=== PATIENT | female | born 1940 | race Caucasian/White ===

== ENCOUNTER 2018-03-07 05:19 | Inpatient (IN) ==
--- NOTE | 2018-03-07 05:25 | ED ---
HPI General Chief complaint: Medical Clearance Stated complaint: BFL issues Time Seen by Provider: 03/07/18 05:20 Source: EMS and police Mode of arrival: EMS Limitations: other History of Present Illness HPI narrative: Patient was [place] acted by Sonia CANO 4 not wanting to take her medications and having a blood sugar of critical high. patient is thirsty Onset (ago): unknown Relieving factors: none Exacerbating factors: none Associated symptoms: denies other symptoms Treatments prior to arrival: none Related Data Home Medications Medication Instructions Recorded Confirmed insulin aspart U-100 [Novolog 14 sliding scale dose SUB-Q UD 03/07/18 03/07/18 U-100 Insulin aspart] insulin glargine [Lantus U-100 38 unit SUB-Q DAILY 03/07/18 03/07/18 Insulin] levothyroxine 300 mcg PO DAILY 03/07/18 03/07/18 Allergies Allergy/AdvReac Type Severity Reaction Status Date / Time No Allergy Information Allergy Verified 03/07/18 05:38 Available [facility] Medical History Medical History Diabetes (Acute) Surgical History Surgical History Hx of cholecystectomy (Acute) Social History Social History Substance History: No History of Abuse Second Hand Smoke Exposure: No Smoking Status: Former smoker How Often Do You Have a Drink Containing Alcohol: Never Recent Travel in [place] within the Last 8 Weeks: No Recent Out of Country Travel within the Last 8 Weeks: No Exam Narrative Exam Narrative: GENERAL: Elderly in distress SKIN: Warm and dry. HEAD: Atraumatic. Normocephalic. EYES: Pupils equal and round. No scleral icterus. No injection or drainage. ENT: No nasal bleeding or discharge. Mucous membranes pink and moist. NECK: Trachea midline. No JVD. CARDIOVASCULAR: Tachycardic rate regular rhythm . no rubs or gallops RESPIRATORY: No accessory muscle use. Clear to auscultation. Breath sounds equal bilaterally. However the patient was tachypneic, consistent with Kussmaul breathing GASTROINTESTINAL: Abdomen soft, non-tender, nondistended. No rebound or guarding MUSCULOSKELETAL: Extremities without clubbing, cyanosis, or edema. No obvious deformities. NEUROLOGICAL: Awake and alert. No obvious cranial nerve deficits. Motor grossly within normal limits. Five out of 5 muscle strength in the arms and legs. Normal speech. Course Initial Documented Vital Signs Pulse Rate 97 H 03/07/18 05:22 Respiratory Rate 22 03/07/18 05:22 Blood Pressure 120/54 L 03/07/18 05:22 Pulse Oximetry 100 03/07/18 05:22 Last Documented Vital Signs Pulse Rate 100 H 03/07/18 06:11 Respiratory Rate 20 03/07/18 06:11 Blood Pressure 104/63 03/07/18 06:11 Pulse Oximetry 100 03/07/18 06:11 Critical Care Time Critical Care Time: Yes Total Critical Care Time: 60 Attestation: Aggregate critical care time was 60 minutes. Time to perform other separately billable procedures was not included in the critical care time. My time did not include minutes spent treating any other patients simultaneously or on activities that did not directly contribute to the patient's treatment. The services I provided to this patient were to treat and/or prevent clinically significant deterioration that could result in: Further metabolic deterioration, acidosis and I provided critical care services requiring my management, as noted below: Chart data review, documentation time, medication orders and management, vital sign assessments/reviewing monitor data, ordering and reviewing lab tests, ordering and interpreting/reviewing x-rays and diagnostic studies, care of the patient and discussion of the patient with the admitting physicians. Medical Decision Making MDM Narrative Medical decision making narrative: Patient's bedside Accu-Chek read as high, which is generally greater than 600. Patient's ABG showed pH of 7.094, PCO2 of 9.3, PaO2 143 on room air all consistent with metabolic acidosis. CBC shows 17,000 leukocytosis with 83% neutrophilia hemoglobin of 11 hematocrit of 37 megaloblastic doses of MCV of 104 Chemistry shows sodium of hyponatremia 130, chloride of 92 bicarb of 5 anion gap of 33 BUN of 48 creatinine of 2.17, estimated GFR 22, random glucose 683, LFTs normal lipase normal. Troponin elevated at 1.28, Beta hydroxybutyrate acid 12 Chest x-ray read by radiologist as no evidence of acute cardiopulmonary disease Medical Screen Exam Complete: Yes Emergency Medical Condition: Yes Differential Diagnosis Differential Diagnosis: Hyperglycemia versus DKA versus hyperosmolar Medical Records Medical records reviewed: Yes I reviewed the patient's medical records. Lab Data Result diagrams: 03/07/18 05:30 03/07/18 05:30 Lab Results 03/07/18 03/07/18 03/07/18 Range/Units 05:22 05:24 05:30 WBC 17.3 H (4.0-11.0) th/mm3 RBC 3.54 L (4.00-5.30) mil/mm3 Hgb 11.2 L (11.6-15.3) gm/dL Hct 36.9 (35.0-46.0) % MCV 104.1 H (80.0-100.0) fL MCH 31.6 (27.0-34.0) pg MCHC 30.3 L (32.0-36.0) % RDW 14.7 (11.6-17.2) % Plt Count 336 (150-450) th/mm3 MPV 8.2 (7.0-11.0) fL Neut % (Auto) 82.6 H (16.0-70.0) % Lymph % (Auto) 8.4 L (9.0-44.0) % [place] % (Auto) 8.2 H (0.0-8.0) % Eos % (Auto) 0.1 (0.0-4.0) % Baso % (Auto) 0.7 (0.0-2.0) % Neut # (Auto) 14.3 H (1.8-7.7) th/mm3 Lymph # (Auto) 1.5 (1.0-4.8) th/mm3 [place] # (Auto) 1.4 H (0.0-0.9) th/mm3 Eos # (Auto) 0.0 (0.0-0.4) th/mm3 Baso # (Auto) 0.1 (0.0-0.2) th/mm3 WBC Differential . Differential Comment Auto diff final Puncture Site Right radial Patient Temperature 98.6 O2 Saturation 95 (90-100) % ABG pH 7.09 L* (7.380-7.420) ABG pCO2 9 L* (38-42) mmHg ABG pO2 143 H (61-120) mmHg ABG HCO3 3 L* (22-26) mmol/L ABG O2 Content 14.1 (12.0-20.0) Vol % ABG Base Excess -26.0 L (-2-2) mmol/L ABG Methemoglobin 1.2 (0-2) % Louie Test Present Hemoglobin 10.4 L (12.0-16.0) G/DL Carboxyhemoglobin 1.4 (0-4) % O2 Delivery Device Room air Inspired O2 21 % Critical Value Yes Sodium (136-145) meq/L Potassium (3.5-5.1) meq/L Chloride (98-107) meq/L Carbon Dioxide (21.0-32.0) meq/L Anion Gap (5-15) meq/L BUN (7-18) mg/dL Creatinine (0.50-1.00) mg/dL Estimated GFR (>89) mL/min POC Glucose Greater than 600 H* (68-110) mg/dl Random Glucose (74-106) mg/dL Osmolality (275-295) mosm/kg Calcium (8.5-10.1) mg/dL Total Bilirubin (0.2-1.0) mg/dL AST (15-37) U/L ALT (10-53) U/L Alkaline Phosphatase (45-117) U/L Troponin I (0.02-0.05) ng/mL Total Protein (6.4-8.2) g/dL Albumin (3.4-5.0) g/dL Lipase (73-393) U/L Beta-Hydroxybutyric Acd (0.00-0.39) mmol/L Urine Color (Yellw/Straw) Urine Clarity (Clear) Urine pH (5.0-8.5) Ur Specific [place] (1.002-1.035) Urine Protein (Neg-Trace) mg/dL Urine Glucose (UA) (Negative) mg/dL Urine Ketones (Negative) mg/dL Urine Occult Blood (Negative) Urine Nitrate (Negative) Urine Bilirubin (Negative) Urine Urobilinogen (Less than 2) mg/dL Ur Leukocyte Esterase (Negative) Urine RBC (0-3) /hpf Urine WBC (0-5) /hpf Urine Bacteria (None) /hpf Urine Mucus (Occasional) /lpf Micro UA Comment Ur Microscopic Review Urine Culture Comments 03/07/18 03/07/18 Range/Units 05:30 06:00 WBC (4.0-11.0) th/mm3 RBC (4.00-5.30) mil/mm3 Hgb (11.6-15.3) gm/dL Hct (35.0-46.0) % MCV (80.0-100.0) fL MCH (27.0-34.0) pg MCHC (32.0-36.0) % RDW (11.6-17.2) % Plt Count (150-450) th/mm3 MPV (7.0-11.0) fL Neut % (Auto) (16.0-70.0) % Lymph % (Auto) (9.0-44.0) % [place] % (Auto) (0.0-8.0) % Eos % (Auto) (0.0-4.0) % Baso % (Auto) (0.0-2.0) % Neut # (Auto) (1.8-7.7) th/mm3 Lymph # (Auto) (1.0-4.8) th/mm3 [place] # (Auto) (0.0-0.9) th/mm3 Eos # (Auto) (0.0-0.4) th/mm3 Baso # (Auto) (0.0-0.2) th/mm3 WBC Differential Differential Comment Puncture Site Patient Temperature O2 Saturation (90-100) % ABG pH (7.380-7.420) ABG pCO2 (38-42) mmHg ABG pO2 (61-120) mmHg ABG HCO3 (22-26) mmol/L ABG O2 Content (12.0-20.0) Vol % ABG Base Excess (-2-2) mmol/L ABG Methemoglobin (0-2) % Louie Test Hemoglobin (12.0-16.0) G/DL Carboxyhemoglobin (0-4) % O2 Delivery Device Inspired O2 % Critical Value Sodium 130 L (136-145) meq/L Potassium 4.8 (3.5-5.1) meq/L Chloride 92 L (98-107) meq/L Carbon Dioxide 5.0 L (21.0-32.0) meq/L Anion Gap 33 H (5-15) meq/L BUN 48 H (7-18) mg/dL Creatinine 2.17 H (0.50-1.00) mg/dL Estimated GFR 22 L (>89) mL/min POC Glucose (68-110) mg/dl Random Glucose 683 H* (74-106) mg/dL Osmolality 337 H (275-295) mosm/kg Calcium 8.7 (8.5-10.1) mg/dL Total Bilirubin 0.4 (0.2-1.0) mg/dL AST 22 (15-37) U/L ALT 22 (10-53) U/L Alkaline Phosphatase 158 H (45-117) U/L Troponin I 1.28 H* (0.02-0.05) ng/mL Total Protein 7.1 (6.4-8.2) g/dL Albumin 3.7 (3.4-5.0) g/dL Lipase 137 (73-393) U/L Beta-Hydroxybutyric Acd 12.11 H (0.00-0.39) mmol/L Urine Color Yellow (Yellw/Straw) Urine Clarity Hazy H (Clear) Urine pH 5.0 (5.0-8.5) Ur Specific [place] 1.017 (1.002-1.035) Urine Protein 30 H (Neg-Trace) mg/dL Urine Glucose (UA) 500 or greater (Negative) mg/dL Urine Ketones 80 or greater H (Negative) mg/dL Urine Occult Blood Small H (Negative) Urine Nitrate Negative (Negative) Urine Bilirubin Negative (Negative) Urine Urobilinogen Less than 2 (Less than 2) mg/dL Ur Leukocyte Esterase Negative (Negative) Urine RBC 1 (0-3) /hpf Urine WBC 1 (0-5) /hpf Urine Bacteria Rare H (None) /hpf Urine Mucus Few H (Occasional) /lpf Micro UA Comment Culture not ind Ur Microscopic Review Not Reportable Urine Culture Comments Culture not ind Imaging Data Radiologist's impression: Chest X-Ray 03/07/18 05:21 CONCLUSION: No evidence of acute cardiopulmonary disease. ECG Data EKG Prior to Arrival: No Attestation: I personally reviewed and interpreted this ECG as follows: Prior ECG tracings: not available for review Interpretation: Sinus tachycardia with a 100 bpm rate, occasional PACs, nonspecific ST-T wave changes, no acute ST elevation CO pattern Discharge Plan Discharge Disposition Patient Disposition: 30 Still Patient Discharge Condition Condition: Fair Discharge Details Diagnosis: Diabetic ketoacidosis associated with type 2 diabetes mellitus Physicians Team ED Provider: Roosevelt Meade Primary Care Provider: UNKNOWN, Rxs /Orders / Referrals /Forms Prescriptions: No Action insulin glargine [Lantus U-100 Insulin] 100 unit/mL Solution 38 unit SUB-Q DAILY RF: 0 insulin aspart U-100 [Novolog U-100 Insulin aspart] 100 unit/mL Solution 14 sliding scale dose SUB-Q UD RF: 0 levothyroxine 300 mcg Tablet 300 mcg PO DAILY RF: 0 Status ED Status: With Doctor
[2018-03-07 05:39] LABS: ABG PCO2 9 mmHg (38-42); ABG PO2 143 mmHg (61-120)
[2018-03-07] MEDS ORDERED: Dextrose 50% in Water 50 ML Vial IV.PUSH PRN ×2 (05:41→21:47)
[2018-03-07] MEDS ORDERED: Insulin Human-R 100 UNIT/100ML 100 UNIT/100 ML BAG IV.CONT ONE (05:41)
--- NOTE | 2018-03-07 05:48 | XR ---
EXAM DATE: 03/07/2018 5:35 AM EDT AGE/SEX: 77 years / Female INDICATIONS: Pneumonia. Short of breath. CLINICAL DATA: This is the patient's initial encounter. Patient reports that signs and symptoms have been present for 1 day and indicates a pain score of Nonresponsive. MEDICAL/SURGICAL HISTORY: Non-responsive. . Left shoulder. COMPARISON: No prior exams available for comparison. FINDINGS: A single AP view of the chest demonstrates the lungs to be symmetrically aerated without evidence of mass, infiltrate or effusion. The cardiomediastinal contours are unremarkable. Left chest wall loop recorder. 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 CONCLUSION: No evidence of acute cardiopulmonary disease. Electronically signed by: Twan Hoover MD 03/07/2018 5:47 AM EDT
[2018-03-07 05:50] LABS: Baso # (Auto) 0.1 th/mm3 (0.0-0.2); Baso % (Auto) 0.7 % (0.0-2.0); Eos % (Auto) 0.1 % (0.0-4.0); Hematocrit 36.9 % (35.0-46.0); Hemoglobin 11.2 gm/dL (11.6-15.3); Lymph # (Auto) 1.5 th/mm3 (1.0-4.8); Lymph % (Auto) 8.4 % (9.0-44.0); Mean Corpuscular Hemoglobin 31.6 pg (27.0-34.0); Mean Corpuscular Volume 104.1 fL (80.0-100.0); Mean Platelet Volume 8.2 fL (7.0-11.0); Mono # (Auto) 1.4 th/mm3 (0.0-0.9); Mono % (Auto) 8.2 % (0.0-8.0); Neut # (Auto) 14.3 th/mm3 (1.8-7.7); Neut % (Auto) 82.6 % (16.0-70.0); Platelet Count 336 th/mm3 (150-450); Red Blood Count 3.54 mil/mm3 (4.00-5.30); Red Cell Distribution Width 14.7 % (11.6-17.2); White Blood Count 17.3 th/mm3 (4.0-11.0)
[2018-03-07 05:53] LABS: Mean Corpuscular HGB Conc 30.3 % (32.0-36.0)
[2018-03-07 06:15] LABS: Alanine Aminotransferase 22 U/L (10-53); Albumin 3.7 g/dL (3.4-5.0); Anion Gap 33 meq/L (5-15); Aspartate Aminotransferase 22 U/L (15-37); Blood Urea Nitrogen 48 mg/dL (7-18); Calcium 8.7 mg/dL (8.5-10.1); Chloride 92 meq/L (98-107); Glomerular Filtration Rate 22 mL/min (>89); Lipase 137 U/L (73-393); Potassium 4.8 meq/L (3.5-5.1); Sodium 130 meq/L (136-145)
[2018-03-07] MEDS ORDERED: Sod Chloride 0.9% Inj 1,000 ML IV.SIG ONE ×2 (06:17→06:22)
[2018-03-07 06:22] LABS: Bacteria,Urine Rare /hpf; Bilirubin,Urine Negative (Negative); Clarity,Urine Hazy (Clear); Color,Urine Yellow (Yellw/Straw); Glucose,Urine (UA) 500 or Greater mg/dL (Negative); Leukocyte Esterase,Urine Negative (Negative); Mucus,Urine Few /lpf (Occasional); Nitrite,Urine Negative (Negative); Specific Gravity,Urine 1.017 (1.002-1.035)
[2018-03-07 06:32] LABS: Alkaline Phosphatase 158 U/L (45-117); Beta Hydroxybutyric Acid 12.11 mmol/L (0.00-0.39); Total Protein 7.1 g/dL (6.4-8.2)
[2018-03-07 06:41] LABS: Glucose,Random 683 mg/dL (74-106); Troponin I 1.28 ng/mL (0.02-0.05)
[2018-03-07] MEDS ORDERED: Sodium Phosphate Inj 15 MMOL in Sodium Chlor 0.9% Inj 100 ML IV.SIG PRN (07:37)
[2018-03-07] MEDS ORDERED: Potassium Chlor 40 mEq Premix 40 MEQ/100 ML PIGGYBACK IV.SIG PRN ×2 (07:37)
[2018-03-07] MEDS ORDERED: Potassium Chlor 20 mEq Premix 20 MEQ/100 ML PIGGYBACK IV.SIG PRN ×5 (07:37)
[2018-03-07] MEDS: Sod Chloride 0.9% Inj 1,000 ML IV.SIG SCH ×3 (07:52→08:09)
[2018-03-07] MEDS ORDERED: Morphine Sulfate Inj 2 MG/ML Vial IV.PUSH PRN (07:53)
[2018-03-07] MEDS ORDERED: Bisacodyl 10 MG Supp RECTAL PRN (07:53)
[2018-03-07] MEDS ORDERED: Acetaminophen 325 MG Tablet PO PRN (07:53)
[2018-03-07] MEDS: Insulin Regular (For Infusion) 100 UNIT in Sodium Chlor 0.9% Inj 99 ML IV.CONT PRN ×2 (07:55→17:00)
[2018-03-07] MEDS: Sod Chloride 0.9% Inj 1,000 ML IV.CONT SCH ×3 (08:07→15:51)
--- NOTE | 2018-03-07 08:08 | P.HPCC ---
History of Present Illness Service: Critical care medicine Primary Care Physician: UNKNOWN Chief Complaint: Confusion/Charlton act from medical noncompliance History of Present Illness: 77-year-old female. Date of admission 03/07/2018. Past medical history includes diabetes mellitus since 1991 and hypothyroidism. Patient is a Charlton act from [facility] where she is brought by the police department where she was a well person check where she is nearby pleased to be disheveled with an high blood sugar. Please placed under Charlton act due to the fact that she stated that she knew that her blood sugar was high in the could result in her being in a coma and that she did not care at that time. Patient was transferred to [facility] for further evaluation treatment. Laboratories revealed a leukocytosis of 17,000. Macrocytic anemia. Elevated troponin of 1.28. EKG pending. Acute kidney injury of 2.2. Patient denies chest pain, shortness of breath, abdominal pain, nausea vomiting or diarrhea. Chest x-ray reviewed no acute cardiopulmonary findings. EKG revealed sinus tachycardia with no specific ST-T changes. Patient may need Raynaud's desire to have a bowel movement. Inpatient Certification: I certify that the inpatient services were ordered in accordance with Medicare regulations governing the order. This includes certification that hospital inpatient services are reasonable and necessary and in the case of services not specified as inpatient-only under 42 CFR 419.22(n), that they are appropriately provided as inpatient services in accordance to with the 2-midnight benchmark under 43 CFR 412.3(e) Estimated Total Length of Stay (Days): 3 Plans for Post Hospital Care: Home Review of Systems unobtainable due to mental status PMFSH - History History Provided By: Patient - Medical History Medical History: Medical History (Last Updated 03/07/18 @ 08:08 by Adis Prajapati MD) Diabetes Hypothyroidism - Surgical History Surgical History: Surgical History (Last Updated 03/07/18 @ 05:27 by Lachelle Gutierrez) Hx of cholecystectomy - Family History Family History: Family History (Last Updated 03/07/18 @ 08:02 by Adis Prajapati MD) Other Family history unobtainable due to patient's condition - Social History I have reviewed the patient's Social History: Yes - Tobacco History Second Hand Smoke Exposure: No Smoking Status: Former smoker - Alcohol History How Often Do You Have a Drink Containing Alcohol: Never - Substance Use History Substance History: No History of Abuse - Travel History Recent Travel in the [place] Within the Last 8 Weeks: No Recent Travel Out of the Country Within the Last 8 Weeks: No - Immunization History Tetanus Immunization: Unsure Hx Influenza Vaccine This Season: Yes Medications and Allergies Active Medications: Active Medications Acetaminophen (Tylenol) 650 mg PO Q6H PRN PRN Reason: PAIN 1-10 AND/OR FEVER >101F Hydrocodone Bitart/Acetaminophen ([place] 5/325) 1 tab PO Q4H PRN PRN Reason: PAIN SCALE 1 TO 5 Al Hydroxide/Mg Hydroxide (Milk Of [place] Helm) 30 ml PO Q12H PRN PRN Reason: Mild Constipation Albuterol (Albuterol Neb (Obed)) 2.5 mg NEB Q2HR NEB PRN PRN Reason: SHORTNESS OF BREATH/WHEEZING Bisacodyl (Dulcolax Supp) 10 mg RECTAL DAILY PRN PRN Reason: SEVERE CONSITIPATION Chlorhexidine Gluconate (Chlorhexidine 2% Cloth) 3 pack TOPICAL DAILY@0400 OBED Stop: 03/13/18 03:59 Chlorhexidine Gluconate (Chlorhexidine 2% Cloth) 3 pack TOPICAL DAILY@0400 PRN PRN Reason: Extra cloth needed Stop: 03/13/18 03:59 Chlorhexidine Gluconate (Chlorhexidine 2% Cloth) 3 pack TOPICAL DAILY@0400 OBED Stop: 03/13/18 03:59 Chlorhexidine Gluconate (Chlorhexidine 2% Cloth) 3 pack TOPICAL DAILY@0400 PRN PRN Reason: Extra cloth needed Stop: 03/13/18 03:59 Dextrose (D50w Vial) 50 ml IV.PUSH UNSCH PRN PRN Reason: PER HYPOGLYCEMIA PROTOCOL Heparin Sodium (Porcine) (Heparin Inj) 5,000 units SQ Q12H OBED Dextrose/Sodium Chloride (D5w/Normal Saline Inj) 1,000 mls @ 200 mls/hr IV.CONT .Q5H OBED Insulin Human Regular 100 unit (/ Sodium Chloride) 100 mls @ 6 mls/hr IV.CONT TITRATE PRN; Protocol PRN Reason: See protocol Sodium Chloride (Ns Inj) 1,000 mls @ 250 mls/hr IV.CONT .Q4H OBED Sodium Chloride (Ns Inj) 1,000 mls @ 1,000 mls/hr IV.SIG .Q1H OBED Stop: 03/07/18 09:44 Last Admin: 03/07/18 07:57 Dose: Not Given Potassium Chloride (Kcl 40 Meq Premix Inj) 40 meq in 100 mls @ 100 mls/hr IV.SIG Q1H PRN PRN Reason: for Initial K+ ONLY < 3.5 Potassium Chloride (Kcl 40 Meq Premix Inj) 40 meq in 100 mls @ 50 mls/hr IV.SIG Q2H PRN PRN Reason: for Subsequent K+ < 3.5 Potassium Chloride (Kcl 20 Meq Premix Inj) 20 meq in 100 mls @ 100 mls/hr IV.SIG Q1H PRN PRN Reason: for K+ 3.5 to 4.4 Potassium Chloride (Kcl 20 Meq Premix Inj) 20 meq in 100 mls @ 100 mls/hr IV.SIG Q1H PRN PRN Reason: for K+ 4.5 to 5 Potassium Chloride (Kcl 20 Meq Premix Inj) 20 meq in 100 mls @ 50 mls/hr IV.SIG Q2H PRN PRN Reason: for Subsequent K+ < 3.5 Potassium Chloride (Kcl 20 Meq Premix Inj) 20 meq in 100 mls @ 50 mls/hr IV.SIG Q2H PRN PRN Reason: for K+ 3.5 to 4.4 Potassium Chloride (Kcl 20 Meq Premix Inj) 20 meq in 100 mls @ 50 mls/hr IV.SIG Q2H PRN PRN Reason: for K+ 4.5 to 5 Sodium Phosphate 15 mmol/ (Sodium Chloride) 105 mls @ 25 mls/hr IV.SIG UNSCH PRN PRN Reason: for Phosphate Level < 1.0 Potassium Chloride (Kcl 20 Meq Premix Inj) 20 meq in 100 mls @ 50 mls/hr IV.SIG Q2H PRN PRN Reason: for Initial K+ ONLY < 3.5 Lactulose (Lactulose Liq) 30 ml PO DAILY PRN PRN Reason: SEVERE CONSITIPATION Levothyroxine Sodium (Synthroid) 300 mcg PO DAILY@0600 [facility] Morphine Sulfate (Morphine Inj) 2 mg IV.PUSH Q2H PRN PRN Reason: PAIN SCALE 6 TO 10 Pantoprazole Sodium (Protonix Inj) 40 mg IV.PUSH DAILY [facility] Senna/Docusate Sodium (Hanane-Colace) 1 tab PO BID OBED Sennosides (Senokot) 17.2 mg PO Q12H PRN PRN Reason: Moderate Constipation Sodium Bicarbonate (Sodium Bicarbonate 8.4% Inj) 50 meq IV.PUSH UNSCH PRN PRN Reason: for pH 6.9 to 7.0 Sodium Bicarbonate (Sodium Bicarbonate 8.4% Inj) 100 meq IV.PUSH UNSCH PRN PRN Reason: for pH less than 6.9 Sodium Chloride (Ns Flush) 2 ml IV.FLUSH PRN PRN PRN Reason: FLUSH AFTER USING IV ACCESS Sodium Chloride (Ns Flush) 2 ml IV.FLUSH BID OBED Sodium Chloride (Ns Flush) 2 ml IV.FLUSH PRN PRN PRN Reason: FLUSH AFTER USING IV ACCESS Allergies Allergy/AdvReac Type Severity Reaction Status Date / Time No Known Allergies Allergy Unverified 03/07/18 07:38 Home Medications Medication Instructions Recorded Confirmed Type insulin aspart U-100 [Novolog 14 sliding scale dose SUB-Q UD 03/07/18 03/07/18 History U-100 Insulin aspart] insulin glargine [Lantus U-100 38 unit SUB-Q DAILY 03/07/18 03/07/18 History Insulin] levothyroxine 300 mcg PO DAILY 03/07/18 03/07/18 History Results - Labs CBC & Chem 7: 03/07/18 05:30 03/07/18 05:30 Labs: Short CBC 03/07/18 Range/Units 05:30 WBC 17.3 H (4.0-11.0) th/mm3 Hgb 11.2 L (11.6-15.3) gm/dL Hct 36.9 (35.0-46.0) % Plt Count 336 (150-450) th/mm3 [facility] 03/07/18 05:30 Sodium 130 L Potassium 4.8 Chloride 92 L Carbon Dioxide 5.0 L BUN 48 H Creatinine 2.17 H Calcium 8.7 Cardiac Enzymes 03/07/18 Range/Units 05:30 Troponin I 1.28 H* (0.02-0.05) ng/mL Liver Function 03/07/18 Range/Units 05:30 Total Bilirubin 0.4 (0.2-1.0) mg/dL AST 22 (15-37) U/L ALT 22 (10-53) U/L Alkaline Phosphatase 158 H (45-117) U/L Albumin 3.7 (3.4-5.0) g/dL Urine 03/07/18 Range/Units 06:00 Urine Color Yellow (Yellw/Straw) Urine Clarity Hazy H (Clear) Urine pH 5.0 (5.0-8.5) Ur Specific [place] 1.017 (1.002-1.035) Urine Protein 30 H (Neg-Trace) mg/dL Urine Glucose (UA) 500 or greater (Negative) mg/dL - Imaging Impressions Chest X-Ray 03/07/18 05:21 CONCLUSION: No evidence of acute cardiopulmonary disease. Exam Vital signs: Vital Signs 03/07/18 05:22 03/07/18 05:28 03/07/18 05:29 Pulse Rate 97 H 100 H Respiratory Rate 22 Blood Pressure 120/54 L Pulse Oximetry 100 100 03/07/18 06:11 03/07/18 07:00 Pulse Rate 100 H 93 H Respiratory Rate 20 17 Blood Pressure 104/63 117/54 L Pulse Oximetry 100 100 Intake & Output 03/06/18 03/07/18 03/07/18 18:59 06:59 18:59 Intake Total 1999 Balance 1999 Weight 121.563 kg Intake: IV 1999 NS Inj 1,000 ML @ Wide Open IV. 1999 SIG BOLUS ONE Rx#:[id number] - Constitutional no acute distress - Routine HEENT Exam Head: Present: normocephalic, atraumatic Eye: Present: EOMI, PERRL ENT: Present: mucous membranes dry - Routine Neck Exam Present: supple, full ROM. Absent: JVD - Routine Chest/Breast/Axilla Exam Chest wall: Absent: tenderness Breast: Absent: tenderness Axillae: Absent: lymphadenopathy - Routine Respiratory Exam Present: CTA bilaterally. Absent: accessory muscle use - Routine Cardiovascular Exam Present: S1, S2, tachycardia. Absent: murmur - Routine Abdominal Exam Present: soft, normoactive bowel sounds - Routine Extremities Exam Absent: cyanosis, clubbing, edema - Routine Skin Exam Present: intact - Routine Neurological Exam Present: alert, CN II-XII intact. Absent: oriented X3, sensory deficit, motor deficit Septic Shock Reassessment Septic shock perfusion: reassessment completed Caprini VTE Risk Assessment Caprini VTE Risk Assessment: No/Low Risk (score <= 1) Caprini Risk Assessment Model: Point Value = 1 Point Value = 2 Point Value = 3 Point Value = 5 Age 41-60 Minor surgery BMI > 25 kg/m2 Swollen legs Varicose veins or History of unexplained or recurrent spontaneous Oral contraceptives or hormone replacement Sepsis (< 1 month) Serious lung disease, including pneumonia (< 1 month) Abnormal pulmonary function Acute myocardial infarction Congestive heart failure (< 1 month) History of inflammatory bowel disease Medical patient at bed rest Age 61-74 Arthroscopic surgery Major open surgery (> 45 min) Laparoscopic surgery (> 45 min) Malignancy Confined to bed (> 72 hours) Immobilizing plaster cast Central venous access Age >= 75 History of VTE Family history of VTE Factor V Leiden Prothrombin 30155C Lupus anticoagulant Anticardiolipin antibodies Elevated serum homocysteine Heparin-induced thrombocytopenia Other congenital or acquired thrombophilia Stroke (< 1 month) Elective arthroplasty Hip, pelvis, or leg fracture Acute spinal cord injury (< 1 month) Prophylaxis Regimen: Total Risk Factor Score Risk Level Prophylaxis Regimen 0-1 Low Early ambulation 2 Moderate Order ONE of the following: *Sequential Compression Device (SCD) *Heparin 5000 units SQ BID 3-4 Higher Order ONE of the following medications: *Heparin 5000 units SQ TID *Enoxaparin/Lovenox 40 mg SQ daily (WT < 150 kg, CrCl > 30 mL/min) *Enoxaparin/Lovenox 30 mg SQ daily (WT < 150 kg, CrCl > 10-29 mL/min) *Enoxaparin/Lovenox 30 mg SQ BID (WT < 150 kg, CrCl > 30 mL/min) AND/OR *Sequential Compression Device (SCD) 5 or more Highest Order ONE of the following medications: *Heparin 5000 units SQ TID (Preferred with Epidurals) *Enoxaparin/Lovenox 40 mg SQ daily (WT < 150 kg, CrCl > 30 mL/min) *Enoxaparin/Lovenox 30 mg SQ daily (WT < 150 kg, CrCl > 10-29 mL/min) *Enoxaparin/Lovenox 30 mg SQ BID (WT < 150 kg, CrCl > 30 mL/min) AND *Sequential Compression Device (SCD) Assessment and Plan - Assessment and Plan Plan: Neuro/Psych: Acute encephalopathy/toxic metabolic secondary to DKA Acetaminophen 650 p.o. every 6 hours as needed fever Hydrocodone/acetaminophen 5/325 1 tablet every 4 hours as needed 1 through 5 Morphine sulfate will get IV every 2 hours as needed pain 6 - 10 Patient under Charlton act. Consult psychiatry when stabilized CV: Elevated troponin Maintain mean arterial pressure greater than equal 65 EKG showed tachycardia with normal VA, QRS and QT intervals. Nonspecific ST-T changes. Cycle troponins until trending downward 2D echocardiogram ordered Check lipid profile Resp: Nasal cannula to maintain saturations greater than or equal to 92% Incentive spirometry while awake As needed albuterol aerosols every 2 hours as needed GI: N.p.o. except for medications Pantoprazole for GI prophylaxis Docusate sodium/senna 1 tablet twice daily for bowel regimen : Pagan catheter if indicated Endo: DKA Diabetes mellitus 1.5 treat as 1.0 Hypothyroidism Received 6 units insulin are 1 currently and drip at 6 units an hour. DKA protocol initiated Accu-Cheks every hour Hemoglobin A1c Switch to D5 normal saline when blood sugar less than equal to 150 Home medications are insulin glargine 30 units at night and U100 sliding scale insulin continue levothyroxine 300 mcg daily. Check TSH Beta hydroxybutyrate every 12 hours until cleared Renal: Acute kidney injury Mostly secondary to dehydration Trend BMP every 6 hours. Renal ultrasound/urine eosinophils and electrolytes if indicated Avoid nephrotoxic medication Heme: Leukocytosis Macrocytic anemia Monitor CBC daily. Follow trends. No indication for transfusion of blood products at this time. Check coag ID: Monitor for signs and symptomatology infection Blood cultures 2 pending. UA negative for acute infection FEN: Hyponatremia Currently normal saline at 250 cc an hour per protocol Replace electrolytes as clinically indicated with BMP, magnesium phosphorus every 6 hours MSK: Elevated BMI Weight loss encouraged Access -Utilize peripheral IV. Central line if indicated Prophylaxis -GI pantoprazole - -DVT SCD/heparin subcu 35 minutes critical care time Code Status: Full code Discussed Condition With: ED physician. Patient. Care plan discussed and all questions answered.
[2018-03-07] MEDS: Dextrose 5%/NaCl 0.9% Inj 1,000 ML IV.CONT SCH ×4 (08:46→21:09)
[2018-03-07] MEDS ORDERED: Heparin - SQ 10,000 UNITS/ML Vial SQ SCH (09:00)
[2018-03-07] MEDS: Pantoprazole Inj 40 MG Vial IV.PUSH SCH (09:32)
[2018-03-07] MEDS: Levothyroxine 150 MCG Tablet PO SCH (09:32)
[2018-03-07] MEDS: Senna/Docusate Sodium 8.6/50 MG Tablet PO SCH ×2 (09:33→23:00)
[2018-03-07 13:22] LABS: Hemoglobin A1c 11.4 % (4.3-6.0)
[2018-03-07 14:37] LABS: Beta Hydroxybutyric Acid 1.48 mmol/L (0.00-0.39); Calcium 7.2 mg/dL (8.5-10.1); Carbon Dioxide 17.3 meq/L (21.0-32.0); Magnesium 1.6 mg/dL (1.5-2.5); Phosphorus 2.5 mg/dL (2.5-4.9); Potassium 4.3 meq/L (3.5-5.1)
[2018-03-07 14:39] LABS: Troponin I 4.64 ng/mL (0.02-0.05)
[2018-03-07] MEDS ORDERED: Magnesium Oxide 400 MG Tablet PO PRN (15:14)
[2018-03-07] MEDS ORDERED: Magnesium Sulfate Inj 2 GM in Sodium Chlor 0.9% Inj 96 ML IV.SIG PRN (15:14)
[2018-03-07] MEDS ORDERED: Sodium Phosphate Inj 30 MMOL in Sodium Chlor 0.9% Inj 250 ML IV.SIG PRN (15:14)
[2018-03-07] MEDS ORDERED: Magnesium Sulfate Inj 4 GM in Sodium Chlor 0.9% Inj 92 ML IV.SIG PRN (15:14)
[2018-03-07] MEDS ORDERED: Potassium Phosphate 500 MG Soluble Tablet PO PRN ×2 (15:14)
[2018-03-07] MEDS ORDERED: Potassium Phosphate Inj 30 MMOL in Sodium Chlor 0.9% Inj 250 ML IV.SIG PRN (15:14)
[2018-03-07 15:43] LABS: Total Protein 5.8 g/dL (6.4-8.2)
[2018-03-07] MEDS: Mag Sulf 1 gm/100 ml Premix 100 ML IV.SIG SCH ×2 (15:50→16:59)
[2018-03-07] MEDS: Potassium Chlor 20 mEq Premix 20 MEQ/100 ML PIGGYBACK IV.SIG PRN ×2 (15:51→17:00)
--- NOTE | 2018-03-07 16:24 | ECHRPT ---
Indication: Heart failure CONCLUSIONS Normal left ventricular size. Mild concentric left ventricular hypertrophy. . The left atrial size is mildly dilated. [id number] mitral valve regurgitation. Aortic valve sclerosis is present. Diffuse calcification of the aortic valve. No aortic valve regurgitation. Moderate aortic valve stenosis. Aortic valve area is 0.82 cm. Aortic valve mean gradient is 24.7 mmHg. There is mild tricuspid valve regurgitation. The estimated pulmonary arterial pressure is 35 mmHg. IVC meaasures 1.9 cms. BP: / HR: Rhythm: MEASUREMENTS (Male / Female) Normal Values Technical Quality: 2D ECHO LV Diastolic Diameter PLAX 3.9 cm 4.2 - 5.9 / 3.9 - 5.3 cm LV Systolic Diameter PLAX 2.8 cm IVS Diastolic Thickness 1.4 cm 0.6 - 1.0 / 0.6 - 0.9 cm LVPW Diastolic Thickness 1.3 cm 0.6 - 1.0 / 0.6 - 0.9 cm LV Relative Wall Thickness 0.7 RV Internal Dim ED PLAX 3.0 cm LVOT Diameter 1.7 cm Aortic Root Diameter 2.4 cm LA Systolic Diameter LX 3.9 cm 3.0 - 4.0 / 2.7 - 3.8 cm LV Ejection Fraction MOD 4C 50.0 % LV Ejection Fraction 4C AL 50.5 % M-MODE Aortic Root Diameter MM 2.6 cm LA Systolic Diameter MM 3.9 cm LA Ao Ratio MM 1.5 AV Cusp Separation MM 0.6 cm DOPPLER AV Peak Velocity 316.0 cm/s AV Peak Gradient 39.9 mmHg AV Mean Gradient 24.7 mmHg AV Velocity Time Integral 68.7 cm LVOT Peak Velocity 98.7 cm/s LVOT Peak Gradient 3.9 mmHg LVOT Velocity Time Integral 24.7 cm AV Area Cont Eq vti 0.8 cm AV Area Cont Eq pk 0.7 cm Mitral E Point Velocity 88.4 cm/s Mitral A Point Velocity 76.5 cm/s Mitral E to A Ratio 1.2 LV E' Lateral Velocity 8.1 cm/s Mitral E to LV E' Lateral Ratio 10.9 LV E' Septal Velocity 8.0 cm/s Mitral E to LV E' Septal Ratio 11.1 TR Peak Velocity 252.0 cm/s TR Peak Gradient 25.4 mmHg Right Atrial Pressure 10.0 mmHg Pulmonary Artery Systolic Pressu 35.4 mmHg Right Ventricular Systolic Press 35.4 mmHg PV Peak Velocity 205.5 cm/s PV Peak Gradient 16.9 mmHg FINDINGS LEFT VENTRICLE Normal left ventricular size. Mild concentric left ventricular hypertrophy. The left ventricular systolic function is normal with an estimated ejection fraction in the range of 60-65%. . RIGHT VENTRICLE Normal right ventricular size and systolic function. LEFT ATRIUM The left atrial size is mildly dilated. RIGHT ATRIUM The right atrial size is normal. ATRIAL SEPTUM Normal atrial septal thickness without atrial level shunting by limited color doppler interrogation. AORTA The aortic root and proximal ascending aorta are normal in size on limited imaging. MITRAL VALVE [id number] mitral valve regurgitation. AORTIC VALVE Aortic valve sclerosis is present. Diffuse calcification of the aortic valve. No aortic valve regurgitation. Moderate aortic valve stenosis. Aortic valve area is 0.82 cm. Aortic valve mean gradient is 24.7 mmHg. TRICUSPID VALVE There is mild tricuspid valve regurgitation. The estimated pulmonary arterial pressure is 35 mmHg. PULMONARY VALVE No pulmonary valve regurgitation or stenosis. VESSELS IVC meaasures 1.9 cms. PERICARDIUM No pericardial effusion. Basil Cantu MD, FACC (Electronically Signed) Final Date:07 March 2018 16:23
[2018-03-07 17:05] LABS: Activated Partial Thrombo Time 23.3 sec (24.3-30.1); Prothrombin Time 10.3 sec (9.8-11.6)
--- NOTE | 2018-03-07 17:10 | P.CONPSY ---
Provisional Diagnosis Admission Date: March 07, 2018 06:59 [place] I.: Adjustment disorder with depressed mood. History of Present Illness Service: CC Primary Care Provider: UNKNOWN Chief Complaint: Confusion/Charlton act from medical noncompliance History of Present Illness: The patient is 77-year-old woman, domiciled with her and daughter in [place], unemployed, supported by Social Security, without no previous psychiatric history, no previous suicide attempts, no previous psychiatric hospitalizations, medical history diabetes hypertension and hypothyroidism, was brought to the hospital on the Charlton act from [facility] where she is brought by the police department where she was a well person check where she is nearby pleased to be disheveled with an high blood sugar. Please placed under Charlton act due to the fact that she stated that she knew that her blood sugar was high in the could result in her being in a coma and that she did not care at that time. Patient was transferred to [facility] for further evaluation treatment.Laboratories revealed a leukocytosis of 17,000. Macrocytic anemia. Elevated troponin of 1.28. EKG pending. Acute kidney injury of 2.2. Patient denies chest pain, shortness of breath, abdominal pain, nausea vomiting or diarrhea. Chest x-ray reviewed no acute cardiopulmonary findings. EKG revealed sinus tachycardia with no specific ST-T changes. Patient may need Raynaud's desire to have a bowel movement. Consulted to psychiatry to address a potential suicidal intention. Chart reviewed. Psychiatric evaluation I find a patient that is calm, cooperative, pleasant. Patient reports that she is not suicidal, she does state that she did not wanted to come to the hospital. Patient states that she feels that he should be a "self choice if you want to get or not treatment" however, at this moment she says that she is happy and comfortable with the treatment that she is receiving at [facility], and she understand that this is the right thing. The patient reports good sleep, good appetite, good level of energy, she denies anhedonia, denies hopelessness, denies helplessness, denies suicidal and homicidal ideation, she denies visual and auditory hallucinations. The patient is fully oriented 3, no attention deficit, no fluctuation of consciousness. The patient denies the use of illegal drugs and alcohol. Review of Systems All other systems reviewed negative except as stated in HPI PMFSH - History History Provided By: Patient - Medical History Medical History: Medical History (Last Updated 03/07/18 @ 08:08 by Adis Prajapati MD) Diabetes Hypothyroidism - Surgical History Surgical History: Surgical History (Last Updated 03/07/18 @ 05:27 by Lachelle Gutierrez) Hx of cholecystectomy - Family History Family History: Family History (Last Updated 03/07/18 @ 08:02 by Adis Prajapati MD) Other Family history unobtainable due to patient's condition - Tobacco History Second Hand Smoke Exposure: No Smoking Status: Former smoker - Alcohol History How Often Do You Have a Drink Containing Alcohol: Never - Substance Use History Substance History: No History of Abuse - Travel History Recent Travel in the [place] Within the Last 8 Weeks: No Recent Travel Out of the Country Within the Last 8 Weeks: No - Immunization History Tetanus Immunization: Unsure Hx Influenza Vaccine This Season: Yes Medications and Allergies Active Medications: Active Medications Acetaminophen (Tylenol) 650 mg PO Q6H PRN PRN Reason: FEVER >101F Hydrocodone Bitart/Acetaminophen ([place] 5/325) 1 tab PO Q4H PRN PRN Reason: PAIN SCALE 1 TO 5 Al Hydroxide/Mg Hydroxide (Milk Of Montez Lijanny) 30 ml PO Q12H PRN PRN Reason: Mild Constipation Albuterol (Albuterol Neb (Prn)) 2.5 mg NEB Q2HR NEB PRN PRN Reason: SHORTNESS OF BREATH/WHEEZING Aspirin (Ecotrin) 81 mg PO DAILY WADE Bisacodyl (Dulcolax Supp) 10 mg RECTAL DAILY PRN PRN Reason: SEVERE CONSITIPATION Chlorhexidine Gluconate (Chlorhexidine 2% Cloth) 3 pack TOPICAL DAILY@0400 [facility] Stop: 03/13/18 03:59 Chlorhexidine Gluconate (Chlorhexidine 2% Cloth) 3 pack TOPICAL DAILY@0400 PRN PRN Reason: Extra cloth needed Stop: 03/13/18 03:59 Dextrose (D50w Vial) 50 ml IV.PUSH UNSCH PRN PRN Reason: PER HYPOGLYCEMIA PROTOCOL Dextrose/Sodium Chloride (D5w/Normal Saline Inj) 1,000 mls @ 200 mls/hr IV.CONT .Q5H [facility] Last Admin: 03/07/18 15:50 Dose: 200 mls/hr Insulin Human Regular 100 unit (/ Sodium Chloride) 100 mls @ 6 mls/hr IV.CONT TITRATE PRN; Protocol PRN Reason: See protocol Last Admin: 03/07/18 17:00 Dose: 6 units/hr, 6 mls/hr Sodium Chloride (Ns Inj) 1,000 mls @ 250 mls/hr IV.CONT .Q4H WADE Last Admin: 03/07/18 15:51 Dose: Not Given Potassium Chloride (Kcl 40 Meq Premix Inj) 40 meq in 100 mls @ 100 mls/hr IV.SIG Q1H PRN PRN Reason: for Initial K+ ONLY < 3.5 Last Admin: 03/07/18 17:00 Dose: 100 mls/hr Potassium Chloride (Kcl 40 Meq Premix Inj) 40 meq in 100 mls @ 50 mls/hr IV.SIG Q2H PRN PRN Reason: for Subsequent K+ < 3.5 Potassium Chloride (Kcl 20 Meq Premix Inj) 20 meq in 100 mls @ 100 mls/hr IV.SIG Q1H PRN PRN Reason: for K+ 3.5 to 4.4 Last Admin: 03/07/18 17:00 Dose: 100 mls/hr Potassium Chloride (Kcl 20 Meq Premix Inj) 20 meq in 100 mls @ 100 mls/hr IV.SIG Q1H PRN PRN Reason: for K+ 4.5 to 5 Potassium Chloride (Kcl 20 Meq Premix Inj) 20 meq in 100 mls @ 50 mls/hr IV.SIG Q2H PRN PRN Reason: for Subsequent K+ < 3.5 Potassium Chloride (Kcl 20 Meq Premix Inj) 20 meq in 100 mls @ 50 mls/hr IV.SIG Q2H PRN PRN Reason: for K+ 3.5 to 4.4 Potassium Chloride (Kcl 20 Meq Premix Inj) 20 meq in 100 mls @ 50 mls/hr IV.SIG Q2H PRN PRN Reason: for K+ 4.5 to 5 Last Infusion: 03/07/18 09:59 Dose: Infused Sodium Phosphate 15 mmol/ (Sodium Chloride) 105 mls @ 25 mls/hr IV.SIG UNSCH PRN PRN Reason: for Phosphate Level < 1.0 Potassium Chloride (Kcl 20 Meq Premix Inj) 20 meq in 100 mls @ 50 mls/hr IV.SIG Q2H PRN PRN Reason: for Initial K+ ONLY < 3.5 Heparin Sodium/Dextrose (Heparin/D5w 25,000 U/250 Ml) 25,000 unit in 250 mls @ 10 mls/hr IV.CONT TITRATE PRN; Protocol PRN Reason: Per Protocol Magnesium Sulfate 4 gm/ Sodium (Chloride) 100 mls @ 50 mls/hr IV.SIG UNSCH PRN PRN Reason: For Magnesium 0.9 - 1.1 mg/dL Magnesium Sulfate 2 gm/ Sodium (Chloride) 100 mls @ 50 mls/hr IV.SIG UNSCH PRN PRN Reason: For Magnesium 1.2 - 1.6 mg/dL Potassium Phosphate 30 mmol/ (Sodium Chloride) 260 mls @ 42 mls/hr IV.SIG UNSCH PRN PRN Reason: SEE LABEL COMMENTS Sodium Phosphate 30 mmol/ (Sodium Chloride) 260 mls @ 42 mls/hr IV.SIG UNSCH PRN PRN Reason: For Phosphorus < 2.5 mg/dL Magnesium Sulfate/Dextrose (Magnesium Sulfate 1 Gm/D5w 100 Ml Premix) 100 mls @ 100 mls/hr IV.SIG Q1H [facility] Stop: 03/07/18 17:59 Last Admin: 03/07/18 16:59 Dose: 100 mls/hr Lactulose (Lactulose Liq) 30 ml PO DAILY PRN PRN Reason: SEVERE CONSITIPATION Levothyroxine Sodium (Synthroid) 300 mcg PO DAILY@0600 [facility] Last Admin: 03/07/18 09:32 Dose: 300 mcg Magnesium Oxide (Mag-Ox) 800 mg PO UNSCH PRN PRN Reason: For Magnesium 1.2 - 1.6 mg/dL Morphine Sulfate (Morphine Inj) 2 mg IV.PUSH Q2H PRN PRN Reason: PAIN SCALE 6 TO 10 Pantoprazole Sodium (Protonix Inj) 40 mg IV.PUSH DAILY [facility] Last Admin: 03/07/18 09:32 Dose: 40 mg Potassium Phosphate (K-Phos Original) 2,000 mg PO Q4H PRN PRN Reason: Phosphorus Less Than 2.5 mg/dL Potassium Phosphate (K-Phos Original) 2,000 mg PO UNSCH PRN PRN Reason: SEE LABEL COMMENTS Senna/Docusate Sodium (Hanane-Colace) 1 tab PO BID [facility] Last Admin: 03/07/18 09:33 Dose: Not Given Sennosides (Senokot) 17.2 mg PO Q12H PRN PRN Reason: Moderate Constipation Sodium Bicarbonate (Sodium Bicarbonate 8.4% Inj) 50 meq IV.PUSH UNSCH PRN PRN Reason: for pH 6.9 to 7.0 Sodium Bicarbonate (Sodium Bicarbonate 8.4% Inj) 100 meq IV.PUSH UNSCH PRN PRN Reason: for pH less than 6.9 Sodium Chloride (Ns Flush) 2 ml IV.FLUSH BID WADE Last Admin: 03/07/18 09:34 Dose: 2 ml Sodium Chloride (Ns Flush) 2 ml IV.FLUSH UNSCH PRN PRN Reason: FLUSH AFTER USING IV ACCESS Allergies Allergy/AdvReac Type Severity Reaction Status Date / Time No Known Allergies Allergy Unverified 03/07/18 07:38 Home Medications Medication Instructions Recorded Confirmed Type insulin aspart U-100 [Novolog 14 sliding scale dose SUB-Q UD 03/07/18 03/07/18 History U-100 Insulin aspart] insulin glargine [Lantus U-100 38 unit SUB-Q DAILY 03/07/18 03/07/18 History Insulin] levothyroxine 300 mcg PO DAILY 03/07/18 03/07/18 History Exam Vital signs: Vital Signs 03/07/18 05:22 03/07/18 05:28 03/07/18 05:29 Temperature Pulse Rate 97 H 100 H Respiratory Rate 22 Blood Pressure 120/54 L Pulse Oximetry 100 100 03/07/18 06:11 03/07/18 07:00 03/07/18 08:00 Temperature Pulse Rate 100 H 93 H Respiratory Rate 20 17 Blood Pressure 104/63 117/54 L Pulse Oximetry 100 100 99 03/07/18 08:14 03/07/18 08:37 03/07/18 09:00 Temperature 98 F Pulse Rate 93 H 95 H Respiratory Rate 26 H 42 H Blood Pressure 93/54 L 90/51 L Pulse Oximetry 84 L 99 95 03/07/18 10:00 03/07/18 11:00 03/07/18 12:00 Temperature 98.7 F Pulse Rate 89 88 89 Respiratory Rate 37 H 27 H 32 H Blood Pressure 95/52 L 106/57 L 109/56 L Pulse Oximetry 98 100 98 03/07/18 13:00 03/07/18 14:00 03/07/18 15:00 Temperature Pulse Rate 87 84 85 Respiratory Rate 27 H 27 H 26 H Blood Pressure 95/56 L 118/56 L 108/58 L Pulse Oximetry 98 100 99 03/07/18 16:00 Temperature 99.2 F Pulse Rate 83 Respiratory Rate 40 H Blood Pressure 110/57 L Pulse Oximetry 100 Intake & Output 03/06/18 03/07/18 03/07/18 18:59 06:59 18:59 Intake Total 3950 / 3950 Output Total 300 / 300 Balance 3650 / 3650 Weight 121.563 kg Intake: IV 3950 / 3950 D5W/Normal Saline Inj 1,000 ML 1000 / 1000 @ 200 mls/hr IV.CONT .Q5H WADE Rx#:[id number] NovoLIN-R 100 UNITS/NS 100 ML ( 50 / 50 for ED) 100 unit In 100 ml @ Per Protocol IV.CONT TITRATE ONE Rx#:[id number] NovoLIN R (IV Infusion) 100 100 / 100 UNIT In NS Inj 99 ML @ 6 UNITS/ HR 6 mls/hr IV.CONT TITRATE PRN Rx#:[id number] NS Inj 1,000 ML @ 250 mls/hr IV 500 / 500 .CONT .Q4H WADE Rx#:[id number] Magnesium Sulfate 1 gm/D5W 100 100 / 100 ml Premix 100 ML @ 100 mls/hr IV.SIG Q1H WADE Rx#:[id number] KCl 20 mEq Premix Inj 20 meq In 200 / 200 100 ml @ 100 mls/hr IV.SIG Q1H PRN Rx#:[id number] NS Inj 1,000 ML @ Wide Open IV. 1999 / 1999 SIG BOLUS ONE Rx#:[id number] Output: Urine Amount (Catheter) 300 / 300 Indwelling Urethral Catheter 300 / 300 Other: Date of Last Bowel Movement 03/07/18 Mental Status Examination Appearance: Appropriate Consciousness: Alert Orientation: x4 Motor Activity: Normal gait Speech: Unremarkable Language: Adequate Fund of Knowledge: Adequate Attention and Concentration: Adequate Memory: Unremarkable Mood: Appropriate Affect: Appropriate Thought Process & Associations: Intact Thought Content: Appropriate Hallucination Type: None Delusion Type: None Suicidal Ideation: No Suicidal Plan: No Suicidal Intention: No Homicidal Ideation: No Homicidal Plan: No Homicidal Intention: No Insight: Adequate Judgment: Adequate Assessment and Plan - Assessment (1) Adjustment disorder with depressed mood Code(s): F43.21 - Adjustment disorder with depressed mood Status: Acute - Plan Plan: Estimated LOS: [] days On my psychiatric evaluation today I find a patient that is calm, cooperative, pleasant. The patient is future oriented, logical coherent and relevant. She denies symptomatology of depression, denies anxiety, denies mia and psychosis. She denies suicidal and homicidal ideation, denies visual and auditory hallucinations. The patient is fully oriented 3, no delirium symptoms present. The patient is in a complete agreement with treatment and medical decisions at the moment. She is found with full decision-making capacity to participate in treatment plan and discharge plan. No admission in psychiatry is indicated at the moment. Justification for Continued Inpatient Stay: Charlton act is lifted.
[2018-03-07] MEDS: Heparin Drip 25,000 UNIT/250 ML BAG IV.CONT PRN (17:38)
[2018-03-07 20:10] LABS: Hemoglobin 9.2 gm/dL (11.6-15.3); Mean Corpuscular HGB Conc 32.7 % (32.0-36.0); Mean Corpuscular Hemoglobin 31.5 pg (27.0-34.0); Mean Corpuscular Volume 96.3 fL (80.0-100.0); Mean Platelet Volume 7.9 fL (7.0-11.0); Platelet Count 222 th/mm3 (150-450); Red Blood Count 2.91 mil/mm3 (4.00-5.30); Red Cell Distribution Width 13.4 % (11.6-17.2); White Blood Count 13.9 th/mm3 (4.0-11.0)
[2018-03-07 20:44] LABS: Chol/HDL Ratio 2.5 Ratio; HDL Cholesterol 52.4 mg/dL (40.0-60.0)
[2018-03-07 21:03] LABS: Troponin I 4.3 ng/mL (0.02-0.05)
[2018-03-07 21:33] LABS: Calcium 7.7 mg/dL (8.5-10.1); Carbon Dioxide 13.6 meq/L (21.0-32.0); Potassium 4.8 meq/L (3.5-5.1)
[2018-03-07 21:34] LABS: Beta Hydroxybutyric Acid 0.48 mmol/L (0.00-0.39)
[2018-03-07] MEDS ORDERED: DC previous DKA orders (HMC 1917) OTHER ONE (21:47)
[2018-03-07] MEDS ORDERED: DC Insulin drip 2 hrs post basal insulin dose OTHER ONE (21:47)
[2018-03-08] MEDS: Insulin NovoLOG Aspart Correctional Sugar Inj SQ SCH ×5 (00:37→20:45)
--- NOTE | 2018-03-08 01:02 | ECG ---
Date Performed: 03/07/2018 Time Performed: 05:38:11 PTAGE: 77 years EKG: SINUS TACHYCARDIA WITH OCCASIONAL SUPRAVENTRICULAR PREMATURE COMPLEXES NONSPECIFIC ST & [address] ABNORMALITY ABNORMAL RHYTHM ECG NO PREVIOUS TRACING DOCTOR: Daniel Stafford Interpretating Date/Time 03/08/2018 01:01:00
[2018-03-08 01:07] LABS: Beta Hydroxybutyric Acid 2.86 mmol/L (0.00-0.39); Calcium 7.5 mg/dL (8.5-10.1); Carbon Dioxide 14.8 meq/L (21.0-32.0); Magnesium 2.3 mg/dL (1.5-2.5); Phosphorus 2.7 mg/dL (2.5-4.9); Potassium 4.8 meq/L (3.5-5.1)
[2018-03-08 01:09] LABS: Troponin I 3.86 ng/mL (0.02-0.05)
[2018-03-08] MEDS: Dextrose 5%/NaCl 0.9% Inj 1,000 ML IV.CONT SCH ×2 (01:23→05:22)
[2018-03-08] MEDS: Sod Chloride 0.9% Inj 1,000 ML IV.CONT SCH ×6 (01:23→18:27)
--- NOTE | 2018-03-08 02:17 | MB ---
cc: Daniel Stafford DO DATE: 03/07/2018 REASON FOR CONSULTATION: NSTEMI. HISTORY OF PRESENT ILLNESS: Heather Nails is a pleasant 77-year-old female who sees my partner, Dr. Jean Bueno, and presented to [facility] as a Charlton Act. She was brought by the police where she was a well-person check and found to be disheveled with an extremely high blood sugar. It was felt at that time she was unable to take care of herself and that her high blood sugar could lead to her being in a coma and so she was brought in at that time as a Charlton Act. At this time, she is alert, awake and oriented x3. She states that she has been overly tired for the past few days to weeks and she slept all day without taking any of her diabetes medicine and that probably led to her elevated blood sugars. While here, troponins were checked and elevated. In discussing this with her and reviewing the office notes, apparently, she had a cardiac catheterization in [facility] in [facility] in July and at that time was found to have LAD proximal 70%, left circumflex 60%, and RCA mild luminal irregularities. Overall, it was felt that the vessels were small and so she was recommended medical management at that time. She denies current chest pain or shortness of breath. PAST MEDICAL HISTORY: 1. Diabetes mellitus. 2. Hypertension. 3. Hypothyroidism. PAST SURGICAL HISTORY: History of cholecystectomy. ALLERGIES: NO KNOWN DRUG ALLERGIES. MEDICATIONS: 1. Lantus 38 units daily. 2. NovoLog sliding scale. 3. Synthroid 300 mcg daily. FAMILY HISTORY: Denies sudden cardiac within the family. SOCIAL HISTORY: The patient is a former smoker. Denies alcohol or drug abuse. REVIEW OF SYSTEMS: Fourteen systems were reviewed including osteopathic. Pertinent positives and negatives above, otherwise negative. PHYSICAL EXAMINATION: VITAL SIGNS: Temperature 99.2, heart rate 79, blood pressure 111/56, respirations 24, pulse oximetry 99% on room air. GENERAL: The patient is mildly lethargic, but arousable to questioning. She is oriented x3. HEENT: Extraocular muscles intact. Mucous membranes moist. NECK: Supple. No JVD at 45 degrees. No carotid bruits heard bilaterally. Carotid upstrokes brisk in nature. HEART: Regular rate and rhythm. Positive first and second heart sounds with no noted murmurs, gallops or rubs. LUNGS: Clear to auscultation bilaterally. No wheezes, rales or rhonchi. ABDOMEN: Soft, nontender, nondistended. No organomegaly noted. EXTREMITIES: Show no clubbing, cyanosis or edema. Femoral and distal pulses are intact bilaterally. NEUROLOGIC: No focal deficits. SKIN: Warm, dry and intact. OSTEOPATHIC: No kyphoscoliosis, lordosis or paraspinal tender points. LABORATORY DATA: Hemoglobin 11.2, hematocrit 36.9, platelets 336. Potassium 4.8, BUN 48, creatinine 2.17. Hemoglobin A1c 11.4. Troponin 1.28, increasing to 4.64. Electrocardiogram (03/07/2018 at 05:38): Sinus tachycardia, nonspecific ST-T wave changes. IMPRESSION: 1. Diabetic ketoacidosis. 2. [id number] myocardial infarction. 3. Anemia. 4. Hyponatremia. 5. Uncontrolled diabetes mellitus. 6. Acute encephalopathy/toxic metabolic encephalopathy secondary to diabetic ketoacidosis. 7. Coronary artery disease. RECOMMENDATIONS: 1. Ms. Nails presented with DKA. She will be treated by the primary team for this. 2. She did have an elevated troponin and in discussing this with her, she previously had a cardiac catheterization, which showed significant disease of her LAD and circumflex. Overall, it was felt that she had small vessels and recommended medical management. Currently, she is on nothing for her cardiac standpoint, not even aspirin at this time. 3. Agree with placing her on a heparin drip. 4. We will check a 2-D echo to look at her overall left ventricular function, cardiac structure and possible valvulopathies. 5. Most likely, we will plan for cardiac catheterization once she is stabilized medically from her other comorbidities. At that time, decisions will need to be made on CABG, PCI or medical management. Thank you for allowing me to see Heather Nails. If there are any questions, please do not hesitate to call. DO SUKHDEV Quinn/donna , 11:37 PM , 11:50 PM
[2018-03-08] MEDS ORDERED: Chlorhexidine Gluconate 2% 1 Pack (2 Cloths) TOPICAL SCH (04:00)
[2018-03-08] MEDS ORDERED: Chlorhexidine Gluconate 2% 1 Pack (2 Cloths) TOPICAL PRN ×2 (04:00)
[2018-03-08 06:17] LABS: Baso # (Auto) 0.1 th/mm3 (0.0-0.2); Baso % (Auto) 0.5 % (0.0-2.0); Eos # (Auto) 0.1 th/mm3 (0.0-0.4); Eos % (Auto) 0.9 % (0.0-4.0); Hematocrit 28.4 % (35.0-46.0); Hemoglobin 9.4 gm/dL (11.6-15.3); Lymph # (Auto) 2.8 th/mm3 (1.0-4.8); Lymph % (Auto) 20.8 % (9.0-44.0); Mean Corpuscular HGB Conc 33.2 % (32.0-36.0); Mean Corpuscular Hemoglobin 31.6 pg (27.0-34.0); Mean Corpuscular Volume 95.1 fL (80.0-100.0); Mean Platelet Volume 8.5 fL (7.0-11.0); Mono # (Auto) 0.9 th/mm3 (0.0-0.9); Mono % (Auto) 6.6 % (0.0-8.0); Neut # (Auto) 9.5 th/mm3 (1.8-7.7); Neut % (Auto) 71.2 % (16.0-70.0); Platelet Count 241 th/mm3 (150-450); Red Blood Count 2.99 mil/mm3 (4.00-5.30); Red Cell Distribution Width 13.5 % (11.6-17.2); White Blood Count 13.4 th/mm3 (4.0-11.0)
[2018-03-08] MEDS: Levothyroxine 150 MCG Tablet PO SCH (06:17)
[2018-03-08] MEDS: Chlorhexidine Gluconate 2% 1 Pack (2 Cloths) TOPICAL SCH (06:17)
[2018-03-08 06:54] LABS: Calcium 7.7 mg/dL (8.5-10.1); Magnesium 2.2 mg/dL (1.5-2.5); Potassium 4.8 meq/L (3.5-5.1)
[2018-03-08 06:55] LABS: Phosphorus 2.1 mg/dL (2.5-4.9)
[2018-03-08 07:04] LABS: Thyroid Stimulating Hormone 0.737 uIU/mL (0.358-3.740)
[2018-03-08] MEDS: Insulin Detemir Inj 1,000 UNIT/10 ML Vial SQ SCH (08:55)
[2018-03-08] MEDS: Pantoprazole Inj 40 MG Vial IV.PUSH SCH (08:55)
[2018-03-08] MEDS: Senna/Docusate Sodium 8.6/50 MG Tablet PO SCH ×2 (08:55→20:46)
[2018-03-08] MEDS ORDERED: Insulin Detemir Inj 1,000 UNIT/10 ML Vial SQ SCH (09:00)
--- NOTE | 2018-03-08 09:07 | P.PNCC ---
Subjective Subjective Remarks/Hospital Course: 77-year-old female. Date of admission 03/07/2018. Past medical history includes diabetes mellitus since 1991 and hypothyroidism. Patient is a Charlton act from [facility] where she is brought by the police department where she was a well person check where she is nearby pleased to be disheveled with an high blood sugar. Please placed under Latesha act due to the fact that she stated that she knew that her blood sugar was high in the could result in her being in a coma and that she did not care at that time. Patient was transferred to [facility] for further evaluation treatment. Laboratories revealed a leukocytosis of 17,000. Macrocytic anemia. Elevated troponin of 1.28. EKG pending. Acute kidney injury of 2.2. Patient denies chest pain, shortness of breath, abdominal pain, nausea vomiting or diarrhea. Chest x-ray reviewed no acute cardiopulmonary findings. EKG revealed sinus tachycardia with no specific ST-T changes. Patient may need to have a bowel movement. Subjective 03/08: Resting comfortably in bed in no acute distress. Denies chest pain. Off insulin drip overnight. Currently insulin detemir 15 units daily. On 38 units daily at home. On heparin drip for correction has been lifted. Awake and oriented to person place and time and talking on telephone currently. Objective Vital Signs / I&O: Vital Signs 03/07/18 10:00 03/07/18 11:00 03/07/18 12:00 Temperature 98.7 F Pulse Rate 89 88 89 Respiratory Rate 37 H 27 H 32 H Blood Pressure 95/52 L 106/57 L 109/56 L Pulse Oximetry 98 100 98 03/07/18 13:00 03/07/18 14:00 03/07/18 15:00 Temperature Pulse Rate 87 84 85 Respiratory Rate 27 H 27 H 26 H Blood Pressure 95/56 L 118/56 L 108/58 L Pulse Oximetry 98 100 99 03/07/18 16:00 03/07/18 17:00 03/07/18 18:00 Temperature 99.2 F Pulse Rate 83 80 79 Respiratory Rate 40 H 31 H 24 Blood Pressure 110/57 L 104/59 L 114/58 L Pulse Oximetry 100 99 100 03/07/18 19:00 03/07/18 20:00 03/07/18 20:24 Temperature 99 F Pulse Rate 79 77 Respiratory Rate 25 H 22 Blood Pressure 111/56 L 105/59 L Pulse Oximetry 99 99 99 03/07/18 21:00 03/07/18 22:00 03/07/18 23:00 Temperature Pulse Rate 79 77 87 Respiratory Rate 32 H 43 H 25 H Blood Pressure 106/57 L 124/59 L 110/53 L Pulse Oximetry 97 99 97 03/08/18 00:00 03/08/18 01:00 03/08/18 04:00 Temperature 98.8 F 98.7 F Pulse Rate 89 96 H 90 Respiratory Rate 25 H 29 H 18 Blood Pressure 133/61 128/62 116/54 L Pulse Oximetry 100 98 97 Intake & Output 03/07/18 03/08/18 03/08/18 18:59 06:59 18:59 Intake Total 4330 / 4330 1470 / 1470 Output Total 660 / 660 300 / 300 Balance 3670 / 3670 1170 / 1170 Weight 75.7 kg 76.4 kg Intake: IV 4300 / 4300 1350 / 1350 D5W/Normal Saline Inj 1,000 ML 1000 / 1000 1250 / 1250 @ 200 mls/hr IV.CONT .Q5H [facility] Rx#:[id number] NovoLIN-R 100 UNITS/NS 100 ML ( 50 / 50 for ED) 100 unit In 100 ml @ Per Protocol IV.CONT TITRATE ONE Rx#:[id number] NovoLIN R (IV Infusion) 100 100 / 100 UNIT In NS Inj 99 ML @ 6 UNITS/ HR 6 mls/hr IV.CONT TITRATE PRN Rx#:[id number] NS Inj 1,000 ML @ 250 mls/hr IV 500 / 500 .CONT .Q4H WADE Rx#:[id number] Magnesium Sulfate 1 gm/D5W 100 200 / 200 100 / 100 ml Premix 100 ML @ 100 mls/hr IV.SIG Q1H WADE Rx#:[id number] KCl 20 mEq Premix Inj 20 meq In 300 / 300 100 ml @ 100 mls/hr IV.SIG Q1H PRN Rx#:[id number] KCl 40 mEq Premix Inj 40 meq In 100 / 100 100 ml @ 100 mls/hr IV.SIG Q1H PRN Rx#:[id number] NS Inj 1,000 ML @ Wide Open IV. 1999 SIG BOLUS ONE Rx#:[id number] Other 30 / 30 120 / 120 Output: Stool 60 / 60 0 / 0 Urine Amount (Catheter) 600 / 600 300 / 300 Indwelling Urethral Catheter 600 / 600 300 / 300 Other: Other Intake Source Saline Solution Date of Last Bowel Movement 03/07/18 03/07/18 # Bowel Movements 2 0 # Incontinent Bowel Movements 1 0 Weight On Admission 75.7 kg Result Diagrams: 03/08/18 04:26 03/08/18 04:26 Imaging: Chest X-Ray 03/07/18 05:21 CONCLUSION: No evidence of acute cardiopulmonary disease. Objective Remarks: GENERAL: 69-year-old female currently is a cannula in no acute distress SKIN: Warm and dry. HEAD: Atraumatic. Normocephalic. EYES: Pupils equal and round about 3 mm bilaterally and reactive to 2 mm. No scleral icterus. No injection or drainage. ENT: No nasal bleeding or discharge. Mucous membranes pink and moist. NECK: Trachea midline. No JVD. CARDIOVASCULAR: Regular rate and rhythm. S1, S2. No S4. Without murmur RESPIRATORY: No accessory muscle use. Clear to auscultation. Breath sounds equal bilaterally. GASTROINTESTINAL: Abdomen soft, non-tender, nondistended. Hepatic and splenic margins not palpable. MUSCULOSKELETAL: Extremities without clubbing, cyanosis, or edema. No obvious deformities. NEUROLOGICAL: Awake and alert. No obvious cranial nerve deficits. Motor grossly within normal limits. Five out of 5 muscle strength in the arms and legs. Normal speech. PSYCHIATRIC: Appropriate mood and affect; insight and judgment normal. Assessment and Plan - Assessment and Plan Plan: Neuro/Psych: Acute encephalopathy/toxic metabolic secondary to DKA Acetaminophen 650 p.o. every 6 hours as needed fever Hydrocodone/acetaminophen 5/325 1 tablet every 4 hours as needed 1 through 5 Morphine sulfate will get IV every 2 hours as needed pain 6 - 10 Psychiatry has lifted the Charlton act CV: Elevated troponin Coronary artery disease Maintain mean arterial pressure greater than equal 65 EKG showed tachycardia with normal CA, QRS and QT intervals. Nonspecific ST-T changes. Cycle troponins until trending downward 2D echocardiogram revealed left ventricular systolic function is normal with an estimated ejection fraction in the range of 60-65%. Added metoprolol tartrate 20 mg twice daily. No ANAHY inhibitor secondary to acute kidney injury Check lipid profile -triglycerides 90. Cholesterol 130. Currently on atorvastatin 80 mg daily Heart catheterization LAD proximal 70%. Circumflex 60%. RCA regular millimeters. Evaluated by Dr. Stafford/cardiology. Resp: Nasal cannula to maintain saturations greater than or equal to 92% Incentive spirometry while awake As needed albuterol aerosols every 2 hours as needed GI: ADA diet Pantoprazole for GI prophylaxis Docusate sodium/senna 1 tablet twice daily for bowel regimen : Pagan catheter removed Endo: DKA Diabetes mellitus 1.5 treat as 1.0 Hypothyroidism Transition to subcutaneous insulin overnight. Currently on insulin detemir 15 units daily with aspart insulin sliding scale before meals/at bedtime medium protocol Hemoglobin A1c 11.4 continue levothyroxine 300 mcg daily. TSH -0.737 Renal: Acute kidney injury Mostly secondary to dehydration Creatinine currently 1.56 this a.m. Renal ultrasound/urine eosinophils and electrolytes if indicated Avoid nephrotoxic medication Heme: Leukocytosis Macrocytic anemia Monitor CBC daily. Follow trends. No indication for transfusion of blood products at this time. Check coag Currently on heparin drip at 1000 units an hour. Serial PTTs ID: Monitor for signs and symptomatology infection Blood cultures 2 pending. UA negative for acute infection FEN: Hyponatremia Alcoholic fluids Replace electrolytes as clinically indicated with BMP, magnesium phosphorus every 6 hours MSK: Out of bed PT evaluate and treat. Access -Utilize peripheral IV. Central line if indicated Prophylaxis -GI pantoprazole --DVT SCD/heparin drip Level 2 follow-up. Stable from critical care medicine standpoint assign care to hospitalist in a.m. 03/09
--- NOTE | 2018-03-08 13:49 | P.PNCA ---
Subjective Interval history: No events overnight Off the insulin drip No chest pain/SOB Medications and Allergies Active Medications: Active Medications Acetaminophen (Tylenol) 650 mg PO Q6H PRN PRN Reason: FEVER >101F Hydrocodone Bitart/Acetaminophen ([place] 5/325) 1 tab PO Q4H PRN PRN Reason: PAIN SCALE 1 TO 5 Last Admin: 03/08/18 10:42 Dose: 1 tab Al Hydroxide/Mg Hydroxide (Milk Of Magnben Liq) 30 ml PO Q12H PRN PRN Reason: Mild Constipation Albuterol (Albuterol Neb (Prn)) 2.5 mg NEB Q2HR NEB PRN PRN Reason: SHORTNESS OF BREATH/WHEEZING Aspirin (Ecotrin) 81 mg PO DAILY [facility] Last Admin: 03/08/18 08:55 Dose: 81 mg Atorvastatin Calcium (Lipitor) 80 mg PO HS [facility] Bisacodyl (Dulcolax Supp) 10 mg RECTAL DAILY PRN PRN Reason: SEVERE CONSITIPATION Chlorhexidine Gluconate (Chlorhexidine 2% Cloth) 3 pack TOPICAL DAILY@0400 [facility] Stop: 03/13/18 03:59 Last Admin: 03/08/18 06:17 Dose: 3 pack Chlorhexidine Gluconate (Chlorhexidine 2% Cloth) 3 pack TOPICAL DAILY@0400 PRN PRN Reason: Extra cloth needed Stop: 03/13/18 03:59 Dextrose (D50w Vial) 50 ml IV.PUSH UNSCH PRN PRN Reason: PER HYPOGLYCEMIA PROTOCOL Dextrose (D50w Vial) 50 ml IV.PUSH UNSCH PRN PRN Reason: PER HYPOGLYCEMIA PROTOCOL Glucagon (Glucagon Inj) 1 mg OTHER PRN PRN PRN Reason: for Hypoglycemia Protocol Sodium Chloride (Ns Inj) 1,000 mls @ 250 mls/hr IV.CONT .Q4H [facility] Last Admin: 03/08/18 11:15 Dose: Not Given Heparin Sodium/Dextrose (Heparin/D5w 25,000 U/250 Ml) 25,000 unit in 250 mls @ 10 mls/hr IV.CONT TITRATE PRN; Protocol PRN Reason: Per Protocol Last Titration: 03/08/18 00:45 Dose: 1,000 units/hr, 10 mls/hr Potassium Phosphate 30 mmol/ (Sodium Chloride) 260 mls @ 42 mls/hr IV.SIG UNSCH PRN PRN Reason: SEE LABEL COMMENTS Insulin Aspart (Novolog Insulin Correctional Sugar Inj) 0 unit SQ ACHS AND 3AM [facility]; Protocol Last Admin: 03/08/18 11:22 Dose: 4 unit Insulin Detemir (Levemir Inj) 15 unit SQ DAILY [facility] Last Admin: 03/08/18 08:55 Dose: 15 unit Lactulose (Lactulose Liq) 30 ml PO DAILY PRN PRN Reason: SEVERE CONSITIPATION Levothyroxine Sodium (Synthroid) 300 mcg PO DAILY@0600 [facility] Last Admin: 03/08/18 06:17 Dose: 300 mcg Magnesium Oxide (Mag-Ox) 800 mg PO UNSCH PRN PRN Reason: For Magnesium 1.2 - 1.6 mg/dL Metoprolol Tartrate (Lopressor) 12.5 mg PO BID [facility] Miscellaneous (Pill Splitter) 1 each OTHER UNSCH [facility] Morphine Sulfate (Morphine Inj) 2 mg IV.PUSH Q2H PRN PRN Reason: PAIN SCALE 6 TO 10 Pantoprazole Sodium (Protonix Inj) 40 mg IV.PUSH DAILY [facility] Last Admin: 03/08/18 08:55 Dose: 40 mg Potassium Phosphate (K-Phos Original) 2,000 mg PO Q4H PRN PRN Reason: Phosphorus Less Than 2.5 mg/dL Potassium Phosphate (K-Phos Original) 2,000 mg PO UNSCH PRN PRN Reason: SEE LABEL COMMENTS Senna/Docusate Sodium (Hanane-Colace) 1 tab PO BID [facility] Last Admin: 03/08/18 08:55 Dose: 1 tab Sennosides (Senokot) 17.2 mg PO Q12H PRN PRN Reason: Moderate Constipation Sodium Chloride (Ns Flush) 2 ml IV.FLUSH BID [facility] Last Admin: 03/08/18 08:56 Dose: 2 ml Sodium Chloride (Ns Flush) 2 ml IV.FLUSH UNSCH PRN PRN Reason: FLUSH AFTER USING IV ACCESS Allergies Allergy/AdvReac Type Severity Reaction Status Date / Time No Known Allergies Allergy Unverified 03/07/18 07:38 Home Medications Medication Instructions Recorded Confirmed Type insulin aspart U-100 [Novolog 14 sliding scale dose SUB-Q UD 03/07/18 03/07/18 History U-100 Insulin aspart] insulin glargine [Lantus U-100 38 unit SUB-Q DAILY 03/07/18 03/07/18 History Insulin] levothyroxine 300 mcg PO DAILY 03/07/18 03/07/18 History Physical Exam Vital signs: Vital Signs 03/07/18 14:00 03/07/18 15:00 03/07/18 16:00 Temperature 99.2 F Pulse Rate 84 85 83 Respiratory Rate 27 H 26 H 40 H Blood Pressure 118/56 L 108/58 L 110/57 L Pulse Oximetry 100 99 100 03/07/18 17:00 03/07/18 18:00 03/07/18 19:00 Temperature Pulse Rate 80 79 79 Respiratory Rate 31 H 24 25 H Blood Pressure 104/59 L 114/58 L 111/56 L Pulse Oximetry 99 100 99 03/07/18 20:00 03/07/18 20:24 03/07/18 21:00 Temperature 99 F Pulse Rate 77 79 Respiratory Rate 22 32 H Blood Pressure 105/59 L 106/57 L Pulse Oximetry 99 99 97 03/07/18 22:00 03/07/18 23:00 03/08/18 00:00 Temperature 98.8 F Pulse Rate 77 87 89 Respiratory Rate 43 H 25 H 25 H Blood Pressure 124/59 L 110/53 L 133/61 Pulse Oximetry 99 97 100 03/08/18 01:00 03/08/18 04:00 03/08/18 07:00 Temperature 98.7 F 99.2 F Pulse Rate 96 H 90 109 H Respiratory Rate 29 H 18 Blood Pressure 128/62 116/54 L 148/70 H Pulse Oximetry 98 97 98 03/08/18 08:00 03/08/18 08:53 03/08/18 09:00 Temperature Pulse Rate 100 H 92 H 93 H Respiratory Rate Blood Pressure 173/80 H 132/66 134/73 Pulse Oximetry 100 99 98 03/08/18 10:00 03/08/18 10:01 03/08/18 11:00 Temperature Pulse Rate 94 H 93 H 87 Respiratory Rate Blood Pressure 149/67 H 141/64 H Pulse Oximetry 03/08/18 12:00 Temperature 98.5 F Pulse Rate 83 Respiratory Rate Blood Pressure 129/55 L Pulse Oximetry Intake & Output 03/07/18 03/08/18 03/08/18 18:59 06:59 18:59 Intake Total 4330 / 4330 1470 / 1470 Output Total 660 / 660 300 / 300 Balance 3670 / 3670 1170 / 1170 Weight 75.7 kg 76.4 kg Intake: IV 4300 / 4300 1350 / 1350 D5W/Normal Saline Inj 1,000 ML 1000 / 1000 1250 / 1250 @ 200 mls/hr IV.CONT .Q5H [facility] Rx#:[id number] NovoLIN-R 100 UNITS/NS 100 ML ( 50 / 50 for ED) 100 unit In 100 ml @ Per Protocol IV.CONT TITRATE ONE Rx#:[id number] NovoLIN R (IV Infusion) 100 100 / 100 UNIT In NS Inj 99 ML @ 6 UNITS/ HR 6 mls/hr IV.CONT TITRATE PRN Rx#:[id number] NS Inj 1,000 ML @ 250 mls/hr IV 500 / 500 .CONT .Q4H [facility] Rx#:[id number] Magnesium Sulfate 1 gm/D5W 100 200 / 200 100 / 100 ml Premix 100 ML @ 100 mls/hr IV.SIG Q1H [facility] Rx#:[id number] KCl 20 mEq Premix Inj 20 meq In 300 / 300 100 ml @ 100 mls/hr IV.SIG Q1H PRN Rx#:[id number] KCl 40 mEq Premix Inj 40 meq In 100 / 100 100 ml @ 100 mls/hr IV.SIG Q1H PRN Rx#:[id number] NS Inj 1,000 ML @ Wide Open IV. 1999 / 1999 SIG BOLUS ONE Rx#:[id number] Other 30 / 30 120 / 120 Output: Stool 60 / 60 0 / 0 Urine Amount (Catheter) 600 / 600 300 / 300 Indwelling Urethral Catheter 600 / 600 300 / 300 Other: Other Intake Source Saline Solution Date of Last Bowel Movement 03/07/18 03/07/18 03/07/18 # Bowel Movements 2 0 # Incontinent Bowel Movements 1 0 Weight On Admission 75.7 kg Narrative: GENERAL: NAD, AAOx3 SKIN: Warm and dry. HEAD: Atraumatic. Normocephalic. EYES: Pupils equal and round. No scleral icterus. No injection or drainage. ENT: No nasal bleeding or discharge. Mucous membranes pink and moist. NECK: Trachea midline. No JVD. CARDIOVASCULAR: Regular rate and rhythm. RESPIRATORY: No accessory muscle use. Clear to auscultation. Breath sounds equal bilaterally. GASTROINTESTINAL: Abdomen soft, non-tender, nondistended. Hepatic and splenic margins not palpable. MUSCULOSKELETAL: Extremities without clubbing, cyanosis, or edema. No obvious deformities. NEUROLOGICAL: Awake and alert. No obvious cranial nerve deficits. Motor grossly within normal limits. Five out of 5 muscle strength in the arms and legs. Normal speech. PSYCHIATRIC: Appropriate mood and affect; insight and judgment normal. - Urinary Catheter Management Indwelling Urethral Catheter Cath placed during this visit: yes Reason for continuing: Hourly intake/output Insertion date: 03/07/18 Insertion time: 06:10 Results 03/08/18 04:26 03/08/18 04:26 Cardiac Enzymes 03/07/18 03/07/18 03/07/18 Range/Units 05:30 11:06 13:44 AST 22 (15-37) U/L Troponin I 1.28 H* Cancelled 4.64 H* D (0.02-0.05) ng/mL 03/07/18 03/07/18 Range/Units 19:45 23:59 AST (15-37) U/L Troponin I 4.30 H* D 3.86 H* D (0.02-0.05) ng/mL Coagulation 03/07/18 03/07/18 03/08/18 Range/Units 16:40 23:59 04:26 PT 10.3 (9.8-11.6) sec APTT 23.3 L 44.3 H D 77.0 H D (24.3-30.1) sec 03/08/18 Range/Units 12:49 PT (9.8-11.6) sec APTT 52.2 H D (24.3-30.1) sec Lipids 03/07/18 Range/Units 19:45 Triglycerides 90 (42-150) mg/dL Cholesterol 131 (120-200) mg/dL HDL Cholesterol 52.4 (40.0-60.0) mg/dL Cholesterol/HDL Ratio 2.50 Ratio CBC 03/07/18 03/07/18 03/08/18 Range/Units 05:30 19:45 04:26 WBC 17.3 H 13.9 H 13.4 H (4.0-11.0) th/mm3 RBC 3.54 L 2.91 L 2.99 L (4.00-5.30) mil/mm3 Hgb 11.2 L 9.2 L D 9.4 L (11.6-15.3) gm/dL Hct 36.9 28.0 L 28.4 L (35.0-46.0) % Plt Count 336 222 D 241 (150-450) th/mm3 Neut # (Auto) 14.3 H 9.5 H (1.8-7.7) th/mm3 Lymph # (Auto) 1.5 2.8 (1.0-4.8) th/mm3 [place] # (Auto) 1.4 H 0.9 (0.0-0.9) th/mm3 Eos # (Auto) 0.0 0.1 (0.0-0.4) th/mm3 Baso # (Auto) 0.1 0.1 (0.0-0.2) th/mm3 Comprehensive Metabolic Panel 03/07/18 03/07/18 03/07/18 Range/Units 05:30 11:06 13:44 Sodium 130 L Cancelled 140 D (136-145) meq/L Potassium 4.8 Cancelled 4.3 (3.5-5.1) meq/L Chloride 92 L Cancelled 110 H D (98-107) meq/L Carbon Dioxide 5.0 L Cancelled 17.3 L D (21.0-32.0) meq/L BUN 48 H Cancelled 41 H (7-18) mg/dL Creatinine 2.17 H Cancelled 1.68 H (0.50-1.00) mg/dL Calcium 8.7 Cancelled 7.2 L* D (8.5-10.1) mg/dL AST 22 (15-37) U/L ALT 22 (10-53) U/L Alkaline Phosphatase 158 H (45-117) U/L Total Protein 7.1 5.8 L D (6.4-8.2) g/dL Albumin 3.7 (3.4-5.0) g/dL 03/07/18 03/07/18 03/08/18 Range/Units 19:45 23:59 04:26 Sodium 138 137 139 (136-145) meq/L Potassium 4.8 4.8 4.8 (3.5-5.1) meq/L Chloride 112 H 109 H 110 H (98-107) meq/L Carbon Dioxide 13.6 L 14.8 L 16.0 L (21.0-32.0) meq/L BUN 37 H 34 H 32 H (7-18) mg/dL Creatinine 1.45 H 1.46 H 1.56 H (0.50-1.00) mg/dL Calcium 7.7 L 7.5 L 7.7 L (8.5-10.1) mg/dL AST (15-37) U/L ALT (10-53) U/L Alkaline Phosphatase (45-117) U/L Total Protein (6.4-8.2) g/dL Albumin (3.4-5.0) g/dL Intake and Output 03/07/18 03/08/18 03/08/18 22:59 06:59 14:59 Intake Total 2780 / 2780 370 / 370 Output Total 360 / 360 300 / 300 Balance 2420 / 2420 70 / 70 Intake: IV 2750 / 2750 250 / 250 D5W/Normal Saline Inj 1,000 ML 2000 / 2000 250 / 250 @ 200 mls/hr IV.CONT .Q5H [facility] Rx#:[id number] NovoLIN R (IV Infusion) 100 100 / 100 UNIT In NS Inj 99 ML @ 6 UNITS/ HR 6 mls/hr IV.CONT TITRATE PRN Rx#:[id number] Magnesium Sulfate 1 gm/D5W 100 300 / 300 ml Premix 100 ML @ 100 mls/hr IV.SIG Q1H [facility] Rx#:[id number] KCl 20 mEq Premix Inj 20 meq In 200 / 200 100 ml @ 100 mls/hr IV.SIG Q1H PRN Rx#:[id number] KCl 40 mEq Premix Inj 40 meq In 100 / 100 100 ml @ 100 mls/hr IV.SIG Q1H PRN Rx#:[id number] Other 30 / 30 120 / 120 Output: Stool 60 / 60 0 / 0 Urine Amount (Catheter) 300 / 300 300 / 300 Indwelling Urethral Catheter 300 / 300 300 / 300 Other: Other Intake Source Saline Solution Date of Last Bowel Movement 03/07/18 03/07/18 03/07/18 # Bowel Movements 2 0 # Incontinent Bowel Movements 1 0 Weight 75.7 kg 76.4 kg Weight On Admission 75.7 kg - Imaging and Cardiology Imaging: Impressions Chest X-Ray 03/07/18 05:21 CONCLUSION: No evidence of acute cardiopulmonary disease. Assessment and Plan - Assessment (1) NSTEMI (non-ST elevated myocardial infarction) Code(s): I21.4 - Non-ST elevation (NSTEMI) myocardial infarction Status: Acute (2) CAD (coronary artery disease) Code(s): I25.10 - Atherosclerotic heart disease of [place] coronary artery without angina pectoris Status: Acute (3) Diabetic ketoacidosis associated with type 2 diabetes mellitus Code(s): E11.10 - Type 2 diabetes mellitus with ketoacidosis without coma Status: Acute (4) Adjustment disorder with depressed mood Code(s): F43.21 - Adjustment disorder with depressed mood Status: Acute - Plan 1) DKA Off insulin drip Per the primary team 2) NSTEMI Type 2 due to DKA But has known CAD Previous cath showing significant disease of the LAD/LCx Plan for cardiac catheterization on Saturday Will need to decide at the time on medical management, PCI or CABG If PCI, may need to be staged due to CKD Heparin drip ASA 3) 2D echo pending 4) [place] on CKD Stable (3) Diabetic ketoacidosis associated with type 2 diabetes mellitus Qualifiers: Diabetes mellitus complication detail: without coma Qualified Code(s): E11.10 - Type 2 diabetes mellitus with ketoacidosis without coma
[2018-03-08] MEDS: Metoprolol Tartrate 25 MG Tablet PO SCH (20:43)
[2018-03-08] MEDS: Heparin Drip 25,000 UNIT/250 ML BAG IV.CONT PRN (20:43)
[2018-03-09] MEDS: Insulin NovoLOG Aspart Correctional Sugar Inj SQ SCH ×5 (03:40→20:16)
[2018-03-09 04:37] LABS: Baso % (Auto) 0.7 % (0.0-2.0); Eos # (Auto) 0.3 th/mm3 (0.0-0.4); Eos % (Auto) 4.7 % (0.0-4.0); Hematocrit 25.7 % (35.0-46.0); Hemoglobin 8.8 gm/dL (11.6-15.3); Lymph # (Auto) 2.4 th/mm3 (1.0-4.8); Lymph % (Auto) 36.3 % (9.0-44.0); Mean Corpuscular HGB Conc 34.3 % (32.0-36.0); Mean Corpuscular Hemoglobin 32.7 pg (27.0-34.0); Mean Corpuscular Volume 95.2 fL (80.0-100.0); Mean Platelet Volume 8.3 fL (7.0-11.0); Mono # (Auto) 0.6 th/mm3 (0.0-0.9); Mono % (Auto) 8.7 % (0.0-8.0); Neut # (Auto) 3.3 th/mm3 (1.8-7.7); Neut % (Auto) 49.6 % (16.0-70.0); Platelet Count 213 th/mm3 (150-450); Red Cell Distribution Width 13.9 % (11.6-17.2); White Blood Count 6.6 th/mm3 (4.0-11.0)
[2018-03-09 04:50] LABS: Alanine Aminotransferase 19 U/L (10-53); Albumin 2.7 g/dL (3.4-5.0); Anion Gap 10 meq/L (5-15); Aspartate Aminotransferase 28 U/L (15-37); Blood Urea Nitrogen 17 mg/dL (7-18); Calcium 7.7 mg/dL (8.5-10.1); Carbon Dioxide 17.7 meq/L (21.0-32.0); Chloride 112 meq/L (98-107); Glomerular Filtration Rate 52 mL/min (>89); Glucose,Random 209 mg/dL (74-106); Magnesium 1.9 mg/dL (1.5-2.5); Phosphorus 2.7 mg/dL (2.5-4.9); Potassium 4.4 meq/L (3.5-5.1); Sodium 140 meq/L (136-145)
[2018-03-09 04:51] LABS: Alkaline Phosphatase 105 U/L (45-117); Total Protein 5.7 g/dL (6.4-8.2)
[2018-03-09] MEDS: Chlorhexidine Gluconate 2% 1 Pack (2 Cloths) TOPICAL SCH (05:21)
[2018-03-09] MEDS: Levothyroxine 150 MCG Tablet PO SCH (05:22)
[2018-03-09] MEDS: Sod Chloride 0.9% Inj 1,000 ML IV.CONT SCH ×5 (07:25→23:07)
[2018-03-09] MEDS: Pantoprazole Inj 40 MG Vial IV.PUSH SCH (08:01)
[2018-03-09] MEDS: Senna/Docusate Sodium 8.6/50 MG Tablet PO SCH ×2 (08:02→20:04)
[2018-03-09] MEDS: Insulin Detemir Inj 1,000 UNIT/10 ML Vial SQ SCH (08:17)
[2018-03-09] MEDS: Metoprolol Tartrate 25 MG Tablet PO SCH ×2 (08:17→20:04)
--- NOTE | 2018-03-09 10:05 | P.PNIM ---
Subjective Interval history: 77-year-old female. Date of admission 03/07/2018. Past medical history includes diabetes mellitus since 1991 and hypothyroidism. Patient is a Charlton act from [facility] where she is brought by the police department where she was a well person check where she is nearby pleased to be disheveled with an high blood sugar. Please placed under Latesha act due to the fact that she stated that she knew that her blood sugar was high in the could result in her being in a coma and that she did not care at that time. Patient was transferred to [facility] for further evaluation treatment. Laboratories revealed a leukocytosis of 17,000. Macrocytic anemia. Elevated troponin of 1.28. EKG pending. Acute kidney injury of 2.2. Patient denies chest pain, shortness of breath, abdominal pain, nausea vomiting or diarrhea. Chest x-ray reviewed no acute cardiopulmonary findings. EKG revealed sinus tachycardia with no specific ST-T changes. Patient may need to have a bowel movement. 03/08: Resting comfortably in bed in no acute distress. Denies chest pain. Off insulin drip overnight. Currently insulin detemir 15 units daily. On 38 units daily at home. On heparin drip for correction has been lifted. Awake and oriented to person place and time and talking on telephone currently. 03-09 patient has been transferred to our service today Latesha fraire has been lifted To have cardiac catheterization tomorrow 924 Had issues with blood sugars this morning Remains on a heparin drip A.m. labs monitor kidney functions Discussed with patient and RN Physical Exam Vital signs: Vital Signs 03/08/18 11:00 03/08/18 12:00 03/08/18 13:00 Temperature 98.5 F 98 F Pulse Rate 87 83 86 Respiratory Rate Blood Pressure 141/64 H 129/55 L Pulse Oximetry 94 L 03/08/18 13:01 03/08/18 14:00 03/08/18 15:00 Temperature Pulse Rate 87 84 80 Respiratory Rate 21 Blood Pressure 111/58 L 117/58 L 124/60 Pulse Oximetry 96 98 03/08/18 16:00 03/08/18 16:15 03/08/18 17:00 Temperature Pulse Rate 80 77 79 Respiratory Rate Blood Pressure 125/61 Pulse Oximetry 96 100 99 03/08/18 17:27 03/08/18 18:00 03/08/18 18:01 Temperature Pulse Rate 81 79 84 Respiratory Rate 30 H 30 H 40 H Blood Pressure 138/66 112/86 Pulse Oximetry 100 98 88 L 03/08/18 19:00 03/08/18 19:01 03/08/18 20:00 Temperature 97.8 F Pulse Rate 79 79 81 Respiratory Rate 30 H 36 H 35 H Blood Pressure 165/76 H 145/68 H Pulse Oximetry 100 99 99 03/08/18 21:00 03/08/18 21:05 03/08/18 22:00 Temperature Pulse Rate 80 79 79 Respiratory Rate 27 H 32 H 31 H Blood Pressure 162/74 H Pulse Oximetry 100 100 100 03/08/18 23:00 03/09/18 00:00 03/09/18 01:00 Temperature 98.4 F Pulse Rate 74 76 74 Respiratory Rate 45 H 44 H 41 H Blood Pressure Pulse Oximetry 99 96 98 03/09/18 01:09 03/09/18 02:00 03/09/18 03:00 Temperature Pulse Rate 79 78 82 Respiratory Rate 31 H 41 H 30 H Blood Pressure 141/105 H 141/64 H 144/67 H Pulse Oximetry 99 98 97 03/09/18 04:00 03/09/18 05:00 03/09/18 06:00 Temperature Pulse Rate 79 78 82 Respiratory Rate 40 H 41 H 51 H Blood Pressure 129/60 139/65 Pulse Oximetry 96 96 97 03/09/18 06:01 03/09/18 08:00 03/09/18 09:18 Temperature 97.5 F L Pulse Rate 81 80 Respiratory Rate 35 H 21 Blood Pressure 105/66 179/79 H Pulse Oximetry 99 98 97 Intake & Output 03/08/18 03/09/18 03/09/18 18:59 06:59 18:59 Intake Total 480 / 480 490 / 490 Output Total 1100 / 1100 Balance 480 / 480 -610 / -610 Weight 75.6 kg Intake: IV 250 / 250 Heparin/D5W 25,000 U/250 mL 25, 250 / 250 000 unit In 250 ml @ 1,000 UNITS/HR 10 mls/hr IV.CONT TITRATE PRN Rx#:[id number] Oral 480 / 480 240 / 240 Other 0 / 0 Output: Urine 1100 / 1100 Stool 0 / 0 Urine Amount (Catheter) 0 / 0 Indwelling Urethral Catheter 0 / 0 Other: # Voids 3 3 Date of Last Bowel Movement 03/07/18 03/08/18 # Bowel Movements 0 # Incontinent Bowel Movements 0 Narrative: GENERAL: NAD, AAOx3 SKIN: Warm and dry. HEAD: Atraumatic. Normocephalic. EYES: Pupils equal and round. No scleral icterus. No injection or drainage. ENT: No nasal bleeding or discharge. Mucous membranes pink and moist. NECK: Trachea midline. No JVD. CARDIOVASCULAR: Regular rate and rhythm. S1-S2 no S3 or S4 RESPIRATORY: No accessory muscle use. Clear to auscultation. Breath sounds equal bilaterally. GASTROINTESTINAL: Abdomen soft, non-tender, nondistended. Hepatic and splenic margins not palpable. MUSCULOSKELETAL: Extremities without clubbing, cyanosis, or edema. No obvious deformities. NEUROLOGICAL: Awake and alert. No obvious cranial nerve deficits. Motor grossly within normal limits. Five out of 5 muscle strength in the arms and legs. Normal speech. PSYCHIATRIC: Appropriate mood and affect; insight and judgment normal. - Urinary Catheter Management Indwelling Urethral Catheter Cath placed during this visit: yes Reason for continuing: Hourly intake/output Insertion date: 03/07/18 Insertion time: 06:10 Results - Labs CBC & Chem 7: 03/09/18 04:12 03/09/18 04:12 Laboratory Results - last 24 hr 03/08/18 03/08/18 03/08/18 11:21 12:49 16:18 WBC RBC Hgb Hct MCV MCH MCHC RDW Plt Count MPV Neut % (Auto) Lymph % (Auto) [place] % (Auto) Eos % (Auto) Baso % (Auto) Neut # (Auto) Lymph # (Auto) [place] # (Auto) Eos # (Auto) Baso # (Auto) WBC Differential Differential Comment APTT 52.2 H D Sodium Potassium Chloride Carbon Dioxide Anion Gap BUN Creatinine Estimated GFR POC Glucose 239 H 113 H Random Glucose Calcium Phosphorus Magnesium Total Bilirubin AST ALT Alkaline Phosphatase Total Protein Albumin 03/08/18 03/08/18 03/09/18 20:31 21:05 00:21 WBC RBC Hgb Hct MCV MCH MCHC RDW Plt Count MPV Neut % (Auto) Lymph % (Auto) [place] % (Auto) Eos % (Auto) Baso % (Auto) Neut # (Auto) Lymph # (Auto) [place] # (Auto) Eos # (Auto) Baso # (Auto) WBC Differential Differential Comment APTT 40.2 H D Sodium Potassium Chloride Carbon Dioxide Anion Gap BUN Creatinine Estimated GFR POC Glucose 368 H 47 L* Random Glucose Calcium Phosphorus Magnesium Total Bilirubin AST ALT Alkaline Phosphatase Total Protein Albumin 03/09/18 03/09/18 03/09/18 01:04 03:38 04:12 WBC 6.6 D RBC 2.70 L Hgb 8.8 L Hct 25.7 L MCV 95.2 MCH 32.7 MCHC 34.3 RDW 13.9 Plt Count 213 MPV 8.3 Neut % (Auto) 49.6 Lymph % (Auto) 36.3 [place] % (Auto) 8.7 H Eos % (Auto) 4.7 H Baso % (Auto) 0.7 Neut # (Auto) 3.3 Lymph # (Auto) 2.4 [place] # (Auto) 0.6 Eos # (Auto) 0.3 Baso # (Auto) 0.0 WBC Differential . Differential Comment Auto diff final APTT Sodium Potassium Chloride Carbon Dioxide Anion Gap BUN Creatinine Estimated GFR POC Glucose 185 H 193 H Random Glucose Calcium Phosphorus Magnesium Total Bilirubin AST ALT Alkaline Phosphatase Total Protein Albumin 03/09/18 03/09/18 03/09/18 04:12 04:12 08:08 WBC RBC Hgb Hct MCV MCH MCHC RDW Plt Count MPV Neut % (Auto) Lymph % (Auto) [place] % (Auto) Eos % (Auto) Baso % (Auto) Neut # (Auto) Lymph # (Auto) [place] # (Auto) Eos # (Auto) Baso # (Auto) WBC Differential Differential Comment APTT 35.0 H Sodium 140 Potassium 4.4 Chloride 112 H Carbon Dioxide 17.7 L Anion Gap 10 BUN 17 Creatinine 1.03 H Estimated GFR 52 L POC Glucose 312 H Random Glucose 209 H Calcium 7.7 L Phosphorus 2.7 Magnesium 1.9 Total Bilirubin 0.3 AST 28 ALT 19 Alkaline Phosphatase 105 Total Protein 5.7 L Albumin 2.7 L D Microbiology 03/07/18 10:07 Blood - Peripheral Aerobic Blood Culture - Preliminary No growth in 1 day 03/07/18 10:07 Blood - Peripheral Anaerobic Blood Culture - Preliminary No growth in 1 day 03/07/18 10:00 Blood - Peripheral Aerobic Blood Culture - Preliminary No growth in 1 day 03/07/18 10:00 Blood - Peripheral Anaerobic Blood Culture - Preliminary No growth in 1 day - Imaging ITS Impressions Chest X-Ray 03/07/18 05:21 CONCLUSION: No evidence of acute cardiopulmonary disease. Assessment and Plan - Plan Neuro/Psych: Acute encephalopathy/toxic metabolic secondary to DKA Acetaminophen 650 p.o. every 6 hours as needed fever Hydrocodone/acetaminophen 5/325 1 tablet every 4 hours as needed 1 through 5 Morphine sulfate will get IV every 2 hours as needed pain 6 - 10 Psychiatry has lifted the Charlton act CV: Elevated troponin Coronary artery disease Maintain mean arterial pressure greater than equal 65 EKG showed tachycardia with normal OK, QRS and QT intervals. Nonspecific ST-T changes. Cycle troponins until trending downward 2D echocardiogram revealed left ventricular systolic function is normal with an estimated ejection fraction in the range of 60-65%. Added metoprolol tartrate 20 mg twice daily. No ANAHY inhibitor secondary to acute kidney injury Check lipid profile -triglycerides 90. Cholesterol 130. Currently on atorvastatin 80 mg daily Heart catheterization LAD proximal 70%. Circumflex 60%. RCA regular millimeters. Evaluated by Dr. Stafford/cardiology. Resp: Nasal cannula to maintain saturations greater than or equal to 92% Incentive spirometry while awake As needed albuterol aerosols every 2 hours as needed GI: ADA diet Pantoprazole for GI prophylaxis Docusate sodium/senna 1 tablet twice daily for bowel regimen : Pagan catheter removed Endo: DKA Diabetes mellitus 1.5 treat as 1.0 Hypothyroidism Transition to subcutaneous insulin overnight. Currently on insulin detemir 15 units daily with aspart insulin sliding scale before meals/at bedtime medium protocol Hemoglobin A1c 11.4 continue levothyroxine 300 mcg daily. TSH -0.737 Renal: Acute kidney injury Mostly secondary to dehydration Creatinine currently 1.56 this a.m. improved to 1.03 today Renal ultrasound/urine eosinophils and electrolytes if indicated Avoid nephrotoxic medication Heme: Leukocytosis Macrocytic anemia Monitor CBC daily. Follow trends. No indication for transfusion of blood products at this time. Check coag Currently on heparin drip at 1000 units an hour. Serial PTTs ID: Monitor for signs and symptomatology infection Blood cultures 2 pending. UA negative for acute infection FEN: Hyponatremia Alcoholic fluids Replace electrolytes as clinically indicated with BMP, magnesium phosphorus every 6 hours MSK: Out of bed PT evaluate and treat. And OT Access -Utilize peripheral IV. Prophylaxis -GI pantoprazole --DVT SCD/heparin drip Code Status: Full code Discussed Condition With: WILBERTO and patient Discharge Planning: Pending improvement of her diabetes and what cardiac catheterization shows
--- NOTE | 2018-03-09 15:56 | P.PNCA ---
Subjective Interval history: No events overnight Resting comfortably Medications and Allergies Active Medications: Active Medications Acetaminophen (Tylenol) 650 mg PO Q6H PRN PRN Reason: FEVER >101F Hydrocodone Bitart/Acetaminophen ([place] 5/325) 1 tab PO Q4H PRN PRN Reason: PAIN SCALE 1 TO 5 Last Admin: 03/08/18 10:42 Dose: 1 tab Al Hydroxide/Mg Hydroxide (Milk Of Magnesia Liq) 30 ml PO Q12H PRN PRN Reason: Mild Constipation Albuterol (Albuterol Neb (Prn)) 2.5 mg NEB Q2HR NEB PRN PRN Reason: SHORTNESS OF BREATH/WHEEZING Aspirin (Ecotrin) 81 mg PO DAILY [facility] Last Admin: 03/09/18 08:01 Dose: 81 mg Atorvastatin Calcium (Lipitor) 80 mg PO HS [facility] Last Admin: 03/08/18 20:43 Dose: 80 mg Bisacodyl (Dulcolax Supp) 10 mg RECTAL DAILY PRN PRN Reason: SEVERE CONSITIPATION Chlorhexidine Gluconate (Chlorhexidine 2% Cloth) 3 pack TOPICAL DAILY@0400 [facility] Stop: 03/13/18 03:59 Last Admin: 03/09/18 05:21 Dose: 3 pack Chlorhexidine Gluconate (Chlorhexidine 2% Cloth) 3 pack TOPICAL DAILY@0400 PRN PRN Reason: Extra cloth needed Stop: 03/13/18 03:59 Dextrose (D50w Vial) 50 ml IV.PUSH UNSCH PRN PRN Reason: PER HYPOGLYCEMIA PROTOCOL Last Admin: 03/09/18 00:26 Dose: 50 ml Dextrose (D50w Vial) 50 ml IV.PUSH UNSCH PRN PRN Reason: PER HYPOGLYCEMIA PROTOCOL Glucagon (Glucagon Inj) 1 mg OTHER PRN PRN PRN Reason: for Hypoglycemia Protocol Sodium Chloride (Ns Inj) 1,000 mls @ 250 mls/hr IV.CONT .Q4H [facility] Last Admin: 03/09/18 07:25 Dose: Not Given Heparin Sodium/Dextrose (Heparin/D5w 25,000 U/250 Ml) 25,000 unit in 250 mls @ 10 mls/hr IV.CONT TITRATE PRN; Protocol PRN Reason: Per Protocol Last Titration: 03/09/18 15:30 Dose: 1,000 units/hr, 10 mls/hr Potassium Phosphate 30 mmol/ (Sodium Chloride) 260 mls @ 42 mls/hr IV.SIG UNSCH PRN PRN Reason: SEE LABEL COMMENTS Insulin Aspart (Novolog Insulin Correctional Sugar Inj) 0 unit SQ ACHS AND 3AM [facility]; Protocol Last Admin: 03/09/18 12:36 Dose: 10 unit Insulin Detemir (Levemir Inj) 15 unit SQ DAILY [facility] Last Admin: 03/09/18 08:17 Dose: 15 unit Lactulose (Lactulose Liq) 30 ml PO DAILY PRN PRN Reason: SEVERE CONSITIPATION Levothyroxine Sodium (Synthroid) 300 mcg PO DAILY@0600 [facility] Last Admin: 03/09/18 05:22 Dose: 300 mcg Magnesium Oxide (Mag-Ox) 800 mg PO UNSCH PRN PRN Reason: For Magnesium 1.2 - 1.6 mg/dL Metoprolol Tartrate (Lopressor) 12.5 mg PO BID [facility] Last Admin: 03/09/18 08:17 Dose: 12.5 mg Miscellaneous (Pill Splitter) 1 each OTHER UNSCH [facility] Morphine Sulfate (Morphine Inj) 2 mg IV.PUSH Q2H PRN PRN Reason: PAIN SCALE 6 TO 10 Pantoprazole Sodium (Protonix Inj) 40 mg IV.PUSH DAILY [facility] Last Admin: 03/09/18 08:01 Dose: 40 mg Potassium Phosphate (K-Phos Original) 2,000 mg PO Q4H PRN PRN Reason: Phosphorus Less Than 2.5 mg/dL Potassium Phosphate (K-Phos Original) 2,000 mg PO UNSCH PRN PRN Reason: SEE LABEL COMMENTS Senna/Docusate Sodium (Hanane-Colace) 1 tab PO BID [facility] Last Admin: 03/09/18 08:02 Dose: Not Given Sennosides (Senokot) 17.2 mg PO Q12H PRN PRN Reason: Moderate Constipation Sodium Chloride (Ns Flush) 2 ml IV.FLUSH BID [facility] Last Admin: 03/09/18 08:02 Dose: 2 ml Sodium Chloride (Ns Flush) 2 ml IV.FLUSH UNSCH PRN PRN Reason: FLUSH AFTER USING IV ACCESS Allergies Allergy/AdvReac Type Severity Reaction Status Date / Time No Known Allergies Allergy Unverified 03/07/18 07:38 Home Medications Medication Instructions Recorded Confirmed Type insulin aspart U-100 [Novolog 14 sliding scale dose SUB-Q UD 03/07/18 03/07/18 History U-100 Insulin aspart] insulin glargine [Lantus U-100 38 unit SUB-Q DAILY 03/07/18 03/07/18 History Insulin] levothyroxine 300 mcg PO DAILY 03/07/18 03/07/18 History Physical Exam Vital signs: Vital Signs 03/08/18 16:00 03/08/18 16:15 03/08/18 17:00 Temperature Pulse Rate 80 77 79 Respiratory Rate Blood Pressure 125/61 Pulse Oximetry 96 100 99 03/08/18 17:27 03/08/18 18:00 03/08/18 18:01 Temperature Pulse Rate 81 79 84 Respiratory Rate 30 H 30 H 40 H Blood Pressure 138/66 112/86 Pulse Oximetry 100 98 88 L 03/08/18 19:00 03/08/18 19:01 03/08/18 20:00 Temperature 97.8 F Pulse Rate 79 79 81 Respiratory Rate 30 H 36 H 35 H Blood Pressure 165/76 H 145/68 H Pulse Oximetry 100 99 99 03/08/18 21:00 03/08/18 21:05 03/08/18 22:00 Temperature Pulse Rate 80 79 79 Respiratory Rate 27 H 32 H 31 H Blood Pressure 162/74 H Pulse Oximetry 100 100 100 03/08/18 23:00 03/09/18 00:00 03/09/18 01:00 Temperature 98.4 F Pulse Rate 74 76 74 Respiratory Rate 45 H 44 H 41 H Blood Pressure Pulse Oximetry 99 96 98 03/09/18 01:09 03/09/18 02:00 03/09/18 03:00 Temperature Pulse Rate 79 78 82 Respiratory Rate 31 H 41 H 30 H Blood Pressure 141/105 H 141/64 H 144/67 H Pulse Oximetry 99 98 97 03/09/18 04:00 03/09/18 05:00 03/09/18 06:00 Temperature Pulse Rate 79 78 82 Respiratory Rate 40 H 41 H 51 H Blood Pressure 129/60 139/65 Pulse Oximetry 96 96 97 03/09/18 06:01 03/09/18 08:00 03/09/18 09:18 Temperature 97.5 F L Pulse Rate 81 80 Respiratory Rate 35 H 21 Blood Pressure 105/66 179/79 H Pulse Oximetry 99 98 97 03/09/18 12:00 Temperature 97.7 F Pulse Rate 71 Respiratory Rate 20 Blood Pressure 168/75 H Pulse Oximetry 98 Intake & Output 03/08/18 03/09/18 03/09/18 18:59 06:59 18:59 Intake Total 480 / 480 490 / 490 Output Total 1100 / 1100 Balance 480 / 480 -610 / -610 Weight 75.6 kg Intake: IV 250 / 250 Heparin/D5W 25,000 U/250 mL 25, 250 / 250 000 unit In 250 ml @ 1,000 UNITS/HR 10 mls/hr IV.CONT TITRATE PRN Rx#:[id number] Oral 480 / 480 240 / 240 Other 0 / 0 Output: Urine 1100 / 1100 Stool 0 / 0 Urine Amount (Catheter) 0 / 0 Indwelling Urethral Catheter 0 / 0 Other: # Voids 3 3 Date of Last Bowel Movement 03/07/18 03/08/18 # Bowel Movements 0 # Incontinent Bowel Movements 0 Narrative: GENERAL: NAD, AAOx3 SKIN: Warm and dry. HEAD: Atraumatic. Normocephalic. EYES: Pupils equal and round. No scleral icterus. No injection or drainage. ENT: No nasal bleeding or discharge. Mucous membranes pink and moist. NECK: Trachea midline. No JVD. CARDIOVASCULAR: Regular rate and rhythm. S1-S2 no S3 or S4 RESPIRATORY: No accessory muscle use. Clear to auscultation. Breath sounds equal bilaterally. GASTROINTESTINAL: Abdomen soft, non-tender, nondistended. Hepatic and splenic margins not palpable. MUSCULOSKELETAL: Extremities without clubbing, cyanosis, or edema. No obvious deformities. NEUROLOGICAL: Awake and alert. No obvious cranial nerve deficits. Motor grossly within normal limits. Five out of 5 muscle strength in the arms and legs. Normal speech. PSYCHIATRIC: Appropriate mood and affect; insight and judgment normal. - Urinary Catheter Management Indwelling Urethral Catheter Cath placed during this visit: yes Reason for continuing: Hourly intake/output Insertion date: 03/07/18 Insertion time: 06:10 Results 03/09/18 04:12 03/09/18 04:12 Cardiac Enzymes 03/07/18 03/07/18 03/09/18 Range/Units 19:45 23:59 04:12 AST 28 (15-37) U/L Troponin I 4.30 H* D 3.86 H* D (0.02-0.05) ng/mL Coagulation 03/07/18 03/07/18 03/08/18 Range/Units 16:40 23:59 04:26 PT 10.3 (9.8-11.6) sec APTT 23.3 L 44.3 H D 77.0 H D (24.3-30.1) sec 03/08/18 03/08/18 03/09/18 Range/Units 12:49 21:05 04:12 PT (9.8-11.6) sec APTT 52.2 H D 40.2 H D 35.0 H (24.3-30.1) sec 03/09/18 Range/Units 13:57 PT (9.8-11.6) sec APTT 39.0 H (24.3-30.1) sec Lipids 03/07/18 Range/Units 19:45 Triglycerides 90 (42-150) mg/dL Cholesterol 131 (120-200) mg/dL HDL Cholesterol 52.4 (40.0-60.0) mg/dL Cholesterol/HDL Ratio 2.50 Ratio CBC 03/07/18 03/08/18 03/09/18 Range/Units 19:45 04:26 04:12 WBC 13.9 H 13.4 H 6.6 D (4.0-11.0) th/mm3 RBC 2.91 L 2.99 L 2.70 L (4.00-5.30) mil/mm3 Hgb 9.2 L D 9.4 L 8.8 L (11.6-15.3) gm/dL Hct 28.0 L 28.4 L 25.7 L (35.0-46.0) % Plt Count 222 D 241 213 (150-450) th/mm3 Neut # (Auto) 9.5 H 3.3 (1.8-7.7) th/mm3 Lymph # (Auto) 2.8 2.4 (1.0-4.8) th/mm3 [place] # (Auto) 0.9 0.6 (0.0-0.9) th/mm3 Eos # (Auto) 0.1 0.3 (0.0-0.4) th/mm3 Baso # (Auto) 0.1 0.0 (0.0-0.2) th/mm3 Comprehensive Metabolic Panel 03/07/18 03/07/18 03/08/18 Range/Units 19:45 23:59 04:26 Sodium 138 137 139 (136-145) meq/L Potassium 4.8 4.8 4.8 (3.5-5.1) meq/L Chloride 112 H 109 H 110 H (98-107) meq/L Carbon Dioxide 13.6 L 14.8 L 16.0 L (21.0-32.0) meq/L BUN 37 H 34 H 32 H (7-18) mg/dL Creatinine 1.45 H 1.46 H 1.56 H (0.50-1.00) mg/dL Calcium 7.7 L 7.5 L 7.7 L (8.5-10.1) mg/dL AST (15-37) U/L ALT (10-53) U/L Alkaline Phosphatase (45-117) U/L Total Protein (6.4-8.2) g/dL Albumin (3.4-5.0) g/dL 03/09/18 Range/Units 04:12 Sodium 140 (136-145) meq/L Potassium 4.4 (3.5-5.1) meq/L Chloride 112 H (98-107) meq/L Carbon Dioxide 17.7 L (21.0-32.0) meq/L BUN 17 (7-18) mg/dL Creatinine 1.03 H (0.50-1.00) mg/dL Calcium 7.7 L (8.5-10.1) mg/dL AST 28 (15-37) U/L ALT 19 (10-53) U/L Alkaline Phosphatase 105 (45-117) U/L Total Protein 5.7 L (6.4-8.2) g/dL Albumin 2.7 L D (3.4-5.0) g/dL Intake and Output 03/09/18 03/09/18 03/09/18 06:59 14:59 22:59 Intake Total 240 / 240 Output Total 1100 / 1100 Balance -860 / -860 Intake: Oral 240 / 240 Other 0 / 0 Output: Urine 1100 / 1100 Stool 0 / 0 Urine Amount (Catheter) 0 / 0 Indwelling Urethral Catheter 0 / 0 Other: # Voids 3 Date of Last Bowel Movement 03/08/18 # Bowel Movements 0 # Incontinent Bowel Movements 0 Weight 75.6 kg Assessment and Plan - Assessment (1) NSTEMI (non-ST elevated myocardial infarction) Code(s): I21.4 - Non-ST elevation (NSTEMI) myocardial infarction Status: Acute (2) CAD (coronary artery disease) Code(s): I25.10 - Atherosclerotic heart disease of platinum coronary artery without angina pectoris Status: Acute (3) Diabetic ketoacidosis associated with type 2 diabetes mellitus Code(s): E11.10 - Type 2 diabetes mellitus with ketoacidosis without coma Status: Acute (4) Adjustment disorder with depressed mood Code(s): F43.21 - Adjustment disorder with depressed mood Status: Acute - Plan 1) DKA Off insulin drip Per the primary team 2) NSTEMI Type 2 due to DKA But has known CAD Previous cath showing significant disease of the LAD/LCx Plan for cardiac catheterization tomorrow Will need to decide at the time on medical management, PCI or CABG If PCI, may need to be staged due to CKD, although creatinine better at this time Heparin drip ASA 3) EF 60-65%, moderate 4) [place] on CKD Stable 5) Downtrend in Hgb most likely dilutional 4L positive fluid balance yesterday (3) Diabetic ketoacidosis associated with type 2 diabetes mellitus Qualifiers: Diabetes mellitus complication detail: without coma Qualified Code(s): E11.10 - Type 2 diabetes mellitus with ketoacidosis without coma
[2018-03-10] MEDS: Insulin NovoLOG Aspart Correctional Sugar Inj SQ SCH ×5 (03:29→21:37)
[2018-03-10] MEDS: Sod Chloride 0.9% Inj 1,000 ML IV.CONT SCH ×3 (03:34→11:48)
[2018-03-10] MEDS: Chlorhexidine Gluconate 2% 1 Pack (2 Cloths) TOPICAL SCH (03:35)
[2018-03-10] MEDS: Heparin Drip 25,000 UNIT/250 ML BAG IV.CONT PRN (03:36)
[2018-03-10 04:21] LABS: Baso # (Auto) 0.1 th/mm3 (0.0-0.2); Baso % (Auto) 1.3 % (0.0-2.0); Eos # (Auto) 0.4 th/mm3 (0.0-0.4); Eos % (Auto) 5.7 % (0.0-4.0); Hematocrit 30.8 % (35.0-46.0); Hemoglobin 10.1 gm/dL (11.6-15.3); Lymph # (Auto) 2.8 th/mm3 (1.0-4.8); Lymph % (Auto) 44.1 % (9.0-44.0); Mean Corpuscular HGB Conc 32.9 % (32.0-36.0); Mean Corpuscular Hemoglobin 31.8 pg (27.0-34.0); Mean Corpuscular Volume 96.7 fL (80.0-100.0); Mean Platelet Volume 9.8 fL (7.0-11.0); Mono # (Auto) 0.6 th/mm3 (0.0-0.9); Mono % (Auto) 9.1 % (0.0-8.0); Neut # (Auto) 2.5 th/mm3 (1.8-7.7); Neut % (Auto) 39.8 % (16.0-70.0); Platelet Count 179 th/mm3 (150-450); Red Blood Count 3.18 mil/mm3 (4.00-5.30); Red Cell Distribution Width 13.9 % (11.6-17.2); White Blood Count 6.3 th/mm3 (4.0-11.0)
[2018-03-10 04:52] LABS: Alanine Aminotransferase 20 U/L (10-53); Alkaline Phosphatase 117 U/L (45-117); Anion Gap 12 meq/L (5-15); Aspartate Aminotransferase 22 U/L (15-37); Blood Urea Nitrogen 18 mg/dL (7-18); Calcium 8.1 mg/dL (8.5-10.1); Carbon Dioxide 21.7 meq/L (21.0-32.0); Chloride 104 meq/L (98-107); Chol/HDL Ratio 2.72 Ratio; Cholesterol 159 mg/dL (120-200); Free T4 (Free Thyroxine) 1.52 ng/dL (0.76-1.46); Glomerular Filtration Rate 52 mL/min (>89); Glucose,Random 375 mg/dL (74-106); HDL Cholesterol 58.4 mg/dL (40.0-60.0); LDL Cholesterol,Calculated 83 mg/dL (0-99); Magnesium 1.7 mg/dL (1.5-2.5); Phosphorus 2.5 mg/dL (2.5-4.9); Potassium 4.9 meq/L (3.5-5.1); Sodium 138 meq/L (136-145); Thyroid Stimulating Hormone 0.949 uIU/mL (0.358-3.740); Total Protein 6.2 g/dL (6.4-8.2); Triglycerides 87 mg/dL (42-150)
[2018-03-10] MEDS: Levothyroxine 150 MCG Tablet PO SCH (06:01)
[2018-03-10] MEDS: Metoprolol Tartrate 25 MG Tablet PO SCH ×2 (08:00→21:37)
[2018-03-10] MEDS: Pantoprazole Inj 40 MG Vial IV.PUSH SCH (08:00)
[2018-03-10] MEDS: Insulin Detemir Inj 1,000 UNIT/10 ML Vial SQ SCH (08:01)
[2018-03-10] MEDS: Senna/Docusate Sodium 8.6/50 MG Tablet PO SCH ×2 (08:02→21:37)
--- NOTE | 2018-03-10 10:08 | P.PNIM ---
Subjective Interval history: 77-year-old female. Date of admission 03/07/2018. Past medical history includes diabetes mellitus since 1991 and hypothyroidism. Patient is a [place] act from [facility] where she is brought by the police department where she was a well person check where she is nearby pleased to be disheveled with an high blood sugar. Please placed under Latesha act due to the fact that she stated that she knew that her blood sugar was high in the could result in her being in a coma and that she did not care at that time. Patient was transferred to [facility] for further evaluation treatment. Laboratories revealed a leukocytosis of 17,000. Macrocytic anemia. Elevated troponin of 1.28. EKG pending. Acute kidney injury of 2.2. Patient denies chest pain, shortness of breath, abdominal pain, nausea vomiting or diarrhea. Chest x-ray reviewed no acute cardiopulmonary findings. EKG revealed sinus tachycardia with no specific ST-T changes. Patient may need to have a bowel movement. 03/08: Resting comfortably in bed in no acute distress. Denies chest pain. Off insulin drip overnight. Currently insulin detemir 15 units daily. On 38 units daily at home. On heparin drip for correction has been lifted. Awake and oriented to person place and time and talking on telephone currently. 03-09 patient has been transferred to our service today Latesha fraire has been lifted To have cardiac catheterization tomorrow 924 Had issues with blood sugars this morning Remains on a heparin drip A.m. labs monitor kidney functions Discussed with patient and RN 9 patient is scheduled to have cardiac catheterization later today Hold Levemir at this time since patient remains n.p.o. A.m. labs Increase activity Physical Exam Vital signs: Vital Signs 03/09/18 12:00 03/09/18 16:00 03/09/18 19:00 Temperature 97.7 F 97.7 F Pulse Rate 71 76 81 Respiratory Rate 20 22 Blood Pressure 168/75 H 167/82 H Pulse Oximetry 98 100 98 03/09/18 20:00 03/09/18 20:11 03/09/18 21:00 Temperature 98.1 F Pulse Rate 83 74 Respiratory Rate 16 Blood Pressure 160/77 H Pulse Oximetry 100 100 96 03/09/18 22:00 03/09/18 22:42 03/09/18 23:00 Temperature Pulse Rate 77 76 78 Respiratory Rate Blood Pressure 151/85 H Pulse Oximetry 96 100 96 03/10/18 00:00 03/10/18 00:01 03/10/18 01:00 Temperature 99.1 F Pulse Rate 83 83 83 Respiratory Rate 16 Blood Pressure 127/61 Pulse Oximetry 96 98 98 03/10/18 02:00 03/10/18 02:01 03/10/18 03:00 Temperature 98.8 F Pulse Rate 84 85 94 H Respiratory Rate 16 Blood Pressure 169/74 H Pulse Oximetry 97 98 03/10/18 04:00 03/10/18 04:20 03/10/18 05:00 Temperature Pulse Rate 84 84 81 Respiratory Rate Blood Pressure 182/83 H 171/80 H Pulse Oximetry 96 95 97 03/10/18 06:00 03/10/18 06:01 03/10/18 07:00 Temperature Pulse Rate 77 76 80 Respiratory Rate Blood Pressure 152/67 H Pulse Oximetry 97 99 03/10/18 07:51 03/10/18 08:00 03/10/18 09:00 Temperature 97.8 F Pulse Rate 72 68 Respiratory Rate 27 H 28 H Blood Pressure 131/61 Pulse Oximetry 95 98 96 Intake & Output 03/09/18 03/10/18 03/10/18 18:59 06:59 18:59 Intake Total 900 / 900 730 / 730 Output Total 1300 / 1300 1200 / 1200 Balance -400 / -400 -470 / -470 Weight 75.5 kg Intake: IV 250 / 250 Heparin/D5W 25,000 U/250 mL 25, 250 / 250 000 unit In 250 ml @ 1,000 UNITS/HR 10 mls/hr IV.CONT TITRATE PRN Rx#:[id number] Oral 900 / 900 480 / 480 Output: Urine 1300 / 1300 1200 / 1200 Other: # Voids 3 Date of Last Bowel Movement 03/09/18 03/09/18 03/09/18 # Bowel Movements 1 0 Narrative: GENERAL: NAD, AAOx3 SKIN: Warm and dry. HEAD: Atraumatic. Normocephalic. EYES: Pupils equal and round. No scleral icterus. No injection or drainage. ENT: No nasal bleeding or discharge. Mucous membranes pink and moist. NECK: Trachea midline. No JVD. CARDIOVASCULAR: Regular rate and rhythm. S1-S2 no S3 or S4 RESPIRATORY: No accessory muscle use. Clear to auscultation. Breath sounds equal bilaterally. GASTROINTESTINAL: Abdomen soft, non-tender, nondistended. Hepatic and splenic margins not palpable. MUSCULOSKELETAL: Extremities without clubbing, cyanosis, or edema. No obvious deformities. NEUROLOGICAL: Awake and alert. No obvious cranial nerve deficits. Motor grossly within normal limits. Five out of 5 muscle strength in the arms and legs. Normal speech. PSYCHIATRIC: Appropriate mood and affect; insight and judgment normal. - Urinary Catheter Management Indwelling Urethral Catheter Cath placed during this visit: yes Reason for continuing: Hourly intake/output Insertion date: 03/07/18 Insertion time: 06:10 Results - Labs CBC & Chem 7: 03/10/18 03:25 03/10/18 03:25 Laboratory Results - last 24 hr 03/09/18 03/09/18 03/09/18 12:19 13:57 17:58 WBC RBC Hgb Hct MCV MCH MCHC RDW Plt Count MPV Neut % (Auto) Lymph % (Auto) [place] % (Auto) Eos % (Auto) Baso % (Auto) Neut # (Auto) Lymph # (Auto) [place] # (Auto) Eos # (Auto) Baso # (Auto) WBC Differential Differential Comment APTT 39.0 H Sodium Potassium Chloride Carbon Dioxide Anion Gap BUN Creatinine Estimated GFR POC Glucose 306 H 115 H Random Glucose Calcium Phosphorus Magnesium Total Bilirubin AST ALT Alkaline Phosphatase Total Protein Albumin Triglycerides Cholesterol LDL Cholesterol, Calc HDL Cholesterol Cholesterol/HDL Ratio TSH Free T4 03/09/18 03/09/18 03/10/18 20:09 22:25 03:08 WBC RBC Hgb Hct MCV MCH MCHC RDW Plt Count MPV Neut % (Auto) Lymph % (Auto) [place] % (Auto) Eos % (Auto) Baso % (Auto) Neut # (Auto) Lymph # (Auto) [place] # (Auto) Eos # (Auto) Baso # (Auto) WBC Differential Differential Comment APTT 43.6 H Sodium Potassium Chloride Carbon Dioxide Anion Gap BUN Creatinine Estimated GFR POC Glucose 180 H 434 H Random Glucose Calcium Phosphorus Magnesium Total Bilirubin AST ALT Alkaline Phosphatase Total Protein Albumin Triglycerides Cholesterol LDL Cholesterol, Calc HDL Cholesterol Cholesterol/HDL Ratio TSH Free T4 03/10/18 03/10/18 03/10/18 03:09 03:25 03:25 WBC 6.3 RBC 3.18 L Hgb 10.1 L Hct 30.8 L MCV 96.7 MCH 31.8 MCHC 32.9 RDW 13.9 Plt Count 179 MPV 9.8 Neut % (Auto) 39.8 Lymph % (Auto) 44.1 H [place] % (Auto) 9.1 H Eos % (Auto) 5.7 H Baso % (Auto) 1.3 Neut # (Auto) 2.5 Lymph # (Auto) 2.8 [place] # (Auto) 0.6 Eos # (Auto) 0.4 Baso # (Auto) 0.1 WBC Differential . Differential Comment Auto diff final APTT Sodium 138 Potassium 4.9 Chloride 104 D Carbon Dioxide 21.7 Anion Gap 12 BUN 18 Creatinine 1.02 H Estimated GFR 52 L POC Glucose 417 H Random Glucose 375 H D Calcium 8.1 L Phosphorus 2.5 Magnesium 1.7 Total Bilirubin 0.5 AST 22 ALT 20 Alkaline Phosphatase 117 Total Protein 6.2 L Albumin 3.0 L Triglycerides 87 Cholesterol 159 LDL Cholesterol, Calc 83 HDL Cholesterol 58.4 Cholesterol/HDL Ratio 2.72 TSH 0.949 Free T4 1.52 H 03/10/18 03/10/18 03:25 07:57 WBC RBC Hgb Hct MCV MCH MCHC RDW Plt Count MPV Neut % (Auto) Lymph % (Auto) [place] % (Auto) Eos % (Auto) Baso % (Auto) Neut # (Auto) Lymph # (Auto) [place] # (Auto) Eos # (Auto) Baso # (Auto) WBC Differential Differential Comment APTT 46.7 H Sodium Potassium Chloride Carbon Dioxide Anion Gap BUN Creatinine Estimated GFR POC Glucose 206 H Random Glucose Calcium Phosphorus Magnesium Total Bilirubin AST ALT Alkaline Phosphatase Total Protein Albumin Triglycerides Cholesterol LDL Cholesterol, Calc HDL Cholesterol Cholesterol/HDL Ratio TSH Free T4 Microbiology 03/07/18 10:07 Blood - Peripheral Aerobic Blood Culture - Preliminary No growth in 2 days 03/07/18 10:07 Blood - Peripheral Anaerobic Blood Culture - Preliminary No growth in 2 days 03/07/18 10:00 Blood - Peripheral Aerobic Blood Culture - Preliminary No growth in 2 days 03/07/18 10:00 Blood - Peripheral Anaerobic Blood Culture - Preliminary No growth in 2 days - Imaging Laboratory Tests 03/07/18 03/07/18 03/07/18 05:22 05:24 05:30 WBC 17.3 H RBC 3.54 L Hgb 11.2 L Hct 36.9 MCV 104.1 H MCH 31.6 MCHC 30.3 L RDW 14.7 Plt Count 336 MPV 8.2 Neut % (Auto) 82.6 H Lymph % (Auto) 8.4 L [place] % (Auto) 8.2 H Eos % (Auto) 0.1 Baso % (Auto) 0.7 Neut # (Auto) 14.3 H Lymph # (Auto) 1.5 [place] # (Auto) 1.4 H Eos # (Auto) 0.0 Baso # (Auto) 0.1 WBC Differential . Differential Comment Auto diff final PT INR APTT Puncture Site Right radial Patient Temperature 98.6 O2 Saturation 95 ABG pH 7.09 L* ABG pCO2 9 L* ABG pO2 143 H ABG HCO3 3 L* ABG O2 Content 14.1 ABG Base Excess -26.0 L ABG Methemoglobin 1.2 Louie Test Present Hemoglobin 10.4 L Carboxyhemoglobin 1.4 O2 Delivery Device Room air Inspired O2 21 Critical Value Yes Sodium Potassium Chloride Carbon Dioxide Anion Gap BUN Creatinine Estimated GFR POC Glucose Greater than 600 H* Random Glucose Hemoglobin A1c Osmolality Calcium Prot Corrected Calcium Phosphorus Magnesium Total Bilirubin AST ALT Alkaline Phosphatase Total Creatine Kinase Troponin I Total Protein Albumin Triglycerides Cholesterol LDL Cholesterol, Calc HDL Cholesterol Cholesterol/HDL Ratio Lipase Beta-Hydroxybutyric Acd TSH Free T4 Urine Color Urine Clarity Urine pH Ur Specific [place] Urine Protein Urine Glucose (UA) Urine Ketones Urine Occult Blood Urine Nitrate Urine Bilirubin Urine Urobilinogen Ur Leukocyte Esterase Urine RBC Urine WBC Urine Bacteria Urine Mucus Micro UA Comment Ur Microscopic Review Urine Culture Comments Nasal Screen MRSA (PCR) 03/07/18 03/07/18 03/07/18 05:30 06:00 06:38 WBC RBC Hgb Hct MCV MCH MCHC RDW Plt Count MPV Neut % (Auto) Lymph % (Auto) [place] % (Auto) Eos % (Auto) Baso % (Auto) Neut # (Auto) Lymph # (Auto) [place] # (Auto) Eos # (Auto) Baso # (Auto) WBC Differential Differential Comment PT INR APTT Puncture Site Patient Temperature O2 Saturation ABG pH ABG pCO2 ABG pO2 ABG HCO3 ABG O2 Content ABG Base Excess ABG Methemoglobin Louie Test Hemoglobin Carboxyhemoglobin O2 Delivery Device Inspired O2 Critical Value Sodium 130 L Potassium 4.8 Chloride 92 L Carbon Dioxide 5.0 L Anion Gap 33 H BUN 48 H Creatinine 2.17 H Estimated GFR 22 L POC Glucose 536 H* Random Glucose 683 H* Hemoglobin A1c Osmolality 337 H Calcium 8.7 Prot Corrected Calcium Phosphorus Magnesium Total Bilirubin 0.4 AST 22 ALT 22 Alkaline Phosphatase 158 H Total Creatine Kinase Troponin I 1.28 H* Total Protein 7.1 Albumin 3.7 Triglycerides Cholesterol LDL Cholesterol, Calc HDL Cholesterol Cholesterol/HDL Ratio Lipase 137 Beta-Hydroxybutyric Acd 12.11 H TSH Free T4 Urine Color Yellow Urine Clarity Hazy H Urine pH 5.0 Ur Specific [place] 1.017 Urine Protein 30 H Urine Glucose (UA) 500 or greater Urine Ketones 80 or greater H Urine Occult Blood Small H Urine Nitrate Negative Urine Bilirubin Negative Urine Urobilinogen Less than 2 Ur Leukocyte Esterase Negative Urine RBC 1 Urine WBC 1 Urine Bacteria Rare H Urine Mucus Few H Micro UA Comment Culture not ind Ur Microscopic Review Not Reportable Urine Culture Comments Culture not ind Nasal Screen MRSA (PCR) 03/07/18 03/07/18 03/07/18 07:35 08:39 08:44 WBC RBC Hgb Hct MCV MCH MCHC RDW Plt Count MPV Neut % (Auto) Lymph % (Auto) [place] % (Auto) Eos % (Auto) Baso % (Auto) Neut # (Auto) Lymph # (Auto) [place] # (Auto) Eos # (Auto) Baso # (Auto) WBC Differential Differential Comment PT INR APTT Puncture Site Patient Temperature O2 Saturation ABG pH ABG pCO2 ABG pO2 ABG HCO3 ABG O2 Content ABG Base Excess ABG Methemoglobin Louie Test Hemoglobin Carboxyhemoglobin O2 Delivery Device Inspired O2 Critical Value Sodium Potassium Chloride Carbon Dioxide Anion Gap BUN Creatinine Estimated GFR POC Glucose 451 H* 425 H Random Glucose Hemoglobin A1c Osmolality Calcium Prot Corrected Calcium Phosphorus Magnesium Total Bilirubin AST ALT Alkaline Phosphatase Total Creatine Kinase Troponin I Total Protein Albumin Triglycerides Cholesterol LDL Cholesterol, Calc HDL Cholesterol Cholesterol/HDL Ratio Lipase Beta-Hydroxybutyric Acd TSH Free T4 Urine Color Urine Clarity Urine pH Ur Specific [place] Urine Protein Urine Glucose (UA) Urine Ketones Urine Occult Blood Urine Nitrate Urine Bilirubin Urine Urobilinogen Ur Leukocyte Esterase Urine RBC Urine WBC Urine Bacteria Urine Mucus Micro UA Comment Ur Microscopic Review Urine Culture Comments Nasal Screen MRSA (PCR) Not detected 03/07/18 03/07/18 03/07/18 09:30 10:07 10:27 WBC RBC Hgb Hct MCV MCH MCHC RDW Plt Count MPV Neut % (Auto) Lymph % (Auto) [place] % (Auto) Eos % (Auto) Baso % (Auto) Neut # (Auto) Lymph # (Auto) [place] # (Auto) Eos # (Auto) Baso # (Auto) WBC Differential Differential Comment PT INR APTT Puncture Site Patient Temperature O2 Saturation ABG pH ABG pCO2 ABG pO2 ABG HCO3 ABG O2 Content ABG Base Excess ABG Methemoglobin Louie Test Hemoglobin Carboxyhemoglobin O2 Delivery Device Inspired O2 Critical Value Sodium Potassium Chloride Carbon Dioxide Anion Gap BUN Creatinine Estimated GFR POC Glucose 376 H 246 H Random Glucose Hemoglobin A1c 11.4 H Osmolality Calcium Prot Corrected Calcium Phosphorus Magnesium Total Bilirubin AST ALT Alkaline Phosphatase Total Creatine Kinase Troponin I Total Protein Albumin Triglycerides Cholesterol LDL Cholesterol, Calc HDL Cholesterol Cholesterol/HDL Ratio Lipase Beta-Hydroxybutyric Acd TSH Free T4 Urine Color Urine Clarity Urine pH Ur Specific [place] Urine Protein Urine Glucose (UA) Urine Ketones Urine Occult Blood Urine Nitrate Urine Bilirubin Urine Urobilinogen Ur Leukocyte Esterase Urine RBC Urine WBC Urine Bacteria Urine Mucus Micro UA Comment Ur Microscopic Review Urine Culture Comments Nasal Screen MRSA (PCR) 03/07/18 03/07/18 03/07/18 11:06 11:06 11:24 WBC RBC Hgb Hct MCV MCH MCHC RDW Plt Count MPV Neut % (Auto) Lymph % (Auto) [place] % (Auto) Eos % (Auto) Baso % (Auto) Neut # (Auto) Lymph # (Auto) [place] # (Auto) Eos # (Auto) Baso # (Auto) WBC Differential Differential Comment PT INR APTT Puncture Site Patient Temperature O2 Saturation ABG pH ABG pCO2 ABG pO2 ABG HCO3 ABG O2 Content ABG Base Excess ABG Methemoglobin Louie Test Hemoglobin Carboxyhemoglobin O2 Delivery Device Inspired O2 Critical Value Sodium Cancelled Potassium Cancelled Chloride Cancelled Carbon Dioxide Cancelled Anion Gap Cancelled BUN Cancelled Creatinine Cancelled Estimated GFR Cancelled POC Glucose 252 H Random Glucose Cancelled Hemoglobin A1c Osmolality Calcium Cancelled Prot Corrected Calcium Phosphorus Cancelled Magnesium Cancelled Total Bilirubin AST ALT Alkaline Phosphatase Total Creatine Kinase Troponin I Cancelled Total Protein Albumin Triglycerides Cholesterol LDL Cholesterol, Calc HDL Cholesterol Cholesterol/HDL Ratio Lipase Cancelled Beta-Hydroxybutyric Acd TSH Free T4 Urine Color Urine Clarity Urine pH Ur Specific [place] Urine Protein Urine Glucose (UA) Urine Ketones Urine Occult Blood Urine Nitrate Urine Bilirubin Urine Urobilinogen Ur Leukocyte Esterase Urine RBC Urine WBC Urine Bacteria Urine Mucus Micro UA Comment Ur Microscopic Review Urine Culture Comments Nasal Screen MRSA (PCR) 03/07/18 03/07/18 03/07/18 12:41 13:33 13:44 WBC RBC Hgb Hct MCV MCH MCHC RDW Plt Count MPV Neut % (Auto) Lymph % (Auto) [place] % (Auto) Eos % (Auto) Baso % (Auto) Neut # (Auto) Lymph # (Auto) [place] # (Auto) Eos # (Auto) Baso # (Auto) WBC Differential Differential Comment PT INR APTT Puncture Site Patient Temperature O2 Saturation ABG pH ABG pCO2 ABG pO2 ABG HCO3 ABG O2 Content ABG Base Excess ABG Methemoglobin Louie Test Hemoglobin Carboxyhemoglobin O2 Delivery Device Inspired O2 Critical Value Sodium 140 D Potassium 4.3 Chloride 110 H D Carbon Dioxide 17.3 L D Anion Gap 13 BUN 41 H Creatinine 1.68 H Estimated GFR 29 L POC Glucose 204 H 213 H Random Glucose 214 H D Hemoglobin A1c Osmolality Calcium 7.2 L* D Prot Corrected Calcium 7.9 L Phosphorus 2.5 Magnesium 1.6 Total Bilirubin AST ALT Alkaline Phosphatase Total Creatine Kinase Troponin I 4.64 H* D Total Protein 5.8 L D Albumin Triglycerides Cholesterol LDL Cholesterol, Calc HDL Cholesterol Cholesterol/HDL Ratio Lipase 129 Beta-Hydroxybutyric Acd 1.48 H D TSH Free T4 Urine Color Urine Clarity Urine pH Ur Specific [place] Urine Protein Urine Glucose (UA) Urine Ketones Urine Occult Blood Urine Nitrate Urine Bilirubin Urine Urobilinogen Ur Leukocyte Esterase Urine RBC Urine WBC Urine Bacteria Urine Mucus Micro UA Comment Ur Microscopic Review Urine Culture Comments Nasal Screen MRSA (PCR) 03/07/18 03/07/18 03/07/18 14:28 15:41 16:29 WBC RBC Hgb Hct MCV MCH MCHC RDW Plt Count MPV Neut % (Auto) Lymph % (Auto) [place] % (Auto) Eos % (Auto) Baso % (Auto) Neut # (Auto) Lymph # (Auto) [place] # (Auto) Eos # (Auto) Baso # (Auto) WBC Differential Differential Comment PT INR APTT Puncture Site Patient Temperature O2 Saturation ABG pH ABG pCO2 ABG pO2 ABG HCO3 ABG O2 Content ABG Base Excess ABG Methemoglobin Louie Test Hemoglobin Carboxyhemoglobin O2 Delivery Device Inspired O2 Critical Value Sodium Potassium Chloride Carbon Dioxide Anion Gap BUN Creatinine Estimated GFR POC Glucose 205 H 204 H 168 H Random Glucose Hemoglobin A1c Osmolality Calcium Prot Corrected Calcium Phosphorus Magnesium Total Bilirubin AST ALT Alkaline Phosphatase Total Creatine Kinase Troponin I Total Protein Albumin Triglycerides Cholesterol LDL Cholesterol, Calc HDL Cholesterol Cholesterol/HDL Ratio Lipase Beta-Hydroxybutyric Acd TSH Free T4 Urine Color Urine Clarity Urine pH Ur Specific [place] Urine Protein Urine Glucose (UA) Urine Ketones Urine Occult Blood Urine Nitrate Urine Bilirubin Urine Urobilinogen Ur Leukocyte Esterase Urine RBC Urine WBC Urine Bacteria Urine Mucus Micro UA Comment Ur Microscopic Review Urine Culture Comments Nasal Screen MRSA (PCR) 03/07/18 03/07/18 03/07/18 16:40 17:29 18:31 WBC RBC Hgb Hct MCV MCH MCHC RDW Plt Count MPV Neut % (Auto) Lymph % (Auto) [place] % (Auto) Eos % (Auto) Baso % (Auto) Neut # (Auto) Lymph # (Auto) [place] # (Auto) Eos # (Auto) Baso # (Auto) WBC Differential Differential Comment PT 10.3 INR 1.0 APTT 23.3 L Puncture Site Patient Temperature O2 Saturation ABG pH ABG pCO2 ABG pO2 ABG HCO3 ABG O2 Content ABG Base Excess ABG Methemoglobin Louie Test Hemoglobin Carboxyhemoglobin O2 Delivery Device Inspired O2 Critical Value Sodium Potassium Chloride Carbon Dioxide Anion Gap BUN Creatinine Estimated GFR POC Glucose 154 H 128 H Random Glucose Hemoglobin A1c Osmolality Calcium Prot Corrected Calcium Phosphorus Magnesium Total Bilirubin AST ALT Alkaline Phosphatase Total Creatine Kinase Troponin I Total Protein Albumin Triglycerides Cholesterol LDL Cholesterol, Calc HDL Cholesterol Cholesterol/HDL Ratio Lipase Beta-Hydroxybutyric Acd TSH Free T4 Urine Color Urine Clarity Urine pH Ur Specific [place] Urine Protein Urine Glucose (UA) Urine Ketones Urine Occult Blood Urine Nitrate Urine Bilirubin Urine Urobilinogen Ur Leukocyte Esterase Urine RBC Urine WBC Urine Bacteria Urine Mucus Micro UA Comment Ur Microscopic Review Urine Culture Comments Nasal Screen MRSA (PCR) 03/07/18 03/07/18 03/07/18 18:59 19:30 19:45 WBC RBC Hgb Hct MCV MCH MCHC RDW Plt Count MPV Neut % (Auto) Lymph % (Auto) [place] % (Auto) Eos % (Auto) Baso % (Auto) Neut # (Auto) Lymph # (Auto) [place] # (Auto) Eos # (Auto) Baso # (Auto) WBC Differential Differential Comment PT INR APTT Puncture Site Patient Temperature O2 Saturation ABG pH ABG pCO2 ABG pO2 ABG HCO3 ABG O2 Content ABG Base Excess ABG Methemoglobin Louie Test Hemoglobin Carboxyhemoglobin O2 Delivery Device Inspired O2 Critical Value Sodium Potassium Chloride Carbon Dioxide Anion Gap BUN Creatinine Estimated GFR POC Glucose 125 H 161 H Random Glucose Hemoglobin A1c Osmolality Calcium Prot Corrected Calcium Phosphorus Magnesium Total Bilirubin AST ALT Alkaline Phosphatase Total Creatine Kinase 91 Troponin I 4.30 H* D Total Protein Albumin Triglycerides 90 Cholesterol 131 LDL Cholesterol, Calc 61 HDL Cholesterol 52.4 Cholesterol/HDL Ratio 2.50 Lipase Beta-Hydroxybutyric Acd TSH Free T4 Urine Color Urine Clarity Urine pH Ur Specific [place] Urine Protein Urine Glucose (UA) Urine Ketones Urine Occult Blood Urine Nitrate Urine Bilirubin Urine Urobilinogen Ur Leukocyte Esterase Urine RBC Urine WBC Urine Bacteria Urine Mucus Micro UA Comment Ur Microscopic Review Urine Culture Comments Nasal Screen MRSA (PCR) 03/07/18 03/07/18 03/07/18 19:45 19:45 19:45 WBC 13.9 H RBC 2.91 L Hgb 9.2 L D Hct 28.0 L MCV 96.3 D MCH 31.5 MCHC 32.7 RDW 13.4 Plt Count 222 D MPV 7.9 Neut % (Auto) Lymph % (Auto) [place] % (Auto) Eos % (Auto) Baso % (Auto) Neut # (Auto) Lymph # (Auto) [place] # (Auto) Eos # (Auto) Baso # (Auto) WBC Differential Differential Comment PT INR APTT Puncture Site Patient Temperature O2 Saturation ABG pH ABG pCO2 ABG pO2 ABG HCO3 ABG O2 Content ABG Base Excess ABG Methemoglobin Louie Test Hemoglobin Carboxyhemoglobin O2 Delivery Device Inspired O2 Critical Value Sodium 138 Potassium 4.8 Chloride 112 H Carbon Dioxide 13.6 L Anion Gap 12 BUN 37 H Creatinine 1.45 H Estimated GFR 35 L POC Glucose Random Glucose 122 H Hemoglobin A1c Osmolality Calcium 7.7 L Prot Corrected Calcium Phosphorus Magnesium Total Bilirubin AST ALT Alkaline Phosphatase Total Creatine Kinase Troponin I Total Protein Albumin Triglycerides Cholesterol LDL Cholesterol, Calc HDL Cholesterol Cholesterol/HDL Ratio Lipase Beta-Hydroxybutyric Acd 0.48 H D Cancelled TSH Free T4 Urine Color Urine Clarity Urine pH Ur Specific [place] Urine Protein Urine Glucose (UA) Urine Ketones Urine Occult Blood Urine Nitrate Urine Bilirubin Urine Urobilinogen Ur Leukocyte Esterase Urine RBC Urine WBC Urine Bacteria Urine Mucus Micro UA Comment Ur Microscopic Review Urine Culture Comments Nasal Screen MRSA (PCR) 03/07/18 03/07/18 03/07/18 20:39 21:07 21:37 WBC RBC Hgb Hct MCV MCH MCHC RDW Plt Count MPV Neut % (Auto) Lymph % (Auto) [place] % (Auto) Eos % (Auto) Baso % (Auto) Neut # (Auto) Lymph # (Auto) [place] # (Auto) Eos # (Auto) Baso # (Auto) WBC Differential Differential Comment PT INR APTT Puncture Site Patient Temperature O2 Saturation ABG pH ABG pCO2 ABG pO2 ABG HCO3 ABG O2 Content ABG Base Excess ABG Methemoglobin Louie Test Hemoglobin Carboxyhemoglobin O2 Delivery Device Inspired O2 Critical Value Sodium Potassium Chloride Carbon Dioxide Anion Gap BUN Creatinine Estimated GFR POC Glucose 121 H 117 H 112 H Random Glucose Hemoglobin A1c Osmolality Calcium Prot Corrected Calcium Phosphorus Magnesium Total Bilirubin AST ALT Alkaline Phosphatase Total Creatine Kinase Troponin I Total Protein Albumin Triglycerides Cholesterol LDL Cholesterol, Calc HDL Cholesterol Cholesterol/HDL Ratio Lipase Beta-Hydroxybutyric Acd TSH Free T4 Urine Color Urine Clarity Urine pH Ur Specific [place] Urine Protein Urine Glucose (UA) Urine Ketones Urine Occult Blood Urine Nitrate Urine Bilirubin Urine Urobilinogen Ur Leukocyte Esterase Urine RBC Urine WBC Urine Bacteria Urine Mucus Micro UA Comment Ur Microscopic Review Urine Culture Comments Nasal Screen MRSA (PCR) 03/07/18 03/07/18 03/08/18 23:59 23:59 00:33 WBC RBC Hgb Hct MCV MCH MCHC RDW Plt Count MPV Neut % (Auto) Lymph % (Auto) [place] % (Auto) Eos % (Auto) Baso % (Auto) Neut # (Auto) Lymph # (Auto) [place] # (Auto) Eos # (Auto) Baso # (Auto) WBC Differential Differential Comment PT INR APTT 44.3 H D Puncture Site Patient Temperature O2 Saturation ABG pH ABG pCO2 ABG pO2 ABG HCO3 ABG O2 Content ABG Base Excess ABG Methemoglobin Louie Test Hemoglobin Carboxyhemoglobin O2 Delivery Device Inspired O2 Critical Value Sodium 137 Potassium 4.8 Chloride 109 H Carbon Dioxide 14.8 L Anion Gap 13 BUN 34 H Creatinine 1.46 H Estimated GFR 35 L POC Glucose 277 H Random Glucose 271 H D Hemoglobin A1c Osmolality Calcium 7.5 L Prot Corrected Calcium Phosphorus 2.7 Magnesium 2.3 D Total Bilirubin AST ALT Alkaline Phosphatase Total Creatine Kinase Troponin I 3.86 H* D Total Protein Albumin Triglycerides Cholesterol LDL Cholesterol, Calc HDL Cholesterol Cholesterol/HDL Ratio Lipase Beta-Hydroxybutyric Acd 2.86 H D TSH Free T4 Urine Color Urine Clarity Urine pH Ur Specific [place] Urine Protein Urine Glucose (UA) Urine Ketones Urine Occult Blood Urine Nitrate Urine Bilirubin Urine Urobilinogen Ur Leukocyte Esterase Urine RBC Urine WBC Urine Bacteria Urine Mucus Micro UA Comment Ur Microscopic Review Urine Culture Comments Nasal Screen MRSA (PCR) 03/08/18 03/08/18 03/08/18 04:26 04:26 04:26 WBC 13.4 H RBC 2.99 L Hgb 9.4 L Hct 28.4 L MCV 95.1 MCH 31.6 MCHC 33.2 RDW 13.5 Plt Count 241 MPV 8.5 Neut % (Auto) 71.2 H Lymph % (Auto) 20.8 [place] % (Auto) 6.6 Eos % (Auto) 0.9 Baso % (Auto) 0.5 Neut # (Auto) 9.5 H Lymph # (Auto) 2.8 [place] # (Auto) 0.9 Eos # (Auto) 0.1 Baso # (Auto) 0.1 WBC Differential . Differential Comment Auto diff final PT INR APTT 77.0 H D Puncture Site Patient Temperature O2 Saturation ABG pH ABG pCO2 ABG pO2 ABG HCO3 ABG O2 Content ABG Base Excess ABG Methemoglobin Louie Test Hemoglobin Carboxyhemoglobin O2 Delivery Device Inspired O2 Critical Value Sodium 139 Potassium 4.8 Chloride 110 H Carbon Dioxide 16.0 L Anion Gap 13 BUN 32 H Creatinine 1.56 H Estimated GFR 32 L POC Glucose Random Glucose 245 H Hemoglobin A1c Osmolality Calcium 7.7 L Prot Corrected Calcium Phosphorus 2.1 L Magnesium 2.2 Total Bilirubin AST ALT Alkaline Phosphatase Total Creatine Kinase Troponin I Total Protein Albumin Triglycerides Cholesterol LDL Cholesterol, Calc HDL Cholesterol Cholesterol/HDL Ratio Lipase Beta-Hydroxybutyric Acd TSH 0.737 Free T4 Urine Color Urine Clarity Urine pH Ur Specific [place] Urine Protein Urine Glucose (UA) Urine Ketones Urine Occult Blood Urine Nitrate Urine Bilirubin Urine Urobilinogen Ur Leukocyte Esterase Urine RBC Urine WBC Urine Bacteria Urine Mucus Micro UA Comment Ur Microscopic Review Urine Culture Comments Nasal Screen MRSA (PCR) 03/08/18 03/08/18 03/08/18 06:00 06:02 11:21 WBC RBC Hgb Hct MCV MCH MCHC RDW Plt Count MPV Neut % (Auto) Lymph % (Auto) [place] % (Auto) Eos % (Auto) Baso % (Auto) Neut # (Auto) Lymph # (Auto) [place] # (Auto) Eos # (Auto) Baso # (Auto) WBC Differential Differential Comment PT INR APTT Puncture Site Patient Temperature O2 Saturation ABG pH ABG pCO2 ABG pO2 ABG HCO3 ABG O2 Content ABG Base Excess ABG Methemoglobin Louie Test Hemoglobin Carboxyhemoglobin O2 Delivery Device Inspired O2 Critical Value Sodium Potassium Chloride Carbon Dioxide Anion Gap BUN Creatinine Estimated GFR POC Glucose 343 H 307 H 239 H Random Glucose Hemoglobin A1c Osmolality Calcium Prot Corrected Calcium Phosphorus Magnesium Total Bilirubin AST ALT Alkaline Phosphatase Total Creatine Kinase Troponin I Total Protein Albumin Triglycerides Cholesterol LDL Cholesterol, Calc HDL Cholesterol Cholesterol/HDL Ratio Lipase Beta-Hydroxybutyric Acd TSH Free T4 Urine Color Urine Clarity Urine pH Ur Specific [place] Urine Protein Urine Glucose (UA) Urine Ketones Urine Occult Blood Urine Nitrate Urine Bilirubin Urine Urobilinogen Ur Leukocyte Esterase Urine RBC Urine WBC Urine Bacteria Urine Mucus Micro UA Comment Ur Microscopic Review Urine Culture Comments Nasal Screen MRSA (PCR) 03/08/18 03/08/18 03/08/18 12:49 16:18 20:31 WBC RBC Hgb Hct MCV MCH MCHC RDW Plt Count MPV Neut % (Auto) Lymph % (Auto) [place] % (Auto) Eos % (Auto) Baso % (Auto) Neut # (Auto) Lymph # (Auto) [place] # (Auto) Eos # (Auto) Baso # (Auto) WBC Differential Differential Comment PT INR APTT 52.2 H D Puncture Site Patient Temperature O2 Saturation ABG pH ABG pCO2 ABG pO2 ABG HCO3 ABG O2 Content ABG Base Excess ABG Methemoglobin Louie Test Hemoglobin Carboxyhemoglobin O2 Delivery Device Inspired O2 Critical Value Sodium Potassium Chloride Carbon Dioxide Anion Gap BUN Creatinine Estimated GFR POC Glucose 113 H 368 H Random Glucose Hemoglobin A1c Osmolality Calcium Prot Corrected Calcium Phosphorus Magnesium Total Bilirubin AST ALT Alkaline Phosphatase Total Creatine Kinase Troponin I Total Protein Albumin Triglycerides Cholesterol LDL Cholesterol, Calc HDL Cholesterol Cholesterol/HDL Ratio Lipase Beta-Hydroxybutyric Acd TSH Free T4 Urine Color Urine Clarity Urine pH Ur Specific [place] Urine Protein Urine Glucose (UA) Urine Ketones Urine Occult Blood Urine Nitrate Urine Bilirubin Urine Urobilinogen Ur Leukocyte Esterase Urine RBC Urine WBC Urine Bacteria Urine Mucus Micro UA Comment Ur Microscopic Review Urine Culture Comments Nasal Screen MRSA (PCR) 03/08/18 03/09/18 03/09/18 21:05 00:21 01:04 WBC RBC Hgb Hct MCV MCH MCHC RDW Plt Count MPV Neut % (Auto) Lymph % (Auto) [place] % (Auto) Eos % (Auto) Baso % (Auto) Neut # (Auto) Lymph # (Auto) [place] # (Auto) Eos # (Auto) Baso # (Auto) WBC Differential Differential Comment PT INR APTT 40.2 H D Puncture Site Patient Temperature O2 Saturation ABG pH ABG pCO2 ABG pO2 ABG HCO3 ABG O2 Content ABG Base Excess ABG Methemoglobin Louie Test Hemoglobin Carboxyhemoglobin O2 Delivery Device Inspired O2 Critical Value Sodium Potassium Chloride Carbon Dioxide Anion Gap BUN Creatinine Estimated GFR POC Glucose 47 L* 185 H Random Glucose Hemoglobin A1c Osmolality Calcium Prot Corrected Calcium Phosphorus Magnesium Total Bilirubin AST ALT Alkaline Phosphatase Total Creatine Kinase Troponin I Total Protein Albumin Triglycerides Cholesterol LDL Cholesterol, Calc HDL Cholesterol Cholesterol/HDL Ratio Lipase Beta-Hydroxybutyric Acd TSH Free T4 Urine Color Urine Clarity Urine pH Ur Specific [place] Urine Protein Urine Glucose (UA) Urine Ketones Urine Occult Blood Urine Nitrate Urine Bilirubin Urine Urobilinogen Ur Leukocyte Esterase Urine RBC Urine WBC Urine Bacteria Urine Mucus Micro UA Comment Ur Microscopic Review Urine Culture Comments Nasal Screen MRSA (PCR) 03/09/18 03/09/18 03/09/18 03:38 04:12 04:12 WBC 6.6 D RBC 2.70 L Hgb 8.8 L Hct 25.7 L MCV 95.2 MCH 32.7 MCHC 34.3 RDW 13.9 Plt Count 213 MPV 8.3 Neut % (Auto) 49.6 Lymph % (Auto) 36.3 [place] % (Auto) 8.7 H Eos % (Auto) 4.7 H Baso % (Auto) 0.7 Neut # (Auto) 3.3 Lymph # (Auto) 2.4 [place] # (Auto) 0.6 Eos # (Auto) 0.3 Baso # (Auto) 0.0 WBC Differential . Differential Comment Auto diff final PT INR APTT Puncture Site Patient Temperature O2 Saturation ABG pH ABG pCO2 ABG pO2 ABG HCO3 ABG O2 Content ABG Base Excess ABG Methemoglobin Louie Test Hemoglobin Carboxyhemoglobin O2 Delivery Device Inspired O2 Critical Value Sodium 140 Potassium 4.4 Chloride 112 H Carbon Dioxide 17.7 L Anion Gap 10 BUN 17 Creatinine 1.03 H Estimated GFR 52 L POC Glucose 193 H Random Glucose 209 H Hemoglobin A1c Osmolality Calcium 7.7 L Prot Corrected Calcium Phosphorus 2.7 Magnesium 1.9 Total Bilirubin 0.3 AST 28 ALT 19 Alkaline Phosphatase 105 Total Creatine Kinase Troponin I Total Protein 5.7 L Albumin 2.7 L D Triglycerides Cholesterol LDL Cholesterol, Calc HDL Cholesterol Cholesterol/HDL Ratio Lipase Beta-Hydroxybutyric Acd TSH Free T4 Urine Color Urine Clarity Urine pH Ur Specific [place] Urine Protein Urine Glucose (UA) Urine Ketones Urine Occult Blood Urine Nitrate Urine Bilirubin Urine Urobilinogen Ur Leukocyte Esterase Urine RBC Urine WBC Urine Bacteria Urine Mucus Micro UA Comment Ur Microscopic Review Urine Culture Comments Nasal Screen MRSA (PCR) 03/09/18 03/09/18 03/09/18 04:12 08:08 12:19 WBC RBC Hgb Hct MCV MCH MCHC RDW Plt Count MPV Neut % (Auto) Lymph % (Auto) [place] % (Auto) Eos % (Auto) Baso % (Auto) Neut # (Auto) Lymph # (Auto) [place] # (Auto) Eos # (Auto) Baso # (Auto) WBC Differential Differential Comment PT INR APTT 35.0 H Puncture Site Patient Temperature O2 Saturation ABG pH ABG pCO2 ABG pO2 ABG HCO3 ABG O2 Content ABG Base Excess ABG Methemoglobin Louie Test Hemoglobin Carboxyhemoglobin O2 Delivery Device Inspired O2 Critical Value Sodium Potassium Chloride Carbon Dioxide Anion Gap BUN Creatinine Estimated GFR POC Glucose 312 H 306 H Random Glucose Hemoglobin A1c Osmolality Calcium Prot Corrected Calcium Phosphorus Magnesium Total Bilirubin AST ALT Alkaline Phosphatase Total Creatine Kinase Troponin I Total Protein Albumin Triglycerides Cholesterol LDL Cholesterol, Calc HDL Cholesterol Cholesterol/HDL Ratio Lipase Beta-Hydroxybutyric Acd TSH Free T4 Urine Color Urine Clarity Urine pH Ur Specific [place] Urine Protein Urine Glucose (UA) Urine Ketones Urine Occult Blood Urine Nitrate Urine Bilirubin Urine Urobilinogen Ur Leukocyte Esterase Urine RBC Urine WBC Urine Bacteria Urine Mucus Micro UA Comment Ur Microscopic Review Urine Culture Comments Nasal Screen MRSA (PCR) 03/09/18 03/09/18 03/09/18 13:57 17:58 20:09 WBC RBC Hgb Hct MCV MCH MCHC RDW Plt Count MPV Neut % (Auto) Lymph % (Auto) [place] % (Auto) Eos % (Auto) Baso % (Auto) Neut # (Auto) Lymph # (Auto) [place] # (Auto) Eos # (Auto) Baso # (Auto) WBC Differential Differential Comment PT INR APTT 39.0 H Puncture Site Patient Temperature O2 Saturation ABG pH ABG pCO2 ABG pO2 ABG HCO3 ABG O2 Content ABG Base Excess ABG Methemoglobin Louie Test Hemoglobin Carboxyhemoglobin O2 Delivery Device Inspired O2 Critical Value Sodium Potassium Chloride Carbon Dioxide Anion Gap BUN Creatinine Estimated GFR POC Glucose 115 H 180 H Random Glucose Hemoglobin A1c Osmolality Calcium Prot Corrected Calcium Phosphorus Magnesium Total Bilirubin AST ALT Alkaline Phosphatase Total Creatine Kinase Troponin I Total Protein Albumin Triglycerides Cholesterol LDL Cholesterol, Calc HDL Cholesterol Cholesterol/HDL Ratio Lipase Beta-Hydroxybutyric Acd TSH Free T4 Urine Color Urine Clarity Urine pH Ur Specific [place] Urine Protein Urine Glucose (UA) Urine Ketones Urine Occult Blood Urine Nitrate Urine Bilirubin Urine Urobilinogen Ur Leukocyte Esterase Urine RBC Urine WBC Urine Bacteria Urine Mucus Micro UA Comment Ur Microscopic Review Urine Culture Comments Nasal Screen MRSA (PCR) 03/09/18 03/10/18 03/10/18 22:25 03:08 03:09 WBC RBC Hgb Hct MCV MCH MCHC RDW Plt Count MPV Neut % (Auto) Lymph % (Auto) [place] % (Auto) Eos % (Auto) Baso % (Auto) Neut # (Auto) Lymph # (Auto) [place] # (Auto) Eos # (Auto) Baso # (Auto) WBC Differential Differential Comment PT INR APTT 43.6 H Puncture Site Patient Temperature O2 Saturation ABG pH ABG pCO2 ABG pO2 ABG HCO3 ABG O2 Content ABG Base Excess ABG Methemoglobin Louie Test Hemoglobin Carboxyhemoglobin O2 Delivery Device Inspired O2 Critical Value Sodium Potassium Chloride Carbon Dioxide Anion Gap BUN Creatinine Estimated GFR POC Glucose 434 H 417 H Random Glucose Hemoglobin A1c Osmolality Calcium Prot Corrected Calcium Phosphorus Magnesium Total Bilirubin AST ALT Alkaline Phosphatase Total Creatine Kinase Troponin I Total Protein Albumin Triglycerides Cholesterol LDL Cholesterol, Calc HDL Cholesterol Cholesterol/HDL Ratio Lipase Beta-Hydroxybutyric Acd TSH Free T4 Urine Color Urine Clarity Urine pH Ur Specific [place] Urine Protein Urine Glucose (UA) Urine Ketones Urine Occult Blood Urine Nitrate Urine Bilirubin Urine Urobilinogen Ur Leukocyte Esterase Urine RBC Urine WBC Urine Bacteria Urine Mucus Micro UA Comment Ur Microscopic Review Urine Culture Comments Nasal Screen MRSA (PCR) 03/10/18 03/10/18 03/10/18 03:25 03:25 03:25 WBC 6.3 RBC 3.18 L Hgb 10.1 L Hct 30.8 L MCV 96.7 MCH 31.8 MCHC 32.9 RDW 13.9 Plt Count 179 MPV 9.8 Neut % (Auto) 39.8 Lymph % (Auto) 44.1 H [place] % (Auto) 9.1 H Eos % (Auto) 5.7 H Baso % (Auto) 1.3 Neut # (Auto) 2.5 Lymph # (Auto) 2.8 [place] # (Auto) 0.6 Eos # (Auto) 0.4 Baso # (Auto) 0.1 WBC Differential . Differential Comment Auto diff final PT INR APTT 46.7 H Puncture Site Patient Temperature O2 Saturation ABG pH ABG pCO2 ABG pO2 ABG HCO3 ABG O2 Content ABG Base Excess ABG Methemoglobin Louie Test Hemoglobin Carboxyhemoglobin O2 Delivery Device Inspired O2 Critical Value Sodium 138 Potassium 4.9 Chloride 104 D Carbon Dioxide 21.7 Anion Gap 12 BUN 18 Creatinine 1.02 H Estimated GFR 52 L POC Glucose Random Glucose 375 H D Hemoglobin A1c Osmolality Calcium 8.1 L Prot Corrected Calcium Phosphorus 2.5 Magnesium 1.7 Total Bilirubin 0.5 AST 22 ALT 20 Alkaline Phosphatase 117 Total Creatine Kinase Troponin I Total Protein 6.2 L Albumin 3.0 L Triglycerides 87 Cholesterol 159 LDL Cholesterol, Calc 83 HDL Cholesterol 58.4 Cholesterol/HDL Ratio 2.72 Lipase Beta-Hydroxybutyric Acd TSH 0.949 Free T4 1.52 H Urine Color Urine Clarity Urine pH Ur Specific [place] Urine Protein Urine Glucose (UA) Urine Ketones Urine Occult Blood Urine Nitrate Urine Bilirubin Urine Urobilinogen Ur Leukocyte Esterase Urine RBC Urine WBC Urine Bacteria Urine Mucus Micro UA Comment Ur Microscopic Review Urine Culture Comments Nasal Screen MRSA (PCR) 03/10/18 07:57 WBC RBC Hgb Hct MCV MCH MCHC RDW Plt Count MPV Neut % (Auto) Lymph % (Auto) [place] % (Auto) Eos % (Auto) Baso % (Auto) Neut # (Auto) Lymph # (Auto) [place] # (Auto) Eos # (Auto) Baso # (Auto) WBC Differential Differential Comment PT INR APTT Puncture Site Patient Temperature O2 Saturation ABG pH ABG pCO2 ABG pO2 ABG HCO3 ABG O2 Content ABG Base Excess ABG Methemoglobin Louie Test Hemoglobin Carboxyhemoglobin O2 Delivery Device Inspired O2 Critical Value Sodium Potassium Chloride Carbon Dioxide Anion Gap BUN Creatinine Estimated GFR POC Glucose 206 H Random Glucose Hemoglobin A1c Osmolality Calcium Prot Corrected Calcium Phosphorus Magnesium Total Bilirubin AST ALT Alkaline Phosphatase Total Creatine Kinase Troponin I Total Protein Albumin Triglycerides Cholesterol LDL Cholesterol, Calc HDL Cholesterol Cholesterol/HDL Ratio Lipase Beta-Hydroxybutyric Acd TSH Free T4 Urine Color Urine Clarity Urine pH Ur Specific [place] Urine Protein Urine Glucose (UA) Urine Ketones Urine Occult Blood Urine Nitrate Urine Bilirubin Urine Urobilinogen Ur Leukocyte Esterase Urine RBC Urine WBC Urine Bacteria Urine Mucus Micro UA Comment Ur Microscopic Review Urine Culture Comments Nasal Screen MRSA (PCR) Assessment and Plan - Plan Neuro/Psych: Acute encephalopathy/toxic metabolic secondary to DKA Acetaminophen 650 p.o. every 6 hours as needed fever Hydrocodone/acetaminophen 5/325 1 tablet every 4 hours as needed 1 through 5 Morphine sulfate will get IV every 2 hours as needed pain 6 - 10 Psychiatry has lifted the [place] act CV: Elevated troponin Coronary artery disease Maintain mean arterial pressure greater than equal 65 EKG showed tachycardia with normal OH, QRS and QT intervals. Nonspecific ST-T changes. Cycle troponins until trending downward 2D echocardiogram revealed left ventricular systolic function is normal with an estimated ejection fraction in the range of 60-65%. Added metoprolol tartrate 20 mg twice daily. No ANAHY inhibitor secondary to acute kidney injury Check lipid profile -triglycerides 90. Cholesterol 130. Currently on atorvastatin 80 mg daily Heart catheterization LAD proximal 70%. Circumflex 60%. RCA regular millimeters. Evaluated by Dr. Stafford/cardiology. To have cardiac catheterization later today with Dr. Stafford March 10 Resp: Nasal cannula to maintain saturations greater than or equal to 92% Incentive spirometry while awake As needed albuterol aerosols every 2 hours as needed GI: ADA diet Pantoprazole for GI prophylaxis Docusate sodium/senna 1 tablet twice daily for bowel regimen : Pagan catheter removed Endo: DKA Diabetes mellitus 1.5 treat as 1.0 Hypothyroidism Transition to subcutaneous insulin overnight. Currently on insulin detemir 15 units daily with aspart insulin sliding scale before meals/at bedtime medium protocol Hemoglobin A1c 11.4 continue levothyroxine 300 mcg daily. TSH -0.737 Will need more diabetic education Renal: Acute kidney injury Mostly secondary to dehydration Creatinine currently 1.56 this a.m. improved to 1.03 now 1.02 Renal ultrasound/urine eosinophils and electrolytes if indicated Avoid nephrotoxic medication Heme: Leukocytosis Macrocytic anemia Monitor CBC daily. Follow trends. No indication for transfusion of blood products at this time. Check coag Currently on heparin drip at 1000 units an hour. Serial PTTs ID: Monitor for signs and symptomatology infection Blood cultures 2 pending. UA negative for acute infection FEN: Hyponatremia Alcoholic fluids Replace electrolytes as clinically indicated with BMP, magnesium phosphorus every 6 hours MSK: Out of bed PT evaluate and treat. And OT Access -Utilize peripheral IV. Prophylaxis -GI pantoprazole --DVT SCD/heparin drip Code Status: Full code Discussed Condition With: RN and patient Discharge Planning: Pending improvement of her diabetes and what cardiac catheterization shows
[2018-03-10] MEDS ORDERED: fentaNYL Citrate Inj 100 MCG/2 ML Ampul ONE (14:02)
[2018-03-10] MEDS ORDERED: Heparin 10,000 UNITS/10 ML Vial (for IV use) ONE (14:02)
[2018-03-10] MEDS ORDERED: Heparin/NS PF Inj 500 ML ONE (14:02)
--- NOTE | 2018-03-10 15:32 | CATHPROC ---
[employer] HIS Report Study Information Study Number Admission Scheduled Start Study Start [id number] Mar 07 2018 6:59AM 03/10/2018 Mar 10 2018 1:46PM [place] [facility] Cardiac Catheterization Admit Source Facility Department Emergency department [facility] - Developer Programmer Analyst Physician and Clinical Staff Initial Daniel Steele Habilitation Worker Sherrie Agee RN Other Jeremy RN, Tigist Cisneros RN Recorder Janette Morris,RT(R) (BS) Scrub Alexa John ,RT(R) Procedures Performed Procedure Location (Site) Vessel Name Coronary Angiograms LCA Left Coronary Coronary Angiograms RCA Right Coronary L Heart Cath Wire insertion Fem Art (right) Femoral Art Equipment Time Garage Construction Equipment Mechanic Description Size Mfg Part Number Used/Scraped [id number] 14:34 [employer] MEDICAL WIRE, NITONOL 80CM 80CM Used *[id number] TRANSDUCER, TRUWAVE [id number] 14:27 [employer]AN[employer] * Used W/STOCKCOCK *[id number] 15:04 CARDIVA MEDICAL VASCADE, FR6 CLOSURE SYSTEM FR 6\7 Used *[id number] INTRODUCER SET, 14:35 [employer] FR 5 [id number] *[id number] Used MICROPUNCTURE STIFF [id number] *[id number] *[id number] 14:27 [employer] BLANKET,WARM AIR CCL * Used *[id number] 14:27 [employer] PACK, CCL CUSTOM * Used *[id number] 14:27 [employer] SUPPORT, ARTERIAL ADULT 54875 *[id number] Used [id number] 14:51 [employer]ji MEDICAL SHEATH, FR6.5 PRELUDE 11CM FR 6.5 038ACT Used *[id number] 14:27 [employer] MEDICAL WIRE, EXCHANGE 260CM 3MMJ 260CM Used *[id number] 14:27 NAMIC MANIFOLD, 4 PORT * Used *[id number] 14:27 [employer]COMED OMNIPAQUE, 350 MG, 150ML 150ML [id number] Used [id number] 14:36 TERUMO MEDICAL SHEATH, FR5 TERUMO (10CM) FR 5 Used *[id number] SHEATH, FR6 TRANSRADIAL [id number] 14:27 TERUMO MEDICAL FR 6 Used SLENDER 10CM *[id number] 14:54 VASCULAR SOLUTIONS PIGTAIL DUAL LUMEN CATHETER FR 6 5540 *[id number] Used 14:58 VASCULAR [employer]UTIONS PIGTAIL DUAL LUMEN CATHETER FR 6 5540 *[id number] Used Equipment Model, Serial, Lot Number and Expiration Data Description Model Number Serial Number Lot Number Expiration Date INTRODUCER SET, [id number] 01-31-2021 MICROPUNCTURE STIFF WIRE, NITONOL 80CM [id number] 12-24-2022 History: Current Medications Medication Dosage/Unit Route Frequency Last Date/Time Taken Statins (any) Beta Teo ASA History: Allergies Allergy Reaction No Allergy Information Available No Known Allergies History: Risk Factors Family History of Hypertension Dyslipidemia Previous IN Previous Heart Failure Premature CAD Yes No No Yes No Prior Valve Prior PCI Prior CABG Surgery No No No Cerebrovascular Peripheral Artery Chronic Lung On Dialysis Diabetes Diabetes Therapy Disease Disease Disease No No No No Yes Insulin History: Stress Tests Stress or Imaging Studies Performed No History: Other Current Smoker Method Quit Packs a Day Years Used Pack Years No Cigarettes 50 Years Ago 1 14 14 Labs Hgb (g/dl) Hct (%) WBC (l/cumm) Platelets (thousands) 11.60-17.00 35.00-51.00 4.00-11.00 150.00-450.00 10.3 30.8 6.3 179 Glucose (mg/dl) BUN (mg/dl) Creatinine (mg/dl) BUN:Creatinine (1:x) 74.00-106.00 7.00-18.00 0.50-1.30 10.00-20.00 206 18 1.0 18 Na (meq/l) K (meq/l) 136.00-145.00 3.50-5.10 138 4.9 Troponin I (ng/ml) CPK (u/l) CPK-MB (ng/ML) 0.02-0.05 26.00-308.00 0.50-3.60 3.86 91 Not Drawn Medication Medication Total Dose (Bolus/Oral) Medication Total Dosage/Unit 1% XYLOCAINE 21 mL FENTANYL 25 mcg VERSED 0.5 mg Medications (Bolus/Oral) Medication Time Given Dosage/Unit Administered By Reason VERSED 03/10/2018 2:29:18 PM 0.5 mg Sherrie Agee 0.5 mg VERSED given in lab by Sherrie Agee RN via Peripheral IV. Ordered by Daniel Stafford 1% XYLOCAINE 03/10/2018 2:29:22 PM 1 mL Daniel Stafford 1 mL 1% XYLOCAINE given in lab by Daniel Stafford in Right Radial via Subcutaneous. Ordered by Daniel Piña FENTANYL 03/10/2018 2:30:48 PM 25 mcg Sherrie Agee 25 mcg FENTANYL given in lab by Sherrie Agee RN via Peripheral IV. Ordered by Daniel Stafford 1% XYLOCAINE 03/10/2018 2:37:24 PM 20 mL Daniel Stafford 20 mL 1% XYLOCAINE given in lab by Danile Stafford in Right Groin via Subcutaneous. Ordered by Daniel Piña Medication (Drip) Medication Time Given Dosage/Unit Concentration/Unit Diluent (ml) Solution IV Solutions 03/10/2018 2:01:51 PM 0 mL (IV) NaCl .9 IV Solutions given in lab by Luis M Luna RN in Left Forearm via Peripheral IV. Pump/Drip Flow = 30 m l/hr using NaCl .9. Ordered by Daniel Stafford Reason: As per physicians verbal order. Initial Case Assessment Cardiovascular HR Rhythm NIBP Chest Pain 70 reg 155/75 0 Edema Present Skin color Skin None Normal Warm Dry Circulatory - Right Pulses Dorsalis Pedis Femoral Radial 3 3 3 Scale (0,1,2,3,4,d) Circulatory - Left Pulses Dorsalis Pedis Femoral Radial 3 3 Scale (0,1,2,3,4,d) Circulatory - Lower Extremities Color Lower Right Color Lower Left Normal Normal Neurological State Oriented to time-place- Alert Moves all extremities person Respiration - General Respiration Rate SpO2 (%) (B/min) 21 98 Chronological Log Time Study Chronological Log 14:01:26 Patient arrived via Bed. 14:01:27 Patient Name, D.O.B, / Armband Verified By R.N. 14:01:28 Consent signed by the physician and the patient and verified by the Developer Programmer Analyst staff. 14:01:29 Pre-op and post- op instructions given; patient acknowledges understanding of instructions. 14:01:31 Presedation assessment performed by Developer Programmer Analyst RN. 14:01:37 Allens test performed on the right radial and ulnar artery. 14:01:42 Patient has been NPO for More than 6Hrs. 14:01:43 Skin Breakdown none noted or reported 14:01:45 Patient Warmer Placed on the Table. 14:01:48 Dinesh Prominences Protected 14:01:50 A # 20 IV was noted in the Antecubital (right). Grade = 0 IV Solutions given in lab by Luis M Luna RN in Left Forearm via Peripheral IV. Pump/Drip Flow = 30 ml/hr using NaCl .9. 14:01:51 Ordered by Daniel Stafford Reason: As per physicians verbal order. 14:01:52 History and physical on the chart. Assessment: Initial Case, HR=70 BPM, Rhythm=reg, RIRE=895/75 mmhg, Chest Pain=0, Edema=None, Co stephanie=Normal, Skin = Warm, Dry Right Pulses: Brett Ped=3, Femoral=3, Radial=3 Left Pulses: Brett Ped=3, Femoral=3 14:01:53 Lower Right Extremities: Color=Normal Lower Left Extremities: Color=Normal Neurological: State=Alert, Ox3, BAKER Respiration: Resp=21 B/min, SpO2=98 % 14:02:12 A # 20 IV was noted in the Forearm (left). Grade = 0 Vitals capture started with the following parameters, Patient=Adult, Interval=5 min, Initial Pr ddnhkn=580 mmHg, 14:09:54 Deflation Rate=5 mmHg, Cuff placed on Left Arm 14:11:10 HR=69 bpm, GYRE=301/75 mmhg, SpO2=97.0 %, Resp=20 B/min, Pain=0, Bhanu=10, Garcia=2 14:12:41 Right Radial and groin(s) prepped with 2% chlorhexidine, and draped after a 3 min. waiting time. 14:13:54 Reference ECG taken 14:15:39 HR=73 bpm, HJUB=778/74 mmhg, SpO2=97.0 %, Resp=22 B/min, Pain=0, Bhanu=10, Garcia=2 14:15:47 A sterile drape was applied after a 3 min. prep dry waiting time 14:16:40 paged 14:18:25 Pressure channel 1 zeroed. 14:20:36 HR=66 bpm, AGMM=609/71 mmhg, SpO2=98.0 %, Resp=19 B/min, Pain=0, Bhanu=10, Garcia=2 14:: MD responded 14:: MD arrived. 14::37 HR=65 bpm, OVXC=369/70 mmhg, SpO2=97.0 %, Resp=18 B/min, Pain=0, Bhanu=10, Garcia=2 Time Out. Correct patient, correct procedure, correct physician, labs, allergies, and equipment verified with research lab assistant 14:28:48 team present. Fire risk assesment completed (see hard stop sheet for coding). Time Out Conc urred by MD and individual staff in procedure. 14:29:11 Case Start 14::18 0.5 mg VERSED given in lab by Sherrie Agee, RN via Peripheral IV. Ordered by Daniel Stafford 1 mL 1% XYLOCAINE given in lab by Daniel Stafford in Right Radial via Subcutaneous. Ordered by Rivera 14:29:22 Daniel Infante 14:30:38 HR=67 bpm, KTCS=340/70 mmhg, SpO2=97.0 %, Resp=18 B/min, Pain=0, Bhanu=10, Garcia=2 14::48 25 mcg FENTANYL given in lab by Sherrie Agee, RN via Peripheral IV. Ordered by Daniel Stafford 14:35:35 HR=66 bpm, NCRG=011/59 mmhg, SpO2=92.0 %, Resp=14 B/min, Pain=0, Bhanu=10, Garcia=2 20 mL 1% XYLOCAINE given in lab by Daniel Stafford in Right Groin via Subcutaneous. Ordered by Rivera :37:24 Daniel Infante 14:37:34 Access site was Right Femoral Artery. A INTRODUCER SET, MICROPUNCTURE STIFF FR 5 was advanced into the Fem Art (right) using the Perc utaneous ::14 technique. A SHEATH, FR5 TERUMO (10CM) FR 5 was exchanged in the Fem Art (right). This was necessary in or [place] to :21 accomodate a larger catheter. A JR 4.0 INFINITI CATHETER FR 5 was advanced over a wire. OMNIPAQUE, 350 MG, 150ML 150ML was us ed for :38:30 injections. 14:38:41 An injection in the Fem Art (right) was made through the SHEATH, FR5 TERUMO (10CM) FR 5. 14:40:34 HR=66 bpm, IKFM=985/62 mmhg, SpO2=92.0 %, Resp=14 B/min, Pain=0, Bhanu=10, Garcia=2 Recorded Pressure: LV, HR=66, Condition=Condition 1 14:41:03 (Left Ventricle) LV 140/4/8 Recorded Pressure: LV, Ao, HR=66, Condition=Condition 1 14:41:16 (Left Ventricle) LV 147/1/12, (Aorta) Ao 127/56/85 14:42:05 The RCA was injected and visualized at various angles. OMNIPAQUE, 350 MG, 150ML 150ML used . 14:42:54 A WIRE, EXCHANGE 260CM 3MMJ 260CM was inserted via Fem Art (right). 14:43:11 Catheter was removed A JL 4.0 INFINITI CATHETER FR 5 was advanced over a wire. OMNIPAQUE, 350 MG, 150ML 150ML was us ed for 14:43:48 injections. Recorded Pressure: Ao, HR=66, Condition=Condition 1 14:44:58 (Aorta) Ao 133/57/89 14:45:33 HR=66 bpm, WNUB=502/61 mmhg, SpO2=92.0 %, Resp=14 B/min, Pain=0, Bhanu=10, Garcia=2 14:46:07 The LCA was injected and visualized at various angles. OMNIPAQUE, 350 MG, 150ML 150ML used . A SHEATH, FR6.5 PRELUDE 11CM FR 6.5 was exchanged in the Fem Art (right). This was necessary in order to 14:50:21 accomodate a larger catheter. 14:50:34 HR=66 bpm, OFEF=153/64 mmhg, SpO2=95.0 %, Resp=10 B/min, Pain=0, Bhanu=10, Garcia=2 A JR 4.0 INFINITI CATHETER FR 5 was advanced over a wire. OMNIPAQUE, 350 MG, 150ML 150ML was us ed for 14:51:47 injections. After removing the current catheter a PIGTAIL DUAL LUMEN CATHETER FR 6 was advanced over a WIRE , EXCHANGE 14:53:32 260CM 3MMJ 260CM. 14:55:37 HR=67 bpm, YJTQ=231/66 mmhg, SpO2=92.0 %, Resp=15 B/min 15:00:36 HR=66 bpm, GRYR=463/69 mmhg, SpO2=93.0 %, Resp=16 B/min, Pain=0, Bhanu=10, Garcia=2 15:01:14 Pressure channel 2 zeroed. 15:01:50 Pressure channel 1 zeroed. Recorded Pressure: LV, Ao, HR=66, Condition=Condition 1 15:02:40 (Left Ventricle) LV 160/6/11, (Aorta) Ao 146/61/96 15:03:56 Catheter was removed 15:04:44 VASCADE, FR6 CLOSURE SYSTEM FR 6\7 placement in the Fem Art (right). 15:05:39 HR=65 bpm, QOUS=716/72 mmhg, SpO2=95.0 %, Resp=16 B/min, Pain=0, Bhanu=10, Garcia=2 15:07:03 Vascade did not take. Manual pressure applied by KR. 15:07:41 Case End (Physician broke scrub) 15:07:50 Catheter(s) removed without difficulty 15:08:42 No case complications noted. 15:08:47 Bedside Report will be given. 15:08:51 A Left Heart Cath was performed. 15:10:42 HR=64 bpm, TBYK=327/74 mmhg, SpO2=96.0 %, Resp=16 B/min, Pain=0, Bhanu=10, Garcia=2 15:15:43 HR=64 bpm, WYHE=406/71 mmhg, SpO2=97.0 %, Resp=18 B/min, Pain=0, Bhanu=10, Garcia=2 15:20:42 HR=64 bpm, TCSL=718/77 mmhg, SpO2=98.0 %, Resp=16 B/min, Pain=0, Bhanu=10, Garcia=2 15:25:43 HR=63 bpm, FSBW=809/76 mmhg, SpO2=97.0 %, Resp=16 B/min, Pain=0, Bhanu=10, Garcia=2 15:26:41 Sterile dressing applied to site 15:27:17 [facility] called. Spoke to Judith. 15:30:17 Vitals capture stopped. 15:31:26 Patient moved to stretcher End Study - Contrast Media Used In Study Contrast Total Opened (mL) Total Used (mL) Total Wasted (mL) Omnipaque 50 50 0 End Study - Maximum Contrast Load Max Contrast Load (mL) 378.0 End Study - Radiation Exposure Fluoro Time (minutes) 5.3 End Study - Sheaths Sheaths Pulled By Sheath Hold Time (min) Daniel Stafford End Study - Patient Disposition Complications Transferred To Interventional Outcome No Critical Care Bed No attempt made
[2018-03-10] MEDS ORDERED: Iohexol 350 MG/ML 50 ML Vial (for Cath Lab) IVCONTRAST ONE (15:56)
[2018-03-10 17:29] LABS: Hemoglobin A1c 11.1 % (4.3-6.0)
--- NOTE | 2018-03-11 01:38 | P.PNCA ---
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, mild Medications and Allergies Active Medications: Active Medications Acetaminophen (Tylenol) 650 mg PO Q6H PRN PRN Reason: FEVER >101F Hydrocodone Bitart/Acetaminophen ([place] 5/325) 1 tab PO Q4H PRN PRN Reason: PAIN SCALE 1 TO 5 Last Admin: 03/08/18 10:42 Dose: 1 tab Al Hydroxide/Mg Hydroxide (Milk Of [place] Liq) 30 ml PO Q12H PRN PRN Reason: Mild Constipation Albuterol (Albuterol Neb (Prn)) 2.5 mg NEB Q2HR NEB PRN PRN Reason: SHORTNESS OF BREATH/WHEEZING Aspirin (Ecotrin) 81 mg PO DAILY WADE Last Admin: 03/10/18 08:00 Dose: 81 mg Atorvastatin Calcium (Lipitor) 80 mg PO HS [facility] Last Admin: 03/10/18 21:37 Dose: 80 mg Bisacodyl (Dulcolax Supp) 10 mg RECTAL DAILY PRN PRN Reason: SEVERE CONSITIPATION Chlorhexidine Gluconate (Chlorhexidine 2% Cloth) 3 pack TOPICAL DAILY@0400 WADE Stop: 03/13/18 03:59 Last Admin: 03/10/18 03:35 Dose: 3 pack Chlorhexidine Gluconate (Chlorhexidine 2% Cloth) 3 pack TOPICAL DAILY@0400 PRN PRN Reason: Extra cloth needed Stop: 03/13/18 03:59 Clonidine HCl (Catapres) 0.1 mg PO Q6H PRN PRN Reason: HYPERTENSION Last Admin: 03/10/18 04:22 Dose: 0.1 mg Dextrose (D50w Vial) 50 ml IV.PUSH UNSCH PRN PRN Reason: PER HYPOGLYCEMIA PROTOCOL Last Admin: 03/09/18 00:26 Dose: 50 ml Dextrose (D50w Vial) 50 ml IV.PUSH UNSCH PRN PRN Reason: PER HYPOGLYCEMIA PROTOCOL Glucagon (Glucagon Inj) 1 mg OTHER PRN PRN PRN Reason: for Hypoglycemia Protocol Potassium Phosphate 30 mmol/ (Sodium Chloride) 260 mls @ 42 mls/hr IV.SIG UNSCH PRN PRN Reason: SEE LABEL COMMENTS Insulin Aspart (Novolog Insulin Correctional Sugar Inj) 0 unit SQ ACHS AND 3AM WADE; Protocol Last Admin: 03/10/18 21:37 Dose: 4 unit Insulin Detemir (Levemir Inj) 15 unit SQ DAILY [facility] Last Admin: 03/10/18 08:01 Dose: Not Given Lactulose (Lactulose Liq) 30 ml PO DAILY PRN PRN Reason: SEVERE CONSITIPATION Levothyroxine Sodium (Synthroid) 300 mcg PO DAILY@0600 [facility] Last Admin: 03/10/18 06:01 Dose: 300 mcg Magnesium Oxide (Mag-Ox) 800 mg PO UNSCH PRN PRN Reason: For Magnesium 1.2 - 1.6 mg/dL Metoprolol Tartrate (Lopressor) 12.5 mg PO BID [facility] Last Admin: 03/10/18 21:37 Dose: 12.5 mg Miscellaneous (Pill Splitter) 1 each OTHER UNSCH [facility] Morphine Sulfate (Morphine Inj) 2 mg IV.PUSH Q2H PRN PRN Reason: PAIN SCALE 6 TO 10 Pantoprazole Sodium (Protonix Inj) 40 mg IV.PUSH DAILY [facility] Last Admin: 03/10/18 08:00 Dose: 40 mg Potassium Phosphate (K-Phos Original) 2,000 mg PO Q4H PRN PRN Reason: Phosphorus Less Than 2.5 mg/dL Potassium Phosphate (K-Phos Original) 2,000 mg PO UNSCH PRN PRN Reason: SEE LABEL COMMENTS Senna/Docusate Sodium (Hanane-Colace) 1 tab PO BID [facility] Last Admin: 03/10/18 21:37 Dose: 1 tab Sennosides (Senokot) 17.2 mg PO Q12H PRN PRN Reason: Moderate Constipation Sodium Chloride (Ns Flush) 2 ml IV.FLUSH BID [facility] Last Admin: 03/10/18 21:38 Dose: 2 ml Sodium Chloride (Ns Flush) 2 ml IV.FLUSH UNSCH PRN PRN Reason: FLUSH AFTER USING IV ACCESS Allergies Allergy/AdvReac Type Severity Reaction Status Date / Time No Known Allergies Allergy Unverified 03/07/18 07:38 Home Medications Medication Instructions Recorded Confirmed Type insulin aspart U-100 [Novolog 14 sliding scale dose SUB-Q UD 03/07/18 03/07/18 History U-100 Insulin aspart] insulin glargine [Lantus U-100 38 unit SUB-Q DAILY 03/07/18 03/07/18 History Insulin] levothyroxine 300 mcg PO DAILY 03/07/18 03/07/18 History Physical Exam Vital signs: Vital Signs 03/10/18 02:00 03/10/18 02:01 03/10/18 03:00 Temperature 98.8 F Pulse Rate 84 85 94 H Respiratory Rate 16 Blood Pressure 169/74 H Pulse Oximetry 97 98 03/10/18 04:00 03/10/18 04:20 03/10/18 05:00 Temperature Pulse Rate 84 84 81 Respiratory Rate Blood Pressure 182/83 H 171/80 H Pulse Oximetry 96 95 97 03/10/18 06:00 03/10/18 06:01 03/10/18 07:00 Temperature Pulse Rate 77 76 80 Respiratory Rate Blood Pressure 152/67 H Pulse Oximetry 97 99 03/10/18 07:51 03/10/18 08:00 03/10/18 09:00 Temperature 97.8 F Pulse Rate 72 68 Respiratory Rate 27 H 28 H Blood Pressure 131/61 Pulse Oximetry 95 98 96 03/10/18 10:00 03/10/18 11:00 03/10/18 12:00 Temperature 98.3 F Pulse Rate 66 66 69 Respiratory Rate 27 H 22 22 Blood Pressure 150/71 H 173/73 H Pulse Oximetry 96 96 98 03/10/18 13:00 03/10/18 15:38 03/10/18 15:39 Temperature Pulse Rate 68 68 68 Respiratory Rate 29 H 17 22 Blood Pressure 182/79 H Pulse Oximetry 98 03/10/18 15:45 03/10/18 15:54 03/10/18 16:00 Temperature 99.1 F Pulse Rate 66 66 66 Respiratory Rate 23 23 22 Blood Pressure 161/75 H 161/75 H 149/69 H Pulse Oximetry 100 100 98 03/10/18 16:15 03/10/18 16:30 03/10/18 16:39 Temperature Pulse Rate 67 66 66 Respiratory Rate 17 16 16 Blood Pressure 155/70 H 158/68 H 158/68 H Pulse Oximetry 99 98 98 03/10/18 16:45 03/10/18 17:00 03/10/18 17:31 Temperature 98.3 F Pulse Rate 68 66 74 Respiratory Rate 25 H 18 19 Blood Pressure 158/70 H 129/61 177/78 H Pulse Oximetry 100 97 99 03/10/18 18:00 03/10/18 18:01 03/10/18 18:30 Temperature Pulse Rate 71 72 76 Respiratory Rate 22 26 H 18 Blood Pressure 147/65 H 136/65 Pulse Oximetry 99 99 98 03/10/18 19:00 03/10/18 19:09 03/10/18 20:00 Temperature 98.8 F Pulse Rate 73 73 85 Respiratory Rate 18 18 34 H Blood Pressure 157/70 H 157/70 H 173/75 H Pulse Oximetry 99 99 99 03/10/18 21:00 03/10/18 21:01 03/10/18 22:00 Temperature Pulse Rate 79 79 77 Respiratory Rate 30 H 41 H 37 H Blood Pressure 140/66 144/66 H Pulse Oximetry 98 98 99 03/10/18 23:00 Temperature Pulse Rate 74 Respiratory Rate 25 H Blood Pressure 134/70 Pulse Oximetry 97 Intake & Output 03/10/18 03/10/18 03/11/18 06:59 18:59 06:59 Intake Total 730 / 730 125 / 125 Output Total 1200 / 1200 800 / 800 Balance -470 / -470 -675 / -675 Weight 75.5 kg Intake: IV 250 / 250 125 / 125 Heparin/D5W 25,000 U/250 mL 25, 250 / 250 125 / 125 000 unit In 250 ml @ 1,000 UNITS/HR 10 mls/hr IV.CONT TITRATE PRN Rx#:[id number] Oral 480 / 480 Output: Urine 1200 / 1200 800 / 800 Other: # Voids 3 Date of Last Bowel Movement 03/09/18 03/10/18 03/10/18 # Bowel Movements 0 1 Narrative: GENERAL: NAD, AAOx3 SKIN: Warm and dry. HEAD: Atraumatic. Normocephalic. EYES: Pupils equal and round. No scleral icterus. No injection or drainage. ENT: No nasal bleeding or discharge. Mucous membranes pink and moist. NECK: Trachea midline. No JVD. CARDIOVASCULAR: Regular rate and rhythm. S1-S2 no S3 or S4 RESPIRATORY: No accessory muscle use. Clear to auscultation. Breath sounds equal bilaterally. GASTROINTESTINAL: Abdomen soft, non-tender, nondistended. Hepatic and splenic margins not palpable. MUSCULOSKELETAL: Extremities without clubbing, cyanosis, or edema. No obvious deformities. NEUROLOGICAL: Awake and alert. No obvious cranial nerve deficits. Motor grossly within normal limits. Five out of 5 muscle strength in the arms and legs. Normal speech. PSYCHIATRIC: Appropriate mood and affect; insight and judgment normal. - Urinary Catheter Management Indwelling Urethral Catheter Cath placed during this visit: yes Reason for continuing: Hourly intake/output Insertion date: 03/07/18 Insertion time: 06:10 Results 03/10/18 03:25 03/10/18 03:25 Cardiac Enzymes 03/09/18 03/10/18 Range/Units 04:12 03:25 AST 28 22 (15-37) U/L Coagulation 03/09/18 03/09/18 03/09/18 Range/Units 04:12 13:57 22:25 APTT 35.0 H 39.0 H 43.6 H (24.3-30.1) sec 03/10/18 Range/Units 03:25 APTT 46.7 H (24.3-30.1) sec Lipids 03/10/18 Range/Units 03:25 Triglycerides 87 (42-150) mg/dL Cholesterol 159 (120-200) mg/dL HDL Cholesterol 58.4 (40.0-60.0) mg/dL Cholesterol/HDL Ratio 2.72 Ratio CBC 03/09/18 03/10/18 Range/Units 04:12 03:25 WBC 6.6 D 6.3 (4.0-11.0) th/mm3 RBC 2.70 L 3.18 L (4.00-5.30) mil/mm3 Hgb 8.8 L 10.1 L (11.6-15.3) gm/dL Hct 25.7 L 30.8 L (35.0-46.0) % Plt Count 213 179 (150-450) th/mm3 Neut # (Auto) 3.3 2.5 (1.8-7.7) th/mm3 Lymph # (Auto) 2.4 2.8 (1.0-4.8) th/mm3 [place] # (Auto) 0.6 0.6 (0.0-0.9) th/mm3 Eos # (Auto) 0.3 0.4 (0.0-0.4) th/mm3 Baso # (Auto) 0.0 0.1 (0.0-0.2) th/mm3 Comprehensive Metabolic Panel 03/09/18 03/10/18 Range/Units 04:12 03:25 Sodium 140 138 (136-145) meq/L Potassium 4.4 4.9 (3.5-5.1) meq/L Chloride 112 H 104 D (98-107) meq/L Carbon Dioxide 17.7 L 21.7 (21.0-32.0) meq/L BUN 17 18 (7-18) mg/dL Creatinine 1.03 H 1.02 H (0.50-1.00) mg/dL Calcium 7.7 L 8.1 L (8.5-10.1) mg/dL AST 28 22 (15-37) U/L ALT 19 20 (10-53) U/L Alkaline Phosphatase 105 117 (45-117) U/L Total Protein 5.7 L 6.2 L (6.4-8.2) g/dL Albumin 2.7 L D 3.0 L (3.4-5.0) g/dL Intake and Output 03/10/18 03/10/18 03/11/18 14:59 22:59 06:59 Intake Total 125 / 125 Output Total 800 / 800 Balance 125 / 125 -800 / -800 Intake: IV 125 / 125 Heparin/D5W 25,000 U/250 mL 25, 125 / 125 000 unit In 250 ml @ 1,000 UNITS/HR 10 mls/hr IV.CONT TITRATE PRN Rx#:[id number] Output: Urine 800 / 800 Other: Date of Last Bowel Movement 03/09/18 03/10/18 # Bowel Movements 1 Assessment and Plan - Assessment (1) NSTEMI (non-ST elevated myocardial infarction) Code(s): I21.4 - Non-ST elevation (NSTEMI) myocardial infarction Status: Acute (2) CAD (coronary artery disease) Code(s): I25.10 - Atherosclerotic heart disease of [place] coronary artery without angina pectoris Status: Acute (3) Diabetic ketoacidosis associated with type 2 diabetes mellitus Code(s): E11.10 - Type 2 diabetes mellitus with ketoacidosis without coma Status: Acute (4) Adjustment disorder with depressed mood Code(s): F43.21 - Adjustment disorder with depressed mood Status: Acute - Plan 1) DKA Off insulin drip Per the primary team 2) NSTEMI Type 2 due to DKA Found to have multi-vessel CAD, consideration of CABG CT surgery consulted Heparin drip ASA 3) EF 60-65%, mild (mean gradient 20 by cath) 4) [place] on CKD Stable (3) Diabetic ketoacidosis associated with type 2 diabetes mellitus Qualifiers: Diabetes mellitus complication detail: without coma Qualified Code(s): E11.10 - Type 2 diabetes mellitus with ketoacidosis without coma
[2018-03-11] MEDS: Chlorhexidine Gluconate 2% 1 Pack (2 Cloths) TOPICAL SCH (03:05)
[2018-03-11] MEDS: Insulin NovoLOG Aspart Correctional Sugar Inj SQ SCH ×3 (03:11→12:06)
[2018-03-11] MEDS ORDERED: Metoprolol Tartrate 25 MG Tablet PO SCH (05:00)
[2018-03-11] MEDS: Levothyroxine 150 MCG Tablet PO SCH (06:13)
--- NOTE | 2018-03-11 06:15 | MA ---
cc: Daniel Stafford DO DATE: 03/10/2018 PROCEDURE: Left heart catheterization, coronary angiogram, moderate sedation 37 minutes, aortic stenosis evaluation. 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 MEDICATIONS: Versed 0.5 mg, fentanyl 25 mcg. CONTRAST USED: 50 mL. FLUOROSCOPY: 5.3 minutes. MODERATE SEDATION: 37 minutes. FRAILTY SCORE: 5. ESTIMATED BLOOD LOSS: 10 mL. PROCEDURAL SUMMARY: Heather Nails is a pleasant 77-year-old female who sees my partner, Dr. Jean Bueno and presented to [facility] in [facility] as a Charlton Act. Apparently, she was unable to take care of herself and was almost comatose at that time. Since then, her DKA has been resolved and Charlton Act has been lifted. She was found to have an elevated troponin and has known previous coronary artery disease. Because of this, she was recommended cardiac catheterization. Risks, benefits, and alternatives were explained to her and she consented as such. She was brought to the lab and prepped in the usual sterile fashion. I attempted to access her right radial artery, but was unable to and so right femoral artery was accessed using modified Seldinger technique and placement of a 5-Grenadian sheath. This was easily aspirated and flushed. A JR4 was advanced over a J-wire to the ascending aorta and across the aortic valve for measurement of left ventricular pressure. This was pulled back across the aortic valve showing a gradient, but difficult to determine as she had some ventricular tachycardia during the pullback. JR4 was used for selective angiography of the right coronary artery system. This was exchanged out for a JL4, which was used for selective angiography of the left coronary artery system. As I felt that the patient should be considered for coronary artery bypass grafting and there was confusion on the echo of how significant her aortic stenosis was, I felt that aortic stenosis should be further evaluated. At this time, the 5-Grenadian sheath was exchanged for a 6-Grenadian sheath. JR4 was used to cross the aortic valve. The JR4 was exchanged out for a Adonis dual-lumen catheter. Simultaneous left ventricular and aortic pressures showed a mean gradient of 20 for the aortic valve. This was pulled back across the aortic valve to show equalization of pressures. Adonis catheter was removed. I attempted to close the femoral site with a Vascade, but it was unable to take and so pressure was held for hemostasis. The patient left the orthodontic lab technician cardiovascularly stable. FINDINGS: LEFT MAIN: Ostial 40-50% disease with dampening of the catheter, upon entrance. It bifurcates into an LAD and circumflex. LAD: Diffuse long 70% disease from the proximal to mid portion. Distal vessel has an area of normalization before becoming significantly small at the apex. It gives off 3 diagonals, the first one having 80% ostial stenosis. The second and third have no significant disease. LEFT CIRCUMFLEX: Gsjfk-tx-[id number] sized vessel with no significant disease in the proximal portion. At the takeoff of the major obtuse marginal, there is a 70% lesion. RCA: Moderate size vessel with diffuse 30% disease throughout. It supplies the PDA as well as the posterolateral branch with diffuse 40% disease. LVEDP: 11. Aortic valve mean gradient: 20. IMPRESSION: 1. Diabetic ketoacidosis. 2. [id number]-[id number] myocardial infarction. 3. Multivessel coronary artery disease. RECOMMENDATIONS: 1. Ms. Nails presented with DKA and this has since resolved. 2. She was also a Charlton Act due to inability to take care of herself due to her almost comatose state. This has since been lifted. 3. She does have multivessel disease with probable ostial left main disease, but my major concern is her long diffusely diseased lesion in the LAD, which would require a significant amount of stent crossing multiple diagonals as well as the septal perforators. As she has multivessel disease and diabetic, ultimately I think her best option would be coronary artery bypass grafting. 4. I spoke with Dr. Perez, who will see her in consultation and further evaluate her for consideration of coronary artery bypass grafting. 5. She has had an echo showing a normal function and there was some confusion about how significant her aortic valve was. Evaluation here in the orthodontic lab technician shows that she has mild aortic stenosis and this will be left alone if she undergoes coronary artery bypass grafting. 6. We will plan on restarting her heparin drip in 6 hours as long as her groin has no complications. 7. Further recommendations will be made after CT surgery evaluation. Thank you for allowing me to see Heather Nails. If there are any questions, please do not hesitate to call. DO RACHANA QuinnP/sv , 10:53 PM , 11:04 PM
[2018-03-11 07:36] LABS: Baso # (Auto) 0.1 th/mm3 (0.0-0.2); Baso % (Auto) 0.9 % (0.0-2.0); Eos # (Auto) 0.3 th/mm3 (0.0-0.4); Eos % (Auto) 3.9 % (0.0-4.0); Hematocrit 28.9 % (35.0-46.0); Lymph # (Auto) 2.2 th/mm3 (1.0-4.8); Lymph % (Auto) 33.2 % (9.0-44.0); Mean Corpuscular HGB Conc 34.7 % (32.0-36.0); Mean Corpuscular Hemoglobin 32.6 pg (27.0-34.0); Mean Corpuscular Volume 93.8 fL (80.0-100.0); Mean Platelet Volume 8.7 fL (7.0-11.0); Mono # (Auto) 0.5 th/mm3 (0.0-0.9); Mono % (Auto) 8.1 % (0.0-8.0); Neut # (Auto) 3.5 th/mm3 (1.8-7.7); Neut % (Auto) 53.9 % (16.0-70.0); Platelet Count 211 th/mm3 (150-450); Red Blood Count 3.08 mil/mm3 (4.00-5.30); Red Cell Distribution Width 13.9 % (11.6-17.2); White Blood Count 6.6 th/mm3 (4.0-11.0)
[2018-03-11 07:44] LABS: Activated Partial Thrombo Time 22.4 sec (24.3-30.1)
[2018-03-11] MEDS: Insulin Detemir Inj 1,000 UNIT/10 ML Vial SQ SCH (08:10)
[2018-03-11] MEDS: Metoprolol Tartrate 25 MG Tablet PO SCH ×2 (08:10→22:15)
[2018-03-11] MEDS: Pantoprazole Inj 40 MG Vial IV.PUSH SCH (08:10)
[2018-03-11] MEDS: Senna/Docusate Sodium 8.6/50 MG Tablet PO SCH ×2 (08:11→22:15)
[2018-03-11 08:50] LABS: Alanine Aminotransferase 17 U/L (10-53); Albumin 2.8 g/dL (3.4-5.0); Alkaline Phosphatase 119 U/L (45-117); Anion Gap 9 meq/L (5-15); Aspartate Aminotransferase 14 U/L (15-37); Blood Urea Nitrogen 17 mg/dL (7-18); Calcium 8.1 mg/dL (8.5-10.1); Carbon Dioxide 27.6 meq/L (21.0-32.0); Chloride 105 meq/L (98-107); Glomerular Filtration Rate 47 mL/min (>89); Glucose,Random 221 mg/dL (74-106); Magnesium 1.6 mg/dL (1.5-2.5); Phosphorus 2.6 mg/dL (2.5-4.9); Potassium 3.9 meq/L (3.5-5.1); Sodium 142 meq/L (136-145)
[2018-03-11] MEDS ORDERED: Insulin Regular (For Infusion) 100 UNIT in Sodium Chlor 0.9% Inj 99 ML IV.CONT PRN (10:20)
[2018-03-11] MEDS ORDERED: Dextrose 50% in Water 50 ML Vial IV.PUSH PRN (10:20)
--- NOTE | 2018-03-11 10:21 | P.PNIM ---
Subjective Interval history: 77-year-old female. Date of admission 03/07/2018. Past medical history includes diabetes mellitus since 1991 and hypothyroidism. Patient is a Charlton act from [facility] where she is brought by the police department where she was a well person check where she is nearby pleased to be disheveled with an high blood sugar. Please placed under Latesha act due to the fact that she stated that she knew that her blood sugar was high in the could result in her being in a coma and that she did not care at that time. Patient was transferred to [facility] for further evaluation treatment. Laboratories revealed a leukocytosis of 17,000. Macrocytic anemia. Elevated troponin of 1.28. EKG pending. Acute kidney injury of 2.2. Patient denies chest pain, shortness of breath, abdominal pain, nausea vomiting or diarrhea. Chest x-ray reviewed no acute cardiopulmonary findings. EKG revealed sinus tachycardia with no specific ST-T changes. Patient may need to have a bowel movement. 03/08: Resting comfortably in bed in no acute distress. Denies chest pain. Off insulin drip overnight. Currently insulin detemir 15 units daily. On 38 units daily at home. On heparin drip for correction has been lifted. Awake and oriented to person place and time and talking on telephone currently. 03-09 patient has been transferred to our service today Latesha fraire has been lifted To have cardiac catheterization tomorrow 924 Had issues with blood sugars this morning Remains on a heparin drip A.m. labs monitor kidney functions Discussed with patient and RN 03-11 HAD CARDIAC CATH HAS MULTIPLE VESSEL DISEASE-[facility] HAS BEEN CONSULTED- NOT SEEN BY THEM YET NEEDS SURGERY ON SATURDAY AM LABS MOVE OUT OF ICU DW RN AND PT AND CVS INCREASE ACTIVITY INCREASE LEVEMIR TO 15UNITS SUBQ BID WATCH SUGARS Physical Exam Vital signs: Vital Signs 03/10/18 10:00 03/10/18 11:00 03/10/18 12:00 Temperature 98.3 F Pulse Rate 66 66 69 Respiratory Rate 27 H 22 22 Blood Pressure 150/71 H 173/73 H Pulse Oximetry 96 96 98 03/10/18 13:00 03/10/18 15:38 03/10/18 15:39 Temperature Pulse Rate 68 68 68 Respiratory Rate 29 H 17 22 Blood Pressure 182/79 H Pulse Oximetry 98 03/10/18 15:45 03/10/18 15:54 03/10/18 16:00 Temperature 99.1 F Pulse Rate 66 66 66 Respiratory Rate 23 23 22 Blood Pressure 161/75 H 161/75 H 149/69 H Pulse Oximetry 100 100 98 03/10/18 16:15 03/10/18 16:30 03/10/18 16:39 Temperature Pulse Rate 67 66 66 Respiratory Rate 17 16 16 Blood Pressure 155/70 H 158/68 H 158/68 H Pulse Oximetry 99 98 98 03/10/18 16:45 03/10/18 17:00 03/10/18 17:31 Temperature 98.3 F Pulse Rate 68 66 74 Respiratory Rate 25 H 18 19 Blood Pressure 158/70 H 129/61 177/78 H Pulse Oximetry 100 97 99 03/10/18 18:00 03/10/18 18:01 03/10/18 18:30 Temperature Pulse Rate 71 72 76 Respiratory Rate 22 26 H 18 Blood Pressure 147/65 H 136/65 Pulse Oximetry 99 99 98 03/10/18 19:00 03/10/18 19:09 03/10/18 20:00 Temperature 98.8 F Pulse Rate 73 73 85 Respiratory Rate 18 18 34 H Blood Pressure 157/70 H 157/70 H 173/75 H Pulse Oximetry 99 99 99 03/10/18 21:00 03/10/18 21:01 03/10/18 22:00 Temperature Pulse Rate 79 79 77 Respiratory Rate 30 H 41 H 37 H Blood Pressure 140/66 144/66 H Pulse Oximetry 98 98 99 03/10/18 23:00 03/11/18 00:00 03/11/18 01:00 Temperature 98.8 F Pulse Rate 74 74 76 Respiratory Rate 25 H 26 H 24 Blood Pressure 134/70 111/55 L Pulse Oximetry 97 96 97 03/11/18 01:01 03/11/18 09:17 Temperature Pulse Rate 76 Respiratory Rate 24 Blood Pressure 134/62 Pulse Oximetry 96 97 Intake & Output 03/10/18 03/11/18 03/11/18 18:59 06:59 18:59 Intake Total 125 / 125 720 / 720 Output Total 800 / 800 1200 / 1200 Balance -675 / -675 -480 / -480 Weight 76.2 kg Intake: IV 125 / 125 Heparin/D5W 25,000 U/250 mL 25, 125 / 125 000 unit In 250 ml @ 1,000 UNITS/HR 10 mls/hr IV.CONT TITRATE PRN Rx#:[id number] Oral 720 / 720 Output: Urine 800 / 800 1200 / 1200 Other: # Voids 3 Date of Last Bowel Movement 03/10/18 03/10/18 # Bowel Movements 1 0 Narrative: GENERAL: NAD, AAOx3 SKIN: Warm and dry. HEAD: Atraumatic. Normocephalic. EYES: Pupils equal and round. No scleral icterus. No injection or drainage. ENT: No nasal bleeding or discharge. Mucous membranes pink and moist. NECK: Trachea midline. No JVD. CARDIOVASCULAR: Regular rate and rhythm. S1-S2 no S3 or S4 RESPIRATORY: No accessory muscle use. Clear to auscultation. Breath sounds equal bilaterally. GASTROINTESTINAL: Abdomen soft, non-tender, nondistended. Hepatic and splenic margins not palpable. MUSCULOSKELETAL: Extremities without clubbing, cyanosis, or edema. No obvious deformities. NEUROLOGICAL: Awake and alert. No obvious cranial nerve deficits. Motor grossly within normal limits. Five out of 5 muscle strength in the arms and legs. Normal speech. PSYCHIATRIC: Appropriate mood and affect; insight and judgment normal. - Urinary Catheter Management Indwelling Urethral Catheter Cath placed during this visit: yes Reason for continuing: Hourly intake/output Insertion date: 03/07/18 Insertion time: 06:10 Results - Labs CBC & Chem 7: 03/11/18 05:37 03/11/18 05:37 Laboratory Results - last 24 hr 03/10/18 03/10/18 03/10/18 03:25 11:35 13:52 WBC RBC Hgb Hct MCV MCH MCHC RDW Plt Count MPV Neut % (Auto) Lymph % (Auto) Mchenry % (Auto) Eos % (Auto) Baso % (Auto) Neut # (Auto) Lymph # (Auto) Mchenry # (Auto) Eos # (Auto) Baso # (Auto) WBC Differential Differential Comment PT INR APTT Sodium Potassium Chloride Carbon Dioxide Anion Gap BUN Creatinine Estimated GFR POC Glucose 358 H 217 H Random Glucose Hemoglobin A1c 11.1 H Calcium Phosphorus Magnesium Total Bilirubin AST ALT Alkaline Phosphatase Total Protein Albumin 03/10/18 03/10/18 03/11/18 18:19 21:04 03:09 WBC RBC Hgb Hct MCV MCH MCHC RDW Plt Count MPV Neut % (Auto) Lymph % (Auto) Mchenry % (Auto) Eos % (Auto) Baso % (Auto) Neut # (Auto) Lymph # (Auto) Mchenry # (Auto) Eos # (Auto) Baso # (Auto) WBC Differential Differential Comment PT INR APTT Sodium Potassium Chloride Carbon Dioxide Anion Gap BUN Creatinine Estimated GFR POC Glucose 215 H 235 H 433 H Random Glucose Hemoglobin A1c Calcium Phosphorus Magnesium Total Bilirubin AST ALT Alkaline Phosphatase Total Protein Albumin 03/11/18 03/11/18 03/11/18 05:37 05:37 05:37 WBC 6.6 RBC 3.08 L Hgb 10.0 L Hct 28.9 L MCV 93.8 MCH 32.6 MCHC 34.7 RDW 13.9 Plt Count 211 MPV 8.7 Neut % (Auto) 53.9 Lymph % (Auto) 33.2 Mchenry % (Auto) 8.1 H Eos % (Auto) 3.9 Baso % (Auto) 0.9 Neut # (Auto) 3.5 Lymph # (Auto) 2.2 Mchenry # (Auto) 0.5 Eos # (Auto) 0.3 Baso # (Auto) 0.1 WBC Differential . Differential Comment Auto diff final PT 10.0 INR 1.0 APTT 22.4 L D Sodium 142 Potassium 3.9 D Chloride 105 Carbon Dioxide 27.6 Anion Gap 9 BUN 17 Creatinine 1.12 H Estimated GFR 47 L POC Glucose Random Glucose 221 H D Hemoglobin A1c Calcium 8.1 L Phosphorus 2.6 Magnesium 1.6 Total Bilirubin 0.3 AST 14 L ALT 17 Alkaline Phosphatase 119 H Total Protein 6.0 L Albumin 2.8 L 03/11/18 07:55 WBC RBC Hgb Hct MCV MCH MCHC RDW Plt Count MPV Neut % (Auto) Lymph % (Auto) Mchenry % (Auto) Eos % (Auto) Baso % (Auto) Neut # (Auto) Lymph # (Auto) Mchenry # (Auto) Eos # (Auto) Baso # (Auto) WBC Differential Differential Comment PT INR APTT Sodium Potassium Chloride Carbon Dioxide Anion Gap BUN Creatinine Estimated GFR POC Glucose 171 H Random Glucose Hemoglobin A1c Calcium Phosphorus Magnesium Total Bilirubin AST ALT Alkaline Phosphatase Total Protein Albumin Microbiology 03/07/18 10:07 Blood - Peripheral Aerobic Blood Culture - Preliminary No growth in 3 days 03/07/18 10:07 Blood - Peripheral Anaerobic Blood Culture - Preliminary No growth in 3 days 03/07/18 10:00 Blood - Peripheral Aerobic Blood Culture - Preliminary No growth in 3 days 03/07/18 10:00 Blood - Peripheral Anaerobic Blood Culture - Preliminary No growth in 3 days - Imaging Chest X-Ray 03/07/18 05:21 CONCLUSION: No evidence of acute cardiopulmonary disease. - Procedures PROCEDURE: Left heart catheterization, coronary angiogram, moderate sedation 37 minutes, aortic stenosis evaluation. 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 MEDICATIONS: Versed 0.5 mg, fentanyl 25 mcg. CONTRAST USED: 50 mL. FLUOROSCOPY: 5.3 minutes. MODERATE SEDATION: 37 minutes. FRAILTY SCORE: 5. ESTIMATED BLOOD LOSS: 10 mL. PROCEDURAL SUMMARY: Heather Nails is a pleasant 77-year-old female who sees my partner, Dr. Jean Bueno and presented to [facility] in [facility] as a Charl[place] Act. Apparently, she was unable to take care of herself and was almost comatose at that time. Since then, her DKA has been resolved and Charlton Act has been lifted. She was found to have an elevated troponin and has known previous coronary artery disease. Because of this, she was recommended cardiac catheterization. Risks, benefits, and alternatives were explained to her and she consented as such. She was brought to the lab and prepped in the usual sterile fashion. I attempted to access her right radial artery, but was unable to and so right femoral artery was accessed using modified Seldinger technique and placement of a 5-Chadian sheath. This was easily aspirated and flushed. A JR4 was advanced over a J-wire to the ascending aorta and across the aortic valve for measurement of left ventricular pressure. This was pulled back across the aortic valve showing a gradient, but difficult to determine as she had some ventricular tachycardia during the pullback. JR4 was used for selective angiography of the right coronary artery system. This was exchanged out for a JL4, which was used for selective angiography of the left coronary artery system. As I felt that the patient should be considered for coronary artery bypass grafting and there was confusion on the echo of how significant her aortic stenosis was, I felt that aortic stenosis should be further evaluated. At this time, the 5-Chadian sheath was exchanged for a 6-Chadian sheath. JR4 was used to cross the aortic valve. The JR4 was exchanged out for a Adonis dual-lumen catheter. Simultaneous left ventricular and aortic pressures showed a mean gradient of 20 for the aortic valve. This was pulled back across the aortic valve to show equalization of pressures. Seagraves catheter was removed. I attempted to close the femoral site with a Vascade, but it was unable to take and so pressure was held for hemostasis. The patient left the cardiac catheterization technician cardiovascularly stable. FINDINGS: LEFT MAIN: Ostial 40-50% disease with dampening of the catheter, upon entrance. It bifurcates into an LAD and circumflex. LAD: Diffuse long 70% disease from the proximal to mid portion. Distal vessel has an area of normalization before becoming significantly small at the apex. It gives off 3 diagonals, the first one having 80% ostial stenosis. The second and third have no significant disease. LEFT CIRCUMFLEX: Nzyqu-wx-moinyvvn sized vessel with no significant disease in the proximal portion. At the takeoff of the major obtuse marginal, there is a 70% lesion. RCA: Moderate size vessel with diffuse 30% disease throughout. It supplies the PDA as well as the posterolateral branch with diffuse 40% disease. LVEDP: 11. Aortic valve mean gradient: 20. IMPRESSION: 1. Diabetic ketoacidosis. 2. [id number]-xzaliifdz myocardial infarction. 3. Multivessel coronary artery disease. RECOMMENDATIONS: 1. Ms. Nails presented with DKA and this has since resolved. 2. She was also a Charlton Act due to inability to take care of herself due to her almost comatose state. This has since been lifted. 3. She does have multivessel disease with probable ostial left main disease, but my major concern is her long diffusely diseased lesion in the LAD, which would require a significant amount of stent crossing multiple diagonals as well as the septal perforators. As she has multivessel disease and diabetic, ultimately I think her best option would be coronary artery bypass grafting. 4. I spoke with Dr. Perez, who will see her in consultation and further evaluate her for consideration of coronary artery bypass grafting. 5. She has had an echo showing a normal function and there was some confusion about how significant her aortic valve was. Evaluation here in the cardiac catheterization technician shows that she has mild aortic stenosis and this will be left alone if she undergoes coronary artery bypass grafting. 6. We will plan on restarting her heparin drip in 6 hours as long as her groin has no complications. 7. Further recommendations will be made after CT surgery evaluation. Thank you for allowing me to see Heather Nails. If there are any questions, please do not hesitate to call. Assessment and Plan - Plan Neuro/Psych: Acute encephalopathy/toxic metabolic secondary to DKA Acetaminophen 650 p.o. every 6 hours as needed fever Hydrocodone/acetaminophen 5/325 1 tablet every 4 hours as needed 1 through 5 Morphine sulfate will get IV every 2 hours as needed pain 6 - 10 Psychiatry has lifted the Charlton act CV: Elevated troponin Coronary artery disease Maintain mean arterial pressure greater than equal 65 EKG showed tachycardia with normal RI, QRS and QT intervals. Nonspecific ST-T changes. Cycle troponins until trending downward 2D echocardiogram revealed left ventricular systolic function is normal with an estimated ejection fraction in the range of 60-65%. Added metoprolol tartrate 20 mg twice daily. No ANAHY inhibitor secondary to acute kidney injury Check lipid profile -triglycerides 90. Cholesterol 130. Currently on atorvastatin 80 mg daily Heart catheterization LAD proximal 70%. Circumflex 60%. RCA regular millimeters. Evaluated by Dr. Stafford/cardiology. To have cardiac catheterization later today with Dr. Stafford March 10 SP CARDIAC CATH - MV CAD NEEDS CABG [facility] CONSULTED Resp: Nasal cannula to maintain saturations greater than or equal to 92% Incentive spirometry while awake As needed albuterol aerosols every 2 hours as needed GI: ADA diet Pantoprazole for GI prophylaxis Docusate sodium/senna 1 tablet twice daily for bowel regimen : Pagan catheter removed Endo: DKA Diabetes mellitus 1.5 treat as 1.0 Hypothyroidism Transition to subcutaneous insulin overnight. Currently on insulin detemir 15 units daily with aspart insulin sliding scale before meals/at bedtime medium protocol Hemoglobin A1c 11.4 continue levothyroxine 300 mcg daily. TSH -0.737 Will need more diabetic education WATCH SUGARS Renal: Acute kidney injury Mostly secondary to dehydration Creatinine currently 1.56 this a.m. improved to 1.03 now 1.02 Renal ultrasound/urine eosinophils and electrolytes if indicated Avoid nephrotoxic medication Heme: Leukocytosis Macrocytic anemia Monitor CBC daily. Follow trends. No indication for transfusion of blood products at this time. Check coag Currently on heparin drip at 1000 units an hour. Serial PTTs ID: Monitor for signs and symptomatology infection Blood cultures 2 pending. UA negative for acute infection FEN: Hyponatremia Alcoholic fluids Replace electrolytes as clinically indicated with BMP, magnesium phosphorus every 6 hours MSK: Out of bed PT evaluate and treat. And OT Access -Utilize peripheral IV. Prophylaxis -GI pantoprazole --DVT SCD/heparin drip Code Status: FULL CODE Discussed Condition With: RN AND PT AND CVS Discharge Planning: Pending improvement of her diabetes and POST CVS SURGERY
[2018-03-11] MEDS ORDERED: Sodium Chloride 0.9% Irr Bot 500 ML, ceFAZolin Inj 500 MG IRRIGATION SCH ×2 (10:30)
[2018-03-11] MEDS ORDERED: Chlorhexidine 4% Topical 120 APPLIC/120 ML Bottle TOPICAL SCH (10:30)
[2018-03-11] MEDS ORDERED: Sodium Chlor 0.9% Inj 77.5 ML, Papaverine Inj 60 MG, Nitroglycerin Inj 100 MCG, dilTIAZ... IRRIGATION SCH ×3 (10:30)
[2018-03-11] MEDS ORDERED: ceFAZolin Inj 2,000 MG in Sodium Chlor 0.9% Inj 80 ML IV.SIG SCH (11:00)
[2018-03-11] MEDS: Heparin Drip 25,000 UNIT/250 ML BAG IV.CONT PRN (11:20)
--- NOTE | 2018-03-11 12:00 | MB ---
cc: Mayito Perez MD DATE: 03/11/2018 PRIMARY CARE PHYSICIAN: Dr. Rashawn Guerin BUSINESS COMPUTERS TEACHER: Dr. Stafford HISTORY OF PRESENT ILLNESS: A 77-year-old patient who was admitted on 03/07/2018 actually under a Charlton Act. Apparently, her daughter found her incoherent. She has a history of diabetes, insulin-dependent. Her blood sugar was very high. She refused to come into the hospital; therefore, they Charlton acted her which has since been lifted, for her personal care. On arrival, her blood sugars were greater than 600. She was admitted with diabetic ketoacidosis. It was also found that she was in significant metabolic and respiratory acidosis, which have been corrected. She has a history of some coronary artery disease and she had a catheterization at [facility] in July, was found to have a LAD proximal 70%, circumflex 60%, the RCA had some mild luminal irregularities. Troponin was peaked at 4.64, so she did undergo cardiac catheterization by Dr. Stafford which showed an ejection fraction of 60%, left main disease of 40% to 50% proximal LAD 70%, mid distal LAD 70%. The diagonal was 80% the obtuse marginal 70%. We were consulted to evaluate for coronary artery bypass grafting. PAST MEDICAL HISTORY: Includes diabetes mellitus type 2, insulin-dependent, hypertension, hypothyroidism, recent diabetic ketoacidosis, non-ST segment myocardial infarction. PAST SURGICAL HISTORY: Include cholecystectomy, heart catheterization. ALLERGIES: NO KNOWN ALLERGIES. HOME MEDICATIONS: Include: 1. Lantus 38 units daily. 2. NovoLog insulin. 3. Synthroid 300 mcg daily. FAMILY HISTORY: Father from old age. Unclear of her mother's demise. SOCIAL HISTORY: The patient is . Apparently lives with her who is very sedentary, does have a granddaughter who assists her. She has 5 children, retired from [employer]. She smoked from age [age]. She quit at age 27. No alcohol. She says her blood sugars are fairly labile at home. She is not followed by an systems tester. REVIEW OF SYSTEMS: GENERAL: No night sweats, fever, heat and cold intolerance. SKIN: No psoriasis, itching or hives. HEENT: No blurred vision, hearing loss. RESPIRATORY: Positive for recent shortness of breath, fatigue. CARDIOVASCULAR: As above. GENITOURINARY: Occasional frequency on urination. GASTROINTESTINAL: No diarrhea, vomiting. CENTRAL NERVOUS SYSTEM: No history of TIA, CVA or seizure disorder. ENDOCRINOLOGY: Positive for hypothyroidism and diabetes mellitus. PHYSICAL EXAMINATION: VITAL SIGNS: Blood pressure 134/60, heart rate of 76, O2 saturation 96% on room air. GENERAL: Awake, alert, in no acute distress. HEENT: Head is normocephalic, atraumatic. Pupils equal and reactive. SKIN: Warm and dry. She has some poor skin turgor. Oral mucosa pink, moist. She does wear dentures. NECK: Supple. No JVD. HEART: Sounds S1, S2, with soft systolic murmur. LUNGS: Diminished in the bases, otherwise clear to auscultation. No wheezes, rales or rhonchi. ABDOMEN: Soft, nontender. No masses or organomegaly. EXTREMITIES: Reveal no cyanosis, clubbing, or edema. LABORATORY DATA: Most recent labwork shows hemoglobin of 10, hematocrit of 28, white cell count of 6, platelet count of 211. Sodium 142, potassium 3.9, BUN of 17, creatinine 1.12, glucose 215. It was 413 last evening, which needs to have the insulin adjusted. AST 14, ALT 17. INR 1.0. Blood gas on arrival showed a pH of 7.09, CO2 of 9, bicarbonate of 3, which was corrected. Urinalysis is unremarkable. MRSA screen is unremarkable. Blood cultures negative x3 days. Chest x-ray: No acute process. IMPRESSION: This is a 77-year-old female admitted with severe diabetic ketoacidosis. Patient is insulin-dependent at home, somewhat labile blood sugars at home, it was greater than 600 on admission. She was found to have elevated troponins and underwent repeat cardiac catheterization with multivessel disease, ejection fraction 60%. She had a 2D echocardiogram, which showed moderate aortic valve stenosis with aortic valve area 0.82, mean gradient of 24. Mild tricuspid valve regurgitation. At this time, the cardiac films will be evaluated by Dr. Mayito Perez. Procedures, alternatives and risks discussed with the patient. She is willing to proceed. She is able to make her own decisions. She is completely alert and oriented At this time, we recommend that her blood sugars have better coverage and at least to be less than 200s during the next 48-72 hours. We have tentatively have her scheduled Saturday. Further planning per Dr. Mayito Perez. Dictated by CARLITOS Naqvi Patient seen and examined, chart reviewed and angiograms reviewed on 03/11/2018. I agree with Dr. Stafford that she may maximum benefit of bypass to her LAD and OM1 distributions. The diagonal branch appears quite small and likely not bypassable target. This will be examined intraoperatively. If her sugars can be controlled adequately, we will plan on proceeding with surgical revascularization therapy on Saturday. Will obtain vein mapping, carotid duplex imaging and PFTs in the meantime. Thank you for allowing me to participate in the care of this patient MD BE MarchK/ct , 10:36 AM , 10:47 AM AURELIANO
--- NOTE | 2018-03-11 12:53 | P.PNCA ---
Subjective Interval history: No events No complaints Medications and Allergies Active Medications: Active Medications Acetaminophen (Tylenol) 650 mg PO Q6H PRN PRN Reason: FEVER >101F Hydrocodone Bitart/Acetaminophen (Powell 5/325) 1 tab PO Q4H PRN PRN Reason: PAIN SCALE 1 TO 5 Last Admin: 03/08/18 10:42 Dose: 1 tab Al Hydroxide/Mg Hydroxide (Milk Of Montez Liq) 30 ml PO Q12H PRN PRN Reason: Mild Constipation Albuterol (Albuterol Neb (Prn)) 2.5 mg NEB Q2HR NEB PRN PRN Reason: SHORTNESS OF BREATH/WHEEZING Aspirin (Ecotrin) 81 mg PO DAILY [facility] Last Admin: 03/11/18 08:10 Dose: 81 mg Atorvastatin Calcium (Lipitor) 80 mg PO HS [facility] Last Admin: 03/10/18 21:37 Dose: 80 mg Bisacodyl (Dulcolax Supp) 10 mg RECTAL DAILY PRN PRN Reason: SEVERE CONSITIPATION Chlorhexidine Gluconate (Chlorhexidine 2% Cloth) 3 pack TOPICAL DAILY@0400 [facility] Stop: 03/13/18 03:59 Last Admin: 03/11/18 03:05 Dose: 3 pack Chlorhexidine Gluconate (Chlorhexidine 2% Cloth) 3 pack TOPICAL DAILY@0400 PRN PRN Reason: Extra cloth needed Stop: 03/13/18 03:59 Chlorhexidine Gluconate (Hibiclens 4% Topical) 1 applicatio TOPICAL CHRISTIAN SCIENCE NURSE [facility] Stop: 03/17/18 10:20 Clonidine HCl (Catapres) 0.1 mg PO Q6H PRN PRN Reason: HYPERTENSION Last Admin: 03/10/18 04:22 Dose: 0.1 mg Sodium Chloride 500 ml/ (Cefazolin Sodium 500 mg) 0 ml IRRIGATION CHRISTIAN SCIENCE NURSE [facility] Stop: 03/17/18 10:22 Sodium Chloride 77.5 ml/Papaverine HCl 60 mg/Nitroglycerin 100 mcg/Diltiazem HCl 100 mg 0 ml IRRIGATION CHRISTIAN SCIENCE NURSE [facility] Stop: 03/17/18 10:20 Dextrose (D50w Vial) 50 ml IV.PUSH UNSCH PRN PRN Reason: PER HYPOGLYCEMIA PROTOCOL Last Admin: 03/09/18 00:26 Dose: 50 ml Dextrose (D50w Vial) 50 ml IV.PUSH UNSCH PRN PRN Reason: PER HYPOGLYCEMIA PROTOCOL Dextrose (D50w Vial) 50 ml IV.PUSH UNSCH PRN PRN Reason: PER HYPOGLYCEMIA PROTOCOL Glucagon (Glucagon Inj) 1 mg OTHER PRN PRN PRN Reason: for Hypoglycemia Protocol Potassium Phosphate 30 mmol/ (Sodium Chloride) 260 mls @ 42 mls/hr IV.SIG UNSCH PRN PRN Reason: SEE LABEL COMMENTS Cefazolin Sodium 2,000 mg/ (Sodium Chloride) 100 mls @ 200 mls/hr IV.SIG CHRISTIAN SCIENCE NURSE [facility] Stop: 03/17/18 10:22 Heparin Sodium/Dextrose (Heparin/D5w 25,000 U/250 Ml) 25,000 unit in 250 mls @ 10 mls/hr IV.CONT TITRATE PRN; Protocol PRN Reason: Per Protocol Last Admin: 03/11/18 11:20 Dose: 1,000 units/hr, 10 mls/hr Insulin Aspart (Novolog Insulin Correctional Sugar Inj) 0 unit SQ ACHS AND 3AM WADE; Protocol Last Admin: 03/11/18 12:06 Dose: 2 unit Insulin Detemir (Levemir Inj) 15 unit SQ BID [facility] Lactulose (Lactulose Liq) 30 ml PO DAILY PRN PRN Reason: SEVERE CONSITIPATION Levothyroxine Sodium (Synthroid) 300 mcg PO DAILY@0600 [facility] Last Admin: 03/11/18 06:13 Dose: 300 mcg Magnesium Oxide (Mag-Ox) 800 mg PO UNSCH PRN PRN Reason: For Magnesium 1.2 - 1.6 mg/dL Metoprolol Tartrate (Lopressor) 12.5 mg PO BID [facility] Last Admin: 03/11/18 08:10 Dose: 12.5 mg Metoprolol Tartrate (Lopressor) 12.5 mg PO CHRISTIAN SCIENCE NURSE [facility] Stop: 03/17/18 10:22 Miscellaneous (Pill Splitter) 1 each OTHER UNSCH [facility] Morphine Sulfate (Morphine Inj) 2 mg IV.PUSH Q2H PRN PRN Reason: PAIN SCALE 6 TO 10 Pantoprazole Sodium (Protonix Inj) 40 mg IV.PUSH DAILY [facility] Last Admin: 03/11/18 08:10 Dose: 40 mg Potassium Phosphate (K-Phos Original) 2,000 mg PO Q4H PRN PRN Reason: Phosphorus Less Than 2.5 mg/dL Potassium Phosphate (K-Phos Original) 2,000 mg PO UNSCH PRN PRN Reason: SEE LABEL COMMENTS Senna/Docusate Sodium (Hanane-Colace) 1 tab PO BID [facility] Last Admin: 03/11/18 08:11 Dose: Not Given Sennosides (Senokot) 17.2 mg PO Q12H PRN PRN Reason: Moderate Constipation Sodium Chloride (Ns Flush) 2 ml IV.FLUSH BID [facility] Last Admin: 03/11/18 08:10 Dose: 2 ml Sodium Chloride (Ns Flush) 2 ml IV.FLUSH UNSCH PRN PRN Reason: FLUSH AFTER USING IV ACCESS Allergies Allergy/AdvReac Type Severity Reaction Status Date / Time No Known Allergies Allergy Unverified 03/07/18 07:38 Home Medications Medication Instructions Recorded Confirmed Type insulin aspart U-100 [Novolog 14 sliding scale dose SUB-Q UD 03/07/18 03/07/18 History U-100 Insulin aspart] insulin glargine [Lantus U-100 38 unit SUB-Q DAILY 03/07/18 03/07/18 History Insulin] levothyroxine 300 mcg PO DAILY 03/07/18 03/07/18 History Physical Exam Vital signs: Vital Signs 03/10/18 13:00 03/10/18 15:38 03/10/18 15:39 Temperature Pulse Rate 68 68 68 Respiratory Rate 29 H 17 22 Blood Pressure 182/79 H Pulse Oximetry 98 03/10/18 15:45 03/10/18 15:54 03/10/18 16:00 Temperature 99.1 F Pulse Rate 66 66 66 Respiratory Rate 23 23 22 Blood Pressure 161/75 H 161/75 H 149/69 H Pulse Oximetry 100 100 98 03/10/18 16:15 03/10/18 16:30 03/10/18 16:39 Temperature Pulse Rate 67 66 66 Respiratory Rate 17 16 16 Blood Pressure 155/70 H 158/68 H 158/68 H Pulse Oximetry 99 98 98 03/10/18 16:45 03/10/18 17:00 03/10/18 17:31 Temperature 98.3 F Pulse Rate 68 66 74 Respiratory Rate 25 H 18 19 Blood Pressure 158/70 H 129/61 177/78 H Pulse Oximetry 100 97 99 03/10/18 18:00 03/10/18 18:01 03/10/18 18:30 Temperature Pulse Rate 71 72 76 Respiratory Rate 22 26 H 18 Blood Pressure 147/65 H 136/65 Pulse Oximetry 99 99 98 03/10/18 19:00 03/10/18 19:09 03/10/18 20:00 Temperature 98.8 F Pulse Rate 73 73 85 Respiratory Rate 18 18 34 H Blood Pressure 157/70 H 157/70 H 173/75 H Pulse Oximetry 99 99 99 03/10/18 21:00 03/10/18 21:01 03/10/18 22:00 Temperature Pulse Rate 79 79 77 Respiratory Rate 30 H 41 H 37 H Blood Pressure 140/66 144/66 H Pulse Oximetry 98 98 99 03/10/18 23:00 03/11/18 00:00 03/11/18 01:00 Temperature 98.8 F Pulse Rate 74 74 76 Respiratory Rate 25 H 26 H 24 Blood Pressure 134/70 111/55 L Pulse Oximetry 97 96 97 03/11/18 01:01 03/11/18 02:00 03/11/18 03:00 Temperature Pulse Rate 76 82 80 Respiratory Rate 24 35 H 39 H Blood Pressure 134/62 Pulse Oximetry 96 94 L 96 03/11/18 03:12 03/11/18 04:00 03/11/18 04:15 Temperature Pulse Rate 81 81 81 Respiratory Rate 25 H 35 H 30 H Blood Pressure 139/64 148/68 H Pulse Oximetry 97 98 99 03/11/18 05:00 03/11/18 05:01 03/11/18 06:00 Temperature Pulse Rate 81 82 75 Respiratory Rate 26 H 23 24 Blood Pressure 176/74 H 148/66 H Pulse Oximetry 97 99 97 03/11/18 07:00 03/11/18 08:00 03/11/18 09:00 Temperature 97.8 F Pulse Rate 74 76 74 Respiratory Rate 29 H 32 H 30 H Blood Pressure 153/70 H 135/85 Pulse Oximetry 95 97 98 03/11/18 09:01 03/11/18 09:17 03/11/18 10:00 Temperature Pulse Rate 73 79 Respiratory Rate 32 H 37 H Blood Pressure 171/77 H Pulse Oximetry 99 97 94 L Intake & Output 03/10/18 03/11/18 03/11/18 18:59 06:59 18:59 Intake Total 125 / 125 720 / 720 Output Total 800 / 800 1200 / 1200 Balance -675 / -675 -480 / -480 Weight 76.2 kg Intake: IV 125 / 125 Heparin/D5W 25,000 U/250 mL 25, 125 / 125 000 unit In 250 ml @ 1,000 UNITS/HR 10 mls/hr IV.CONT TITRATE PRN Rx#:[id number] Oral 720 / 720 Output: Urine 800 / 800 1200 / 1200 Other: # Voids 3 Date of Last Bowel Movement 03/10/18 03/10/18 03/10/18 # Bowel Movements 1 0 Narrative: GENERAL: NAD, AAOx3 SKIN: Warm and dry. HEAD: Atraumatic. Normocephalic. EYES: Pupils equal and round. No scleral icterus. No injection or drainage. ENT: No nasal bleeding or discharge. Mucous membranes pink and moist. NECK: Trachea midline. No JVD. CARDIOVASCULAR: Regular rate and rhythm. S1-S2 no S3 or S4 RESPIRATORY: No accessory muscle use. Clear to auscultation. Breath sounds equal bilaterally. GASTROINTESTINAL: Abdomen soft, non-tender, nondistended. Hepatic and splenic margins not palpable. MUSCULOSKELETAL: Extremities without clubbing, cyanosis, or edema. No obvious deformities. NEUROLOGICAL: Awake and alert. No obvious cranial nerve deficits. Motor grossly within normal limits. Five out of 5 muscle strength in the arms and legs. Normal speech. PSYCHIATRIC: Appropriate mood and affect; insight and judgment normal. - Urinary Catheter Management Indwelling Urethral Catheter Cath placed during this visit: yes Reason for continuing: Hourly intake/output Insertion date: 03/07/18 Insertion time: 06:10 Results 03/11/18 05:37 03/11/18 05:37 Cardiac Enzymes 03/10/18 03/11/18 Range/Units 03:25 05:37 AST 22 14 L (15-37) U/L Coagulation 03/09/18 03/09/18 03/10/18 Range/Units 13:57 22:25 03:25 PT (9.8-11.6) sec APTT 39.0 H 43.6 H 46.7 H (24.3-30.1) sec 03/11/18 Range/Units 05:37 PT 10.0 (9.8-11.6) sec APTT 22.4 L D (24.3-30.1) sec Lipids 03/10/18 Range/Units 03:25 Triglycerides 87 (42-150) mg/dL Cholesterol 159 (120-200) mg/dL HDL Cholesterol 58.4 (40.0-60.0) mg/dL Cholesterol/HDL Ratio 2.72 Ratio CBC 03/10/18 03/11/18 Range/Units 03:25 05:37 WBC 6.3 6.6 (4.0-11.0) th/mm3 RBC 3.18 L 3.08 L (4.00-5.30) mil/mm3 Hgb 10.1 L 10.0 L (11.6-15.3) gm/dL Hct 30.8 L 28.9 L (35.0-46.0) % Plt Count 179 211 (150-450) th/mm3 Neut # (Auto) 2.5 3.5 (1.8-7.7) th/mm3 Lymph # (Auto) 2.8 2.2 (1.0-4.8) th/mm3 Webster # (Auto) 0.6 0.5 (0.0-0.9) th/mm3 Eos # (Auto) 0.4 0.3 (0.0-0.4) th/mm3 Baso # (Auto) 0.1 0.1 (0.0-0.2) th/mm3 Comprehensive Metabolic Panel 03/10/18 03/11/18 Range/Units 03:25 05:37 Sodium 138 142 (136-145) meq/L Potassium 4.9 3.9 D (3.5-5.1) meq/L Chloride 104 D 105 (98-107) meq/L Carbon Dioxide 21.7 27.6 (21.0-32.0) meq/L BUN 18 17 (7-18) mg/dL Creatinine 1.02 H 1.12 H (0.50-1.00) mg/dL Calcium 8.1 L 8.1 L (8.5-10.1) mg/dL AST 22 14 L (15-37) U/L ALT 20 17 (10-53) U/L Alkaline Phosphatase 117 119 H (45-117) U/L Total Protein 6.2 L 6.0 L (6.4-8.2) g/dL Albumin 3.0 L 2.8 L (3.4-5.0) g/dL Intake and Output 03/10/18 03/11/18 03/11/18 22:59 06:59 14:59 Intake Total 720 / 720 Output Total 800 / 800 1200 / 1200 Balance -800 / -800 -480 / -480 Intake: Oral 720 / 720 Output: Urine 800 / 800 1200 / 1200 Other: # Voids 3 Date of Last Bowel Movement 03/10/18 03/10/18 03/10/18 # Bowel Movements 1 0 Weight 76.2 kg Assessment and Plan - Assessment (1) NSTEMI (non-ST elevated myocardial infarction) Code(s): I21.4 - Non-ST elevation (NSTEMI) myocardial infarction Status: Acute (2) CAD (coronary artery disease) Code(s): I25.10 - Atherosclerotic heart disease of elim ira coronary artery without angina pectoris Status: Acute (3) Diabetic ketoacidosis associated with type 2 diabetes mellitus Code(s): E11.10 - Type 2 diabetes mellitus with ketoacidosis without coma Status: Acute (4) Adjustment disorder with depressed mood Code(s): F43.21 - Adjustment disorder with depressed mood Status: Acute - Plan 1) DKA Off insulin drip Per the primary team 2) NSTEMI Type 2 due to DKA Found to have multi-vessel CAD, consideration of CABG CT surgery consulted Heparin drip ASA 3) EF 60-65%, mild (mean gradient 20 by cath) 4) [place] on CKD Stable (3) Diabetic ketoacidosis associated with type 2 diabetes mellitus Qualifiers: Diabetes mellitus complication detail: without coma Qualified Code(s): E11.10 - Type 2 diabetes mellitus with ketoacidosis without coma
--- NOTE | 2018-03-11 13:59 | US ---
EXAM DATE: 03/11/2018 10:20 AM EDT AGE/SEX: 77 years / Female INDICATIONS: Pre-Op Cardiac surgery. CLINICAL DATA: This is the patient's initial encounter. Patient reports that signs and symptoms have been present for 1 day and indicates a pain score of 0/10. MEDICAL/SURGICAL HISTORY: Diabetes. Hypothyroidism. Coronary artery disease. Myocardial infarc tion. Cholecystectomy. Cardiac catheterization. COMPARISON: No prior exams available for comparison. TECHNIQUE: Venous ultrasound of both lower extremities was performed from the inguinal ligament to t he proximal calf. Real-time, color Doppler and spectral tracing, compression and augmentation techni ques were used. FINDINGS: Right Leg: Normal compression of the deep venous system from the inguinal region to the proximal annemarie f. No echogenic clot is seen. Normal response of the venous system to augmentation and respiration. Left Leg: Normal compression of the deep venous system from the inguinal region to the proximal calf . No echogenic clot is seen. Normal response of the venous system to augmentation and respiration. Other: None. CONCLUSION: 1. No evidence of DVT. Electronically signed by: Dale Alfaro MD 03/11/2018 1:58 PM EDT
--- NOTE | 2018-03-11 14:01 | US ---
EXAM DATE: 03/11/2018 10:20 AM EDT AGE/SEX: 77 years / Female INDICATIONS: Pre-Op cardiac surgery. CLINICAL DATA: This is the patient's initial encounter. Patient reports that signs and symptoms have been present for 1 day and indicates a pain score of 0/10. MEDICAL/SURGICAL HISTORY: Diabetes. Hypothyroidism. Coronary artery disease. Myocardial infarc tion. Cholecystectomy. Cardiac catheterization. [place] [facility] [place] 03/11/2018. . MEASUREMENTS: RIGHT THIGH: Proximal:__2 mm Mid:__ 2 mm Distal:__2 mm LEFT THIGH: Proximal:__1 mm Mid:__1 mm Distal:__2 mm RIGHT CALF: Proximal:__Non-visualized Mid:__Non-visualized Distal:__Non-visualized LEFT CALF: Proximal:__Non-visualized Mid:__Non-visualized Distal:__Non-visualized FINDINGS: The venous system of the lower extremities are patent by color Doppler imaging. Measurements of the leg veins (in mm) are listed above. CONCLUSION: 1. Venous mapping as above. Electronically signed by: Dale Alfaro MD 03/11/2018 2:00 PM EDT
--- NOTE | 2018-03-11 14:22 | US ---
EXAM DATE: 03/11/2018 10:20 AM EDT AGE/SEX: 77 years / Female INDICATIONS: Pre-Op cardiac surgery. CLINICAL DATA: This is the patient's initial encounter. Patient reports that signs and symptoms have been present for 1 day and indicates a pain score of 0/10. MEDICAL/SURGICAL HISTORY: Diabetes. Hypothyroidism. Coronary artery disease. Myocardial infarc tion. Cholecystectomy. Cardiac catheterization. COMPARISON: No prior exams available for comparison. VELOCITY PARAMETERS: ICA/CCA Ratio: Right 1.7 , Left 1.3 ICA: Right 93 cm/sec, Left 106 cm/sec CCA: Right 55 cm/sec, Left 80 cm/sec ECA: Right 82 cm/sec, Left 72 cm/sec Vertebral: Right 84 cm/sec antegrade, Left 54 cm/sec antegrade FINDINGS: Right Carotid: No significant plaque is visualized.The waveforms are within normal limits. Left Carotid: No significant plaque is visualized. The waveforms are within normal limits. Other: None. CONCLUSION: Unremarkable bilateral carotid ultrasound for patient's age. Electronically signed by: Dale Alfaro MD 03/11/2018 2:21 PM EDT
--- NOTE | 2018-03-11 16:02 | XR ---
EXAM DATE: 03/11/2018 10:20 AM EDT AGE/SEX: 77 years / Female INDICATIONS: Evaluate for pneumonia, pneumothorax, or communicable disease. Pre Op cardiac surgery. CLINICAL DATA: This is the patient's subsequent encounter. Patient reports that signs and symptoms h ave been present for 1 week and indicates a pain score of 0/10. MEDICAL/SURGICAL HISTORY: None. . left shoulder. COMPARISON: C, CHEST 1V SINGLE AP, 03/07/2018. . FINDINGS: Stable mild interstitial prominence likely due to low lung volumes. Minimal airspace disease at the l eft lung base. The cardiomediastinal contours are unremarkable. Stable left chest wall loop recorder. Left shoulder arthroplasty. Osseous structures are intact. CONCLUSION: 1. Minimal left lung base airspace disease, likely atelectasis. Electronically signed by: Mj Saldana MD 03/11/2018 4:01 PM EDT
[2018-03-11] MEDS ORDERED: Insulin Detemir Inj 1,000 UNIT/10 ML Vial SQ SCH (21:00)
[2018-03-12 04:22] LABS: Baso # (Auto) 0.1 th/mm3 (0.0-0.2); Eos # (Auto) 0.3 th/mm3 (0.0-0.4); Eos % (Auto) 4.9 % (0.0-4.0); Hematocrit 33.1 % (35.0-46.0); Lymph # (Auto) 3.1 th/mm3 (1.0-4.8); Lymph % (Auto) 44.5 % (9.0-44.0); Mean Corpuscular HGB Conc 33.2 % (32.0-36.0); Mean Corpuscular Hemoglobin 31.4 pg (27.0-34.0); Mean Corpuscular Volume 94.7 fL (80.0-100.0); Mean Platelet Volume 8.4 fL (7.0-11.0); Mono # (Auto) 0.9 th/mm3 (0.0-0.9); Mono % (Auto) 12.1 % (0.0-8.0); Neut # (Auto) 2.6 th/mm3 (1.8-7.7); Neut % (Auto) 37.5 % (16.0-70.0); Platelet Count 225 th/mm3 (150-450); Red Blood Count 3.49 mil/mm3 (4.00-5.30); Red Cell Distribution Width 13.8 % (11.6-17.2)
[2018-03-12 04:57] LABS: Alanine Aminotransferase 18 U/L (10-53); Albumin 3.1 g/dL (3.4-5.0); Alkaline Phosphatase 110 U/L (45-117); Anion Gap 10 meq/L (5-15); Aspartate Aminotransferase 20 U/L (15-37); Blood Urea Nitrogen 15 mg/dL (7-18); Calcium 8.7 mg/dL (8.5-10.1); Carbon Dioxide 27.2 meq/L (21.0-32.0); Chloride 104 meq/L (98-107); Glomerular Filtration Rate 61 mL/min (>89); Magnesium 1.4 mg/dL (1.5-2.5); Phosphorus 3.6 mg/dL (2.5-4.9); Potassium 3.1 meq/L (3.5-5.1); Sodium 141 meq/L (136-145); Total Protein 6.6 g/dL (6.4-8.2)
[2018-03-12 05:00] LABS: Glucose,Random 42 mg/dL (74-106)
[2018-03-12] MEDS: Levothyroxine 150 MCG Tablet PO SCH (07:09)
[2018-03-12] MEDS: Metoprolol Tartrate 25 MG Tablet PO SCH ×2 (08:46→20:09)
[2018-03-12] MEDS: Pantoprazole Inj 40 MG Vial IV.PUSH SCH (08:47)
[2018-03-12] MEDS: Senna/Docusate Sodium 8.6/50 MG Tablet PO SCH ×2 (08:47→20:10)
--- NOTE | 2018-03-12 09:51 | P.PNIM ---
Subjective Interval history: 77-year-old female. Date of admission 03/07/2018. Past medical history includes diabetes mellitus since 1991 and hypothyroidism. Patient is a Charlton act from [facility] where she is brought by the police department where she was a well person check where she is nearby pleased to be disheveled with an high blood sugar. Please placed under Latesha act due to the fact that she stated that she knew that her blood sugar was high in the could result in her being in a coma and that she did not care at that time. Patient was transferred to [facility] for further evaluation treatment. Laboratories revealed a leukocytosis of 17,000. Macrocytic anemia. Elevated troponin of 1.28. EKG pending. Acute kidney injury of 2.2. Patient denies chest pain, shortness of breath, abdominal pain, nausea vomiting or diarrhea. Chest x-ray reviewed no acute cardiopulmonary findings. EKG revealed sinus tachycardia with no specific ST-T changes. Patient may need to have a bowel movement. 03/08: Resting comfortably in bed in no acute distress. Denies chest pain. Off insulin drip overnight. Currently insulin detemir 15 units daily. On 38 units daily at home. On heparin drip for correction has been lifted. Awake and oriented to person place and time and talking on telephone currently. 03-09 patient has been transferred to our service today Latesha fraire has been lifted To have cardiac catheterization tomorrow 924 Had issues with blood sugars this morning Remains on a heparin drip A.m. labs monitor kidney functions Discussed with patient and RN 03-11 HAD CARDIAC CATH HAS MULTIPLE VESSEL DISEASE-[facility] HAS BEEN CONSULTED- NOT SEEN BY THEM YET NEEDS SURGERY ON SATURDAY AM LABS MOVE OUT OF ICU DW RN AND PT AND CVS INCREASE ACTIVITY INCREASE LEVEMIR TO 15UNITS SUBQ BID WATCH SUGARS 03-12 HAD LOW SUGARS EARLIER NEEDS BEDTIME SNACK DAILY CONTINUE HEPARIN DRIP INCREASE ACTIVITY DW RN AND PT [facility]S ON SATURDAY Physical Exam Vital signs: Vital Signs 03/11/18 10:00 03/11/18 10:46 03/11/18 11:00 Temperature Pulse Rate 79 75 73 Respiratory Rate 37 H 14 21 Blood Pressure 127/84 130/59 L Pulse Oximetry 94 L 98 03/11/18 12:00 03/11/18 12:06 03/11/18 13:00 Temperature 98.1 F Pulse Rate 77 76 75 Respiratory Rate 17 16 26 H Blood Pressure 158/71 H 158/71 H 163/71 H Pulse Oximetry 99 98 98 03/11/18 14:00 03/11/18 14:01 03/11/18 15:00 Temperature Pulse Rate 75 75 76 Respiratory Rate 32 H 36 H 19 Blood Pressure 153/70 H 140/63 Pulse Oximetry 98 03/11/18 15:50 03/11/18 16:00 03/11/18 16:03 Temperature 98.9 F Pulse Rate 77 76 74 Respiratory Rate 23 28 H 23 Blood Pressure 165/72 H 167/78 H 154/72 H Pulse Oximetry 100 99 100 03/11/18 17:00 03/11/18 18:00 03/11/18 20:00 Temperature Pulse Rate 77 78 98 H Respiratory Rate 28 H 20 Blood Pressure 161/68 H 177/76 H Pulse Oximetry 97 98 03/11/18 20:28 03/12/18 08:18 Temperature Pulse Rate Respiratory Rate Blood Pressure Pulse Oximetry 98 100 Intake & Output 03/11/18 03/12/18 03/12/18 18:59 06:59 18:59 Intake Total 960 / 960 740 / 740 Output Total 1401 / 1401 Balance 960 / 960 -661 / -661 Weight 76.2 kg Intake: Oral 960 / 960 320 / 320 Oral Supplement 420 / 420 Other 0 / 0 Output: Urine 1400 / 1400 Stool 1 / 1 Other: Other Intake Source Saline Solution # Voids 3 Date of Last Bowel Movement 03/11/18 03/12/18 # Bowel Movements 2 # Incontinent Bowel Movements 0 Narrative: GENERAL: NAD, AAOx3 SKIN: Warm and dry. HEAD: Atraumatic. Normocephalic. EYES: Pupils equal and round. No scleral icterus. No injection or drainage. ENT: No nasal bleeding or discharge. Mucous membranes pink and moist. NECK: Trachea midline. No JVD. CARDIOVASCULAR: Regular rate and rhythm. S1-S2 no S3 or S4 RESPIRATORY: No accessory muscle use. Clear to auscultation. Breath sounds equal bilaterally. GASTROINTESTINAL: Abdomen soft, non-tender, nondistended. Hepatic and splenic margins not palpable. MUSCULOSKELETAL: Extremities without clubbing, cyanosis, or edema. No obvious deformities. NEUROLOGICAL: Awake and alert. No obvious cranial nerve deficits. Motor grossly within normal limits. Five out of 5 muscle strength in the arms and legs. Normal speech. PSYCHIATRIC: Appropriate mood and affect; insight and judgment normal. - Urinary Catheter Management Indwelling Urethral Catheter Cath placed during this visit: yes Reason for continuing: Hourly intake/output Insertion date: 03/07/18 Insertion time: 06:10 Results - Labs CBC & Chem 7: 03/12/18 04:00 03/12/18 04:00 Laboratory Results - last 24 hr 03/11/18 03/11/18 03/11/18 11:59 17:55 18:16 WBC RBC Hgb Hct MCV MCH MCHC RDW Plt Count MPV Neut % (Auto) Lymph % (Auto) [place] % (Auto) Eos % (Auto) Baso % (Auto) Neut # (Auto) Lymph # (Auto) [place] # (Auto) Eos # (Auto) Baso # (Auto) WBC Differential Differential Comment APTT 31.5 H D Sodium Potassium Chloride Carbon Dioxide Anion Gap BUN Creatinine Estimated GFR POC Glucose 161 H 141 H Random Glucose Calcium Phosphorus Magnesium Total Bilirubin AST ALT Alkaline Phosphatase Total Protein Albumin 03/11/18 03/12/18 03/12/18 22:23 01:27 03:07 WBC RBC Hgb Hct MCV MCH MCHC RDW Plt Count MPV Neut % (Auto) Lymph % (Auto) [place] % (Auto) Eos % (Auto) Baso % (Auto) Neut # (Auto) Lymph # (Auto) [place] # (Auto) Eos # (Auto) Baso # (Auto) WBC Differential Differential Comment APTT 24.6 D Sodium Potassium Chloride Carbon Dioxide Anion Gap BUN Creatinine Estimated GFR POC Glucose 225 H 263 H Random Glucose Calcium Phosphorus Magnesium Total Bilirubin AST ALT Alkaline Phosphatase Total Protein Albumin 03/12/18 03/12/18 03/12/18 04:00 04:00 04:10 WBC 7.0 RBC 3.49 L Hgb 11.0 L Hct 33.1 L MCV 94.7 MCH 31.4 MCHC 33.2 RDW 13.8 Plt Count 225 MPV 8.4 Neut % (Auto) 37.5 Lymph % (Auto) 44.5 H [place] % (Auto) 12.1 H Eos % (Auto) 4.9 H Baso % (Auto) 1.0 Neut # (Auto) 2.6 Lymph # (Auto) 3.1 [place] # (Auto) 0.9 Eos # (Auto) 0.3 Baso # (Auto) 0.1 WBC Differential . Differential Comment Auto diff final APTT Sodium 141 Potassium 3.1 L D Chloride 104 Carbon Dioxide 27.2 Anion Gap 10 BUN 15 Creatinine 0.89 Estimated GFR 61 L POC Glucose 50 L Random Glucose 42 L* D Calcium 8.7 Phosphorus 3.6 D Magnesium 1.4 L Total Bilirubin 0.4 AST 20 ALT 18 Alkaline Phosphatase 110 Total Protein 6.6 D Albumin 3.1 L 03/12/18 03/12/18 03/12/18 05:30 07:11 08:36 WBC RBC Hgb Hct MCV MCH MCHC RDW Plt Count MPV Neut % (Auto) Lymph % (Auto) [place] % (Auto) Eos % (Auto) Baso % (Auto) Neut # (Auto) Lymph # (Auto) [place] # (Auto) Eos # (Auto) Baso # (Auto) WBC Differential Differential Comment APTT 49.9 H D Sodium Potassium Chloride Carbon Dioxide Anion Gap BUN Creatinine Estimated GFR POC Glucose 89 170 H Random Glucose Calcium Phosphorus Magnesium Total Bilirubin AST ALT Alkaline Phosphatase Total Protein Albumin 03/12/18 08:39 WBC RBC Hgb Hct MCV MCH MCHC RDW Plt Count MPV Neut % (Auto) Lymph % (Auto) [place] % (Auto) Eos % (Auto) Baso % (Auto) Neut # (Auto) Lymph # (Auto) [place] # (Auto) Eos # (Auto) Baso # (Auto) WBC Differential Differential Comment APTT Sodium Potassium Chloride Carbon Dioxide Anion Gap BUN Creatinine Estimated GFR POC Glucose 202 H Random Glucose Calcium Phosphorus Magnesium Total Bilirubin AST ALT Alkaline Phosphatase Total Protein Albumin Microbiology 03/07/18 10:07 Blood - Peripheral Aerobic Blood Culture - Preliminary No growth in 4 days 03/07/18 10:07 Blood - Peripheral Anaerobic Blood Culture - Preliminary No growth in 4 days 03/07/18 10:00 Blood - Peripheral Aerobic Blood Culture - Preliminary No growth in 4 days 03/07/18 10:00 Blood - Peripheral Anaerobic Blood Culture - Preliminary No growth in 4 days - Imaging Impressions Carotid Doppler Study 03/11/18 10:20 CONCLUSION: Unremarkable bilateral carotid ultrasound for patient's age. Chest X-Ray 03/11/18 10:20 CONCLUSION: 1. Minimal left lung base airspace disease, likely atelectasis. Lower Extremity Ultrasound 03/11/18 10:20 CONCLUSION: 1. Venous mapping as above. Venous Doppler Study 03/11/18 10:20 CONCLUSION: 1. No evidence of DVT. - Procedures PROCEDURE: Left heart catheterization, coronary angiogram, moderate sedation 37 minutes, aortic stenosis evaluation. 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 MEDICATIONS: Versed 0.5 mg, fentanyl 25 mcg. CONTRAST USED: 50 mL. FLUOROSCOPY: 5.3 minutes. MODERATE SEDATION: 37 minutes. FRAILTY SCORE: 5. ESTIMATED BLOOD LOSS: 10 mL. PROCEDURAL SUMMARY: Heather Nails is a pleasant 77-year-old female who sees my partner, Dr. Jean Bueno and presented to [facility] in [facility] as a Charlton Act. Apparently, she was unable to take care of herself and was almost comatose at that time. Since then, her DKA has been resolved and Charlton Act has been lifted. She was found to have an elevated troponin and has known previous coronary artery disease. Because of this, she was recommended cardiac catheterization. Risks, benefits, and alternatives were explained to her and she consented as such. She was brought to the lab and prepped in the usual sterile fashion. I attempted to access her right radial artery, but was unable to and so right femoral artery was accessed using modified Seldinger technique and placement of a 5-Singaporean sheath. This was easily aspirated and flushed. A JR4 was advanced over a J-wire to the ascending aorta and across the aortic valve for measurement of left ventricular pressure. This was pulled back across the aortic valve showing a gradient, but difficult to determine as she had some ventricular tachycardia during the pullback. JR4 was used for selective angiography of the right coronary artery system. This was exchanged out for a JL4, which was used for selective angiography of the left coronary artery system. As I felt that the patient should be considered for coronary artery bypass grafting and there was confusion on the echo of how significant her aortic stenosis was, I felt that aortic stenosis should be further evaluated. At this time, the 5-Singaporean sheath was exchanged for a 6-Singaporean sheath. JR4 was used to cross the aortic valve. The JR4 was exchanged out for a Adonis dual-lumen catheter. Simultaneous left ventricular and aortic pressures showed a mean gradient of 20 for the aortic valve. This was pulled back across the aortic valve to show equalization of pressures. Adonis catheter was removed. I attempted to close the femoral site with a Vascade, but it was unable to take and so pressure was held for hemostasis. The patient left the equipment operator/laborer cardiovascularly stable. FINDINGS: LEFT MAIN: Ostial 40-50% disease with dampening of the catheter, upon entrance. It bifurcates into an LAD and circumflex. LAD: Diffuse long 70% disease from the proximal to mid portion. Distal vessel has an area of normalization before becoming significantly small at the apex. It gives off 3 diagonals, the first one having 80% ostial stenosis. The second and third have no significant disease. LEFT CIRCUMFLEX: [id number] sized vessel with no significant disease in the proximal portion. At the takeoff of the major obtuse marginal, there is a 70% lesion. RCA: Moderate size vessel with diffuse 30% disease throughout. It supplies the PDA as well as the posterolateral branch with diffuse 40% disease. LVEDP: 11. Aortic valve mean gradient: 20. IMPRESSION: 1. Diabetic ketoacidosis. 2. [id number] myocardial infarction. 3. Multivessel coronary artery disease. RECOMMENDATIONS: 1. Ms. Nails presented with DKA and this has since resolved. 2. She was also a Charlton Act due to inability to take care of herself due to her almost comatose state. This has since been lifted. 3. She does have multivessel disease with probable ostial left main disease, but my major concern is her long diffusely diseased lesion in the LAD, which would require a significant amount of stent crossing multiple diagonals as well as the septal perforators. As she has multivessel disease and diabetic, ultimately I think her best option would be coronary artery bypass grafting. 4. I spoke with Dr. Perez, who will see her in consultation and further evaluate her for consideration of coronary artery bypass grafting. 5. She has had an echo showing a normal function and there was some confusion about how significant her aortic valve was. Evaluation here in the equipment operator/laborer shows that she has mild aortic stenosis and this will be left alone if she undergoes coronary artery bypass grafting. 6. We will plan on restarting her heparin drip in 6 hours as long as her groin has no complications. 7. Further recommendations will be made after CT surgery evaluation. Thank you for allowing me to see Heather Nails. If there are any questions, please do not hesitate to call. Assessment and Plan - Plan Neuro/Psych: Acute encephalopathy/toxic metabolic secondary to DKA Acetaminophen 650 p.o. every 6 hours as needed fever Hydrocodone/acetaminophen 5/325 1 tablet every 4 hours as needed 1 through 5 Morphine sulfate will get IV every 2 hours as needed pain 6 - 10 Psychiatry has lifted the Charlton act CV: Elevated troponin Coronary artery disease Maintain mean arterial pressure greater than equal 65 EKG showed tachycardia with normal NE, QRS and QT intervals. Nonspecific ST-T changes. Cycle troponins until trending downward 2D echocardiogram revealed left ventricular systolic function is normal with an estimated ejection fraction in the range of 60-65%. Added metoprolol tartrate 20 mg twice daily. No ANAHY inhibitor secondary to acute kidney injury Check lipid profile -triglycerides 90. Cholesterol 130. Currently on atorvastatin 80 mg daily Heart catheterization LAD proximal 70%. Circumflex 60%. RCA regular millimeters. Evaluated by Dr. Stafford/cardiology. To have cardiac catheterization later today with Dr. Stafford March 10 SP CARDIAC CATH 03-10 MV CAD NEEDS CABG CVS CONSULTED Resp: Nasal cannula to maintain saturations greater than or equal to 92% Incentive spirometry while awake As needed albuterol aerosols every 2 hours as needed GI: ADA diet Pantoprazole for GI prophylaxis Docusate sodium/senna 1 tablet twice daily for bowel regimen : Pagan catheter removed Endo: DKA Diabetes mellitus 1.5 treat as 1.0 Hypothyroidism Transition to subcutaneous insulin overnight. Currently on insulin detemir 15 units daily with aspart insulin sliding scale before meals/at bedtime medium protocol Hemoglobin A1c 11.4 continue levothyroxine 300 mcg daily. TSH -0.737 Will need more diabetic education WATCH SUGARS NEEDS A BEDTIME SNACK Renal: Acute kidney injury Mostly secondary to dehydration Creatinine currently 1.56 this a.m. improved to 1.03 now 1.02 Renal ultrasound/urine eosinophils and electrolytes if indicated Avoid nephrotoxic medication Heme: Leukocytosis Macrocytic anemia Monitor CBC daily. Follow trends. No indication for transfusion of blood products at this time. Check coag Currently on heparin drip at 1000 units an hour. Serial PTTs ID: Monitor for signs and symptomatology infection Blood cultures 2 pending. UA negative for acute infection FEN: Hyponatremia Alcoholic fluids Replace electrolytes as clinically indicated with BMP, magnesium phosphorus every 6 hours MSK: Out of bed PT evaluate and treat. And OT Access -Utilize peripheral IV. Prophylaxis -GI pantoprazole --DVT SCD/heparin drip Code Status: FULL CODE Discussed Condition With: RN AND PT Discharge Planning: Pending improvement of her diabetes and POST CVS SURGERY
[2018-03-12] MEDS: Heparin Drip 25,000 UNIT/250 ML BAG IV.CONT PRN (11:00)
[2018-03-12] MEDS: Insulin NovoLOG Aspart Correctional Sugar Inj SQ SCH ×6 (11:06→20:07)
[2018-03-12] MEDS: Chlorhexidine Gluconate 2% 1 Pack (2 Cloths) TOPICAL SCH (11:07)
--- NOTE | 2018-03-12 11:34 | P.PNCV ---
- Note Subjective/Hospital Course: A 77-year-old patient who was admitted on 03/07/2018 actually under a Charlton Act. Apparently, her daughter found her incoherent. She has a history of diabetes, insulin-dependent. Her blood sugar was very high. She refused to come into the hospital; therefore, they Charlton acted her which has since been lifted, for her personal care. On arrival, her blood sugars were greater than 600. She was admitted with diabetic ketoacidosis. It was also found that she was in significant metabolic and respiratory acidosis, which have been corrected. She has a history of some coronary artery disease and she had a catheterization at [facility] in July, was found to have a LAD proximal 70%, circumflex 60%, the RCA had some mild luminal irregularities. Troponin was peaked at 4.64, so she did undergo cardiac catheterization by Dr. Stafford which showed an ejection fraction of 60% , left main disease of 40% to 50% proximal LAD 70%, mid distal LAD 70%. The diagonal was 80% the obtuse marginal 70%. We were consulted to evaluate for coronary artery bypass grafting. PAST MEDICAL HISTORY: Includes diabetes mellitus type 2, insulin-dependent, hypertension, hypothyroidism, recent diabetic ketoacidosis, non-ST segment myocardial infarction. 03/12 BGM improved, however had some hypoglycemia last pm, did not receive pm snack stable for transfer to stepdown unit scheduled for surgery on Saturday will consult PT Objective: Vital Signs - 24 hr 03/11/18 12:00 03/11/18 12:06 03/11/18 13:00 Temperature 98.1 F Pulse Rate 77 76 75 Respiratory Rate 17 16 26 H Blood Pressure 158/71 H 158/71 H 163/71 H Pulse Oximetry 99 98 98 03/11/18 14:00 03/11/18 14:01 03/11/18 15:00 Temperature Pulse Rate 75 75 76 Respiratory Rate 32 H 36 H 19 Blood Pressure 153/70 H 140/63 Pulse Oximetry 98 03/11/18 15:50 03/11/18 16:00 03/11/18 16:03 Temperature 98.9 F Pulse Rate 77 76 74 Respiratory Rate 23 28 H 23 Blood Pressure 165/72 H 167/78 H 154/72 H Pulse Oximetry 100 99 100 03/11/18 17:00 03/11/18 18:00 03/11/18 20:00 Temperature Pulse Rate 77 78 98 H Respiratory Rate 28 H 20 Blood Pressure 161/68 H 177/76 H Pulse Oximetry 97 98 03/11/18 20:28 03/12/18 08:18 Temperature Pulse Rate Respiratory Rate Blood Pressure Pulse Oximetry 98 100 GENERAL: SKIN: Warm and dry. HEAD: Normocephalic. EYES: No scleral icterus. No injection or drainage. NECK: Supple, trachea midline. No JVD or lymphadenopathy. CARDIOVASCULAR: Regular rate and rhythm without murmurs, gallops, or rubs. RESPIRATORY: Breath sounds equal bilaterally. No accessory muscle use. GASTROINTESTINAL: Abdomen soft, non-tender, nondistended. MUSCULOSKELETAL: No cyanosis, or edema. BACK: Nontender without obvious deformity. No CVA tenderness. Labs: Laboratory Results - last 12 hr 03/12/18 03/12/18 03/12/18 01:27 03:07 04:00 WBC 7.0 RBC 3.49 L Hgb 11.0 L Hct 33.1 L MCV 94.7 MCH 31.4 MCHC 33.2 RDW 13.8 Plt Count 225 MPV 8.4 Neut % (Auto) 37.5 Lymph % (Auto) 44.5 H [place] % (Auto) 12.1 H Eos % (Auto) 4.9 H Baso % (Auto) 1.0 Neut # (Auto) 2.6 Lymph # (Auto) 3.1 [place] # (Auto) 0.9 Eos # (Auto) 0.3 Baso # (Auto) 0.1 WBC Differential . Differential Comment Auto diff final APTT 24.6 D Sodium Potassium Chloride Carbon Dioxide Anion Gap BUN Creatinine Estimated GFR POC Glucose 263 H Random Glucose Calcium Phosphorus Magnesium Total Bilirubin AST ALT Alkaline Phosphatase Total Protein Albumin 03/12/18 03/12/18 03/12/18 04:00 04:10 05:30 WBC RBC Hgb Hct MCV MCH MCHC RDW Plt Count MPV Neut % (Auto) Lymph % (Auto) [place] % (Auto) Eos % (Auto) Baso % (Auto) Neut # (Auto) Lymph # (Auto) [place] # (Auto) Eos # (Auto) Baso # (Auto) WBC Differential Differential Comment APTT Sodium 141 Potassium 3.1 L D Chloride 104 Carbon Dioxide 27.2 Anion Gap 10 BUN 15 Creatinine 0.89 Estimated GFR 61 L POC Glucose 50 L 89 Random Glucose 42 L* D Calcium 8.7 Phosphorus 3.6 D Magnesium 1.4 L Total Bilirubin 0.4 AST 20 ALT 18 Alkaline Phosphatase 110 Total Protein 6.6 D Albumin 3.1 L 03/12/18 03/12/18 03/12/18 07:11 08:36 08:39 WBC RBC Hgb Hct MCV MCH MCHC RDW Plt Count MPV Neut % (Auto) Lymph % (Auto) [place] % (Auto) Eos % (Auto) Baso % (Auto) Neut # (Auto) Lymph # (Auto) [place] # (Auto) Eos # (Auto) Baso # (Auto) WBC Differential Differential Comment APTT 49.9 H D Sodium Potassium Chloride Carbon Dioxide Anion Gap BUN Creatinine Estimated GFR POC Glucose 170 H 202 H Random Glucose Calcium Phosphorus Magnesium Total Bilirubin AST ALT Alkaline Phosphatase Total Protein Albumin Result Diagrams: 03/12/18 04:00 03/12/18 04:00 Telemetry: NSR - Plan (1) Diabetic ketoacidosis associated with type 2 diabetes mellitus Plan: on sliding scale insulin / long acting insulin diabetic diet/ consult bi solutions architect (3) NSTEMI (non-ST elevated myocardial infarction) Plan: on ASA, statin , heparin gtt BB for surgery on Saturday (4) Hypothyroidism Plan: on synthroid (1) Diabetic ketoacidosis associated with type 2 diabetes mellitus Qualifiers: Diabetes mellitus complication detail: without coma Qualified Code(s): E11.10 - Type 2 diabetes mellitus with ketoacidosis without coma
[2018-03-12] MEDS ORDERED: Potassium Chlor 40 mEq Premix 40 MEQ/100 ML PIGGYBACK IV.SIG PRN ×2 (17:17)
[2018-03-12] MEDS ORDERED: Potassium Phosphate 500 MG Soluble Tablet PO PRN ×2 (17:17)
[2018-03-12] MEDS ORDERED: Potassium Chloride 25 MEQ Effervescent Tablet PO PRN (17:17)
[2018-03-12] MEDS ORDERED: Magnesium Oxide 400 MG Tablet PO PRN (17:17)
[2018-03-12] MEDS ORDERED: Magnesium Sulfate Inj 2 GM in Sodium Chlor 0.9% Inj 96 ML IV.SIG PRN (17:17)
[2018-03-12] MEDS ORDERED: Sodium Phosphate Inj 30 MMOL in Sodium Chlor 0.9% Inj 250 ML IV.SIG PRN (17:17)
[2018-03-12] MEDS ORDERED: Potassium Chlor 20 mEq Premix 20 MEQ/100 ML PIGGYBACK IV.SIG PRN ×2 (17:17)
[2018-03-12] MEDS ORDERED: Potassium Phosphate Inj 30 MMOL in Sodium Chlor 0.9% Inj 250 ML IV.SIG PRN (17:17)
[2018-03-12] MEDS ORDERED: Magnesium Sulfate Inj 4 GM in Sodium Chlor 0.9% Inj 92 ML IV.SIG PRN (17:17)
--- NOTE | 2018-03-12 17:52 | P.PNCA ---
Subjective Interval history: Feels well Hypoglycemia this morning Medications and Allergies Active Medications: Active Medications Acetaminophen (Tylenol) 650 mg PO Q6H PRN PRN Reason: FEVER >101F Hydrocodone Bitart/Acetaminophen ([place] 5/325) 1 tab PO Q4H PRN PRN Reason: PAIN SCALE 1 TO 5 Last Admin: 03/08/18 10:42 Dose: 1 tab Al Hydroxide/Mg Hydroxide (Milk Of Magnesia Liq) 30 ml PO Q12H PRN PRN Reason: Mild Constipation Albuterol (Albuterol Neb (Prn)) 2.5 mg NEB Q2HR NEB PRN PRN Reason: SHORTNESS OF BREATH/WHEEZING Aspirin (Ecotrin) 81 mg PO DAILY [facility] Last Admin: 03/12/18 08:45 Dose: 81 mg Atorvastatin Calcium (Lipitor) 80 mg PO HS [facility] Last Admin: 03/11/18 22:15 Dose: 80 mg Bisacodyl (Dulcolax Supp) 10 mg RECTAL DAILY PRN PRN Reason: SEVERE CONSITIPATION Chlorhexidine Gluconate (Chlorhexidine 2% Cloth) 3 pack TOPICAL DAILY@0400 [facility] Stop: 03/13/18 03:59 Last Admin: 03/12/18 11:07 Dose: Not Given Chlorhexidine Gluconate (Chlorhexidine 2% Cloth) 3 pack TOPICAL DAILY@0400 PRN PRN Reason: Extra cloth needed Stop: 03/13/18 03:59 Chlorhexidine Gluconate (Hibiclens 4% Topical) 1 applicatio TOPICAL COOLING PAN [employer]ER [facility] Stop: 03/17/18 10:20 Clonidine HCl (Catapres) 0.1 mg PO Q6H PRN PRN Reason: HYPERTENSION Last Admin: 03/10/18 04:22 Dose: 0.1 mg Sodium Chloride 500 ml/ (Cefazolin Sodium 500 mg) 0 ml IRRIGATION COOLING PAN [employer]ENDER [facility] Stop: 03/17/18 10:22 Sodium Chloride 77.5 ml/Papaverine HCl 60 mg/Nitroglycerin 100 mcg/Diltiazem HCl 100 mg 0 ml IRRIGATION COOLING PAN TENDER [facility] Stop: 03/17/18 10:20 Dextrose (D50w Vial) 50 ml IV.PUSH UNSCH PRN PRN Reason: PER HYPOGLYCEMIA PROTOCOL Last Admin: 03/09/18 00:26 Dose: 50 ml Dextrose (D50w Vial) 50 ml IV.PUSH UNSCH PRN PRN Reason: PER HYPOGLYCEMIA PROTOCOL Dextrose (D50w Vial) 50 ml IV.PUSH UNSCH PRN PRN Reason: PER HYPOGLYCEMIA PROTOCOL Glucagon (Glucagon Inj) 1 mg OTHER PRN PRN PRN Reason: for Hypoglycemia Protocol Potassium Phosphate 30 mmol/ (Sodium Chloride) 260 mls @ 42 mls/hr IV.SIG UNSCH PRN PRN Reason: SEE LABEL COMMENTS Cefazolin Sodium 2,000 mg/ (Sodium Chloride) 100 mls @ 200 mls/hr IV.SIG [employer] [facility] Stop: 03/17/18 10:22 Heparin Sodium/Dextrose (Heparin/D5w 25,000 U/250 Ml) 25,000 unit in 250 mls @ 10 mls/hr IV.CONT TITRATE PRN; Protocol PRN Reason: Per Protocol Last Titration: 03/12/18 02:30 Dose: 1,300 units/hr, 13 mls/hr Magnesium Sulfate 2 gm/ Sodium (Chloride) 100 mls @ 50 mls/hr IV.SIG ONCE ONE Stop: 03/12/18 19:14 Magnesium Sulfate 4 gm/ Sodium (Chloride) 100 mls @ 50 mls/hr IV.SIG UNSCH PRN PRN Reason: For Magnesium 0.9 - 1.1 mg/dL Magnesium Sulfate 2 gm/ Sodium (Chloride) 100 mls @ 50 mls/hr IV.SIG UNSCH PRN PRN Reason: For Magnesium 1.2 - 1.6 mg/dL Potassium Chloride (Kcl 20 Meq Premix Inj) 20 meq in 100 mls @ 50 mls/hr IV.SIG Q2H PRN PRN Reason: For Potassium 3.3 - 3.5 mEq/L Potassium Chloride (Kcl 40 Meq Premix Inj) 40 meq in 100 mls @ 25 mls/hr IV.SIG UNSCH PRN PRN Reason: For Potassium 3.3 - 3.5 mEq/L Potassium Chloride (Kcl 20 Meq Premix Inj) 20 meq in 100 mls @ 50 mls/hr IV.SIG Q2H PRN PRN Reason: For Potassium 2.8 - 3.2 mEq/L Potassium Phosphate 30 mmol/ (Sodium Chloride) 260 mls @ 42 mls/hr IV.SIG UNSCH PRN PRN Reason: SEE LABEL COMMENTS Sodium Phosphate 30 mmol/ (Sodium Chloride) 260 mls @ 42 mls/hr IV.SIG UNSCH PRN PRN Reason: For Phosphorus < 2.5 mg/dL Potassium Chloride (Kcl 40 Meq Premix Inj) 40 meq in 100 mls @ 25 mls/hr IV.SIG Q2H PRN PRN Reason: For Potassium 2.8 - 3.2 mEq/L Insulin Aspart (Novolog Insulin Correctional Sugar Inj) 0 unit SQ ACHS AND 3AM WADE; Protocol Last Admin: 03/12/18 13:07 Dose: 12 unit Insulin Detemir (Levemir Inj) 10 unit SQ HS [facility] Insulin Detemir (Levemir Inj) 15 unit SQ DAILY [facility] Lactulose (Lactulose Liq) 30 ml PO DAILY PRN PRN Reason: SEVERE CONSITIPATION Levothyroxine Sodium (Synthroid) 300 mcg PO DAILY@0600 [facility] Last Admin: 03/12/18 07:09 Dose: 300 mcg Magnesium Oxide (Mag-Ox) 800 mg PO UNSCH PRN PRN Reason: For Magnesium 1.2 - 1.6 mg/dL Magnesium Oxide (Mag-Ox) 800 mg PO UNSCH PRN PRN Reason: For Magnesium 1.2 - 1.6 mg/dL Metoprolol Tartrate (Lopressor) 12.5 mg PO BID [facility] Last Admin: 03/12/18 08:46 Dose: 12.5 mg Metoprolol Tartrate (Lopressor) 12.5 mg PO [employer]OLING [employer] [facility] Stop: 03/17/18 10:22 Miscellaneous (Pill Splitter) 1 [facility] Morphine Sulfate (Morphine Inj) 2 mg IV.PUSH Q2H PRN PRN Reason: PAIN SCALE 6 TO 10 Pantoprazole Sodium (Protonix Inj) 40 mg IV.PUSH DAILY [facility] Last Admin: 03/12/18 08:47 Dose: 40 mg Potassium Bicarb/Potassium Chloride (K-Lyte Cl Eff) 50 meq PO UNSCH PRN PRN Reason: For Potassium 3.3 - 3.5 mEq/L Potassium Chloride (Klor-Con 10) 60 meq PO ONCE ONE Stop: 03/12/18 17:16 Potassium Chloride (Kcl) 40 meq PO ONCE ONE Stop: 03/12/18 19:01 Potassium Phosphate (K-Phos Original) 2,000 mg PO Q4H PRN PRN Reason: Phosphorus Less Than 2.5 mg/dL Potassium Phosphate (K-Phos Original) 2,000 mg PO UNSCH PRN PRN Reason: SEE LABEL COMMENTS Potassium Phosphate (K-Phos Original) 2,000 mg PO Q4H PRN PRN Reason: Phosphorus Less Than 2.5 mg/dL Potassium Phosphate (K-Phos Original) 2,000 mg PO UNSCH PRN PRN Reason: SEE LABEL COMMENTS Senna/Docusate Sodium (Hanane-Colace) 1 tab PO BID [facility] Last Admin: 03/12/18 08:47 Dose: Not Given Sennosides (Senokot) 17.2 mg PO Q12H PRN PRN Reason: Moderate Constipation Sodium Chloride (Ns Flush) 2 ml IV.FLUSH BID [facility] Last Admin: 03/12/18 11:07 Dose: Not Given Sodium Chloride (Ns Flush) 2 ml IV.FLUSH UNSCH PRN PRN Reason: FLUSH AFTER USING IV ACCESS Allergies Allergy/AdvReac Type Severity Reaction Status Date / Time No Known Allergies Allergy Unverified 03/07/18 07:38 Home Medications Medication Instructions Recorded Confirmed Type insulin aspart U-100 [Novolog 14 sliding scale dose SUB-Q UD 03/07/18 03/07/18 History U-100 Insulin aspart] insulin glargine [Lantus U-100 38 unit SUB-Q DAILY 03/07/18 03/07/18 History Insulin] levothyroxine 300 mcg PO DAILY 03/07/18 03/07/18 History Physical Exam Vital signs: Vital Signs 03/11/18 18:00 03/11/18 20:00 03/11/18 20:28 Pulse Rate 78 98 H Respiratory Rate 20 Blood Pressure 177/76 H Pulse Oximetry 98 98 03/12/18 08:00 03/12/18 08:18 Pulse Rate 73 Respiratory Rate Blood Pressure Pulse Oximetry 100 Intake & Output 03/11/18 03/12/18 03/12/18 18:59 06:59 18:59 Intake Total 960 / 960 740 / 740 Output Total 1401 / 1401 Balance 960 / 960 -661 / -661 Weight 76.2 kg Intake: Oral 960 / 960 320 / 320 Oral Supplement 420 / 420 Other 0 / 0 Output: Urine 1400 / 1400 Stool 1 / 1 Other: Other Intake Source Saline Solution # Voids 3 Date of Last Bowel Movement 03/11/18 03/12/18 03/11/18 # Bowel Movements 2 # Incontinent Bowel Movements 0 Narrative: GENERAL: NAD, AAOx3 SKIN: Warm and dry. HEAD: Atraumatic. Normocephalic. EYES: Pupils equal and round. No scleral icterus. No injection or drainage. ENT: No nasal bleeding or discharge. Mucous membranes pink and moist. NECK: Trachea midline. No JVD. CARDIOVASCULAR: Regular rate and rhythm. S1-S2 no S3 or S4 RESPIRATORY: No accessory muscle use. Clear to auscultation. Breath sounds equal bilaterally. GASTROINTESTINAL: Abdomen soft, non-tender, nondistended. Hepatic and splenic margins not palpable. MUSCULOSKELETAL: Extremities without clubbing, cyanosis, or edema. No obvious deformities. NEUROLOGICAL: Awake and alert. No obvious cranial nerve deficits. Motor grossly within normal limits. Five out of 5 muscle strength in the arms and legs. Normal speech. PSYCHIATRIC: Appropriate mood and affect; insight and judgment normal. - Urinary Catheter Management Indwelling Urethral Catheter Cath placed during this visit: yes Reason for continuing: Hourly intake/output Insertion date: 03/07/18 Insertion time: 06:10 Results 03/12/18 04:00 03/12/18 04:00 Cardiac Enzymes 03/11/18 03/12/18 Range/Units 05:37 04:00 AST 14 L 20 (15-37) U/L Coagulation 03/11/18 03/11/18 03/12/18 Range/Units 05:37 18:16 01:27 PT 10.0 (9.8-11.6) sec APTT 22.4 L D 31.5 H D 24.6 D (24.3-30.1) sec 03/12/18 03/12/18 Range/Units 08:36 15:22 PT (9.8-11.6) sec APTT 49.9 H D 40.5 H (24.3-30.1) sec CBC 03/11/18 03/12/18 Range/Units 05:37 04:00 WBC 6.6 7.0 (4.0-11.0) th/mm3 RBC 3.08 L 3.49 L (4.00-5.30) mil/mm3 Hgb 10.0 L 11.0 L (11.6-15.3) gm/dL Hct 28.9 L 33.1 L (35.0-46.0) % Plt Count 211 225 (150-450) th/mm3 Neut # (Auto) 3.5 2.6 (1.8-7.7) th/mm3 Lymph # (Auto) 2.2 3.1 (1.0-4.8) th/mm3 [place] # (Auto) 0.5 0.9 (0.0-0.9) th/mm3 Eos # (Auto) 0.3 0.3 (0.0-0.4) th/mm3 Baso # (Auto) 0.1 0.1 (0.0-0.2) th/mm3 Comprehensive Metabolic Panel 03/11/18 03/12/18 Range/Units 05:37 04:00 Sodium 142 141 (136-145) meq/L Potassium 3.9 D 3.1 L D (3.5-5.1) meq/L Chloride 105 104 (98-107) meq/L Carbon Dioxide 27.6 27.2 (21.0-32.0) meq/L BUN 17 15 (7-18) mg/dL Creatinine 1.12 H 0.89 (0.50-1.00) mg/dL Calcium 8.1 L 8.7 (8.5-10.1) mg/dL AST 14 L 20 (15-37) U/L ALT 17 18 (10-53) U/L Alkaline Phosphatase 119 H 110 (45-117) U/L Total Protein 6.0 L 6.6 D (6.4-8.2) g/dL Albumin 2.8 L 3.1 L (3.4-5.0) g/dL Intake and Output 03/12/18 03/12/18 03/12/18 06:59 14:59 22:59 Intake Total 740 / 740 Output Total 1401 / 1401 Balance -661 / -661 Intake: Oral 320 / 320 Oral Supplement 420 / 420 Other 0 / 0 Output: Urine 1400 / 1400 Stool Other: Other Intake Source Saline Solution Date of Last Bowel Movement 03/12/18 03/11/18 03/11/18 # Incontinent Bowel Movements 0 Weight 76.2 kg - Imaging and Cardiology Imaging: Impressions Carotid Doppler Study 03/11/18 10:20 CONCLUSION: Unremarkable bilateral carotid ultrasound for patient's age. Chest X-Ray 03/11/18 10:20 CONCLUSION: 1. Minimal left lung base airspace disease, likely atelectasis. Lower Extremity Ultrasound 03/11/18 10:20 CONCLUSION: 1. Venous mapping as above. Venous Doppler Study 03/11/18 10:20 CONCLUSION: 1. No evidence of DVT. Assessment and Plan - Assessment (1) NSTEMI (non-ST elevated myocardial infarction) Code(s): I21.4 - Non-ST elevation (NSTEMI) myocardial infarction Status: Acute (2) CAD (coronary artery disease) Code(s): I25.10 - Atherosclerotic heart disease of [place] coronary artery without angina pectoris Status: Acute (3) Diabetic ketoacidosis associated with type 2 diabetes mellitus Code(s): E11.10 - Type 2 diabetes mellitus with ketoacidosis without coma Status: Acute (4) Adjustment disorder with depressed mood Code(s): F43.21 - Adjustment disorder with depressed mood Status: Acute - Plan 1) DKA Off insulin drip Per the primary team Hypoglycemia this morning 2) NSTEMI Type 2 due to DKA Found to have multi-vessel CAD, consideration of CABG CT surgery consulted, possible Saturday Heparin drip ASA 3) EF 60-65%, mild (mean gradient 20 by cath) 4) [place] on CKD Stable (3) Diabetic ketoacidosis associated with type 2 diabetes mellitus Qualifiers: Diabetes mellitus complication detail: without coma Qualified Code(s): E11.10 - Type 2 diabetes mellitus with ketoacidosis without coma
[2018-03-12] MEDS ORDERED: Magnesium Sulfate Inj 2 GM in Sodium Chlor 0.9% Inj 96 ML IV.SIG ONE (20:00)
[2018-03-12] MEDS ORDERED: Metoprolol Tartrate 25 MG Tablet PO SCH (21:00)
[2018-03-12] MEDS ORDERED: Insulin Detemir Inj 1,000 UNIT/10 ML Vial SQ SCH (21:00)
[2018-03-12] MEDS ORDERED: Potassium Chloride 10 MEQ ER Capsule PO ONE (22:00)
[2018-03-13] MEDS: Insulin NovoLOG Aspart Correctional Sugar Inj SQ SCH ×4 (03:09→18:23)
[2018-03-13 04:54] LABS: Baso # (Auto) 0.1 th/mm3 (0.0-0.2); Baso % (Auto) 1.4 % (0.0-2.0); Eos # (Auto) 0.4 th/mm3 (0.0-0.4); Eos % (Auto) 5.4 % (0.0-4.0); Hematocrit 30.9 % (35.0-46.0); Hemoglobin 10.3 gm/dL (11.6-15.3); Lymph # (Auto) 3.7 th/mm3 (1.0-4.8); Lymph % (Auto) 46.6 % (9.0-44.0); Mean Corpuscular HGB Conc 33.4 % (32.0-36.0); Mean Corpuscular Hemoglobin 31.9 pg (27.0-34.0); Mean Corpuscular Volume 95.6 fL (80.0-100.0); Mean Platelet Volume 8.5 fL (7.0-11.0); Mono # (Auto) 0.9 th/mm3 (0.0-0.9); Mono % (Auto) 11.6 % (0.0-8.0); Neut # (Auto) 2.8 th/mm3 (1.8-7.7); Platelet Count 234 th/mm3 (150-450); Red Blood Count 3.23 mil/mm3 (4.00-5.30); White Blood Count 7.9 th/mm3 (4.0-11.0)
[2018-03-13 05:01] LABS: Activated Partial Thrombo Time 64.5 sec (24.3-30.1); INR 1.1 Ratio; Prothrombin Time 10.7 sec (9.8-11.6)
[2018-03-13 05:42] LABS: Alanine Aminotransferase 19 U/L (10-53); Albumin 2.8 g/dL (3.4-5.0); Alkaline Phosphatase 108 U/L (45-117); Anion Gap 8 meq/L (5-15); Aspartate Aminotransferase 18 U/L (15-37); Blood Urea Nitrogen 20 mg/dL (7-18); Calcium 8.5 mg/dL (8.5-10.1); Carbon Dioxide 27.1 meq/L (21.0-32.0); Chloride 106 meq/L (98-107); Glomerular Filtration Rate 40 mL/min (>89); Glucose,Random 179 mg/dL (74-106); Magnesium 2.3 mg/dL (1.5-2.5); Potassium 4.6 meq/L (3.5-5.1); Sodium 141 meq/L (136-145); Total Protein 6.2 g/dL (6.4-8.2)
[2018-03-13] MEDS: Levothyroxine 150 MCG Tablet PO SCH (06:42)
[2018-03-13] MEDS: Heparin Drip 25,000 UNIT/250 ML BAG IV.CONT PRN (06:42)
[2018-03-13] MEDS: Metoprolol Tartrate 25 MG Tablet PO SCH (09:04)
[2018-03-13] MEDS: Insulin Detemir Inj 1,000 UNIT/10 ML Vial SQ SCH (09:06)
[2018-03-13] MEDS: Senna/Docusate Sodium 8.6/50 MG Tablet PO SCH (09:07)
[2018-03-13] MEDS: Pantoprazole Inj 40 MG Vial IV.PUSH SCH (09:07)
--- NOTE | 2018-03-13 10:29 | P.PNIM ---
Subjective Interval history: 77-year-old female. Date of admission 03/07/2018. Past medical history includes diabetes mellitus since 1991 and hypothyroidism. Patient is a Charlton act from [facility] where she is brought by the police department where she was a well person check where she is nearby pleased to be disheveled with an high blood sugar. Please placed under Latesha act due to the fact that she stated that she knew that her blood sugar was high in the could result in her being in a coma and that she did not care at that time. Patient was transferred to [facility] for further evaluation treatment. Laboratories revealed a leukocytosis of 17,000. Macrocytic anemia. Elevated troponin of 1.28. EKG pending. Acute kidney injury of 2.2. Patient denies chest pain, shortness of breath, abdominal pain, nausea vomiting or diarrhea. Chest x-ray reviewed no acute cardiopulmonary findings. EKG revealed sinus tachycardia with no specific ST-T changes. Patient may need to have a bowel movement. 03/08: Resting comfortably in bed in no acute distress. Denies chest pain. Off insulin drip overnight. Currently insulin detemir 15 units daily. On 38 units daily at home. On heparin drip for correction has been lifted. Awake and oriented to person place and time and talking on telephone currently. 03-09 patient has been transferred to our service today Latesha fraire has been lifted To have cardiac catheterization tomorrow 924 Had issues with blood sugars this morning Remains on a heparin drip A.m. labs monitor kidney functions Discussed with patient and RN 03-11 HAD CARDIAC CATH HAS MULTIPLE VESSEL DISEASE-[facility] HAS BEEN CONSULTED- NOT SEEN BY THEM YET NEEDS SURGERY ON SATURDAY AM LABS MOVE OUT OF ICU DW RN AND PT AND CVS INCREASE ACTIVITY INCREASE LEVEMIR TO 15UNITS SUBQ BID WATCH SUGARS 03-12 HAD LOW SUGARS EARLIER NEEDS BEDTIME SNACK DAILY CONTINUE HEPARIN DRIP INCREASE ACTIVITY DW RN AND PT [facility] ON SATURDAY DECREASE LEVEMIR TO 10UNITS SUBQ IN PM 15UNITS SUBQ IN AM 03-13 WILL INCREASE PM LEVEMIR TO 13 UNITS AM LABS SURGERY TOMORROW DW RN AND PT Physical Exam Vital signs: Vital Signs 03/12/18 20:00 03/13/18 04:00 03/13/18 08:00 Pulse Rate 86 84 Respiratory Rate 20 20 Pulse Oximetry 98 03/13/18 08:28 Pulse Rate Respiratory Rate Pulse Oximetry 96 Intake & Output 03/12/18 03/13/18 03/13/18 18:59 06:59 18:59 Intake Total 1000 / 1000 1003 / 1003 Balance 1000 / 1000 1003 / 1003 Weight 70.1 kg Intake: IV 250 / 250 250 / 250 Heparin/D5W 25,000 U/250 mL 25, 250 / 250 250 / 250 000 unit In 250 ml @ 1,000 UNITS/HR 10 mls/hr IV.CONT TITRATE PRN Rx#:[id number] Oral 750 / 750 620 / 620 Other 133 / 133 Other: Other Intake Source Saline Solution # Voids 3 5 Date of Last Bowel Movement 03/11/18 03/11/18 03/11/18 # Incontinent Bowel Movements 0 Narrative: GENERAL: NAD, AAOx3 SKIN: Warm and dry. HEAD: Atraumatic. Normocephalic. EYES: Pupils equal and round. No scleral icterus. No injection or drainage. ENT: No nasal bleeding or discharge. Mucous membranes pink and moist. NECK: Trachea midline. No JVD. CARDIOVASCULAR: Regular rate and rhythm. S1-S2 no S3 or S4 RESPIRATORY: No accessory muscle use. Clear to auscultation. Breath sounds equal bilaterally. GASTROINTESTINAL: Abdomen soft, non-tender, nondistended. Hepatic and splenic margins not palpable. MUSCULOSKELETAL: Extremities without clubbing, cyanosis, or edema. No obvious deformities. NEUROLOGICAL: Awake and alert. No obvious cranial nerve deficits. Motor grossly within normal limits. Five out of 5 muscle strength in the arms and legs. Normal speech. PSYCHIATRIC: Appropriate mood and affect; insight and judgment normal. - Urinary Catheter Management Indwelling Urethral Catheter Cath placed during this visit: yes Reason for continuing: Hourly intake/output Insertion date: 03/07/18 Insertion time: 06:10 Results - Labs CBC & Chem 7: 03/13/18 04:18 03/13/18 04:18 Laboratory Results - last 24 hr 03/12/18 03/12/18 03/12/18 12:01 15:22 17:23 WBC RBC Hgb Hct MCV MCH MCHC RDW Plt Count MPV Neut % (Auto) Lymph % (Auto) [place] % (Auto) Eos % (Auto) Baso % (Auto) Neut # (Auto) Lymph # (Auto) [place] # (Auto) Eos # (Auto) Baso # (Auto) WBC Differential Differential Comment PT INR APTT 40.5 H Sodium Potassium Chloride Carbon Dioxide Anion Gap BUN Creatinine Estimated GFR POC Glucose 357 H 297 H Random Glucose Calcium Phosphorus Magnesium Total Bilirubin AST ALT Alkaline Phosphatase Total Protein Albumin Blood Type Blood Type Recheck Antibody Screen MTS Gel Crossmatch Bld Prod Order Comment 03/12/18 03/12/18 03/13/18 19:59 21:06 03:04 WBC RBC Hgb Hct MCV MCH MCHC RDW Plt Count MPV Neut % (Auto) Lymph % (Auto) [place] % (Auto) Eos % (Auto) Baso % (Auto) Neut # (Auto) Lymph # (Auto) [place] # (Auto) Eos # (Auto) Baso # (Auto) WBC Differential Differential Comment PT INR APTT Sodium Potassium Chloride Carbon Dioxide Anion Gap BUN Creatinine Estimated GFR POC Glucose 212 H 116 H 203 H Random Glucose Calcium Phosphorus Magnesium Total Bilirubin AST ALT Alkaline Phosphatase Total Protein Albumin Blood Type Blood Type Recheck Antibody Screen MTS Gel Crossmatch Bld Prod Order Comment 03/13/18 03/13/18 03/13/18 04:18 04:18 04:18 WBC 7.9 RBC 3.23 L Hgb 10.3 L Hct 30.9 L MCV 95.6 MCH 31.9 MCHC 33.4 RDW 14.0 Plt Count 234 MPV 8.5 Neut % (Auto) 35.0 Lymph % (Auto) 46.6 H [place] % (Auto) 11.6 H Eos % (Auto) 5.4 H Baso % (Auto) 1.4 Neut # (Auto) 2.8 Lymph # (Auto) 3.7 [place] # (Auto) 0.9 Eos # (Auto) 0.4 Baso # (Auto) 0.1 WBC Differential . Differential Comment Auto diff final PT 10.7 INR 1.1 APTT 64.5 H D Sodium Potassium Chloride Carbon Dioxide Anion Gap BUN Creatinine Estimated GFR POC Glucose Random Glucose Calcium Phosphorus Magnesium Total Bilirubin AST ALT Alkaline Phosphatase Total Protein Albumin Blood Type O Positive Blood Type Recheck Required Antibody Screen Negative MTS Gel Crossmatch See Detail Bld Prod Order Comment 03/13/18 03/13/18 04:18 09:01 WBC RBC Hgb Hct MCV MCH MCHC RDW Plt Count MPV Neut % (Auto) Lymph % (Auto) [place] % (Auto) Eos % (Auto) Baso % (Auto) Neut # (Auto) Lymph # (Auto) [place] # (Auto) Eos # (Auto) Baso # (Auto) WBC Differential Differential Comment PT INR APTT Sodium 141 Potassium 4.6 D Chloride 106 Carbon Dioxide 27.1 Anion Gap 8 BUN 20 H Creatinine 1.29 H Estimated GFR 40 L POC Glucose 199 H Random Glucose 179 H D Calcium 8.5 Phosphorus 4.0 Magnesium 2.3 D Total Bilirubin 0.2 AST 18 ALT 19 Alkaline Phosphatase 108 Total Protein 6.2 L Albumin 2.8 L Blood Type Blood Type Recheck Antibody Screen MTS Gel Crossmatch Bld Prod Order Comment Microbiology 03/07/18 10:07 Blood - Peripheral Aerobic Blood Culture - Final No growth in 5 days 03/07/18 10:07 Blood - Peripheral Anaerobic Blood Culture - Final No growth in 5 days 03/07/18 10:00 Blood - Peripheral Aerobic Blood Culture - Final No growth in 5 days 03/07/18 10:00 Blood - Peripheral Anaerobic Blood Culture - Final No growth in 5 days - Imaging ITS Impressions Carotid Doppler Study 03/11/18 10:20 CONCLUSION: Unremarkable bilateral carotid ultrasound for patient's age. Chest X-Ray 03/11/18 10:20 CONCLUSION: 1. Minimal left lung base airspace disease, likely atelectasis. Lower Extremity Ultrasound 03/11/18 10:20 CONCLUSION: 1. Venous mapping as above. Venous Doppler Study 03/11/18 10:20 CONCLUSION: 1. No evidence of DVT. - Procedures PROCEDURE: Left heart catheterization, coronary angiogram, moderate sedation 37 minutes, aortic stenosis evaluation. 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 MEDICATIONS: Versed 0.5 mg, fentanyl 25 mcg. CONTRAST USED: 50 mL. FLUOROSCOPY: 5.3 minutes. MODERATE SEDATION: 37 minutes. FRAILTY SCORE: 5. ESTIMATED BLOOD LOSS: 10 mL. PROCEDURAL SUMMARY: Heather Nails is a pleasant 77-year-old female who sees my partner, Dr. Jean Bueno and presented to [facility] in DKA as a Charlton Act. Apparently, she was unable to take care of herself and was almost comatose at that time. Since then, her DKA has been resolved and Charlton Act has been lifted. She was found to have an elevated troponin and has known previous coronary artery disease. Because of this, she was recommended cardiac catheterization. Risks, benefits, and alternatives were explained to her and she consented as such. She was brought to the lab and prepped in the usual sterile fashion. I attempted to access her right radial artery, but was unable to and so right femoral artery was accessed using modified Seldinger technique and placement of a 5-Syrian sheath. This was easily aspirated and flushed. A JR4 was advanced over a J-wire to the ascending aorta and across the aortic valve for measurement of left ventricular pressure. This was pulled back across the aortic valve showing a gradient, but difficult to determine as she had some ventricular tachycardia during the pullback. JR4 was used for selective angiography of the right coronary artery system. This was exchanged out for a JL4, which was used for selective angiography of the left coronary artery system. As I felt that the patient should be considered for coronary artery bypass grafting and there was confusion on the echo of how significant her aortic stenosis was, I felt that aortic stenosis should be further evaluated. At this time, the 5-Syrian sheath was exchanged for a 6-Syrian sheath. JR4 was used to cross the aortic valve. The JR4 was exchanged out for a [place] dual-lumen catheter. Simultaneous left ventricular and aortic pressures showed a mean gradient of 20 for the aortic valve. This was pulled back across the aortic valve to show equalization of pressures. [place] catheter was removed. I attempted to close the femoral site with a [place], but it was unable to take and so pressure was held for hemostasis. The patient left the lab systems analyst cardiovascularly stable. FINDINGS: LEFT MAIN: Ostial 40-50% disease with dampening of the catheter, upon entrance. It bifurcates into an LAD and circumflex. LAD: Diffuse long 70% disease from the proximal to mid portion. Distal vessel has an area of normalization before becoming significantly small at the apex. It gives off 3 diagonals, the first one having 80% ostial stenosis. The second and third have no significant disease. LEFT CIRCUMFLEX: Guozk-ko-yoowosel sized vessel with no significant disease in the proximal portion. At the takeoff of the major obtuse marginal, there is a 70% lesion. RCA: Moderate size vessel with diffuse 30% disease throughout. It supplies the PDA as well as the posterolateral branch with diffuse 40% disease. LVEDP: 11. Aortic valve mean gradient: 20. IMPRESSION: 1. Diabetic ketoacidosis. 2. Mkw-[id number]-rmfxmcugq myocardial infarction. 3. Multivessel coronary artery disease. RECOMMENDATIONS: 1. Ms. Nails presented with DKA and this has since resolved. 2. She was also a Charlton Act due to inability to take care of herself due to her almost comatose state. This has since been lifted. 3. She does have multivessel disease with probable ostial left main disease, but my major concern is her long diffusely diseased lesion in the LAD, which would require a significant amount of stent crossing multiple diagonals as well as the septal perforators. As she has multivessel disease and diabetic, ultimately I think her best option would be coronary artery bypass grafting. 4. I spoke with Dr. Perez, who will see her in consultation and further evaluate her for consideration of coronary artery bypass grafting. 5. She has had an echo showing a normal function and there was some confusion about how significant her aortic valve was. Evaluation here in the lab systems analyst shows that she has mild aortic stenosis and this will be left alone if she undergoes coronary artery bypass grafting. 6. We will plan on restarting her heparin drip in 6 hours as long as her groin has no complications. 7. Further recommendations will be made after CT surgery evaluation. Thank you for allowing me to see Heather Nails. If there are any questions, please do not hesitate to call. Assessment and Plan - Plan Neuro/Psych: Acute encephalopathy/toxic metabolic secondary to DKA Acetaminophen 650 p.o. every 6 hours as needed fever Hydrocodone/acetaminophen 5/325 1 tablet every 4 hours as needed 1 through 5 Morphine sulfate will get IV every 2 hours as needed pain 6 - 10 Psychiatry has lifted the Charlton act CV: Elevated troponin Coronary artery disease Maintain mean arterial pressure greater than equal 65 EKG showed tachycardia with normal PA, QRS and QT intervals. Nonspecific ST-T changes. Cycle troponins until trending downward 2D echocardiogram revealed left ventricular systolic function is normal with an estimated ejection fraction in the range of 60-65%. Added metoprolol tartrate 20 mg twice daily. No ANAHY inhibitor secondary to acute kidney injury Check lipid profile -triglycerides 90. Cholesterol 130. Currently on atorvastatin 80 mg daily Heart catheterization LAD proximal 70%. Circumflex 60%. RCA regular millimeters. Evaluated by Dr. Stafford/cardiology. To have cardiac catheterization later today with Dr. Stafford March 10 SP CARDIAC CATH 03-10 MV CAD NEEDS CABG [facility] CONSULTED CABG TOMORROW 03-14 Resp: Nasal cannula to maintain saturations greater than or equal to 92% Incentive spirometry while awake As needed albuterol aerosols every 2 hours as needed GI: ADA diet Pantoprazole for GI prophylaxis Docusate sodium/senna 1 tablet twice daily for bowel regimen : Pagan catheter removed Endo: DKA Diabetes mellitus 1.5 treat as 1.0 Hypothyroidism Transition to subcutaneous insulin overnight. Currently on insulin detemir 15 units daily with aspart insulin sliding scale before meals/at bedtime medium protocol Hemoglobin A1c 11.4 continue levothyroxine 300 mcg daily. TSH -0.737 Will need more diabetic education WATCH SUGARS NEEDS A BEDTIME SNACK LEVEMIR 15 IN AM AND 13 IN PM Renal: Acute kidney injury Mostly secondary to dehydration Creatinine currently 1.56 this a.m. improved to 1.03 now 1.02 Renal ultrasound/urine eosinophils and electrolytes if indicated Avoid nephrotoxic medication Heme: Leukocytosis Macrocytic anemia Monitor CBC daily. Follow trends. No indication for transfusion of blood products at this time. Check coag Currently on heparin drip at 1000 units an hour. Serial PTTs ID: Monitor for signs and symptomatology infection Blood cultures 2 pending. UA negative for acute infection FEN: Hyponatremia Alcoholic fluids Replace electrolytes as clinically indicated with BMP, magnesium phosphorus every 6 hours MSK: Out of bed PT evaluate and treat. And OT Access -Utilize peripheral IV. Prophylaxis -GI pantoprazole --DVT SCD/heparin drip Code Status: FULL CODE Discussed Condition With: RN AND PT AND CARDIOLOGY AND CM Discharge Planning: Pending improvement of her diabetes and POST CVS SURGERY
--- NOTE | 2018-03-13 14:31 | P.PNCV ---
- Note Subjective/Hospital Course: A 77-year-old patient who was admitted on 03/07/2018 actually under a Charlton Act. Apparently, her daughter found her incoherent. She has a history of diabetes, insulin-dependent. Her blood sugar was very high. She refused to come into the hospital; therefore, they Charlton acted her which has since been lifted, for her personal care. On arrival, her blood sugars were greater than 600. She was admitted with diabetic ketoacidosis. It was also found that she was in significant metabolic and respiratory acidosis, which have been corrected. She has a history of some coronary artery disease and she had a catheterization at [facility] in July, was found to have a LAD proximal 70%, circumflex 60%, the RCA had some mild luminal irregularities. Troponin was peaked at 4.64, so she did undergo cardiac catheterization by Dr. Stafford which showed an ejection fraction of 60% , left main disease of 40% to 50% proximal LAD 70%, mid distal LAD 70%. The diagonal was 80% the obtuse marginal 70%. We were consulted to evaluate for coronary artery bypass grafting. PAST MEDICAL HISTORY: Includes diabetes mellitus type 2, insulin-dependent, hypertension, hypothyroidism, recent diabetic ketoacidosis, non-ST segment myocardial infarction. 03/12 BGM improved, however had some hypoglycemia last pm, did not receive pm snack stable for transfer to stepdown unit scheduled for surgery on Saturday will consult PT 03/13 stable for surgery in am Objective: Vital Signs - 24 hr 03/12/18 20:00 03/13/18 04:00 03/13/18 08:00 Pulse Rate 86 84 Respiratory Rate 20 20 Pulse Oximetry 98 03/13/18 08:28 Pulse Rate Respiratory Rate Pulse Oximetry 96 GENERAL: SKIN: Warm and dry. HEAD: Normocephalic. EYES: No scleral icterus. No injection or drainage. NECK: Supple, trachea midline. No JVD or lymphadenopathy. CARDIOVASCULAR: Regular rate and rhythm without murmurs, gallops, or rubs. RESPIRATORY: Breath sounds equal bilaterally. No accessory muscle use. GASTROINTESTINAL: Abdomen soft, non-tender, nondistended. MUSCULOSKELETAL: No cyanosis, or edema. BACK: Nontender without obvious deformity. No CVA tenderness. Labs: Laboratory Results - last 12 hr 03/13/18 03/13/18 03/13/18 03:04 04:18 04:18 WBC 7.9 RBC 3.23 L Hgb 10.3 L Hct 30.9 L MCV 95.6 MCH 31.9 MCHC 33.4 RDW 14.0 Plt Count 234 MPV 8.5 Neut % (Auto) 35.0 Lymph % (Auto) 46.6 H [place] % (Auto) 11.6 H Eos % (Auto) 5.4 H Baso % (Auto) 1.4 Neut # (Auto) 2.8 Lymph # (Auto) 3.7 [place] # (Auto) 0.9 Eos # (Auto) 0.4 Baso # (Auto) 0.1 WBC Differential . Differential Comment Auto diff final PT 10.7 INR 1.1 APTT 64.5 H D Sodium Potassium Chloride Carbon Dioxide Anion Gap BUN Creatinine Estimated GFR POC Glucose 203 H Random Glucose Calcium Phosphorus Magnesium Total Bilirubin AST ALT Alkaline Phosphatase Total Protein Albumin Blood Type Blood Type Recheck Antibody Screen MTS Gel Crossmatch Bld Prod Order Comment 03/13/18 03/13/18 03/13/18 04:18 04:18 09:01 WBC RBC Hgb Hct MCV MCH MCHC RDW Plt Count MPV Neut % (Auto) Lymph % (Auto) [place] % (Auto) Eos % (Auto) Baso % (Auto) Neut # (Auto) Lymph # (Auto) [place] # (Auto) Eos # (Auto) Baso # (Auto) WBC Differential Differential Comment PT INR APTT Sodium 141 Potassium 4.6 D Chloride 106 Carbon Dioxide 27.1 Anion Gap 8 BUN 20 H Creatinine 1.29 H Estimated GFR 40 L POC Glucose 199 H Random Glucose 179 H D Calcium 8.5 Phosphorus 4.0 Magnesium 2.3 D Total Bilirubin 0.2 AST 18 ALT 19 Alkaline Phosphatase 108 Total Protein 6.2 L Albumin 2.8 L Blood Type O Positive Blood Type Recheck Required Antibody Screen Negative MTS Gel Crossmatch See Detail Bld Prod Order Comment 03/13/18 12:38 WBC RBC Hgb Hct MCV MCH MCHC RDW Plt Count MPV Neut % (Auto) Lymph % (Auto) [place] % (Auto) Eos % (Auto) Baso % (Auto) Neut # (Auto) Lymph # (Auto) [place] # (Auto) Eos # (Auto) Baso # (Auto) WBC Differential Differential Comment PT INR APTT Sodium Potassium Chloride Carbon Dioxide Anion Gap BUN Creatinine Estimated GFR POC Glucose 253 H Random Glucose Calcium Phosphorus Magnesium Total Bilirubin AST ALT Alkaline Phosphatase Total Protein Albumin Blood Type Blood Type Recheck Antibody Screen MTS Gel Crossmatch Bld Prod Order Comment Result Diagrams: 03/13/18 04:18 03/13/18 04:18 - Plan (1) Diabetic ketoacidosis associated with type 2 diabetes mellitus Plan: on sliding scale insulin / long acting insulin diabetic diet/ consult meat pumper (3) NSTEMI (non-ST elevated myocardial infarction) Plan: on ASA, statin , heparin gtt BB for surgery on Saturday (4) Hypothyroidism Plan: on synthroid (1) Diabetic ketoacidosis associated with type 2 diabetes mellitus Qualifiers: Diabetes mellitus complication detail: without coma Qualified Code(s): E11.10 - Type 2 diabetes mellitus with ketoacidosis without coma
[2018-03-13] MEDS ORDERED: Insulin Detemir Inj 1,000 UNIT/10 ML Vial SQ SCH (21:00)
[2018-03-14] MEDS: Insulin NovoLOG Aspart Correctional Sugar Inj SQ SCH ×4 (00:24→10:31)
[2018-03-14] MEDS: Metoprolol Tartrate 25 MG Tablet PO SCH ×3 (00:25→21:10)
[2018-03-14] MEDS: Senna/Docusate Sodium 8.6/50 MG Tablet PO SCH ×3 (00:27→20:27)
--- NOTE | 2018-03-14 00:38 | P.PNCA ---
Subjective Interval history: No events overnight Blood sugars better, no hypoglycemia Medications and Allergies Active Medications: Active Medications Acetaminophen (Tylenol) 650 mg PO Q6H PRN PRN Reason: FEVER >101F Hydrocodone Bitart/Acetaminophen ([place] 5/325) 1 tab PO Q4H PRN PRN Reason: PAIN SCALE 1 TO 5 Last Admin: 03/08/18 10:42 Dose: 1 tab Al Hydroxide/Mg Hydroxide (Milk Of Magnben Liq) 30 ml PO Q12H PRN PRN Reason: Mild Constipation Albuterol (Albuterol Neb (Prn)) 2.5 mg NEB Q2HR NEB PRN PRN Reason: SHORTNESS OF BREATH/WHEEZING Aspirin (Ecotrin) 81 mg PO DAILY [facility] Last Admin: 03/13/18 09:03 Dose: 81 mg Atorvastatin Calcium (Lipitor) 80 mg PO HS [facility] Last Admin: 03/14/18 00:27 Dose: 80 mg Bisacodyl (Dulcolax Supp) 10 mg RECTAL DAILY PRN PRN Reason: SEVERE CONSITIPATION Chlorhexidine Gluconate (Hibiclens 4% Topical) 1 applicatio 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 [facility] Stop: 03/17/18 10:20 Clonidine HCl (Catapres) 0.1 mg PO Q6H PRN PRN Reason: HYPERTENSION Last Admin: 03/10/18 04:22 Dose: 0.1 mg Sodium Chloride 500 ml/ (Cefazolin Sodium 500 mg) 0 ml IRRIGATION TOPLINE BEADING MACHINE TENDER [facility] Stop: 03/17/18 10:22 Sodium Chloride 77.5 ml/Papaverine HCl 60 mg/Nitroglycerin 100 mcg/Diltiazem HCl 100 mg 0 ml IRRIGATION TOPLINE BEADING MACHINE TENDER [facility] Stop: 03/17/18 10:20 Dextrose (D50w Vial) 50 ml IV.PUSH UNSCH PRN PRN Reason: PER HYPOGLYCEMIA PROTOCOL Glucagon (Glucagon Inj) 1 mg OTHER PRN PRN PRN Reason: for Hypoglycemia Protocol Cefazolin Sodium 2,000 mg/ (Sodium Chloride) 100 mls @ 200 mls/hr IV.SIG 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 BEADING MACHINE TENDER [facility] Stop: 03/17/18 10:22 Heparin Sodium/Dextrose (Heparin/D5w 25,000 U/250 Ml) 25,000 unit in 250 mls @ 10 mls/hr IV.CONT TITRATE PRN; Protocol PRN Reason: Per Protocol Last Admin: 03/13/18 06:42 Dose: 1,300 units/hr, 13 mls/hr Magnesium Sulfate 4 gm/ Sodium (Chloride) 100 mls @ 50 mls/hr IV.SIG UNSCH PRN PRN Reason: For Magnesium 0.9 - 1.1 mg/dL Magnesium Sulfate 2 gm/ Sodium (Chloride) 100 mls @ 50 mls/hr IV.SIG UNSCH PRN PRN Reason: For Magnesium 1.2 - 1.6 mg/dL Potassium Chloride (Kcl 20 Meq Premix Inj) 20 meq in 100 mls @ 50 mls/hr IV.SIG Q2H PRN PRN Reason: For Potassium 3.3 - 3.5 mEq/L Potassium Chloride (Kcl 40 Meq Premix Inj) 40 meq in 100 mls @ 25 mls/hr IV.SIG UNSCH PRN PRN Reason: For Potassium 3.3 - 3.5 mEq/L Potassium Chloride (Kcl 20 Meq Premix Inj) 20 meq in 100 mls @ 50 mls/hr IV.SIG Q2H PRN PRN Reason: For Potassium 2.8 - 3.2 mEq/L Potassium Phosphate 30 mmol/ (Sodium Chloride) 260 mls @ 42 mls/hr IV.SIG UNSCH PRN PRN Reason: SEE LABEL COMMENTS Sodium Phosphate 30 mmol/ (Sodium Chloride) 260 mls @ 42 mls/hr IV.SIG UNSCH PRN PRN Reason: For Phosphorus < 2.5 mg/dL Potassium Chloride (Kcl 40 Meq Premix Inj) 40 meq in 100 mls @ 25 mls/hr IV.SIG Q2H PRN PRN Reason: For Potassium 2.8 - 3.2 mEq/L Insulin Aspart (Novolog Insulin Correctional Sugar Inj) 0 unit SQ ACHS AND 3AM WADE; Protocol Last Admin: 03/14/18 00:24 Dose: Not Given Insulin Detemir (Levemir Inj) 15 unit SQ DAILY [facility] Last Admin: 03/13/18 09:06 Dose: 15 unit Insulin Detemir (Levemir Inj) 13 unit SQ HS [facility] Last Admin: 03/14/18 00:24 Dose: 13 unit Lactulose (Lactulose Liq) 30 ml PO DAILY PRN PRN Reason: SEVERE CONSITIPATION Levothyroxine Sodium (Synthroid) 300 mcg PO DAILY@0600 [facility] Last Admin: 03/13/18 06:42 Dose: 300 mcg Magnesium Oxide (Mag-Ox) 800 mg PO UNSCH PRN PRN Reason: For Magnesium 1.2 - 1.6 mg/dL Metoprolol Tartrate (Lopressor) 12.5 mg PO BID [facility] Last Admin: 03/14/18 00:25 Dose: 12.5 mg Metoprolol Tartrate (Lopressor) 12.5 mg PO TOPLINE [employer]ADING MACHINE TENDER [facility] Stop: 03/17/18 10:22 Miscellaneous (Pill Splitter) 1 each [facility] Morphine Sulfate (Morphine Inj) 2 mg IV.PUSH Q2H PRN PRN Reason: PAIN SCALE 6 TO 10 Ondansetron HCl (Zofran Inj) 4 mg IV.PUSH Q6H PRN PRN Reason: NAUSEA Last Admin: 03/12/18 21:48 Dose: 4 mg Pantoprazole Sodium (Protonix Inj) 40 mg IV.PUSH DAILY [facility] Last Admin: 03/13/18 09:07 Dose: 40 mg Potassium Bicarb/Potassium Chloride (K-Lyte Cl Eff) 50 meq PO UNSCH PRN PRN Reason: For Potassium 3.3 - 3.5 mEq/L Potassium Phosphate (K-Phos Original) 2,000 mg PO Q4H PRN PRN Reason: Phosphorus Less Than 2.5 mg/dL Potassium Phosphate (K-Phos Original) 2,000 mg PO UNSCH PRN PRN Reason: SEE LABEL COMMENTS Senna/Docusate Sodium (Hanane-Colace) 1 tab PO BID [facility] Last Admin: 03/14/18 00:27 Dose: 1 tab Sennosides (Senokot) 17.2 mg PO Q12H PRN PRN Reason: Moderate Constipation Sodium Chloride (Ns Flush) 2 ml IV.FLUSH BID [facility] Last Admin: 03/14/18 00:28 Dose: 2 ml Sodium Chloride (Ns Flush) 2 ml IV.FLUSH UNSCH PRN PRN Reason: FLUSH AFTER USING IV ACCESS Allergies Allergy/AdvReac Type Severity Reaction Status Date / Time No Known Allergies Allergy Unverified 03/07/18 07:38 Home Medications Medication Instructions Recorded Confirmed Type insulin aspart U-100 [Novolog 14 sliding scale dose SUB-Q UD 03/07/18 03/07/18 History U-100 Insulin aspart] insulin glargine [Lantus U-100 38 unit SUB-Q DAILY 03/07/18 03/07/18 History Insulin] levothyroxine 300 mcg PO DAILY 03/07/18 03/07/18 History Physical Exam Vital signs: Vital Signs 03/13/18 04:00 03/13/18 08:00 03/13/18 08:28 Pulse Rate 84 Respiratory Rate 20 20 Pulse Oximetry 96 Intake & Output 03/13/18 03/13/18 03/14/18 06:59 18:59 06:59 Intake Total 1003 / 1003 650 / 650 Balance 1003 / 1003 650 / 650 Weight 70.1 kg Intake: IV 250 / 250 Heparin/D5W 25,000 U/250 mL 25, 250 / 250 000 unit In 250 ml @ 1,000 UNITS/HR 10 mls/hr IV.CONT TITRATE PRN Rx#:[id number] Oral 620 / 620 650 / 650 Other 133 / 133 Other: Other Intake Source Saline Solution # Voids 5 4 Date of Last Bowel Movement 03/11/18 03/11/18 # Incontinent Bowel Movements 0 Narrative: GENERAL: NAD, AAOx3 SKIN: Warm and dry. HEAD: Atraumatic. Normocephalic. EYES: Pupils equal and round. No scleral icterus. No injection or drainage. ENT: No nasal bleeding or discharge. Mucous membranes pink and moist. NECK: Trachea midline. No JVD. CARDIOVASCULAR: Regular rate and rhythm. S1-S2 no S3 or S4 RESPIRATORY: No accessory muscle use. Clear to auscultation. Breath sounds equal bilaterally. GASTROINTESTINAL: Abdomen soft, non-tender, nondistended. Hepatic and splenic margins not palpable. MUSCULOSKELETAL: Extremities without clubbing, cyanosis, or edema. No obvious deformities. NEUROLOGICAL: Awake and alert. No obvious cranial nerve deficits. Motor grossly within normal limits. Five out of 5 muscle strength in the arms and legs. Normal speech. PSYCHIATRIC: Appropriate mood and affect; insight and judgment normal. - Urinary Catheter Management Indwelling Urethral Catheter Cath placed during this visit: yes Reason for continuing: Hourly intake/output Insertion date: 03/07/18 Insertion time: 06:10 Results 03/13/18 04:18 03/13/18 04:18 Cardiac Enzymes 03/12/18 03/13/18 Range/Units 04:00 04:18 AST 20 18 (15-37) U/L Coagulation 03/12/18 03/12/18 03/12/18 Range/Units 01:27 08:36 15:22 PT (9.8-11.6) sec APTT 24.6 D 49.9 H D 40.5 H (24.3-30.1) sec 03/13/18 Range/Units 04:18 PT 10.7 (9.8-11.6) sec APTT 64.5 H D (24.3-30.1) sec CBC 03/12/18 03/13/18 Range/Units 04:00 04:18 WBC 7.0 7.9 (4.0-11.0) th/mm3 RBC 3.49 L 3.23 L (4.00-5.30) mil/mm3 Hgb 11.0 L 10.3 L (11.6-15.3) gm/dL Hct 33.1 L 30.9 L (35.0-46.0) % Plt Count 225 234 (150-450) th/mm3 Neut # (Auto) 2.6 2.8 (1.8-7.7) th/mm3 Lymph # (Auto) 3.1 3.7 (1.0-4.8) th/mm3 [place] # (Auto) 0.9 0.9 (0.0-0.9) th/mm3 Eos # (Auto) 0.3 0.4 (0.0-0.4) th/mm3 Baso # (Auto) 0.1 0.1 (0.0-0.2) th/mm3 Comprehensive Metabolic Panel 03/12/18 03/13/18 Range/Units 04:00 04:18 Sodium 141 141 (136-145) meq/L Potassium 3.1 L D 4.6 D (3.5-5.1) meq/L Chloride 104 106 (98-107) meq/L Carbon Dioxide 27.2 27.1 (21.0-32.0) meq/L BUN 15 20 H (7-18) mg/dL Creatinine 0.89 1.29 H (0.50-1.00) mg/dL Calcium 8.7 8.5 (8.5-10.1) mg/dL AST 20 18 (15-37) U/L ALT 18 19 (10-53) U/L Alkaline Phosphatase 110 108 (45-117) U/L Total Protein 6.6 D 6.2 L (6.4-8.2) g/dL Albumin 3.1 L 2.8 L (3.4-5.0) g/dL Intake and Output 03/13/18 03/13/18 03/14/18 14:59 22:59 06:59 Intake Total 650 / 650 Balance 650 / 650 Intake: Oral 650 / 650 Other: # Voids 4 Date of Last Bowel Movement 03/11/18 03/11/18 Assessment and Plan - Assessment (1) NSTEMI (non-ST elevated myocardial infarction) Code(s): I21.4 - Non-ST elevation (NSTEMI) myocardial infarction Status: Acute (2) CAD (coronary artery disease) Code(s): I25.10 - Atherosclerotic heart disease of [place] coronary artery without angina pectoris Status: Acute (3) Diabetic ketoacidosis associated with type 2 diabetes mellitus Code(s): E11.10 - Type 2 diabetes mellitus with ketoacidosis without coma Status: Acute (4) Adjustment disorder with depressed mood Code(s): F43.21 - Adjustment disorder with depressed mood Status: Acute - Plan 1) DKA Off insulin drip Per the primary team No further hypoglycemia 2) NSTEMI Type 2 due to DKA Found to have multi-vessel CAD, consideration of CABG CT surgery consulted, possible tomorrow Heparin drip ASA 3) EF 60-65%, mild (mean gradient 20 by cath) 4) [place] on CKD Stable (3) Diabetic ketoacidosis associated with type 2 diabetes mellitus Qualifiers: Diabetes mellitus complication detail: without coma Qualified Code(s): E11.10 - Type 2 diabetes mellitus with ketoacidosis without coma
[2018-03-14] MEDS: Heparin Drip 25,000 UNIT/250 ML BAG IV.CONT PRN ×2 (00:45→00:50)
[2018-03-14] MEDS ORDERED: Chlorhexidine Gluconate 2% 1 Pack (2 Cloths) TOPICAL ONE (04:44)
[2018-03-14] MEDS ORDERED: Metoprolol Tartrate 25 MG Tablet PO ONE (04:44)
[2018-03-14] MEDS ORDERED: Sodium Chlor 0.9% Inj 500 ML IV.SIG SCH (05:00)
[2018-03-14] MEDS: Levothyroxine 150 MCG Tablet PO SCH (05:43)
[2018-03-14] MEDS ORDERED: Heparin - SQ 10,000 UNITS/ML Vial ONE (06:21)
[2018-03-14] MEDS ORDERED: Electrolytes R/Dextrose 5% Inj 1,000 ML IV.CONT ONE (07:15)
[2018-03-14] MEDS ORDERED: Sodium Chlor 0.9% Inj 500 ML IV.CONT ONE (07:15)
[2018-03-14] MEDS ORDERED: Phenylephrine/NS 1000 MCG/10ML Syringe IV.PUSH ONE (07:15)
[2018-03-14] MEDS ORDERED: Sodium Chlor 0.9% Inj 100 ML IV.CONT ONE (07:15)
[2018-03-14] MEDS ORDERED: Potassium Chlor 20 mEq Premix 20 MEQ/100 ML PIGGYBACK IV.SIG ONE (09:29)
[2018-03-14] MEDS: Insulin Detemir Inj 1,000 UNIT/10 ML Vial SQ SCH (10:31)
[2018-03-14] MEDS: Pantoprazole Inj 40 MG Vial IV.PUSH SCH (10:32)
[2018-03-14] MEDS ORDERED: Dextrose 50% in Water Syringe 50 ML ONE (10:35)
[2018-03-14] MEDS ORDERED: Albumin Human 5% Inj 250 ML IV.SIG PRN (11:59)
[2018-03-14] MEDS ORDERED: Magnesium Sulfate Inj 2 GM in Sodium Chlor 0.9% Inj 96 ML IV.SIG PRN ×4 (11:59)
[2018-03-14] MEDS ORDERED: Insulin Regular (For Infusion) 100 UNIT in Sodium Chlor 0.9% Inj 99 ML IV.CONT PRN (11:59)
[2018-03-14] MEDS ORDERED: Dextrose 50% in Water 50 ML Vial IV.PUSH PRN (11:59)
[2018-03-14] MEDS ORDERED: Ketorolac Inj 30 MG/ML (IVP) Vial IV.PUSH PRN (11:59)
[2018-03-14] MEDS ORDERED: Calcium Chloride Inj 1 GM/10 ML Syringe IV.PUSH PRN (11:59)
[2018-03-14] MEDS ORDERED: Phenylephrine Inj 40 MG in Sodium Chlor 0.9% Inj 496 ML IV.CONT PRN (11:59)
[2018-03-14] MEDS ORDERED: Post-op Orders (for Pharmacy) OTHER STA (11:59)
[2018-03-14] MEDS ORDERED: Calcium Chloride Inj 1 GM in Sodium Chlor 0.9% Inj 100 ML IV.SIG PRN (11:59)
[2018-03-14] MEDS ORDERED: Dexmedetomidine Inj 200 MCG in Sodium Chlor 0.9% Inj 48 ML IV.CONT PRN (11:59)
[2018-03-14] MEDS ORDERED: Potassium Chlor 20 mEq Premix 20 MEQ/100 ML PIGGYBACK IV.SIG PRN ×3 (11:59)
[2018-03-14] MEDS ORDERED: RESP: Racemic Epinephrine 2.25% 0.5 ML Neb NEB PRN (11:59)
[2018-03-14] MEDS ORDERED: Morphine Sulfate Inj 2 MG/ML Vial IV.PUSH PRN (11:59)
[2018-03-14] MEDS ORDERED: Metoprolol Inj 5 MG/5 ML Vial IV.PUSH PRN (11:59)
--- NOTE | 2018-03-14 12:15 | P.OP ---
Date of procedure: 03/14/18 Anesthesia: GETA Surgeon: Mayito Perez MD Operation and Findings: PREPROCEDURE DIAGNOSES 1. Severe Multi Vessel Coronary Artery Disease. 2. Acute myocardial infarction (NSTEMI) 3. Diabetes mellitus 4. Diabetic keto acidosis POSTPROCEDURE DIAGNOSES Same SURGICAL PROCEDURE 1. Urgent Off-pump Coronary Artery Bypass Grafting x 2 with reverse saphenous vein graft to Left Anterior Descending (LAD), reverse saphenous vein graft to obtuse Marginal branch of the left Circumflex artery 2. Left leg Endoscopic Vein [place] 3. Left Internal Mammary Artery (NOLEN) harvest 4. Intraoperative Vein Mapping. SURGEON Mayito Perez MD DRAFTER ASSISTANT Edith Locke, [facility] AN[facility] General endotracheal AIRCRAFT ARMAMENT MECHANIC RHONDA Hoover MD PREPARATION ChloraPrep. COUNTS Needle, sponge, and instrument counts were correct. DRAINS Two 32-[place]vor[place] mediastinal tubes. COMPLICATIONS None. INDICATIONS FOR PROCEDURE The patient is a 77-year-old presenting with diabetic keto acidosis and acute myocardial infarction. Patient was noted to have 2 vessel coronary artery disease. The patient is being brought to the operating room for surgical revascularization therapy. PROCEDURE Patient was brought to the operating room and placed supine on the OR table. Following the induction of adequate general endotracheal anesthesia and placement of appropriate monitoring devices, intraoperative vein mapping was performed which revealed good-caliber conduit in the left lower extremity. The patient was then prepped and draped in standard sterile fashion. Next, 2500 units of intravenous heparin was given. The left greater saphenous vein was harvested endoscopically. This appeared to be a useable-caliber conduit. Simultaneously, a median sternotomy was performed and the left internal mammary artery dissected free off the posterior sternal table. Examination of the NOLEN revealed poor pulsatile flow in it with a calcific plaque in the proximal to mid aspect. With this not being a suitable conduit, as well as her being a brittle diabetic, it was sided not to harvest the right internal mammary artery to avoid sternal wound healing issues but rather proceed made with vein grafts to the LAD and the circumflex distribution. The patient was systemically heparinized and anticoagulation monitored by serial ACT measurements. The pericardium was then divided in the midline, the cradle created and targets analyzed. At this point, all anastomoses were performed in a beating-heart fashion using the Abiogenixquet stabilizing system. A segment of the saphenous vein graft was anastomosed to the distal LAD (2 mm) in an end-to-side fashion using 7 -0 Prolene. Final segment of saphenous vein graft was then anastomosed to the OM1 (1.75 mm) in an end-to-side fashion using 7-0 Prolene. The proximal anastomoses were then constructed to the ascending aorta in a running manner using 6-0 Prolene. All anastomotic sites were inspected and appeared to be hemostatic and patent. Protamine solution was given. Strict hemostasis was assured. The closure was undertaken. 2 chest tubes were placed. The pericardium was reapproximated in the midline. The sternum was approximated using sternal wires. The muscular and fascial layer were then closed in 3 layers. The endoscopic vein harvest site was closed in 2 layers. The patient tolerated the procedure well and was transferred to CVICU in stable condition.
[2018-03-14] MEDS ORDERED: fentaNYL Citrate Inj 250 MCG/5 ML Ampul ONE (12:37)
[2018-03-14 12:51] LABS: Hematocrit 22.9 % (35.0-46.0); Hemoglobin 7.8 gm/dL (11.6-15.3)
--- NOTE | 2018-03-14 13:12 | XR ---
EXAM DATE: 03/14/2018 12:00 PM EDT AGE/SEX: 77 years / Female INDICATIONS: Post-op CABG. CLINICAL DATA: This is the patient's initial encounter. Patient reports that signs and symptoms have been present for 1 day and indicates a pain score of Nonresponsive. MEDICAL/SURGICAL HISTORY: . Diabetes. Hypothyroidism. Coronary artery disease. Myocardial infar ction. . Cholecystectomy. Cardiac catheterization. Left shoulder. COMPARISON: [facility], CHEST 2V PA&LAT, 03/11/2018. . FINDINGS: ETT at the level the clavicles. Right IJ central line with tip in the SVC. Mediastinal drains and NGT in place. No significant pneumothorax. Mild elevation the left hemidiaphragm with minimal airspace d isease in the mid lungs bilaterally. Cardiomegaly saw contours are stable. Stable cardiac event monit or in place. Remainder of exam is unchanged. CONCLUSION: 1. Tubes and lines, as above. 2. Expected postoperative features of recent CABG without pneumothorax. Electronically signed by: Mj Saldana MD 03/14/2018 1:11 PM EDT
--- NOTE | 2018-03-14 14:10 | US ---
EXAM DATE: 03/14/2018 12:00 AM EDT AGE/SEX: 77 years / Female INDICATIONS: Right arm swelling. CLINICAL DATA: This is the patient's initial encounter. Patient reports that signs and symptoms have been present for 1 day and indicates a pain score of Nonresponsive. MEDICAL/SURGICAL HISTORY: Diabetes. Hypothyroid. Cholecystectomy. COMPARISON: No prior exams available for comparison. FINDINGS: There are abnormal intraluminal echoes within the distal right cephalic vein. This vessel also demonstrates lack of complete compression and demonstrates lack of internal blood flow indicatin g occlusive thrombus. The remaining veins of the right upper extremity are patent. Other: None. CONCLUSION: 1. There is occlusive thrombus within the distal right cephalic vein. 2. The remaining veins of the right upper extremity including the internal jugular vein are patent. Electronically signed by: Twan Azul MD 03/14/2018 2:09 PM EDT
--- NOTE | 2018-03-14 15:15 | P.PNIM ---
Subjective Interval history: 77-year-old female. Date of admission 03/07/2018. Past medical history includes diabetes mellitus since 1991 and hypothyroidism. Patient is a Charlton act from [facility] where she is brought by the police department where she was a well person check where she is nearby pleased to be disheveled with an high blood sugar. Please placed under Latesha fraire due to the fact that she stated that she knew that her blood sugar was high in the could result in her being in a coma and that she did not care at that time. Patient was transferred to [facility] for further evaluation treatment. Laboratories revealed a leukocytosis of 17,000. Macrocytic anemia. Elevated troponin of 1.28. EKG pending. Acute kidney injury of 2.2. Patient denies chest pain, shortness of breath, abdominal pain, nausea vomiting or diarrhea. Chest x-ray reviewed no acute cardiopulmonary findings. EKG revealed sinus tachycardia with no specific ST-T changes. Patient may need to have a bowel movement. 03/08: Resting comfortably in bed in no acute distress. Denies chest pain. Off insulin drip overnight. Currently insulin detemir 15 units daily. On 38 units daily at home. On heparin drip for correction has been lifted. Awake and oriented to person place and time and talking on telephone currently. 03-09 patient has been transferred to our service today Latesha fraire has been lifted To have cardiac catheterization tomorrow Had issues with blood sugars this morning Remains on a heparin drip A.m. labs monitor kidney functions Discussed with patient and RN 03-11 HAD CARDIAC CATH HAS MULTIPLE VESSEL DISEASE-[facility] HAS BEEN CONSULTED- NOT SEEN BY THEM YET NEEDS SURGERY ON SATURDAY AM LABS MOVE OUT OF ICU SIL RN AND PT AND CVS INCREASE ACTIVITY INCREASE LEVEMIR TO 15UNITS SUBQ BID WATCH SUGARS 03-12 HAD LOW SUGARS EARLIER NEEDS BEDTIME SNACK DAILY CONTINUE HEPARIN DRIP INCREASE ACTIVITY DW RN AND PT [facility] ON SATURDAY DECREASE LEVEMIR TO 10UNITS SUBQ IN PM 15UNITS SUBQ IN AM 03-13 WILL INCREASE PM LEVEMIR TO 13 UNITS AM LABS SURGERY TOMORROW SIL RN AND PT 03-14 HAD CABG X2 WITH SVG TODAY REMAINS ON VENT HOPEFULLY EXTUBATE LATER TODAY AM LABS SIL RN AND PT AND FAMILY SEEN IN HER ROOM AFTER SURGERY Physical Exam Vital signs: Vital Signs 03/13/18 19:00 03/13/18 20:00 03/13/18 21:00 Temperature 99.0 F Pulse Rate 84 86 92 H Respiratory Rate 16 Blood Pressure 167/74 H Pulse Oximetry 98 03/13/18 22:00 03/13/18 23:00 03/14/18 00:00 Temperature 98.6 F Pulse Rate 88 96 H 100 H Respiratory Rate 16 Blood Pressure 166/70 H Pulse Oximetry 95 03/14/18 01:00 03/14/18 02:00 03/14/18 03:00 Temperature 98.6 F Pulse Rate 94 H 82 82 Respiratory Rate 16 Blood Pressure 149/67 H Pulse Oximetry 98 03/14/18 04:00 03/14/18 05:00 03/14/18 06:00 Temperature Pulse Rate 84 82 80 Respiratory Rate Blood Pressure Pulse Oximetry 03/14/18 11:09 03/14/18 12:32 03/14/18 13:36 Temperature 97.5 F L Pulse Rate 61 Respiratory Rate 10 L Blood Pressure Pulse Oximetry 99 03/14/18 13:39 03/14/18 13:41 03/14/18 13:55 Temperature 97.5 F L Pulse Rate 63 63 Respiratory Rate 10 L Blood Pressure 128/45 L 112/39 L Pulse Oximetry 99 99 99 03/14/18 14:51 Temperature 97.9 F Pulse Rate Respiratory Rate Blood Pressure Pulse Oximetry Intake & Output 03/13/18 03/14/18 03/14/18 18:59 06:59 18:59 Intake Total 650 / 650 740 / 740 4300 / 4300 Output Total 750 / 750 Balance 650 / 650 740 / 740 3550 / 3550 Weight 68 kg Intake: IV 500 / 500 1300 / 1300 Heparin/D5W 25,000 U/250 mL 25, 500 / 500 100 / 100 000 unit In 250 ml @ 1,000 UNITS/HR 10 mls/hr IV.CONT TITRATE PRN Rx#:[id number] Ofirmev Inj 1,000 mg In 100 ml 100 / 100 @ 400 mls/hr IV.SIG Q6H WADE Rx# :[id number] LR 1000 mL Inj 1,000 ML @ 30 1000 / 1000 mls/hr IV.SIG .Q24H WADE Rx#: [id number] Ancef Inj 2,000 MG In NS Inj 80 100 / 100 ML @ 200 mls/hr IV.SIG EXECUTIVE DIRECTOR [employer] WADE Rx#:[id number] Oral 650 / 650 240 / 240 Anesthesia Amount 3000 / 3000 Output: Estimated Blood Loss 200 / 200 Urine Amount (Catheter) 550 / 550 Indwelling Temp Sensing 550 / 550 Catheter Other: # Voids 4 # Incontinent Voids 3 Date of Last Bowel Movement 03/11/18 03/13/18 03/13/18 Narrative: GENERAL: NAD, AA ON VENT-REMAINS ON VENT SKIN: Warm and dry. HEAD: Atraumatic. Normocephalic. EYES: Pupils equal and round. No scleral icterus. No injection or drainage. ENT: No nasal bleeding or discharge. Mucous membranes pink and moist.ET AND OGT IN PLACE NECK: Trachea midline. No JVD. CARDIOVASCULAR: Regular rate and rhythm. S1-S2 no S3 or S4 SLIGHT RUB RESPIRATORY: No accessory muscle use. Clear to auscultation. Breath sounds equal bilaterally. GASTROINTESTINAL: Abdomen soft, non-tender, nondistended. Hepatic and splenic margins not palpable. HYPOACTIVE BOWEL SOUNDS MUSCULOSKELETAL: Extremities without clubbing, cyanosis, or edema. No obvious deformities. NEUROLOGICAL: Awake and alert. No obvious cranial nerve deficits. Motor grossly within normal limits. Five out of 5 muscle strength in the arms and legs. RIGHT LE DRESSED PSYCHIATRIC: mood and affect CANNOT BE ASSESSED ON VENT; insight and judgment NOT ABLE TO BE ASSESSED ON VENT. - Urinary Catheter Management Indwelling Urethral Catheter Cath placed during this visit: yes Reason for continuing: Hourly intake/output Insertion date: 03/07/18 Insertion time: 06:10 Indwelling Temp Sensing Catheter Cath placed during this visit: yes Reason for continuing: Hourly intake/output Insertion date: 03/14/18 Insertion time: 07:30 Results - Labs CBC & Chem 7: 03/14/18 12:00 03/13/18 04:18 Laboratory Results - last 24 hr 03/13/18 03/13/18 03/13/18 04:18 17:47 20:50 Hgb Hct APTT POC Glucose 156 H 308 H Blood Type O Positive Blood Type Recheck Required Antibody Screen Negative MTS Gel Crossmatch See Detail Bld Prod Order Comment 03/14/18 03/14/18 03/14/18 04:29 05:45 12:00 Hgb 7.8 L D Hct 22.9 L APTT 55.8 H POC Glucose 353 H Blood Type Blood Type Recheck Antibody Screen MTS Gel Crossmatch Bld Prod Order Comment 03/14/18 14:22 Hgb Hct APTT POC Glucose 120 H Blood Type Blood Type Recheck Antibody Screen MTS Gel Crossmatch Bld Prod Order Comment - Imaging Impressions Venous Doppler Study 03/14/18 00:00 CONCLUSION: 1. There is occlusive thrombus within the distal right cephalic vein. 2. The remaining veins of the right upper extremity including the internal jugular vein are patent. Chest X-Ray 03/14/18 12:00 CONCLUSION: 1. Tubes and lines, as above. 2. Expected postoperative features of recent CABG without pneumothorax. - Procedures PROCEDURE: Left heart catheterization, coronary angiogram, moderate sedation 37 minutes, aortic stenosis evaluation. 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 MEDICATIONS: Versed 0.5 mg, fentanyl 25 mcg. CONTRAST USED: 50 mL. FLUOROSCOPY: 5.3 minutes. MODERATE SEDATION: 37 minutes. FRAILTY SCORE: 5. ESTIMATED BLOOD LOSS: 10 mL. PROCEDURAL SUMMARY: Heather Nails is a pleasant 77-year-old female who sees my partner, Dr. Jean Bueno and presented to [facility] as a Charlton Act. Apparently, she was unable to take care of herself and was almost comatose at that time. Since then, her DKA has been resolved and Charlton Act has been lifted. She was found to have an elevated troponin and has known previous coronary artery disease. Because of this, she was recommended cardiac catheterization. Risks, benefits, and alternatives were explained to her and she consented as such. She was brought to the lab and prepped in the usual sterile fashion. I attempted to access her right radial artery, but was unable to and so right femoral artery was accessed using modified Seldinger technique and placement of a 5-Sinhala sheath. This was easily aspirated and flushed. A JR4 was advanced over a J-wire to the ascending aorta and across the aortic valve for measurement of left ventricular pressure. This was pulled back across the aortic valve showing a gradient, but difficult to determine as she had some ventricular tachycardia during the pullback. JR4 was used for selective angiography of the right coronary artery system. This was exchanged out for a JL4, which was used for selective angiography of the left coronary artery system. As I felt that the patient should be considered for coronary artery bypass grafting and there was confusion on the echo of how significant her aortic stenosis was, I felt that aortic stenosis should be further evaluated. At this time, the 5-Sinhala sheath was exchanged for a 6-Sinhala sheath. JR4 was used to cross the aortic valve. The JR4 was exchanged out for a Herbster dual-lumen catheter. Simultaneous left ventricular and aortic pressures showed a mean gradient of 20 for the aortic valve. This was pulled back across the aortic valve to show equalization of pressures. Adonis catheter was removed. I attempted to close the femoral site with a Vascade, but it was unable to take and so pressure was held for hemostasis. The patient left the grinding and polishing laborer cardiovascularly stable. FINDINGS: LEFT MAIN: Ostial 40-50% disease with dampening of the catheter, upon entrance. It bifurcates into an LAD and circumflex. LAD: Diffuse long 70% disease from the proximal to mid portion. Distal vessel has an area of normalization before becoming significantly small at the apex. It gives off 3 diagonals, the first one having 80% ostial stenosis. The second and third have no significant disease. LEFT CIRCUMFLEX: Vxwzl-zj-ukhohqle sized vessel with no significant disease in the proximal portion. At the takeoff of the major obtuse marginal, there is a 70% lesion. RCA: Moderate size vessel with diffuse 30% disease throughout. It supplies the PDA as well as the posterolateral branch with diffuse 40% disease. LVEDP: 11. Aortic valve mean gradient: 20. IMPRESSION: 1. Diabetic ketoacidosis. 2. Czf-XV-vzrzzxnhg myocardial infarction. 3. Multivessel coronary artery disease. RECOMMENDATIONS: 1. Ms. Nails presented with DKA and this has since resolved. 2. She was also a Charlton Act due to inability to take care of herself due to her almost comatose state. This has since been lifted. 3. She does have multivessel disease with probable ostial left main disease, but my major concern is her long diffusely diseased lesion in the LAD, which would require a significant amount of stent crossing multiple diagonals as well as the septal perforators. As she has multivessel disease and diabetic, ultimately I think her best option would be coronary artery bypass grafting. 4. I spoke with Dr. Perez, who will see her in consultation and further evaluate her for consideration of coronary artery bypass grafting. 5. She has had an echo showing a normal function and there was some confusion about how significant her aortic valve was. Evaluation here in the grinding and polishing laborer shows that she has mild aortic stenosis and this will be left alone if she undergoes coronary artery bypass grafting. 6. We will plan on restarting her heparin drip in 6 hours as long as her groin has no complications. 7. Further recommendations will be made after CT surgery evaluation. Thank you for allowing me to see Heather Nails. If there are any questions, please do not hesitate to call. Patient Name: Heather Nails Date of : 1940 Patient Status: Inpatient Attending Provider: Jaden Moe Date: 03/14/18 12:05 Initialization Date: 03/14/18 12:05 Date of procedure: 03/14/18 Anesthesia: GETA Surgeon: Mayito Perez MD Operation and Findings: PREPROCEDURE DIAGNOSES 1. Severe Multi Vessel Coronary Artery Disease. 2. Acute myocardial infarction (NSTEMI) 3. Diabetes mellitus 4. Diabetic keto acidosis POSTPROCEDURE DIAGNOSES Same SURGICAL PROCEDURE 1. Urgent Off-pump Coronary Artery Bypass Grafting x 2 with reverse saphenous vein graft to Left Anterior Descending (LAD), reverse saphenous vein graft to obtuse Marginal branch of the left Circumflex artery 2. Left leg Endoscopic Vein Bush 3. Left Internal Mammary Artery (NOLEN) harvest 4. Intraoperative Vein Mapping. SURGEON Mayito Perez MD HEART DOCTOR MIKE Chaves PA ANESTHESIA General endotracheal OILING MACHINE OPERATOR RHONDA Hoover MD PREPARATION ChloraPrep. COUNTS Needle, sponge, and instrument counts were correct. DRAINS Two 32-Sinhala mediastinal tubes. COMPLICATIONS None. INDICATIONS FOR PROCEDURE The patient is a 77-year-old presenting with diabetic keto acidosis and acute myocardial infarction. Patient was noted to have 2 vessel coronary artery disease. The patient is being brought to the operating room for surgical revascularization therapy. PROCEDURE Patient was brought to the operating room and placed supine on the OR table. Following the induction of adequate general endotracheal anesthesia and placement of appropriate monitoring devices, intraoperative vein mapping was performed which revealed good-caliber conduit in the left lower extremity. The patient was then prepped and draped in standard sterile fashion. Next, 2500 units of intravenous heparin was given. The left greater saphenous vein was harvested endoscopically. This appeared to be a useable-caliber conduit. Simultaneously, a median sternotomy was performed and the left internal mammary artery dissected free off the posterior sternal table. Examination of the NOLEN revealed poor pulsatile flow in it with a calcific plaque in the proximal to mid aspect. With this not being a suitable conduit, as well as her being a brittle diabetic, it was sided not to harvest the right internal mammary artery to avoid sternal wound healing issues but rather proceed made with vein grafts to the LAD and the circumflex distribution. The patient was systemically heparinized and anticoagulation monitored by serial ACT measurements. The pericardium was then divided in the midline, the cradle created and targets analyzed. At this point, all anastomoses were performed in a beating-heart fashion using the Maquet stabilizing system. A segment of the saphenous vein graft was anastomosed to the distal LAD (2 mm) in an end-to-side fashion using 7 -0 Prolene. Final segment of saphenous vein graft was then anastomosed to the OM1 (1.75 mm) in an end-to-side fashion using 7-0 Prolene. The proximal anastomoses were then constructed to the ascending aorta in a running manner using 6-0 Prolene. All anastomotic sites were inspected and appeared to be hemostatic and patent. Protamine solution was given. Strict hemostasis was assured. The closure was undertaken. 2 chest tubes were placed. The pericardium was reapproximated in the midline. The sternum was approximated using sternal wires. The muscular and fascial layer were then closed in 3 layers. The endoscopic vein harvest site was closed in 2 layers. The patient tolerated the procedure well and was transferred to CVICU in stable condition. Additional CC's: Mayito Stafford Assessment and Plan - Plan Neuro/Psych: Acute encephalopathy/toxic metabolic secondary to DKA Acetaminophen 650 p.o. every 6 hours as needed fever Hydrocodone/acetaminophen 5/325 1 tablet every 4 hours as needed 1 through 5 Morphine sulfate will get IV every 2 hours as needed pain 6 - 10 Psychiatry has lifted the Charlton act CV: Elevated troponin Coronary artery disease Maintain mean arterial pressure greater than equal 65 EKG showed tachycardia with normal NM, QRS and QT intervals. Nonspecific ST-T changes. Cycle troponins until trending downward 2D echocardiogram revealed left ventricular systolic function is normal with an estimated ejection fraction in the range of 60-65%. Added metoprolol tartrate 20 mg twice daily. No ANAHY inhibitor secondary to acute kidney injury Check lipid profile -triglycerides 90. Cholesterol 130. Currently on atorvastatin 80 mg daily Heart catheterization LAD proximal 70%. Circumflex 60%. RCA regular millimeters. Evaluated by Dr. Stafford/cardiology. To have cardiac catheterization later today with Dr. Stafford March 10 SP CARDIAC CATH 03-10 MV CAD NEEDS CABG [facility]S CONSULTED CABG OF 2 VESSELS TODAY 03-14 REMAINS ON VENT Resp: Nasal cannula to maintain saturations greater than or equal to 92% Incentive spirometry while awake As needed albuterol aerosols every 2 hours as needed GI: ADA diet Pantoprazole for GI prophylaxis Docusate sodium/senna 1 tablet twice daily for bowel regimen : Pagan catheter removed Endo: DKA Diabetes mellitus 1.5 treat as 1.0 Hypothyroidism Transition to subcutaneous insulin overnight. Currently on insulin detemir 15 units daily with aspart insulin sliding scale before meals/at bedtime medium protocol Hemoglobin A1c 11.4 continue levothyroxine 300 mcg daily. TSH -0.737 Will need more diabetic education WATCH SUGARS NEEDS A BEDTIME SNACK LEVEMIR 15 IN AM AND 13 IN PM Renal: Acute kidney injury Mostly secondary to dehydration Creatinine currently 1.56 this a.m. improved to 1.03 now 1.02 Renal ultrasound/urine eosinophils and electrolytes if indicated Avoid nephrotoxic medication Heme: Leukocytosis Macrocytic anemia Monitor CBC daily. Follow trends. No indication for transfusion of blood products at this time. Check coag Currently on heparin drip at 1000 units an hour. Serial PTTs ID: Monitor for signs and symptomatology infection Blood cultures 2 pending. UA negative for acute infection FEN: Hyponatremia Alcoholic fluids Replace electrolytes as clinically indicated with BMP, magnesium phosphorus every 6 hours MSK: Out of bed PT evaluate and treat. And OT Access -Utilize peripheral IV. Prophylaxis -GI pantoprazole --DVT SCD/heparin drip Code Status: FULL CODE Discussed Condition With: RN AND PT AND FAMILY Discharge Planning: Pending improvement of her diabetes and POST CVS SURGERY
[2018-03-14] MEDS: fentaNYL Citrate Inj 100 MCG/2 ML Ampul IV.PUSH PRN ×4 (16:30→23:18)
[2018-03-14] MEDS: ceFAZolin Inj 2,000 MG in Sodium Chlor 0.9% Inj 80 ML IV.SIG SCH (17:24)
--- NOTE | 2018-03-14 17:50 | P.PNCA ---
Subjective Interval history: Post-CABG today SVG to LAD, SVG to OM1 Opening eyes, not following commands yet No drips running Medications and Allergies Active Medications: Active Medications Acetaminophen (Tylenol) 650 mg PO Q6H PRN PRN Reason: FEVER >101F Hydrocodone Bitart/Acetaminophen ([place] 5/325) 1 tab PO Q4H PRN PRN Reason: PAIN SCALE 1 TO 5 Last Admin: 03/08/18 10:42 Dose: 1 tab Al Hydroxide/Mg Hydroxide (Milk Of [place]m) 30 ml PO Q12H PRN PRN Reason: Mild Constipation Albuterol (Albuterol Neb (Prn)) 2.5 mg NEB Q2HR NEB PRN PRN Reason: SHORTNESS OF BREATH/WHEEZING Albuterol (Duoneb Neb (Prn)) 1 ampul NEB Q2HR NEB PRN PRN Reason: WHEEZING Albuterol (Duoneb Neb (Obed)) 1 ampul NEB Q6HR NEB [facility]ED Amiodarone HCl (Cordarone) 200 mg PO Q12HR [facility] Aspirin (Aspirin Chew) 81 mg PO DAILY [facility] Atorvastatin Calcium (Lipitor) 80 mg PO HS [facility] Last Admin: 03/14/18 00:27 Dose: 80 mg Bisacodyl (Dulcolax Supp) 10 mg RECTAL DAILY PRN PRN Reason: SEVERE CONSITIPATION Calcium Chloride (Calcium Chloride Inj) 0.5 gm IV.PUSH UNSCH PRN PRN Reason: SEE LABEL COMMENTS Chlorhexidine Gluconate (Hibiclens 4% Topical) 1 applicatio TOPICAL BILLING COORDINATOR [facility] Stop: 03/17/18 10:20 Clonidine HCl (Catapres) 0.1 mg PO Q6H PRN PRN Reason: HYPERTENSION Last Admin: 03/10/18 04:22 Dose: 0.1 mg Clopidogrel Bisulfate (Plavix) 75 mg PO DAILY [facility] Sodium Chloride 500 ml/ (Cefazolin Sodium 500 mg) 0 ml IRRIGATION BILLING COORDINATOR [facility] Stop: 03/17/18 10:22 Last Admin: 03/14/18 10:05 Dose: 500 irrig.soln Sodium Chloride 77.5 ml/Papaverine HCl 60 mg/Nitroglycerin 100 mcg/Diltiazem HCl 100 mg 0 ml IRRIGATION BILLING COORDINATOR [facility] Stop: 03/17/18 10:20 Last Admin: 03/14/18 10:07 Dose: 77.5 irrig.soln Dextrose (D50w Vial) 50 ml IV.PUSH UNSCH PRN PRN Reason: PER HYPOGLYCEMIA PROTOCOL Dextrose (D50w Vial) 50 ml IV.PUSH UNSCH PRN PRN Reason: PER HYPOGLYCEMIA PROTOCOL Epinephrine (Racepinephrine 2.25% Neb) 0.5 ml NEB DAILY NEB PRN PRN Reason: STRIDOR Fentanyl Citrate (Fentanyl Inj) 25 mcg IV.PUSH Q1H PRN PRN Reason: BREAKTHROUGH PAIN Last Admin: 03/14/18 16:30 Dose: 25 mcg Glucagon (Glucagon Inj) 1 mg OTHER PRN PRN PRN Reason: for Hypoglycemia Protocol Cefazolin Sodium 2,000 mg/ (Sodium Chloride) 100 mls @ 200 mls/hr IV.SIG BILLING COORDINATOR [facility] Stop: 03/17/18 10:22 Last Infusion: 03/14/18 08:10 Dose: Infused Heparin Sodium/Dextrose (Heparin/D5w 25,000 U/250 Ml) 25,000 unit in 250 mls @ 10 mls/hr IV.CONT TITRATE PRN; Protocol PRN Reason: Per Protocol Last Titration: 03/14/18 10:33 Dose: Infused Magnesium Sulfate 4 gm/ Sodium (Chloride) 100 mls @ 50 mls/hr IV.SIG UNSCH PRN PRN Reason: For Magnesium 0.9 - 1.1 mg/dL Magnesium Sulfate 2 gm/ Sodium (Chloride) 100 mls @ 50 mls/hr IV.SIG UNSCH PRN PRN Reason: For Magnesium 1.2 - 1.6 mg/dL Potassium Chloride (Kcl 20 Meq Premix Inj) 20 meq in 100 mls @ 50 mls/hr IV.SIG Q2H PRN PRN Reason: For Potassium 3.3 - 3.5 mEq/L Potassium Chloride (Kcl 40 Meq Premix Inj) 40 meq in 100 mls @ 25 mls/hr IV.SIG UNSCH PRN PRN Reason: For Potassium 3.3 - 3.5 mEq/L Potassium Chloride (Kcl 20 Meq Premix Inj) 20 meq in 100 mls @ 50 mls/hr IV.SIG Q2H PRN PRN Reason: For Potassium 2.8 - 3.2 mEq/L Potassium Phosphate 30 mmol/ (Sodium Chloride) 260 mls @ 42 mls/hr IV.SIG UNSCH PRN PRN Reason: SEE LABEL COMMENTS Sodium Phosphate 30 mmol/ (Sodium Chloride) 260 mls @ 42 mls/hr IV.SIG UNSCH PRN PRN Reason: For Phosphorus < 2.5 mg/dL Potassium Chloride (Kcl 40 Meq Premix Inj) 40 meq in 100 mls @ 25 mls/hr IV.SIG Q2H PRN PRN Reason: For Potassium 2.8 - 3.2 mEq/L Sodium Chloride (Ns Inj) 500 mls @ 30 mls/hr IV.SIG .Q10H [facility] Last Admin: 03/14/18 10:31 Dose: Not Given Lactated Ringer's (Lr 1000 Ml Inj) 1,000 mls @ 30 mls/hr IV.SIG .Q24H [facility] Stop: 03/15/18 04:44 Last Infusion: 03/14/18 07:10 Dose: Infused Acetaminophen (Ofirmev Inj) 1,000 mg in 100 mls @ 400 mls/hr IV.SIG Q6H [facility] Stop: 03/15/18 06:14 Last Infusion: 03/14/18 17:28 Dose: Infused Albumin Human (Buminate 5% Inj) 250 mls @ 250 mls/hr IV.SIG UNSCH PRN PRN Reason: SEE LABEL COMMENTS Calcium Chloride 1 gm/ Sodium (Chloride) 110 mls @ 100 mls/hr IV.SIG PRN PRN PRN Reason: SEE LABEL COMMENTS Cefazolin Sodium 2,000 mg/ (Sodium Chloride) 100 mls @ 200 mls/hr IV.SIG Q8H [facility] Stop: 03/16/18 02:29 Last Infusion: 03/14/18 17:37 Dose: Infused Dexmedetomidine HCl 200 mcg/ (Sodium Chloride) 50 mls @ 3.4 mls/hr IV.CONT TITRATE PRN; Protocol PRN Reason: Per Protocol Insulin Human Regular 100 unit (/ Sodium Chloride) 100 mls @ 3 mls/hr IV.CONT TITRATE PRN; Protocol PRN Reason: See Protocol Lactated Ringer's (Lr 1000 Ml Inj) 500 mls @ 500 mls/hr IV.SIG .Q1H PRN PRN Reason: SEE LABEL COMMENTS Magnesium Sulfate 2 gm/ Sodium (Chloride) 100 mls @ 50 mls/hr IV.SIG PRN PRN PRN Reason: SEE LABEL COMMENTS Magnesium Sulfate 2 gm/ Sodium (Chloride) 100 mls @ 50 mls/hr IV.SIG PRN PRN PRN Reason: SEE LABEL COMMENTS Phenylephrine HCl 40 mg/ (Sodium Chloride) 500 mls @ 30 mls/hr IV.CONT TITRATE PRN; Protocol PRN Reason: See Protocol Potassium Chloride (Kcl 20 Meq Premix Inj) 20 meq in 100 mls @ 50 mls/hr IV.SIG PRN PRN PRN Reason: SEE LABEL COMMENTS Potassium Chloride (Kcl 20 Meq Premix Inj) 20 meq in 100 mls @ 50 mls/hr IV.SIG PRN PRN PRN Reason: SEE LABEL COMMENTS Potassium Chloride (Kcl 20 Meq Premix Inj) 20 meq in 100 mls @ 50 mls/hr IV.SIG PRN PRN PRN Reason: SEE LABEL COMMENTS Ketorolac Tromethamine (Toradol Inj) 15 mg IV.PUSH Q6H PRN PRN Reason: SEE LABEL COMMENTS Stop: 03/16/18 11:58 Lactulose (Lactulose Liq) 30 ml PO DAILY PRN PRN Reason: SEVERE CONSITIPATION Levothyroxine Sodium (Synthroid) 300 mcg PO DAILY@0600 [facility] Last Admin: 03/14/18 05:43 Dose: 300 mcg Magnesium Oxide (Mag-Ox) 800 mg PO UNSCH PRN PRN Reason: For Magnesium 1.2 - 1.6 mg/dL Meperidine HCl (Demerol Inj) 12.5 mg IV.PUSH Q4H PRN PRN Reason: SHIVERING Metoprolol Tartrate (Lopressor) 12.5 mg PO BID [facility] Last Admin: 03/14/18 10:32 Dose: Not Given Metoprolol Tartrate (Lopressor) 12.5 mg PO BILLING COORDINATOR [facility] Stop: 03/17/18 10:22 Metoprolol Tartrate (Lopressor Inj) 2.5 mg IV.PUSH Q1H PRN PRN Reason: SEE LABEL COMMENTS Miscellaneous (Pill Splitter) 1 each [facility] Morphine Sulfate (Morphine Inj) 2 mg IV.PUSH Q2H PRN PRN Reason: PAIN SCALE 6 TO 10 Morphine Sulfate (Morphine Inj) 1 mg IV.PUSH Q10M PRN PRN Reason: PAIN SCALE 1 TO 5 Ondansetron HCl (Zofran Inj) 4 mg IV.PUSH Q6H PRN PRN Reason: NAUSEA Last Admin: 03/12/18 21:48 Dose: 4 mg Pantoprazole Sodium (Protonix) 40 mg PO DAILY@06 [facility] Phenylephrine HCl (Neosynephrine Inj) 0.1 mg IV.PUSH UNSCH PRN PRN Reason: SEE LABEL COMMENTS Potassium Bicarb/Potassium Chloride (K-Lyte Cl Eff) 50 meq PO UNSCH PRN PRN Reason: For Potassium 3.3 - 3.5 mEq/L Potassium Chloride (K-Dur) 20 meq PO UNSCH PRN PRN Reason: SEE LABEL COMMENTS Potassium Chloride (K-Dur) 40 meq PO UNSCH PRN PRN Reason: SEE LABEL COMMENTS Potassium Phosphate (K-Phos Original) 2,000 mg PO Q4H PRN PRN Reason: Phosphorus Less Than 2.5 mg/dL Potassium Phosphate (K-Phos Original) 2,000 mg PO UNSCH PRN PRN Reason: SEE LABEL COMMENTS Senna/Docusate Sodium (Hanane-Colace) 1 tab PO BID [facility] Last Admin: 03/14/18 10:32 Dose: Not Given Sennosides (Senokot) 17.2 mg PO Q12H PRN PRN Reason: Moderate Constipation Sodium Bicarbonate (Sodium Bicarbonate 8.4% Inj) 50 meq IV.PUSH UNSCH PRN PRN Reason: SEE LABEL COMMENTS Sodium Bicarbonate (Sodium Bicarbonate 8.4% Inj) 100 meq IV.PUSH UNSCH PRN PRN Reason: SEE LABEL COMMENTS Sodium Chloride (Ns Flush) 2 ml IV.FLUSH BID [facility] Last Admin: 03/14/18 10:32 Dose: Not Given Sodium Chloride (Ns Flush) 2 ml IV.FLUSH UNSCH PRN PRN Reason: FLUSH AFTER USING IV ACCESS Terbutaline Sulfate (Brethine Inj) 1 mg SQ UNSCH PRN PRN Reason: For Extravasation Allergies Allergy/AdvReac Type Severity Reaction Status Date / Time No Known Allergies Allergy Unverified 03/07/18 07:38 Home Medications Medication Instructions Recorded Confirmed Type insulin aspart U-100 [Novolog 14 sliding scale dose SUB-Q UD 03/07/18 03/07/18 History U-100 Insulin aspart] insulin glargine [Lantus U-100 38 unit SUB-Q DAILY 03/07/18 03/07/18 History Insulin] levothyroxine 300 mcg PO DAILY 03/07/18 03/07/18 History Physical Exam Vital signs: Vital Signs 03/13/18 19:00 03/13/18 20:00 03/13/18 21:00 Temperature 99.0 F Pulse Rate 84 86 92 H Respiratory Rate 16 Blood Pressure 167/74 H Pulse Oximetry 98 03/13/18 22:00 03/13/18 23:00 03/14/18 00:00 Temperature 98.6 F Pulse Rate 88 96 H 100 H Respiratory Rate 16 Blood Pressure 166/70 H Pulse Oximetry 95 03/14/18 01:00 03/14/18 02:00 03/14/18 03:00 Temperature 98.6 F Pulse Rate 94 H 82 82 Respiratory Rate 16 Blood Pressure 149/67 H Pulse Oximetry 98 03/14/18 04:00 03/14/18 05:00 03/14/18 06:00 Temperature Pulse Rate 84 82 80 Respiratory Rate Blood Pressure Pulse Oximetry 03/14/18 11:09 03/14/18 12:32 03/14/18 13:36 Temperature 97.5 F L Pulse Rate 61 Respiratory Rate 10 L Blood Pressure Pulse Oximetry 99 03/14/18 13:39 03/14/18 13:41 03/14/18 13:55 Temperature 97.5 F L Pulse Rate 63 63 Respiratory Rate 10 L Blood Pressure 128/45 L 112/39 L Pulse Oximetry 99 99 99 03/14/18 14:51 03/14/18 15:09 03/14/18 16:00 Temperature 97.9 F 97.3 F L Pulse Rate 73 73 Respiratory Rate 2 L Blood Pressure 128/45 L Pulse Oximetry 99 03/14/18 16:10 03/14/18 17:01 03/14/18 17:39 Temperature Pulse Rate 76 Respiratory Rate 18 2 L 16 Blood Pressure 146/56 H Pulse Oximetry 99 Intake & Output 03/13/18 03/14/18 03/14/18 18:59 06:59 18:59 Intake Total 650 / 650 740 / 740 5750 / 5750 Output Total 950 / 950 Balance 650 / 650 740 / 740 4800 / 4800 Weight 68 kg Intake: IV 500 / 500 1500 / 1500 Heparin/D5W 25,000 U/250 mL 25, 500 / 500 100 / 100 000 unit In 250 ml @ 1,000 UNITS/HR 10 mls/hr IV.CONT TITRATE PRN Rx#:[id number] Ofirmev Inj 1,000 mg In 100 ml 200 / 200 @ 400 mls/hr IV.SIG Q6H [facility] Rx# :[id number] LR 1000 mL Inj 1,000 ML @ 30 1000 / 1000 mls/hr IV.SIG .Q24H [facility] Rx#: [id number] Ancef Inj 2,000 MG In NS Inj 80 200 / 200 ML @ 200 mls/hr IV.SIG Q8H [facility] Rx#:[id number] Oral 650 / 650 240 / 240 Anesthesia Amount 4000 / 4000 Other 250 / 250 Output: Estimated Blood Loss 200 / 200 Urine Amount (Catheter) 750 / 750 Indwelling Temp Sensing 750 / 750 Catheter Other: # Voids 4 # Incontinent Voids 3 Date of Last Bowel Movement 03/11/18 03/13/18 03/13/18 Narrative: GENERAL: NAD, AA ON VENT SKIN: Warm and dry. HEAD: Atraumatic. Normocephalic. EYES: Pupils equal and round. No scleral icterus. No injection or drainage. ENT: No nasal bleeding or discharge. Mucous membranes pink and moist.ET AND OGT IN PLACE NECK: Trachea midline. No JVD. CARDIOVASCULAR: Regular rate and rhythm. S1-S2 no S3 or S4 RESPIRATORY: No accessory muscle use. Clear to auscultation. Breath sounds equal bilaterally. GASTROINTESTINAL: Abdomen soft, non-tender, nondistended. Hepatic and splenic margins not palpable. HYPOACTIVE BOWEL SOUNDS MUSCULOSKELETAL: Extremities without clubbing, cyanosis, or edema. No obvious deformities. NEUROLOGICAL: Awake and alert on vent - Urinary Catheter Management Indwelling Urethral Catheter Cath placed during this visit: yes Reason for continuing: Hourly intake/output Insertion date: 03/07/18 Insertion time: 06:10 Indwelling Temp Sensing Catheter Cath placed during this visit: yes Reason for continuing: Hourly intake/output Insertion date: 03/14/18 Insertion time: 07:30 Results 03/14/18 12:00 03/13/18 04:18 Cardiac Enzymes 03/13/18 Range/Units 04:18 AST 18 (15-37) U/L Coagulation 03/13/18 03/14/18 Range/Units 04:18 04:29 PT 10.7 (9.8-11.6) sec APTT 64.5 H D 55.8 H (24.3-30.1) sec CBC 03/13/18 03/14/18 Range/Units 04:18 12:00 WBC 7.9 (4.0-11.0) th/mm3 RBC 3.23 L (4.00-5.30) mil/mm3 Hgb 10.3 L 7.8 L D (11.6-15.3) gm/dL Hct 30.9 L 22.9 L (35.0-46.0) % Plt Count 234 (150-450) th/mm3 Neut # (Auto) 2.8 (1.8-7.7) th/mm3 Lymph # (Auto) 3.7 (1.0-4.8) th/mm3 [place] # (Auto) 0.9 (0.0-0.9) th/mm3 Eos # (Auto) 0.4 (0.0-0.4) th/mm3 Baso # (Auto) 0.1 (0.0-0.2) th/mm3 Comprehensive Metabolic Panel 03/13/18 Range/Units 04:18 Sodium 141 (136-145) meq/L Potassium 4.6 D (3.5-5.1) meq/L Chloride 106 (98-107) meq/L Carbon Dioxide 27.1 (21.0-32.0) meq/L BUN 20 H (7-18) mg/dL Creatinine 1.29 H (0.50-1.00) mg/dL Calcium 8.5 (8.5-10.1) mg/dL AST 18 (15-37) U/L ALT 19 (10-53) U/L Alkaline Phosphatase 108 (45-117) U/L Total Protein 6.2 L (6.4-8.2) g/dL Albumin 2.8 L (3.4-5.0) g/dL Intake and Output 03/14/18 03/14/18 03/14/18 06:59 14:59 22:59 Intake Total 740 / 740 4300 / 4300 1450 / 1450 Output Total 750 / 750 200 / 200 Balance 740 / 740 3550 / 3550 1250 / 1250 Intake: IV 500 / 500 1300 / 1300 200 / 200 Heparin/D5W 25,000 U/250 mL 25, 500 / 500 100 / 100 000 unit In 250 ml @ 1,000 UNITS/HR 10 mls/hr IV.CONT TITRATE PRN Rx#:[id number] Ofirmev Inj 1,000 mg In 100 ml 100 / 100 100 / 100 @ 400 mls/hr IV.SIG Q6H [facility] Rx# :[id number] LR 1000 mL Inj 1,000 ML @ 30 1000 / 1000 mls/hr IV.SIG .Q24H [facility] Rx#: [id number] Ancef Inj 2,000 MG In NS Inj 80 100 / 100 100 / 100 ML @ 200 mls/hr IV.SIG Q8H [facility] Rx#:[id number] Oral 240 / 240 Anesthesia Amount 3000 / 3000 1000 / 1000 Other 250 / 250 Output: Estimated Blood Loss 200 / 200 Urine Amount (Catheter) 550 / 550 200 / 200 Indwelling Temp Sensing 550 / 550 200 / 200 Catheter Other: # Incontinent Voids 3 Date of Last Bowel Movement 03/13/18 03/13/18 Weight 68 kg - Imaging and Cardiology Imaging: Impressions Venous Doppler Study 03/14/18 00:00 CONCLUSION: 1. There is occlusive thrombus within the distal right cephalic vein. 2. The remaining veins of the right upper extremity including the internal jugular vein are patent. Chest X-Ray 03/14/18 12:00 CONCLUSION: 1. Tubes and lines, as above. 2. Expected postoperative features of recent CABG without pneumothorax. Assessment and Plan - Assessment (1) NSTEMI (non-ST elevated myocardial infarction) Code(s): I21.4 - Non-ST elevation (NSTEMI) myocardial infarction Status: Acute (2) CAD (coronary artery disease) Code(s): I25.10 - Atherosclerotic heart disease of [place] coronary artery without angina pectoris Status: Acute (3) Diabetic ketoacidosis associated with type 2 diabetes mellitus Code(s): E11.10 - Type 2 diabetes mellitus with ketoacidosis without coma Status: Acute (4) Adjustment disorder with depressed mood Code(s): F43.21 - Adjustment disorder with depressed mood Status: Acute - Plan 1) DKA Off insulin drip Per the primary team No further hypoglycemia 2) NSTEMI s/p CABG x2 POD #0 SVG to LAD (NOLEN with poor flow) SVG to OM1 3) EF 60-65%, mild (mean gradient 20 by cath) 4) [place] on CKD 5) Supportive care 6) If concerns over the weekend, please call service for on-call physician (3) Diabetic ketoacidosis associated with type 2 diabetes mellitus Qualifiers: Diabetes mellitus complication detail: without coma Qualified Code(s): E11.10 - Type 2 diabetes mellitus with ketoacidosis without coma
[2018-03-14] MEDS: Amiodarone 200 MG Tablet PO SCH (20:27)
[2018-03-15] MEDS: fentaNYL Citrate Inj 100 MCG/2 ML Ampul IV.PUSH PRN (01:41)
[2018-03-15] MEDS: ceFAZolin Inj 2,000 MG in Sodium Chlor 0.9% Inj 80 ML IV.SIG SCH ×3 (01:42→17:45)
--- NOTE | 2018-03-15 03:38 | XR ---
EXAM DATE: 03/15/2018 5:00 AM EDT AGE/SEX: 77 years / Female INDICATIONS: Shortness of breath, possible pneumothorax. CLINICAL DATA: This is the patient's subsequent encounter. Patient reports that signs and symptoms h ave been present for 1 week and indicates a pain score of 7/10. MEDICAL/SURGICAL HISTORY: Diabetes. Hypothyroidism. Cholecystectomy. CABG. Left shoulder repl acement. COMPARISON: C, CHEST 1V SINGLE AP, 03/14/2018. . FINDINGS: The patient is status post sternotomy. There is a left-sided chest tube and mediastinal drain in plac e. There is a right internal jugular central line in place with the tip overlying the SVC. The heart size is mildly enlarged. There is increased density at the lung bases likely related to atelectasis. There is a left shoulder prosthesis present. There is a loop recorder seen on the left side. CONCLUSION: Suspected atelectasis at the lung bases. Electronically signed by: Twan Hensley MD 03/15/2018 3:37 AM EDT
[2018-03-15 05:12] LABS: Baso # (Auto) 0.1 th/mm3 (0.0-0.2); Baso % (Auto) 0.9 % (0.0-2.0); Eos % (Auto) 0.3 % (0.0-4.0); Hematocrit 22.1 % (35.0-46.0); Hemoglobin 7.5 gm/dL (11.6-15.3); Lymph % (Auto) 26.1 % (9.0-44.0); Mean Corpuscular HGB Conc 33.7 % (32.0-36.0); Mean Corpuscular Hemoglobin 31.9 pg (27.0-34.0); Mean Corpuscular Volume 94.6 fL (80.0-100.0); Mean Platelet Volume 8.5 fL (7.0-11.0); Mono % (Auto) 12.5 % (0.0-8.0); Neut # (Auto) 4.7 th/mm3 (1.8-7.7); Neut % (Auto) 60.2 % (16.0-70.0); Platelet Count 209 th/mm3 (150-450); Red Blood Count 2.34 mil/mm3 (4.00-5.30); Red Cell Distribution Width 13.7 % (11.6-17.2); White Blood Count 7.8 th/mm3 (4.0-11.0)
[2018-03-15 05:33] LABS: Alanine Aminotransferase 30 U/L (10-53); Anion Gap 12 meq/L (5-15); Aspartate Aminotransferase 54 U/L (15-37); Blood Urea Nitrogen 18 mg/dL (7-18); Calcium 7.5 mg/dL (8.5-10.1); Chloride 105 meq/L (98-107); Glomerular Filtration Rate 43 mL/min (>89); Glucose,Random 90 mg/dL (74-106); Magnesium 1.9 mg/dL (1.5-2.5); Phosphorus 3.7 mg/dL (2.5-4.9); Potassium 4.4 meq/L (3.5-5.1); Sodium 141 meq/L (136-145)
[2018-03-15 05:40] LABS: Alkaline Phosphatase 88 U/L (45-117); Total Protein 4.8 g/dL (6.4-8.2)
[2018-03-15] MEDS: Levothyroxine 150 MCG Tablet PO SCH (05:55)
[2018-03-15] MEDS: Metoprolol Tartrate 25 MG Tablet PO SCH ×2 (09:15→21:18)
[2018-03-15] MEDS: Senna/Docusate Sodium 8.6/50 MG Tablet PO SCH ×2 (09:15→21:18)
[2018-03-15] MEDS: Amiodarone 200 MG Tablet PO SCH ×2 (09:15→21:18)
--- NOTE | 2018-03-15 09:26 | ECG ---
Date Performed: 03/15/2018 Time Performed: 03:16:58 PTAGE: 77 years EKG: Sinus rhythm . Short DC interval Possible inferior infarct - age undetermined Abnormal ECG Compared to prior elect rocardiogram, inferior Q waves are more prominent. PREVIOUS TRACING : 03/07/2018 05.38 DOCTOR: Francisco Javier Montiel Interpretating Date/Time 03/15/2018 09:24:33
--- NOTE | 2018-03-15 10:15 | P.PNCV ---
- Note Subjective/Hospital Course: A 77-year-old patient who was admitted on 03/07/2018 actually under a Charlton Act. Apparently, her daughter found her incoherent. She has a history of diabetes, insulin-dependent. Her blood sugar was very high. She refused to come into the hospital; therefore, they Charlton acted her which has since been lifted, for her personal care. On arrival, her blood sugars were greater than 600. She was admitted with diabetic ketoacidosis. It was also found that she was in significant metabolic and respiratory acidosis, which have been corrected. She has a history of some coronary artery disease and she had a catheterization at [facility] in July, was found to have a LAD proximal 70%, circumflex 60%, the RCA had some mild luminal irregularities. Troponin was peaked at 4.64, so she did undergo cardiac catheterization by Dr. Stafford which showed an ejection fraction of 60% , left main disease of 40% to 50% proximal LAD 70%, mid distal LAD 70%. The diagonal was 80% the obtuse marginal 70%. We were consulted to evaluate for coronary artery bypass grafting. PAST MEDICAL HISTORY: Includes diabetes mellitus type 2, insulin-dependent, hypertension, hypothyroidism, recent diabetic ketoacidosis, non-ST segment myocardial infarction. 03/12 BGM improved, however had some hypoglycemia last pm, did not receive pm snack stable for transfer to stepdown unit scheduled for surgery on Saturday will consult PT 03/13 stable for surgery in am 03/14 SURGICAL PROCEDURE 1. Urgent Off-pump Coronary Artery Bypass Grafting x 2 with reverse saphenous vein graft to Left Anterior Descending (LAD), reverse saphenous vein graft to obtuse Marginal branch of the left Circumflex artery 2. Left leg Endoscopic Vein [place] 3. Left Internal Mammary Artery (NOLEN) harvest 4. Intraoperative Vein Mapping. 03/15 Extubated and doing well Weaning Gigi-Synephrine as tolerated. Slightly tachycardic. Also anemic. Will transfuse 2 units today. Incentive spirometer Aggressive blood sugar control Transfer [facility] later today if remains hemodynamically stable Objective: Vital Signs - 24 hr 03/14/18 11:09 03/14/18 12:32 03/14/18 13:36 Temperature 97.5 F L Pulse Rate 61 Respiratory Rate 10 L Blood Pressure Pulse Oximetry 99 03/14/18 13:39 03/14/18 13:41 03/14/18 13:55 Temperature 97.5 F L Pulse Rate 63 63 Respiratory Rate 10 L Blood Pressure 128/45 L 112/39 L Pulse Oximetry 99 99 99 03/14/18 14:51 03/14/18 15:09 03/14/18 15:45 Temperature 97.9 F Pulse Rate 73 Respiratory Rate 14 Blood Pressure Pulse Oximetry 99 03/14/18 15:55 03/14/18 16:00 03/14/18 16:10 Temperature 97.3 F L Pulse Rate 73 Respiratory Rate 2 L 18 Blood Pressure 128/45 L Pulse Oximetry 99 99 03/14/18 17:01 03/14/18 17:30 03/14/18 17:39 Temperature Pulse Rate 76 85 Respiratory Rate 2 L 20 16 Blood Pressure 146/56 H Pulse Oximetry 99 03/14/18 19:00 03/14/18 21:33 03/14/18 23:00 Temperature 97.7 F 98.3 F Pulse Rate 100 H 103 H 98 H Respiratory Rate 17 16 15 Blood Pressure 122/59 L 113/56 L Pulse Oximetry 98 98 98 03/15/18 00:00 03/15/18 03:00 03/15/18 04:00 Temperature 98.0 F Pulse Rate 98 H Respiratory Rate 15 Blood Pressure 121/50 L 106/51 L 122/54 L Pulse Oximetry 98 03/15/18 04:04 03/15/18 07:00 03/15/18 08:00 Temperature 98.2 F Pulse Rate 87 87 Respiratory Rate 14 18 Blood Pressure 134/58 L 134/58 L Pulse Oximetry 98 03/15/18 09:12 Temperature Pulse Rate 95 H Respiratory Rate 18 Blood Pressure Pulse Oximetry 95 Labs: Laboratory Results - last 12 hr 03/13/18 03/14/18 03/14/18 04:18 22:19 23:15 WBC RBC Hgb Hct MCV MCH MCHC RDW Plt Count MPV Neut % (Auto) Lymph % (Auto) [place] % (Auto) Eos % (Auto) Baso % (Auto) Neut # (Auto) Lymph # (Auto) [place] # (Auto) Eos # (Auto) Baso # (Auto) WBC Differential Differential Comment Sodium Potassium Chloride Carbon Dioxide Anion Gap BUN Creatinine Estimated GFR POC Glucose 152 H 143 H Random Glucose Calcium Phosphorus Magnesium Total Bilirubin AST ALT Alkaline Phosphatase Total Protein Albumin Blood Type O Positive Blood Type Recheck Required Antibody Screen Negative MTS Gel Crossmatch See Detail Bld Prod Order Comment 03/15/18 03/15/18 03/15/18 00:57 03:07 04:38 WBC 7.8 RBC 2.34 L Hgb 7.5 L Hct 22.1 L MCV 94.6 MCH 31.9 MCHC 33.7 RDW 13.7 Plt Count 209 MPV 8.5 Neut % (Auto) 60.2 Lymph % (Auto) 26.1 [place] % (Auto) 12.5 H Eos % (Auto) 0.3 Baso % (Auto) 0.9 Neut # (Auto) 4.7 Lymph # (Auto) 2.0 [place] # (Auto) 1.0 H Eos # (Auto) 0.0 Baso # (Auto) 0.1 WBC Differential . Differential Comment Auto diff final Sodium Potassium Chloride Carbon Dioxide Anion Gap BUN Creatinine Estimated GFR POC Glucose 82 139 H Random Glucose Calcium Phosphorus Magnesium Total Bilirubin AST ALT Alkaline Phosphatase Total Protein Albumin Blood Type Blood Type Recheck Antibody Screen MTS Gel Crossmatch Bld Prod Order Comment 03/15/18 03/15/18 03/15/18 04:38 04:38 07:32 WBC RBC Hgb Hct MCV MCH MCHC RDW Plt Count MPV Neut % (Auto) Lymph % (Auto) [place] % (Auto) Eos % (Auto) Baso % (Auto) Neut # (Auto) Lymph # (Auto) [place] # (Auto) Eos # (Auto) Baso # (Auto) WBC Differential Differential Comment Sodium 141 Potassium 4.4 Chloride 105 Carbon Dioxide 24.0 Anion Gap 12 BUN 18 Creatinine 1.21 H Estimated GFR 43 L POC Glucose 101 232 H Random Glucose 90 Calcium 7.5 L Phosphorus 3.7 Magnesium 1.9 Total Bilirubin 0.2 AST 54 H ALT 30 Alkaline Phosphatase 88 Total Protein 4.8 L D Albumin 2.0 L Blood Type Blood Type Recheck Antibody Screen MTS Gel Crossmatch Bld Prod Order Comment 03/15/18 03/15/18 07:34 09:11 WBC RBC Hgb Hct MCV MCH MCHC RDW Plt Count MPV Neut % (Auto) Lymph % (Auto) [place] % (Auto) Eos % (Auto) Baso % (Auto) Neut # (Auto) Lymph # (Auto) [place] # (Auto) Eos # (Auto) Baso # (Auto) WBC Differential Differential Comment Sodium Potassium Chloride Carbon Dioxide Anion Gap BUN Creatinine Estimated GFR POC Glucose 185 H 306 H Random Glucose Calcium Phosphorus Magnesium Total Bilirubin AST ALT Alkaline Phosphatase Total Protein Albumin Blood Type Blood Type Recheck Antibody Screen MTS Gel Crossmatch Bld Prod Order Comment Result Diagrams: 03/15/18 04:38 03/15/18 04:38 - Plan (1) Diabetic ketoacidosis associated with type 2 diabetes mellitus Plan: on sliding scale insulin / long acting insulin diabetic diet/ consult life skills educator (3) NSTEMI (non-ST elevated myocardial infarction) Plan: on ASA, statin , heparin gtt BB for surgery on Saturday (4) Hypothyroidism Plan: on synthroid (1) Diabetic ketoacidosis associated with type 2 diabetes mellitus Qualifiers: Diabetes mellitus complication detail: without coma Qualified Code(s): E11.10 - Type 2 diabetes mellitus with ketoacidosis without coma
[2018-03-15] MEDS ORDERED: Sod Phosphate/Sod Biphosphate (Adult) Enema 133 ML Bottle RECTAL PRN (10:17)
[2018-03-15] MEDS: Insulin NovoLOG Aspart Correctional Sugar Inj SQ SCH ×3 (14:30→21:21)
--- NOTE | 2018-03-15 17:21 | P.PNIM ---
Subjective Interval history: Patient reports that her pain is on a 3-5 scale, considering that this is postop day 1 following a triple CABG she is doing quite well. She is ready ambulated approximately 5 feet and is attended to by her nurse and therapist at bedside. Tolerating p.o. Physical Exam Vital signs: Vital Signs 03/14/18 17:30 03/14/18 17:39 03/14/18 19:00 Temperature 97.7 F Pulse Rate 85 100 H Respiratory Rate 20 16 17 Blood Pressure 122/59 L Pulse Oximetry 98 03/14/18 21:33 03/14/18 23:00 03/15/18 00:00 Temperature 98.3 F Pulse Rate 103 H 98 H Respiratory Rate 16 15 Blood Pressure 113/56 L 121/50 L Pulse Oximetry 98 98 03/15/18 03:00 03/15/18 04:00 03/15/18 04:04 Temperature 98.0 F Pulse Rate 98 H 87 Respiratory Rate 15 14 Blood Pressure 106/51 L 122/54 L Pulse Oximetry 98 03/15/18 07:00 03/15/18 08:00 03/15/18 09:12 Temperature 98.2 F Pulse Rate 87 95 H Respiratory Rate 18 18 Blood Pressure 134/58 L 134/58 L Pulse Oximetry 98 95 03/15/18 10:19 03/15/18 10:35 03/15/18 11:00 Temperature 98.0 F 98.2 F 98.1 F Pulse Rate 105 H 103 H 102 H Respiratory Rate 18 Blood Pressure 108/48 L 114/44 L 101/64 Pulse Oximetry 96 97 03/15/18 11:05 03/15/18 11:55 03/15/18 12:11 Temperature 98.1 F 98.4 F 98.6 F Pulse Rate 102 H 100 H 97 H Respiratory Rate Blood Pressure 101/64 101/64 121/68 Pulse Oximetry 97 97 03/15/18 14:35 03/15/18 15:00 03/15/18 17:04 Temperature 98.6 F 97.8 F Pulse Rate 93 H 103 H 111 H Respiratory Rate 20 18 18 Blood Pressure 114/58 L 116/59 L Pulse Oximetry 97 100 Intake & Output 03/14/18 03/15/18 03/15/18 18:59 06:59 18:59 Intake Total 5750 / 5750 500 / 500 2009 Output Total 950 / 950 530 / 530 460 / 460 Balance 4800 / 4800 -30 / -30 1550 / 1550 Weight 72 kg Intake: IV 1500 / 1500 300 / 300 320 / 320 Heparin/D5W 25,000 U/250 mL 25, 100 / 100 000 unit In 250 ml @ 1,000 UNITS/HR 10 mls/hr IV.CONT TITRATE PRN Rx#:[id number] NovoLIN R (IV Infusion) 100 70 / 70 UNIT In NS Inj 99 ML @ 3 UNITS/ HR 3 mls/hr IV.CONT TITRATE PRN Rx#:[id number] Neosynephrine Inj 40 MG In NS 50 / 50 Inj 496 ML @ 40 MCG/MIN 30 mls/ hr IV.CONT TITRATE PRN Rx#: [id number] Ofirmev Inj 1,000 mg In 100 ml 200 / 200 200 / 200 @ 400 mls/hr IV.SIG Q6H WADE Rx# :[id number] LR 1000 mL Inj 1,000 ML @ 30 1000 / 1000 mls/hr IV.SIG .Q24H WADE Rx#: [id number] Magnesium Sulfate Inj 2 GM In 100 / 100 NS Inj 96 ML @ 50 mls/hr IV.SIG UNSCH PRN Rx#:[id number] Ancef Inj 2,000 MG In NS Inj 80 200 / 200 100 / 100 100 / 100 ML @ 200 mls/hr IV.SIG Q8H WADE Rx#:[id number] Oral 200 / 200 1290 / 1290 Anesthesia Amount 4000 / 4000 Other 250 / 250 Intake (Blood Product) Amt 400 / 400 Rbc As-3 Leukoreduced Unit 0 / 0 [id number] Rbc As-3 Leukoreduced Unit 400 / 400 [id number] Output: Urine 350 / 350 Estimated Blood Loss 200 / 200 Urine Amount (Catheter) 750 / 750 420 / 420 Indwelling Temp Sensing 750 / 750 420 / 420 Catheter Chest Tube Drainage 110 / 110 110 / 110 #2 Anterior 110 / 110 110 / 110 Other: Date of Last Bowel Movement 03/13/18 # Bowel Movements 0 Narrative: GENERAL: AAOx3, no acute distress, generally weak and postop SKIN: Warm and dry. No rashes HEAD: Atruamtic, normocephalic. EYES: No scleral icterus. No injection or drainage. ENT: Moist mucous membranes, patent nares, no erythema of oropharynx. NECK: Supple, trachea midline. No JVD or lymphadenopathy. Normal thyroid. CARDIOVASCULAR: Regular rate and rhythm. No murmurs, gallops, or rubs. RESPIRATORY: Breath sounds clear equal bilaterally. Bibasilar atelectasis, mild diminishment of sounds. No accessory muscle use. Chest tube present on left GASTROINTESTINAL: Abdomen soft, non-tender, nondistended, normal active bowel sounds MUSCULOSKELETAL: No cyanosis, or edema. NEURO: CN II-XII grossly intact, no focal deficits, no slurring of speech - Urinary Catheter Management Indwelling Urethral Catheter Cath placed during this visit: yes Reason for continuing: Hourly intake/output Insertion date: 03/07/18 Insertion time: 06:10 Indwelling Temp Sensing Catheter Cath placed during this visit: yes, but has since been removed by the nurse Reason for continuing: Not indwelling catheter Insertion date: 03/14/18 Insertion time: 07:30 Removal date: 03/15/18 Removal time: 06:00 Results - Labs CBC & Chem 7: 03/15/18 04:38 03/15/18 04:38 Laboratory Results - last 24 hr 03/13/18 03/14/18 03/14/18 04:18 17:27 19:44 WBC RBC Hgb Hct MCV MCH MCHC RDW Plt Count MPV Neut % (Auto) Lymph % (Auto) [place] % (Auto) Eos % (Auto) Baso % (Auto) Neut # (Auto) Lymph # (Auto) [place] # (Auto) Eos # (Auto) Baso # (Auto) WBC Differential Differential Comment Sodium Potassium Chloride Carbon Dioxide Anion Gap BUN Creatinine Estimated GFR POC Glucose 86 155 H Random Glucose Calcium Phosphorus Magnesium Total Bilirubin AST ALT Alkaline Phosphatase Total Protein Albumin Blood Type O Positive Blood Type Recheck Required Antibody Screen Negative MTS Gel Crossmatch See Detail Bld Prod Order Comment 03/14/18 03/14/18 03/14/18 20:20 21:13 22:19 WBC RBC Hgb Hct MCV MCH MCHC RDW Plt Count MPV Neut % (Auto) Lymph % (Auto) [place] % (Auto) Eos % (Auto) Baso % (Auto) Neut # (Auto) Lymph # (Auto) [place] # (Auto) Eos # (Auto) Baso # (Auto) WBC Differential Differential Comment Sodium Potassium Chloride Carbon Dioxide Anion Gap BUN Creatinine Estimated GFR POC Glucose 147 H 183 H 152 H Random Glucose Calcium Phosphorus Magnesium Total Bilirubin AST ALT Alkaline Phosphatase Total Protein Albumin Blood Type Blood Type Recheck Antibody Screen MTS Gel Crossmatch Bld Prod Order Comment 03/14/18 03/15/18 03/15/18 23:15 00:57 03:07 WBC RBC Hgb Hct MCV MCH MCHC RDW Plt Count MPV Neut % (Auto) Lymph % (Auto) [place] % (Auto) Eos % (Auto) Baso % (Auto) Neut # (Auto) Lymph # (Auto) [place] # (Auto) Eos # (Auto) Baso # (Auto) WBC Differential Differential Comment Sodium Potassium Chloride Carbon Dioxide Anion Gap BUN Creatinine Estimated GFR POC Glucose 143 H 82 139 H Random Glucose Calcium Phosphorus Magnesium Total Bilirubin AST ALT Alkaline Phosphatase Total Protein Albumin Blood Type Blood Type Recheck Antibody Screen MTS Gel Crossmatch Bld Prod Order Comment 03/15/18 03/15/18 03/15/18 04:38 04:38 04:38 WBC 7.8 RBC 2.34 L Hgb 7.5 L Hct 22.1 L MCV 94.6 MCH 31.9 MCHC 33.7 RDW 13.7 Plt Count 209 MPV 8.5 Neut % (Auto) 60.2 Lymph % (Auto) 26.1 [place] % (Auto) 12.5 H Eos % (Auto) 0.3 Baso % (Auto) 0.9 Neut # (Auto) 4.7 Lymph # (Auto) 2.0 [place] # (Auto) 1.0 H Eos # (Auto) 0.0 Baso # (Auto) 0.1 WBC Differential . Differential Comment Auto diff final Sodium 141 Potassium 4.4 Chloride 105 Carbon Dioxide 24.0 Anion Gap 12 BUN 18 Creatinine 1.21 H Estimated GFR 43 L POC Glucose 101 Random Glucose 90 Calcium 7.5 L Phosphorus 3.7 Magnesium 1.9 Total Bilirubin 0.2 AST 54 H ALT 30 Alkaline Phosphatase 88 Total Protein 4.8 L D Albumin 2.0 L Blood Type Blood Type Recheck Antibody Screen MTS Gel Crossmatch Bld Prod Order Comment 03/15/18 03/15/18 03/15/18 07:32 07:34 09:11 WBC RBC Hgb Hct MCV MCH MCHC RDW Plt Count MPV Neut % (Auto) Lymph % (Auto) [place] % (Auto) Eos % (Auto) Baso % (Auto) Neut # (Auto) Lymph # (Auto) [place] # (Auto) Eos # (Auto) Baso # (Auto) WBC Differential Differential Comment Sodium Potassium Chloride Carbon Dioxide Anion Gap BUN Creatinine Estimated GFR POC Glucose 232 H 185 H 306 H Random Glucose Calcium Phosphorus Magnesium Total Bilirubin AST ALT Alkaline Phosphatase Total Protein Albumin Blood Type Blood Type Recheck Antibody Screen MTS Gel Crossmatch Bld Prod Order Comment 03/15/18 03/15/18 03/15/18 10:28 11:43 14:08 WBC RBC Hgb Hct MCV MCH MCHC RDW Plt Count MPV Neut % (Auto) Lymph % (Auto) [place] % (Auto) Eos % (Auto) Baso % (Auto) Neut # (Auto) Lymph # (Auto) [place] # (Auto) Eos # (Auto) Baso # (Auto) WBC Differential Differential Comment Sodium Potassium Chloride Carbon Dioxide Anion Gap BUN Creatinine Estimated GFR POC Glucose 272 H 165 H 66 L Random Glucose Calcium Phosphorus Magnesium Total Bilirubin AST ALT Alkaline Phosphatase Total Protein Albumin Blood Type Blood Type Recheck Antibody Screen MTS Gel Crossmatch Bld Prod Order Comment 03/15/18 03/15/18 03/15/18 14:09 14:22 16:59 WBC RBC Hgb Hct MCV MCH MCHC RDW Plt Count MPV Neut % (Auto) Lymph % (Auto) [place] % (Auto) Eos % (Auto) Baso % (Auto) Neut # (Auto) Lymph # (Auto) [place] # (Auto) Eos # (Auto) Baso # (Auto) WBC Differential Differential Comment Sodium Potassium Chloride Carbon Dioxide Anion Gap BUN Creatinine Estimated GFR POC Glucose 57 L 116 H 188 H Random Glucose Calcium Phosphorus Magnesium Total Bilirubin AST ALT Alkaline Phosphatase Total Protein Albumin Blood Type Blood Type Recheck Antibody Screen MTS Gel Crossmatch Bld Prod Order Comment - Imaging Impressions Chest X-Ray 03/15/18 05:00 CONCLUSION: Suspected atelectasis at the lung bases. - Procedures PROCEDURE: Left heart catheterization, coronary angiogram, moderate sedation 37 minutes, aortic stenosis evaluation. 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 MEDICATIONS: Versed 0.5 mg, fentanyl 25 mcg. CONTRAST USED: 50 mL. FLUOROSCOPY: 5.3 minutes. MODERATE SEDATION: 37 minutes. FRAILTY SCORE: 5. ESTIMATED BLOOD LOSS: 10 mL. PROCEDURAL SUMMARY: Heather Nails is a pleasant 77-year-old female who sees my partner, Dr. Jean Bueno and presented to [facility] in [facility] as a Charlton Act. Apparently, she was unable to take care of herself and was almost comatose at that time. Since then, her DKA has been resolved and Charlton Act has been lifted. She was found to have an elevated troponin and has known previous coronary artery disease. Because of this, she was recommended cardiac catheterization. Risks, benefits, and alternatives were explained to her and she consented as such. She was brought to the lab and prepped in the usual sterile fashion. I attempted to access her right radial artery, but was unable to and so right femoral artery was accessed using modified Seldinger technique and placement of a 5-[place] sheath. This was easily aspirated and flushed. A JR4 was advanced over a J-wire to the ascending aorta and across the aortic valve for measurement of left ventricular pressure. This was pulled back across the aortic valve showing a gradient, but difficult to determine as she had some ventricular tachycardia during the pullback. JR4 was used for selective angiography of the right coronary artery system. This was exchanged out for a JL4, which was used for selective angiography of the left coronary artery system. As I felt that the patient should be considered for coronary artery bypass grafting and there was confusion on the echo of how significant her aortic stenosis was, I felt that aortic stenosis should be further evaluated. At this time, the 5-[place] sheath was exchanged for a 6-[place] sheath. JR4 was used to cross the aortic valve. The JR4 was exchanged out for a [place] dual-lumen catheter. Simultaneous left ventricular and aortic pressures showed a mean gradient of 20 for the aortic valve. This was pulled back across the aortic valve to show equalization of pressures. [place] catheter was removed. I attempted to close the femoral site with a [place], but it was unable to take and so pressure was held for hemostasis. 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 FINDINGS: LEFT MAIN: Ostial 40-50% disease with dampening of the catheter, upon entrance. It bifurcates into an LAD and circumflex. LAD: Diffuse long 70% disease from the proximal to mid portion. Distal vessel has an area of normalization before becoming significantly small at the apex. It gives off 3 diagonals, the first one having 80% ostial stenosis. The second and third have no significant disease. LEFT CIRCUMFLEX: [id number] sized vessel with no significant disease in the proximal portion. At the takeoff of the major obtuse marginal, there is a 70% lesion. RCA: Moderate size vessel with diffuse 30% disease throughout. It supplies the PDA as well as the posterolateral branch with diffuse 40% disease. LVEDP: 11. Aortic valve mean gradient: 20. IMPRESSION: 1. Diabetic ketoacidosis. 2. Ziq-LJ-[id number] myocardial infarction. 3. Multivessel coronary artery disease. RECOMMENDATIONS: 1. Ms. Nails presented with DKA and this has since resolved. 2. She was also a Charlton Act due to inability to take care of herself due to her almost comatose state. This has since been lifted. 3. She does have multivessel disease with probable ostial left main disease, but my major concern is her long diffusely diseased lesion in the LAD, which would require a significant amount of stent crossing multiple diagonals as well as the septal perforators. As she has multivessel disease and diabetic, ultimately I think her best option would be coronary artery bypass grafting. 4. I spoke with Dr. Perez, who will see her in consultation and further evaluate her for consideration of coronary artery bypass grafting. 5. She has had an echo showing a normal function and there was some confusion about how significant her aortic valve was. Evaluation here in the parking lot laborer shows that she has mild aortic stenosis and this will be left alone if she undergoes coronary artery bypass grafting. 6. We will plan on restarting her heparin drip in 6 hours as long as her groin has no complications. 7. Further recommendations will be made after CT surgery evaluation. Thank you for allowing me to see Heather Nails. If there are any questions, please do not hesitate to call. Patient Name: Heather Nails Date of : 1940 Patient Status: Inpatient Attending Provider: Jaden Moe Date: 03/14/18 12:05 Initialization Date: 03/14/18 12:05 Date of procedure: 03/14/18 Anesthesia: GETA Surgeon: Mayito Perez MD Operation and Findings: PREPROCEDURE DIAGNOSES 1. Severe Multi Vessel Coronary Artery Disease. 2. Acute myocardial infarction (NSTEMI) 3. Diabetes mellitus 4. Diabetic keto acidosis POSTPROCEDURE DIAGNOSES Same SURGICAL PROCEDURE 1. Urgent Off-pump Coronary Artery Bypass Grafting x 2 with reverse saphenous vein graft to Left Anterior Descending (LAD), reverse saphenous vein graft to obtuse Marginal branch of the left Circumflex artery 2. Left leg Endoscopic Vein [place] 3. Left Internal Mammary Artery (NOLEN) harvest 4. Intraoperative Vein Mapping. SURGEON Mayito Perez MD PERSONAL BANKER Edith Locke, BLANCHE Kwan ANESTHESIA General endotracheal JEWEL HOLE DRILLER Joycelyn Bolden, FEATHER BALER Nahomi De Souza MD PREPARATION ChloraPrep. COUNTS Needle, sponge, and instrument counts were correct. DRAINS Two 32-[place] mediastinal tubes. COMPLICATIONS None. INDICATIONS FOR PROCEDURE The patient is a 77-year-old presenting with diabetic keto acidosis and acute myocardial infarction. Patient was noted to have 2 vessel coronary artery disease. The patient is being brought to the operating room for surgical revascularization therapy. PROCEDURE Patient was brought to the operating room and placed supine on the OR table. Following the induction of adequate general endotracheal anesthesia and placement of appropriate monitoring devices, intraoperative vein mapping was performed which revealed good-caliber conduit in the left lower extremity. The patient was then prepped and draped in standard sterile fashion. Next, 2500 units of intravenous heparin was given. The left greater saphenous vein was harvested endoscopically. This appeared to be a useable-caliber conduit. Simultaneously, a median sternotomy was performed and the left internal mammary artery dissected free off the posterior sternal table. Examination of the NOLEN revealed poor pulsatile flow in it with a calcific plaque in the proximal to mid aspect. With this not being a suitable conduit, as well as her being a brittle diabetic, it was sided not to harvest the right internal mammary artery to avoid sternal wound healing issues but rather proceed made with vein grafts to the LAD and the circumflex distribution. The patient was systemically heparinized and anticoagulation monitored by serial ACT measurements. The pericardium was then divided in the midline, the cradle created and targets analyzed. At this point, all anastomoses were performed in a beating-heart fashion using the [place] stabilizing system. A segment of the saphenous vein graft was anastomosed to the distal LAD (2 mm) in an end-to-side fashion using 7 -0 Prolene. Final segment of saphenous vein graft was then anastomosed to the OM1 (1.75 mm) in an end-to-side fashion using 7-0 Prolene. The proximal anastomoses were then constructed to the ascending aorta in a running manner using 6-0 Prolene. All anastomotic sites were inspected and appeared to be hemostatic and patent. Protamine solution was given. Strict hemostasis was assured. The closure was undertaken. 2 chest tubes were placed. The pericardium was reapproximated in the midline. The sternum was approximated using sternal wires. The muscular and fascial layer were then closed in 3 layers. The endoscopic vein harvest site was closed in 2 layers. The patient tolerated the procedure well and was transferred to CVICU in stable condition. Additional CC's: Mayito Stafford Assessment and Plan - Plan NSTEMI s/p CABG x 3 Patient underwent cardiac catheterization which showed fairly extensive coronary artery disease that could not be addressed adequately with stenting Cardiothoracic surgery was consulted and she underwent CABG 03/14/18 with triple bypass She is doing well postop, positive spirits, pain adequately controlled, tolerating p.o., ambulating 5 feet She was transferred to cardiac stepdown unit this afternoon Appreciate cardiothoracic surgery consult Appreciate cardiology consult Type 2 diabetes Patient was admitted with DKA, associated encephalopathy Most recent hemoglobin A1c was 11.4 Continue Levemir 15 units in the a.m. and 13 units in the p.m. Continue sliding-scale insulin coverage with Accu-Cheks Continue diabetic diet DVT prophylaxis Heparin drip
[2018-03-15] MEDS: Docusate Sodium 100 MG Capsule PO SCH (21:18)
[2018-03-16] MEDS: ceFAZolin Inj 2,000 MG in Sodium Chlor 0.9% Inj 80 ML IV.SIG SCH (01:28)
[2018-03-16] MEDS: Insulin NovoLOG Aspart Correctional Sugar Inj SQ SCH ×5 (01:39→21:01)
[2018-03-16] MEDS: Levothyroxine 150 MCG Tablet PO SCH (05:05)
[2018-03-16 05:14] LABS: Baso # (Auto) 0.1 th/mm3 (0.0-0.2); Baso % (Auto) 0.9 % (0.0-2.0); Eos # (Auto) 0.1 th/mm3 (0.0-0.4); Eos % (Auto) 1.5 % (0.0-4.0); Hematocrit 28.1 % (35.0-46.0); Hemoglobin 9.4 gm/dL (11.6-15.3); Lymph # (Auto) 1.7 th/mm3 (1.0-4.8); Lymph % (Auto) 17.6 % (9.0-44.0); Mean Corpuscular HGB Conc 33.4 % (32.0-36.0); Mean Corpuscular Hemoglobin 30.2 pg (27.0-34.0); Mean Corpuscular Volume 90.2 fL (80.0-100.0); Mono # (Auto) 1.7 th/mm3 (0.0-0.9); Mono % (Auto) 17.8 % (0.0-8.0); Neut % (Auto) 62.2 % (16.0-70.0); Platelet Count 187 th/mm3 (150-450); Red Blood Count 3.12 mil/mm3 (4.00-5.30); Red Cell Distribution Width 18.4 % (11.6-17.2); White Blood Count 9.6 th/mm3 (4.0-11.0)
[2018-03-16 05:44] LABS: Calcium 7.8 mg/dL (8.5-10.1); Carbon Dioxide 26.1 meq/L (21.0-32.0); Magnesium 2.3 mg/dL (1.5-2.5); Potassium 4.6 meq/L (3.5-5.1)
[2018-03-16] MEDS: Amiodarone 200 MG Tablet PO SCH ×2 (08:14→21:01)
[2018-03-16] MEDS: Polyethylene Glycol 3350 17 GM Packet PO SCH (08:14)
[2018-03-16] MEDS: Multivitamin/Minerals Therapeutic Tablet PO SCH (08:14)
[2018-03-16] MEDS: Senna/Docusate Sodium 8.6/50 MG Tablet PO SCH ×2 (08:14→21:01)
[2018-03-16] MEDS: Metoprolol Tartrate 25 MG Tablet PO SCH ×2 (08:14→21:01)
[2018-03-16] MEDS: Docusate Sodium 100 MG Capsule PO SCH ×2 (08:15→21:01)
--- NOTE | 2018-03-16 08:59 | P.PNIM ---
Subjective Interval history: Patient complains of some nausea this morning, no vomiting yet. She states she has had some increase in her pain, mostly epigastric and midsternal. Physical Exam Vital signs: Vital Signs 03/15/18 09:12 03/15/18 10:19 03/15/18 10:35 Temperature 98.0 F 98.2 F Pulse Rate 95 H 105 H 103 H Respiratory Rate 18 Blood Pressure 108/48 L 114/44 L Pulse Oximetry 95 96 03/15/18 11:00 03/15/18 11:05 03/15/18 11:55 Temperature 98.1 F 98.1 F 98.4 F Pulse Rate 102 H 102 H 100 H Respiratory Rate 18 Blood Pressure 101/64 101/64 101/64 Pulse Oximetry 97 97 03/15/18 12:11 03/15/18 14:35 03/15/18 15:00 Temperature 98.6 F 98.6 F Pulse Rate 97 H 93 H 103 H Respiratory Rate 20 18 Blood Pressure 121/68 114/58 L Pulse Oximetry 97 97 03/15/18 17:04 03/15/18 18:00 03/15/18 19:00 Temperature 97.8 F 98.6 F Pulse Rate 111 H 118 H 108 H Respiratory Rate 18 16 Blood Pressure 116/59 L 125/62 Pulse Oximetry 100 95 03/15/18 20:00 03/15/18 20:20 03/15/18 21:00 Temperature Pulse Rate 108 H 104 H 110 H Respiratory Rate 18 Blood Pressure Pulse Oximetry 95 03/15/18 22:00 03/15/18 23:00 03/16/18 00:00 Temperature 98.7 F Pulse Rate 106 H 97 H 97 H Respiratory Rate 16 Blood Pressure 117/56 L Pulse Oximetry 98 03/16/18 01:00 03/16/18 02:00 03/16/18 03:00 Temperature 98.7 F Pulse Rate 95 H 97 H 96 H Respiratory Rate 16 Blood Pressure 114/53 L Pulse Oximetry 98 03/16/18 03:59 03/16/18 05:00 03/16/18 05:31 Temperature Pulse Rate 94 H 93 H Respiratory Rate 16 Blood Pressure Pulse Oximetry 03/16/18 05:59 03/16/18 07:00 03/16/18 07:55 Temperature 98.4 F Pulse Rate 93 H 92 H 91 H Respiratory Rate 16 18 Blood Pressure 130/61 Pulse Oximetry 100 99 03/16/18 08:00 Temperature Pulse Rate 102 H Respiratory Rate Blood Pressure Pulse Oximetry Intake & Output 03/15/18 03/16/18 03/16/18 18:59 06:59 18:59 Intake Total 2110 / 2110 220 / 220 Output Total 460 / 460 205 / 205 Balance 1650 / 1650 15 / 15 Weight 73 kg Intake: IV 420 / 420 100 / 100 NovoLIN R (IV Infusion) 100 70 / 70 UNIT In NS Inj 99 ML @ 3 UNITS/ HR 3 mls/hr IV.CONT TITRATE PRN Rx#:[id number] Neosynephrine Inj 40 MG In NS 50 / 50 Inj 496 ML @ 40 MCG/MIN 30 mls/ hr IV.CONT TITRATE PRN Rx#: [id number] Magnesium Sulfate Inj 2 GM In 100 / 100 NS Inj 96 ML @ 50 mls/hr IV.SIG UNSCH PRN Rx#:[id number] Ancef Inj 2,000 MG In NS Inj 80 200 / 200 100 / 100 ML @ 200 mls/hr IV.SIG Q8H WADE Rx#:[id number] Oral 1290 / 1290 120 / 120 Intake (Blood Product) Amt 400 / 400 Rbc As-3 Leukoreduced Unit 0 / 0 [id number] Rbc As-3 Leukoreduced Unit 400 / 400 [id number] Output: Urine 350 / 350 200 / 200 Chest Tube Drainage 110 / 110 5 / 5 #2 Anterior 110 / 110 5 / 5 Other: Date of Last Bowel Movement 03/12/18 # Bowel Movements 0 Narrative: GENERAL: AAOx3, no acute distress, generally weak and postop SKIN: Warm and dry. No rashes HEAD: Atruamtic, normocephalic. EYES: No scleral icterus. No injection or drainage. ENT: Moist mucous membranes, patent nares, no erythema of oropharynx. NECK: Supple, trachea midline. No JVD or lymphadenopathy. Normal thyroid. CARDIOVASCULAR: Regular rate and rhythm. No murmurs, gallops, or rubs. RESPIRATORY: Breath sounds clear equal bilaterally. Bibasilar atelectasis, mild diminishment of sounds. No accessory muscle use. Chest tube present on left GASTROINTESTINAL: Abdomen soft, non-tender, nondistended, normal active bowel sounds MUSCULOSKELETAL: No cyanosis, or edema. NEURO: CN II-XII grossly intact, no focal deficits, no slurring of speech - Urinary Catheter Management Indwelling Urethral Catheter Cath placed during this visit: yes Reason for continuing: Hourly intake/output Insertion date: 03/07/18 Insertion time: 06:10 Indwelling Temp Sensing Catheter Cath placed during this visit: yes, but has since been removed by the nurse Reason for continuing: Not indwelling catheter Insertion date: 03/14/18 Insertion time: 07:30 Removal date: 03/15/18 Removal time: 06:00 Results - Labs CBC & Chem 7: 03/16/18 04:55 03/16/18 04:55 Laboratory Results - last 24 hr 03/13/18 03/15/18 03/15/18 04:18 09:11 10:28 WBC RBC Hgb Hct MCV MCH MCHC RDW Plt Count MPV Neut % (Auto) Lymph % (Auto) [place] % (Auto) Eos % (Auto) Baso % (Auto) Neut # (Auto) Lymph # (Auto) [place] # (Auto) Eos # (Auto) Baso # (Auto) WBC Differential Differential Comment Sodium Potassium Chloride Carbon Dioxide Anion Gap BUN Creatinine Estimated GFR POC Glucose 306 H 272 H Random Glucose Calcium Magnesium Blood Type O Positive Blood Type Recheck Required Antibody Screen Negative MTS Gel Crossmatch See Detail Bld Prod Order Comment 03/15/18 03/15/18 03/15/18 11:43 14:08 14:09 WBC RBC Hgb Hct MCV MCH MCHC RDW Plt Count MPV Neut % (Auto) Lymph % (Auto) [place] % (Auto) Eos % (Auto) Baso % (Auto) Neut # (Auto) Lymph # (Auto) [place] # (Auto) Eos # (Auto) Baso # (Auto) WBC Differential Differential Comment Sodium Potassium Chloride Carbon Dioxide Anion Gap BUN Creatinine Estimated GFR POC Glucose 165 H 66 L 57 L Random Glucose Calcium Magnesium Blood Type Blood Type Recheck Antibody Screen MTS Gel Crossmatch Bld Prod Order Comment 03/15/18 03/15/18 03/15/18 14:22 16:59 20:27 WBC RBC Hgb Hct MCV MCH MCHC RDW Plt Count MPV Neut % (Auto) Lymph % (Auto) [place] % (Auto) Eos % (Auto) Baso % (Auto) Neut # (Auto) Lymph # (Auto) [place] # (Auto) Eos # (Auto) Baso # (Auto) WBC Differential Differential Comment Sodium Potassium Chloride Carbon Dioxide Anion Gap BUN Creatinine Estimated GFR POC Glucose 116 H 188 H 299 H Random Glucose Calcium Magnesium Blood Type Blood Type Recheck Antibody Screen MTS Gel Crossmatch Bld Prod Order Comment 03/16/18 03/16/18 03/16/18 01:33 04:55 04:55 WBC 9.6 RBC 3.12 L Hgb 9.4 L Hct 28.1 L MCV 90.2 D MCH 30.2 MCHC 33.4 RDW 18.4 H D Plt Count 187 MPV 8.0 Neut % (Auto) 62.2 Lymph % (Auto) 17.6 [place] % (Auto) 17.8 H Eos % (Auto) 1.5 Baso % (Auto) 0.9 Neut # (Auto) 6.0 Lymph # (Auto) 1.7 [place] # (Auto) 1.7 H Eos # (Auto) 0.1 Baso # (Auto) 0.1 WBC Differential . Differential Comment Auto diff final Sodium 138 Potassium 4.6 Chloride 104 Carbon Dioxide 26.1 Anion Gap 8 BUN 22 H Creatinine 1.30 H Estimated GFR 40 L POC Glucose 212 H Random Glucose 153 H Calcium 7.8 L Magnesium 2.3 Blood Type Blood Type Recheck Antibody Screen MTS Gel Crossmatch Bld Prod Order Comment 03/16/18 05:04 WBC RBC Hgb Hct MCV MCH MCHC RDW Plt Count MPV Neut % (Auto) Lymph % (Auto) [place] % (Auto) Eos % (Auto) Baso % (Auto) Neut # (Auto) Lymph # (Auto) [place] # (Auto) Eos # (Auto) Baso # (Auto) WBC Differential Differential Comment Sodium Potassium Chloride Carbon Dioxide Anion Gap BUN Creatinine Estimated GFR POC Glucose 156 H Random Glucose Calcium Magnesium Blood Type Blood Type Recheck Antibody Screen MTS Gel Crossmatch Bld Prod Order Comment - Procedures PROCEDURE: Left heart catheterization, coronary angiogram, moderate sedation 37 minutes, aortic stenosis evaluation. 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 MEDICATIONS: Versed 0.5 mg, fentanyl 25 mcg. CONTRAST USED: 50 mL. FLUOROSCOPY: 5.3 minutes. MODERATE SEDATION: 37 minutes. FRAILTY SCORE: 5. ESTIMATED BLOOD LOSS: 10 mL. PROCEDURAL SUMMARY: Heather Nails is a pleasant 77-year-old female who sees my partner, Dr. Jean Bueno and presented to [facility] in [facility] as a Charlton Act. Apparently, she was unable to take care of herself and was almost comatose at that time. Since then, her DKA has been resolved and Charlton Act has been lifted. She was found to have an elevated troponin and has known previous coronary artery disease. Because of this, she was recommended cardiac catheterization. Risks, benefits, and alternatives were explained to her and she consented as such. She was brought to the lab and prepped in the usual sterile fashion. I attempted to access her right radial artery, but was unable to and so right femoral artery was accessed using modified Seldinger technique and placement of a 5-Kyrgyz sheath. This was easily aspirated and flushed. A JR4 was advanced over a J-wire to the ascending aorta and across the aortic valve for measurement of left ventricular pressure. This was pulled back across the aortic valve showing a gradient, but difficult to determine as she had some ventricular tachycardia during the pullback. JR4 was used for selective angiography of the right coronary artery system. This was exchanged out for a JL4, which was used for selective angiography of the left coronary artery system. As I felt that the patient should be considered for coronary artery bypass grafting and there was confusion on the echo of how significant her aortic stenosis was, I felt that aortic stenosis should be further evaluated. At this time, the 5-Kyrgyz sheath was exchanged for a 6-Kyrgyz sheath. JR4 was used to cross the aortic valve. The JR4 was exchanged out for a [place] dual-lumen catheter. Simultaneous left ventricular and aortic pressures showed a mean gradient of 20 for the aortic valve. This was pulled back across the aortic valve to show equalization of pressures. [place] catheter was removed. I attempted to close the femoral site with a V[place], but it was unable to take and so pressure was held for hemostasis. The patient left the dental laboratory technician apprentice cardiovascularly stable. FINDINGS: LEFT MAIN: Ostial 40-50% disease with dampening of the catheter, upon entrance. It bifurcates into an LAD and circumflex. LAD: Diffuse long 70% disease from the proximal to mid portion. Distal vessel has an area of normalization before becoming significantly small at the apex. It gives off 3 diagonals, the first one having 80% ostial stenosis. The second and third have no significant disease. LEFT CIRCUMFLEX: Goqlt-bf-trfmrwhv sized vessel with no significant disease in the proximal portion. At the takeoff of the major obtuse marginal, there is a 70% lesion. RCA: Moderate size vessel with diffuse 30% disease throughout. It supplies the PDA as well as the posterolateral branch with diffuse 40% disease. LVEDP: 11. Aortic valve mean gradient: 20. IMPRESSION: 1. Diabetic ketoacidosis. 2. Ste-EF-mcivyzrqe myocardial infarction. 3. Multivessel coronary artery disease. RECOMMENDATIONS: 1. Ms. Nails presented with DKA and this has since resolved. 2. She was also a Charlton Act due to inability to take care of herself due to her almost comatose state. This has since been lifted. 3. She does have multivessel disease with probable ostial left main disease, but my major concern is her long diffusely diseased lesion in the LAD, which would require a significant amount of stent crossing multiple diagonals as well as the septal perforators. As she has multivessel disease and diabetic, ultimately I think her best option would be coronary artery bypass grafting. 4. I spoke with Dr. Perez, who will see her in consultation and further evaluate her for consideration of coronary artery bypass grafting. 5. She has had an echo showing a normal function and there was some confusion about how significant her aortic valve was. Evaluation here in the dental laboratory technician apprentice shows that she has mild aortic stenosis and this will be left alone if she undergoes coronary artery bypass grafting. 6. We will plan on restarting her heparin drip in 6 hours as long as her groin has no complications. 7. Further recommendations will be made after CT surgery evaluation. Thank you for allowing me to see Heather Nails. If there are any questions, please do not hesitate to call. Patient Name: Heather Nails Date of : 1940 Patient Status: Inpatient Attending Provider: Jaden Moe Number: [id number] Date: 03/14/18 12:05 Initialization Date: 03/14/18 12:05 Date of procedure: 03/14/18 Anesthesia: GETA Surgeon: Mayito Perez MD Operation and Findings: PREPROCEDURE DIAGNOSES 1. Severe Multi Vessel Coronary Artery Disease. 2. Acute myocardial infarction (NSTEMI) 3. Diabetes mellitus 4. Diabetic keto acidosis POSTPROCEDURE DIAGNOSES Same SURGICAL PROCEDURE 1. Urgent Off-pump Coronary Artery Bypass Grafting x 2 with reverse saphenous vein graft to Left Anterior Descending (LAD), reverse saphenous vein graft to obtuse Marginal branch of the left Circumflex artery 2. Left leg Endoscopic Vein [place] 3. Left Internal Mammary Artery (NOLEN) harvest 4. Intraoperative Vein Mapping. SURGEON Mayito Perez MD BUTT TRIMMER Edith Locke, BLANCHE Kwan ANESTHESIA General endotracheal DIRECTOR OF ORTHOPEDICS Joycelyn Bolden, RHONDA De Souza MD PREPARATION ChloraPrep. COUNTS Needle, sponge, and instrument counts were correct. DRAINS Two 32-Kyrgyz mediastinal tubes. COMPLICATIONS None. INDICATIONS FOR PROCEDURE The patient is a 77-year-old presenting with diabetic keto acidosis and acute myocardial infarction. Patient was noted to have 2 vessel coronary artery disease. The patient is being brought to the operating room for surgical revascularization therapy. PROCEDURE Patient was brought to the operating room and placed supine on the OR table. Following the induction of adequate general endotracheal anesthesia and placement of appropriate monitoring devices, intraoperative vein mapping was performed which revealed good-caliber conduit in the left lower extremity. The patient was then prepped and draped in standard sterile fashion. Next, 2500 units of intravenous heparin was given. The left greater saphenous vein was harvested endoscopically. This appeared to be a useable-caliber conduit. Simultaneously, a median sternotomy was performed and the left internal mammary artery dissected free off the posterior sternal table. Examination of the NOLEN revealed poor pulsatile flow in it with a calcific plaque in the proximal to mid aspect. With this not being a suitable conduit, as well as her being a brittle diabetic, it was sided not to harvest the right internal mammary artery to avoid sternal wound healing issues but rather proceed made with vein grafts to the LAD and the circumflex distribution. The patient was systemically heparinized and anticoagulation monitored by serial ACT measurements. The pericardium was then divided in the midline, the cradle created and targets analyzed. At this point, all anastomoses were performed in a beating-heart fashion using the Maquet stabilizing system. A segment of the saphenous vein graft was anastomosed to the distal LAD (2 mm) in an end-to-side fashion using 7 -0 Prolene. Final segment of saphenous vein graft was then anastomosed to the OM1 (1.75 mm) in an end-to-side fashion using 7-0 Prolene. The proximal anastomoses were then constructed to the ascending aorta in a running manner using 6-0 Prolene. All anastomotic sites were inspected and appeared to be hemostatic and patent. Protamine solution was given. Strict hemostasis was assured. The closure was undertaken. 2 chest tubes were placed. The pericardium was reapproximated in the midline. The sternum was approximated using sternal wires. The muscular and fascial layer were then closed in 3 layers. The endoscopic vein harvest site was closed in 2 layers. The patient tolerated the procedure well and was transferred to CVICU in stable condition. Additional CC's: Mayito Stafford Assessment and Plan - Plan NSTEMI s/p CABG x 3 Patient underwent cardiac catheterization which showed fairly extensive coronary artery disease Cardiothoracic surgery was consulted and she underwent CABG 03/14/18 with triple bypass She is doing well postop, positive spirits, pain adequately controlled, tolerating p.o. Appreciate cardiothoracic surgery consult Appreciate cardiology consult Type 2 diabetes Patient was admitted with DKA, associated encephalopathy, both now resolved Most recent hemoglobin A1c was 11.4 Continue Levemir 15 units in the a.m. and 13 units in the p.m. Continue sliding-scale insulin coverage with Accu-Cheks Continue diabetic diet Nausea Patient has normal active bowel sounds Continue with Zofran, continue with bowel regimen for stools Chest tube to be pulled, timing per cardiothoracic surgery Continue with pain management DVT prophylaxis Heparin drip
--- NOTE | 2018-03-16 10:03 | P.PNCV ---
- Note Subjective/Hospital Course: A 77-year-old patient who was admitted on 03/07/2018 actually under a Charlton Act. Apparently, her daughter found her incoherent. She has a history of diabetes, insulin-dependent. Her blood sugar was very high. She refused to come into the hospital; therefore, they Charlton acted her which has since been lifted, for her personal care. On arrival, her blood sugars were greater than 600. She was admitted with diabetic ketoacidosis. It was also found that she was in significant metabolic and respiratory acidosis, which have been corrected. She has a history of some coronary artery disease and she had a catheterization at [facility] in July, was found to have a LAD proximal 70%, circumflex 60%, the RCA had some mild luminal irregularities. Troponin was peaked at 4.64, so she did undergo cardiac catheterization by Dr. Stafford which showed an ejection fraction of 60% , left main disease of 40% to 50% proximal LAD 70%, mid distal LAD 70%. The diagonal was 80% the obtuse marginal 70%. We were consulted to evaluate for coronary artery bypass grafting. PAST MEDICAL HISTORY: Includes diabetes mellitus type 2, insulin-dependent, hypertension, hypothyroidism, recent diabetic ketoacidosis, non-ST segment myocardial infarction. 03/12 BGM improved, however had some hypoglycemia last pm, did not receive pm snack stable for transfer to stepdown unit scheduled for surgery on Saturday will consult PT 03/13 stable for surgery in am 03/14 SURGICAL PROCEDURE 1. Urgent Off-pump Coronary Artery Bypass Grafting x 2 with reverse saphenous vein graft to Left Anterior Descending (LAD), reverse saphenous vein graft to obtuse Marginal branch of the left Circumflex artery 2. Left leg Endoscopic Vein [place] 3. Left Internal Mammary Artery (NOLEN) harvest 4. Intraoperative Vein Mapping. 03/15 Extubated and doing well Weaning Gigi-Synephrine as tolerated. Slightly tachycardic. Also anemic. Will transfuse 2 units today. Incentive spirometer Aggressive blood sugar control Transfer [facility]PCU later today if remains hemodynamically stable 03/16 Doing well Slightly tachycardic with ambulation. Will increase beta-lamont DC chest tubes today. Discharge planning Objective: Vital Signs - 24 hr 03/15/18 10:19 03/15/18 10:35 03/15/18 11:00 Temperature 98.0 F 98.2 F 98.1 F Pulse Rate 105 H 103 H 102 H Respiratory Rate 18 Blood Pressure 108/48 L 114/44 L 101/64 Pulse Oximetry 96 97 03/15/18 11:05 03/15/18 11:55 03/15/18 12:11 Temperature 98.1 F 98.4 F 98.6 F Pulse Rate 102 H 100 H 97 H Respiratory Rate Blood Pressure 101/64 101/64 121/68 Pulse Oximetry 97 97 03/15/18 14:35 03/15/18 15:00 03/15/18 17:04 Temperature 98.6 F 97.8 F Pulse Rate 93 H 103 H 111 H Respiratory Rate 20 18 18 Blood Pressure 114/58 L 116/59 L Pulse Oximetry 97 100 03/15/18 18:00 03/15/18 19:00 03/15/18 20:00 Temperature 98.6 F Pulse Rate 118 H 108 H 108 H Respiratory Rate 16 Blood Pressure 125/62 Pulse Oximetry 95 03/15/18 20:20 03/15/18 21:00 03/15/18 22:00 Temperature Pulse Rate 104 H 110 H 106 H Respiratory Rate 18 Blood Pressure Pulse Oximetry 95 03/15/18 23:00 03/16/18 00:00 03/16/18 01:00 Temperature 98.7 F Pulse Rate 97 H 97 H 95 H Respiratory Rate 16 Blood Pressure 117/56 L Pulse Oximetry 98 03/16/18 02:00 03/16/18 03:00 03/16/18 03:59 Temperature 98.7 F Pulse Rate 97 H 96 H 94 H Respiratory Rate 16 Blood Pressure 114/53 L Pulse Oximetry 98 03/16/18 05:00 03/16/18 05:31 03/16/18 05:59 Temperature Pulse Rate 93 H 93 H Respiratory Rate 16 Blood Pressure Pulse Oximetry 03/16/18 07:00 03/16/18 07:55 03/16/18 08:00 Temperature 98.4 F Pulse Rate 92 H 91 H 102 H Respiratory Rate 16 18 Blood Pressure 130/61 Pulse Oximetry 100 99 03/16/18 09:00 03/16/18 10:00 Temperature Pulse Rate 100 H 98 H Respiratory Rate Blood Pressure Pulse Oximetry Labs: Laboratory Results - last 12 hr 03/16/18 03/16/18 03/16/18 01:33 04:55 04:55 WBC 9.6 RBC 3.12 L Hgb 9.4 L Hct 28.1 L MCV 90.2 D MCH 30.2 MCHC 33.4 RDW 18.4 H D Plt Count 187 MPV 8.0 Neut % (Auto) 62.2 Lymph % (Auto) 17.6 [place] % (Auto) 17.8 H Eos % (Auto) 1.5 Baso % (Auto) 0.9 Neut # (Auto) 6.0 Lymph # (Auto) 1.7 [place] # (Auto) 1.7 H Eos # (Auto) 0.1 Baso # (Auto) 0.1 WBC Differential . Differential Comment Auto diff final Sodium 138 Potassium 4.6 Chloride 104 Carbon Dioxide 26.1 Anion Gap 8 BUN 22 H Creatinine 1.30 H Estimated GFR 40 L POC Glucose 212 H Random Glucose 153 H Calcium 7.8 L Magnesium 2.3 03/16/18 05:04 WBC RBC Hgb Hct MCV MCH MCHC RDW Plt Count MPV Neut % (Auto) Lymph % (Auto) [place] % (Auto) Eos % (Auto) Baso % (Auto) Neut # (Auto) Lymph # (Auto) [place] # (Auto) Eos # (Auto) Baso # (Auto) WBC Differential Differential Comment Sodium Potassium Chloride Carbon Dioxide Anion Gap BUN Creatinine Estimated GFR POC Glucose 156 H Random Glucose Calcium Magnesium Result Diagrams: 03/16/18 04:55 03/16/18 04:55 - Plan (1) Diabetic ketoacidosis associated with type 2 diabetes mellitus Plan: on sliding scale insulin / long acting insulin diabetic diet/ consult cd reactor operator (3) NSTEMI (non-ST elevated myocardial infarction) Plan: on ASA, statin , heparin gtt BB for surgery on Saturday (4) Hypothyroidism Plan: on synthroid (1) Diabetic ketoacidosis associated with type 2 diabetes mellitus Qualifiers: Diabetes mellitus complication detail: without coma Qualified Code(s): E11.10 - Type 2 diabetes mellitus with ketoacidosis without coma
[2018-03-16] MEDS ORDERED: Metoprolol Tartrate 25 MG Tablet PO ONE (10:15)
[2018-03-17] MEDS: Levothyroxine 150 MCG Tablet PO SCH (06:06)
[2018-03-17] MEDS: Docusate Sodium 100 MG Capsule PO SCH ×2 (08:21→21:26)
[2018-03-17] MEDS: Multivitamin/Minerals Therapeutic Tablet PO SCH (08:21)
[2018-03-17] MEDS: Senna/Docusate Sodium 8.6/50 MG Tablet PO SCH ×2 (08:21→21:26)
[2018-03-17] MEDS: Polyethylene Glycol 3350 17 GM Packet PO SCH (08:21)
[2018-03-17] MEDS: Metoprolol Tartrate 25 MG Tablet PO SCH ×2 (08:21→21:29)
[2018-03-17] MEDS: Amiodarone 200 MG Tablet PO SCH ×2 (08:21→21:29)
[2018-03-17] MEDS: Insulin NovoLOG Aspart Correctional Sugar Inj SQ SCH ×4 (08:25→21:29)
[2018-03-17] MEDS: Insulin Detemir Inj 1,000 UNIT/10 ML Vial SQ SCH ×2 (09:07→21:29)
--- NOTE | 2018-03-17 09:33 | P.PNCV ---
- Note Subjective/Hospital Course: A 77-year-old patient who was admitted on 03/07/2018 actually under a Charlton Act. Apparently, her daughter found her incoherent. She has a history of diabetes, insulin-dependent. Her blood sugar was very high. She refused to come into the hospital; therefore, they Charlton acted her which has since been lifted, for her personal care. On arrival, her blood sugars were greater than 600. She was admitted with diabetic ketoacidosis. It was also found that she was in significant metabolic and respiratory acidosis, which have been corrected. She has a history of some coronary artery disease and she had a catheterization at [facility] in July, was found to have a LAD proximal 70%, circumflex 60%, the RCA had some mild luminal irregularities. Troponin was peaked at 4.64, so she did undergo cardiac catheterization by Dr. Stafford which showed an ejection fraction of 60% , left main disease of 40% to 50% proximal LAD 70%, mid distal LAD 70%. The diagonal was 80% the obtuse marginal 70%. We were consulted to evaluate for coronary artery bypass grafting. PAST MEDICAL HISTORY: Includes diabetes mellitus type 2, insulin-dependent, hypertension, hypothyroidism, recent diabetic ketoacidosis, non-ST segment myocardial infarction. 03/12 BGM improved, however had some hypoglycemia last pm, did not receive pm snack stable for transfer to stepdown unit scheduled for surgery on Saturday will consult PT 03/13 stable for surgery in am 03/14 SURGICAL PROCEDURE 1. Urgent Off-pump Coronary Artery Bypass Grafting x 2 with reverse saphenous vein graft to Left Anterior Descending (LAD), reverse saphenous vein graft to obtuse Marginal branch of the left Circumflex artery 2. Left leg Endoscopic Vein [place] 3. Left Internal Mammary Artery (NOLEN) harvest 4. Intraoperative Vein Mapping. 03/15 Extubated and doing well Weaning Gigi-Synephrine as tolerated. Slightly tachycardic. Also anemic. Will transfuse 2 units today. Incentive spirometer Aggressive blood sugar control Transfer CPCU later today if remains hemodynamically stable 03/16 Doing well Slightly tachycardic with ambulation. Will increase beta-lamont DC chest tubes today. Discharge planning 03/17 BP stable , HR still 90's will try to increase BB today BGM high, re-add levemir 10mg bid pt requesting new Blood sugar machine at home has lantus at home , but will need novolog insulin sliding scale when dc no BM since surgery, on room air eval for dc tomorrow with [facility] Objective: Vital Signs - 24 hr 03/16/18 10:00 03/16/18 11:00 03/16/18 12:00 Temperature 98.2 F Pulse Rate 98 H 109 H 98 H Respiratory Rate 16 Blood Pressure 125/60 Pulse Oximetry 93 L 03/16/18 13:00 03/16/18 13:30 03/16/18 14:00 Temperature Pulse Rate 93 H 88 91 H Respiratory Rate 14 Blood Pressure Pulse Oximetry 03/16/18 15:00 03/16/18 16:00 03/16/18 17:00 Temperature 98.3 F Pulse Rate 90 85 86 Respiratory Rate 16 Blood Pressure 121/59 L Pulse Oximetry 92 L 03/16/18 18:00 03/16/18 19:00 03/16/18 19:17 Temperature 98.1 F Pulse Rate 86 88 84 Respiratory Rate 16 16 Blood Pressure 141/70 H Pulse Oximetry 98 94 L 03/16/18 20:00 03/16/18 21:00 03/16/18 21:34 Temperature Pulse Rate 97 H 91 H Respiratory Rate 16 Blood Pressure Pulse Oximetry 03/16/18 22:00 03/16/18 23:00 03/17/18 00:00 Temperature 98.3 F Pulse Rate 94 H 85 85 Respiratory Rate 16 Blood Pressure 118/56 L Pulse Oximetry 98 03/17/18 01:00 03/17/18 02:00 03/17/18 03:00 Temperature 98.7 F Pulse Rate 85 89 91 H Respiratory Rate 16 Blood Pressure 130/62 Pulse Oximetry 98 03/17/18 04:00 03/17/18 04:59 03/17/18 05:58 Temperature Pulse Rate 89 100 H 98 H Respiratory Rate Blood Pressure Pulse Oximetry 03/17/18 07:00 03/17/18 08:00 03/17/18 08:59 Temperature 98.1 F Pulse Rate 100 H 102 H Respiratory Rate 18 Blood Pressure 143/67 H Pulse Oximetry 92 L 96 03/17/18 09:06 Temperature Pulse Rate 97 H Respiratory Rate Blood Pressure Pulse Oximetry GENERAL: A&O x 3 SKIN: Warm and dry. prevena dressing to chest , incision intact to left leg HEAD: Normocephalic. EYES: No scleral icterus. No injection or drainage. NECK: Supple, trachea midline. No JVD or lymphadenopathy. CARDIOVASCULAR: Regular rate and rhythm without murmurs, gallops, or rubs. RESPIRATORY: Breath sounds equal bilaterally. No accessory muscle use. GASTROINTESTINAL: Abdomen soft, non-tender, nondistended. MUSCULOSKELETAL: No cyanosis, or edema. BACK: Nontender without obvious deformity. No CVA tenderness. 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
--- NOTE | 2018-03-17 12:30 | P.PNIM ---
Subjective Interval history: Patient appears more comfortable today, she had her chest tube removed and various IV lines reduced. She states that she is still intermittently nauseous and has no appetite. She was able to ambulate greater than 100 feet yesterday. Physical Exam Vital signs: Vital Signs 03/16/18 13:00 03/16/18 13:30 03/16/18 14:00 Temperature Pulse Rate 93 H 88 91 H Respiratory Rate 14 Blood Pressure Pulse Oximetry 03/16/18 15:00 03/16/18 16:00 03/16/18 17:00 Temperature 98.3 F Pulse Rate 90 85 86 Respiratory Rate 16 Blood Pressure 121/59 L Pulse Oximetry 92 L 03/16/18 18:00 03/16/18 19:00 03/16/18 19:17 Temperature 98.1 F Pulse Rate 86 88 84 Respiratory Rate 16 16 Blood Pressure 141/70 H Pulse Oximetry 98 94 L 03/16/18 20:00 03/16/18 21:00 03/16/18 21:34 Temperature Pulse Rate 97 H 91 H Respiratory Rate 16 Blood Pressure Pulse Oximetry 03/16/18 22:00 03/16/18 23:00 03/17/18 00:00 Temperature 98.3 F Pulse Rate 94 H 85 85 Respiratory Rate 16 Blood Pressure 118/56 L Pulse Oximetry 98 03/17/18 01:00 03/17/18 02:00 03/17/18 03:00 Temperature 98.7 F Pulse Rate 85 89 91 H Respiratory Rate 16 Blood Pressure 130/62 Pulse Oximetry 98 03/17/18 04:00 03/17/18 04:59 03/17/18 05:58 Temperature Pulse Rate 89 100 H 98 H Respiratory Rate Blood Pressure Pulse Oximetry 03/17/18 07:00 03/17/18 08:00 03/17/18 08:59 Temperature 98.1 F Pulse Rate 100 H 102 H Respiratory Rate 18 Blood Pressure 143/67 H Pulse Oximetry 92 L 96 03/17/18 09:06 03/17/18 11:00 03/17/18 12:00 Temperature 98.0 F Pulse Rate 97 H 82 81 Respiratory Rate 18 Blood Pressure 142/68 H Pulse Oximetry 97 Intake & Output 03/16/18 03/17/18 03/17/18 18:59 06:59 18:59 Intake Total 750 / 750 480 / 480 Output Total 700 / 700 400 / 400 Balance 50 / 50 80 / 80 Weight 74 kg Intake: Oral 750 / 750 480 / 480 Output: Urine 700 / 700 400 / 400 Other: Date of Last Bowel Movement 03/12/18 Narrative: GENERAL: AAOx3, no acute distress, generally weak and postop SKIN: Warm and dry. No rashes HEAD: Atruamtic, normocephalic. EYES: No scleral icterus. No injection or drainage. ENT: Moist mucous membranes, patent nares, no erythema of oropharynx. NECK: Supple, trachea midline. No JVD or lymphadenopathy. Normal thyroid. CARDIOVASCULAR: Regular rate and rhythm. No murmurs, gallops, or rubs. RESPIRATORY: Breath sounds clear equal bilaterally. Bibasilar atelectasis, mild diminishment of sounds. No accessory muscle use. GASTROINTESTINAL: Abdomen soft, non-tender, nondistended, normal active bowel sounds MUSCULOSKELETAL: No cyanosis, or edema. NEURO: CN II-XII grossly intact, no focal deficits, no slurring of speech - Urinary Catheter Management Indwelling Urethral Catheter Cath placed during this visit: yes Reason for continuing: Hourly intake/output Insertion date: 03/07/18 Insertion time: 06:10 Indwelling Temp Sensing Catheter Cath placed during this visit: yes, but has since been removed by the nurse Reason for continuing: Not indwelling catheter Insertion date: 03/14/18 Insertion time: 07:30 Removal date: 03/15/18 Removal time: 06:00 Results - Labs CBC & Chem 7: 03/16/18 04:55 03/16/18 04:55 Laboratory Results - last 24 hr 03/16/18 03/16/18 03/16/18 16:26 20:03 21:21 POC Glucose 238 H 103 71 03/17/18 03/17/18 03/17/18 03:10 08:23 11:32 POC Glucose 256 H 414 H 243 H - Procedures PROCEDURE: Left heart catheterization, coronary angiogram, moderate sedation 37 minutes, aortic stenosis evaluation. 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 MEDICATIONS: Versed 0.5 mg, fentanyl 25 mcg. CONTRAST USED: 50 mL. FLUOROSCOPY: 5.3 minutes. MODERATE SEDATION: 37 minutes. FRAILTY SCORE: 5. ESTIMATED BLOOD LOSS: 10 mL. PROCEDURAL SUMMARY: Heather Nails is a pleasant 77-year-old female who sees my partner, Dr. Jean Bueno and presented to [facility] in [facility] as a Charlton Act. Apparently, she was unable to take care of herself and was almost comatose at that time. Since then, her DKA has been resolved and Charlton Act has been lifted. She was found to have an elevated troponin and has known previous coronary artery disease. Because of this, she was recommended cardiac catheterization. Risks, benefits, and alternatives were explained to her and she consented as such. She was brought to the lab and prepped in the usual sterile fashion. I attempted to access her right radial artery, but was unable to and so right femoral artery was accessed using modified Seldinger technique and placement of a 5-Dominican sheath. This was easily aspirated and flushed. A JR4 was advanced over a J-wire to the ascending aorta and across the aortic valve for measurement of left ventricular pressure. This was pulled back across the aortic valve showing a gradient, but difficult to determine as she had some ventricular tachycardia during the pullback. JR4 was used for selective angiography of the right coronary artery system. This was exchanged out for a JL4, which was used for selective angiography of the left coronary artery system. As I felt that the patient should be considered for coronary artery bypass grafting and there was confusion on the echo of how significant her aortic stenosis was, I felt that aortic stenosis should be further evaluated. At this time, the 5-Dominican sheath was exchanged for a 6-Dominican sheath. JR4 was used to cross the aortic valve. The JR4 was exchanged out for a Holland dual-lumen catheter. Simultaneous left ventricular and aortic pressures showed a mean gradient of 20 for the aortic valve. This was pulled back across the aortic valve to show equalization of pressures. Adonis catheter was removed. I attempted to close the femoral site with a Vascade, but it was unable to take and so pressure was held for hemostasis. The patient left the labor commissioner cardiovascularly stable. FINDINGS: LEFT MAIN: Ostial 40-50% disease with dampening of the catheter, upon entrance. It bifurcates into an LAD and circumflex. LAD: Diffuse long 70% disease from the proximal to mid portion. Distal vessel has an area of normalization before becoming significantly small at the apex. It gives off 3 diagonals, the first one having 80% ostial stenosis. The second and third have no significant disease. LEFT CIRCUMFLEX: Trhat-wz-oxlvvtga sized vessel with no significant disease in the proximal portion. At the takeoff of the major obtuse marginal, there is a 70% lesion. RCA: Moderate size vessel with diffuse 30% disease throughout. It supplies the PDA as well as the posterolateral branch with diffuse 40% disease. LVEDP: 11. Aortic valve mean gradient: 20. IMPRESSION: 1. Diabetic ketoacidosis. 2. Msq-DR-czcpgnqog myocardial infarction. 3. Multivessel coronary artery disease. RECOMMENDATIONS: 1. Ms. Nails presented with DKA and this has since resolved. 2. She was also a Charlton Act due to inability to take care of herself due to her almost comatose state. This has since been lifted. 3. She does have multivessel disease with probable ostial left main disease, but my major concern is her long diffusely diseased lesion in the LAD, which would require a significant amount of stent crossing multiple diagonals as well as the septal perforators. As she has multivessel disease and diabetic, ultimately I think her best option would be coronary artery bypass grafting. 4. I spoke with Dr. Perez, who will see her in consultation and further evaluate her for consideration of coronary artery bypass grafting. 5. She has had an echo showing a normal function and there was some confusion about how significant her aortic valve was. Evaluation here in the labor commissioner shows that she has mild aortic stenosis and this will be left alone if she undergoes coronary artery bypass grafting. 6. We will plan on restarting her heparin drip in 6 hours as long as her groin has no complications. 7. Further recommendations will be made after CT surgery evaluation. Thank you for allowing me to see Heather Nails. If there are any questions, please do not hesitate to call. Patient Name: Heather Nails Date of : 1940 Patient Status: Inpatient Attending Provider: Jaden Moe Date: 03/14/18 12:05 Initialization Date: 03/14/18 12:05 Date of procedure: 03/14/18 Anesthesia: GETA Surgeon: Mayito Perez MD Operation and Findings: PREPROCEDURE DIAGNOSES 1. Severe Multi Vessel Coronary Artery Disease. 2. Acute myocardial infarction (NSTEMI) 3. Diabetes mellitus 4. Diabetic keto acidosis POSTPROCEDURE DIAGNOSES Same SURGICAL PROCEDURE 1. Urgent Off-pump Coronary Artery Bypass Grafting x 2 with reverse saphenous vein graft to Left Anterior Descending (LAD), reverse saphenous vein graft to obtuse Marginal branch of the left Circumflex artery 2. Left leg Endoscopic Vein [place] 3. Left Internal Mammary Artery (NOLEN) harvest 4. Intraoperative Vein Mapping. SURGEON Mayito Perez MD RN CLINICAL Edith Locke, BLANCHE Kwan ANESTHESIA General endotracheal ACCREDITED PHARMACY TECHNICIAN Joycelyn Bolden, PHOTO MACHINE OPERATOR Nahomi De Souza MD PREPARATION ChloraPrep. COUNTS Needle, sponge, and instrument counts were correct. DRAINS Two 32-Dominican mediastinal tubes. COMPLICATIONS None. INDICATIONS FOR PROCEDURE The patient is a 77-year-old presenting with diabetic keto acidosis and acute myocardial infarction. Patient was noted to have 2 vessel coronary artery disease. The patient is being brought to the operating room for surgical revascularization therapy. PROCEDURE Patient was brought to the operating room and placed supine on the OR table. Following the induction of adequate general endotracheal anesthesia and placement of appropriate monitoring devices, intraoperative vein mapping was performed which revealed good-caliber conduit in the left lower extremity. The patient was then prepped and draped in standard sterile fashion. Next, 2500 units of intravenous heparin was given. The left greater saphenous vein was harvested endoscopically. This appeared to be a useable-caliber conduit. Simultaneously, a median sternotomy was performed and the left internal mammary artery dissected free off the posterior sternal table. Examination of the NOLEN revealed poor pulsatile flow in it with a calcific plaque in the proximal to mid aspect. With this not being a suitable conduit, as well as her being a brittle diabetic, it was sided not to harvest the right internal mammary artery to avoid sternal wound healing issues but rather proceed made with vein grafts to the LAD and the circumflex distribution. The patient was systemically heparinized and anticoagulation monitored by serial ACT measurements. The pericardium was then divided in the midline, the cradle created and targets analyzed. At this point, all anastomoses were performed in a beating-heart fashion using the Maquet stabilizing system. A segment of the saphenous vein graft was anastomosed to the distal LAD (2 mm) in an end-to-side fashion using 7 -0 Prolene. Final segment of saphenous vein graft was then anastomosed to the OM1 (1.75 mm) in an end-to-side fashion using 7-0 Prolene. The proximal anastomoses were then constructed to the ascending aorta in a running manner using 6-0 Prolene. All anastomotic sites were inspected and appeared to be hemostatic and patent. Protamine solution was given. Strict hemostasis was assured. The closure was undertaken. 2 chest tubes were placed. The pericardium was reapproximated in the midline. The sternum was approximated using sternal wires. The muscular and fascial layer were then closed in 3 layers. The endoscopic vein harvest site was closed in 2 layers. The patient tolerated the procedure well and was transferred to CVICU in stable condition. Additional CC's: Mayito Stafford Assessment and Plan - Plan NSTEMI s/p CABG x 3 Patient underwent cardiac catheterization which showed fairly extensive coronary artery disease Cardiothoracic surgery was consulted and she underwent CABG 03/14/18 with triple bypass She is doing well postop, positive spirits, pain adequately controlled, tolerating p.o. Chest tube removed yesterday, patient ambulating greater than 100 feet with assistance Appreciate cardiothoracic surgery consult Appreciate cardiology consult Type 2 diabetes Patient was admitted with DKA, associated encephalopathy, both now resolved Most recent hemoglobin A1c was 11.4 Continue Levemir 15 units in the a.m. and 13 units in the p.m. Continue sliding-scale insulin coverage with Accu-Cheks Continue diabetic diet Nausea Patient has hypoactive bowel sounds Continue with Zofran, continue with bowel regimen for stools Encourage ambulation DVT prophylaxis Heparin drip
--- NOTE | 2018-03-17 14:31 | P.DCO ---
- Diagnosis (1) Diabetic ketoacidosis associated with type 2 diabetes mellitus - Home Health Nursing Order: Medical education, Signs/symptoms of disease process, Diabetic education , Wound care and dressing changes, Nursing assessment with vital signs Instructions: Heart and Vascular Surgery patients *Special attention to sternal dressing Mandatory frequency Assess and evaluation, 4 days in a row The next week 3X week 2 times a week for 4 weeks 1 time a week for 5 weeks Schedule Heart and Vascular patients for full 60 day certification period Initial visit Review Open Heart Surgery Discharge Instructions (Sternal precautions, Activity, Elastic hose, Incision care, Driving, Incentive spirometry, Smoking, [place], Work and other) Need Betadine to paint incision Medication reconciliation Importance of follow up care/ check on appointments Make calendar record temperature daily When to call [facility] nurse, review instructions, phone list Incentive Spirometry, demonstration Visit 1- Begin discharge instruction for patient family and/ or caregiver using teach back method- Signs and symptoms of infection Disease characteristics Medicines and side effects Foods and nutrition/ appetite Infection control/ hand washing/ hygiene Visit 2- Continue teaching Discharge instructions- include additional information on smoking cessation , sternal dressing (sternal vac) Visit 3- Continue teaching- Cough and deep breathing, incision monitoring. Choose my plate Visit 4- Continue teaching- Discuss limitations Discuss how they are feeling Discuss progress toward goals Remaining visits- continue teaching and monitoring For any questions please call : Saturday 8am-5pm Heart & Vascular Surgery Office ( Dr. Perez & Dr. Joshua), After Hours / Nights (5pm -8am) Weekends and Holidays Please call [facility] Cardiac Intermediate Care Unit (CIC) Charge Nurse PREVENA Single Use Negative Wound Therapy System Caregiver Instruction Sheet 1. A Prevena dressing system was applied to the chest incision during surgery , to promote wound healing. It works via a suction device (negative pressure wound therapy) to remove low to moderate levels of exudate (drainage) and infectious materials. We recommend that the device stay in place for up to seven days, from day of surgery. 2. Day of Surgery__03/14/18 Day of Removal ___03/21/18 3. The dressing should only be removed by a health field care manager. Please arrange removal of device to coincide with Home Health visit and or with Nursing staff at Rehab 4. If skin reddening or irritation of skin occurs, or excessive drainage, please notify the Cardiovascular Surgeons office at [phone]. 5. Light showering is permissible; however the pump should be disconnected and placed in safe location, where it will not get wet. The dressing should not be exposed to direct spray or submerged in water. No bath tub / shower only. Ensure the end of the tubing attached to the dressing is facing down so that water does not enter the top of the tube. 6. To remove Prevena dressing: press purple button to turn off device / remove the suction. Then disconnect the tubing from the pump. The fixation strips should be stretched away from the skin and the dressing lifted at one corner and peeled back until it has been fully removed. 7. After removal, it is ok to shower daily using liquid dial soap and clean wash cloth, rinse and pat dry, and leave incision open to air dry. For any concerns regarding Prevena dressing, and or wounds, please contact Precious Jacob, patient navigator at [phone] or notify the Cardiovascular Surgeons office at [phone]. Incentive spirometry Q1 hr x 10, while awake, also use acapella device hourly whole awake Sternal Breast Bone Precautions: NO pushing or pulling, ( pt must use sternal pillow to support chest with all activities and with coughing ( takes up to 3 months breast bone to heal ) Daily incision care: ok to shower daily, no tub bath. Wash all incisions with liquid dial soap, clean wash cloth to each site, rinse and pat dry. Observe for any signs of infection, such as drainage which is dark yellow, joseph, green or foul smelling. Immediately report to the surgeon any drainage from the chest incision, or legs, and for any abnormal drainage from the chest tube sites. Notify surgeon if any temp >101.5 degrees F. When specialty dressing removed/ or if you do not have one, continue to shower daily as above, then rinse and pat incision dry and paint with betadine daily x 5 days. Allow steri strips to fall off if you have any. Avoid lotions, creams, salves, oils, etc. for the first month Please see attached forms for additional instructions regarding post Open Heart specialty wound vacuum dressings. DARIUS or Prevena , Dressing to be removed by Nursing staff on ___03/21/18____ F/U appointment: as per [place] instructions: PCP in 2 weeks, CV surgeon 2 weeks, Route Salesman 3-4 weeks For any questions regarding incisions/ dressing / meds / post op care or above Symptoms, Saturday 8am-5pm Heart & Vascular Surgery Office ( Dr. Perez & Dr. Joshua), After Hours / Nights (5pm -8am) Weekends and Holidays Please call [facility] Cardiac Intermediate Care Unit (CIC) Charge Nurse - Case Management Consult Yes - Certification I have seen patient Heather Nails on 03/17/18. My clinical findings support the need for the requested home health care services because: Deconditioned with increased weakness I certify that my clinical findings support that this patient is homebound because: Post-op weakness (1) Diabetic ketoacidosis associated with type 2 diabetes mellitus Qualifiers: Diabetes mellitus complication detail: without coma Qualified Code(s): E11.10 - Type 2 diabetes mellitus with ketoacidosis without coma
[2018-03-18] MEDS: Insulin NovoLOG Aspart Correctional Sugar Inj SQ SCH ×4 (03:02→16:20)
[2018-03-18 05:14] LABS: Hematocrit 26.3 % (35.0-46.0); Hemoglobin 8.7 gm/dL (11.6-15.3); Mean Corpuscular HGB Conc 33.2 % (32.0-36.0); Mean Corpuscular Hemoglobin 30.4 pg (27.0-34.0); Mean Corpuscular Volume 91.6 fL (80.0-100.0); Mean Platelet Volume 7.8 fL (7.0-11.0); Platelet Count 243 th/mm3 (150-450); Red Blood Count 2.87 mil/mm3 (4.00-5.30); White Blood Count 8.5 th/mm3 (4.0-11.0)
[2018-03-18] MEDS: Levothyroxine 150 MCG Tablet PO SCH (05:32)
[2018-03-18 05:42] LABS: Calcium 8.2 mg/dL (8.5-10.1); Carbon Dioxide 26.2 meq/L (21.0-32.0); Potassium 4.6 meq/L (3.5-5.1)
[2018-03-18] MEDS: Amiodarone 200 MG Tablet PO SCH (08:49)
[2018-03-18] MEDS: Multivitamin/Minerals Therapeutic Tablet PO SCH (08:49)
[2018-03-18] MEDS: Docusate Sodium 100 MG Capsule PO SCH (08:50)
[2018-03-18] MEDS: Senna/Docusate Sodium 8.6/50 MG Tablet PO SCH (08:52)
[2018-03-18] MEDS: Polyethylene Glycol 3350 17 GM Packet PO SCH (08:52)
--- NOTE | 2018-03-18 08:53 | P.PNCV ---
- Note Subjective/Hospital Course: A 77-year-old patient who was admitted on 03/07/2018 actually under a Charlton Act. Apparently, her daughter found her incoherent. She has a history of diabetes, insulin-dependent. Her blood sugar was very high. She refused to come into the hospital; therefore, they Charlton acted her which has since been lifted, for her personal care. On arrival, her blood sugars were greater than 600. She was admitted with diabetic ketoacidosis. It was also found that she was in significant metabolic and respiratory acidosis, which have been corrected. She has a history of some coronary artery disease and she had a catheterization at [facility] in July, was found to have a LAD proximal 70%, circumflex 60%, the RCA had some mild luminal irregularities. Troponin was peaked at 4.64, so she did undergo cardiac catheterization by Dr. Stafford which showed an ejection fraction of 60% , left main disease of 40% to 50% proximal LAD 70%, mid distal LAD 70%. The diagonal was 80% the obtuse marginal 70%. We were consulted to evaluate for coronary artery bypass grafting. PAST MEDICAL HISTORY: Includes diabetes mellitus type 2, insulin-dependent, hypertension, hypothyroidism, recent diabetic ketoacidosis, non-ST segment myocardial infarction. 03/12 BGM improved, however had some hypoglycemia last pm, did not receive pm snack stable for transfer to stepdown unit scheduled for surgery on Saturday will consult PT 03/13 stable for surgery in am 03/14 SURGICAL PROCEDURE 1. Urgent Off-pump Coronary Artery Bypass Grafting x 2 with reverse saphenous vein graft to Left Anterior Descending (LAD), reverse saphenous vein graft to obtuse Marginal branch of the left Circumflex artery 2. Left leg Endoscopic Vein [place] 3. Left Internal Mammary Artery (NOLEN) harvest 4. Intraoperative Vein Mapping. 03/15 Extubated and doing well Weaning Gigi-Synephrine as tolerated. Slightly tachycardic. Also anemic. Will transfuse 2 units today. Incentive spirometer Aggressive blood sugar control Transfer [facility] later today if remains hemodynamically stable 03/16 Doing well Slightly tachycardic with ambulation. Will increase beta-lamont DC chest tubes today. Discharge planning 03/17 BP stable , HR still 90's will try to increase BB today BGM high, re-add levemir 10mg bid pt requesting new Blood sugar machine at home has lantus at home , but will need novolog insulin sliding scale when dc no BM since surgery, on room air eval for dc tomorrow with [facility] 10/ blood sugar low this am pm levemir dose decreased improved after breakfast stable to dc to SNF ( needs close monitoring of blood sugars) BB increased Objective: Vital Signs - 24 hr 03/17/18 08:59 03/17/18 09:06 03/17/18 11:00 Temperature 98.0 F Pulse Rate 97 H 82 Respiratory Rate 18 Blood Pressure 142/68 H Pulse Oximetry 96 97 03/17/18 12:00 03/17/18 13:00 03/17/18 13:11 Temperature Pulse Rate 81 83 86 Respiratory Rate 18 Blood Pressure Pulse Oximetry 03/17/18 13:55 03/17/18 14:52 03/17/18 15:50 Temperature 98.2 F Pulse Rate 88 84 84 Respiratory Rate 18 Blood Pressure 112/57 L Pulse Oximetry 97 03/17/18 16:57 03/17/18 18:00 03/17/18 19:00 Temperature 98.2 F Pulse Rate 83 90 80 Respiratory Rate 16 Blood Pressure 134/58 L Pulse Oximetry 94 L 03/17/18 20:00 03/17/18 20:19 03/17/18 21:00 Temperature Pulse Rate 78 65 84 Respiratory Rate 18 Blood Pressure Pulse Oximetry 96 03/17/18 22:00 03/17/18 23:00 03/18/18 00:00 Temperature 98.4 F Pulse Rate 100 H 94 H 92 H Respiratory Rate 16 Blood Pressure 129/60 Pulse Oximetry 96 03/18/18 01:00 03/18/18 02:00 03/18/18 03:00 Temperature 98.8 F Pulse Rate 93 H 93 H 93 H Respiratory Rate 16 Blood Pressure 133/62 Pulse Oximetry 94 L 03/18/18 04:00 03/18/18 05:00 03/18/18 06:00 Temperature Pulse Rate 89 84 86 Respiratory Rate Blood Pressure Pulse Oximetry GENERAL: A&O x 3 SKIN: Warm and dry. prevena dressing to chest , incision intact to left leg HEAD: Normocephalic. EYES: No scleral icterus. No injection or drainage. NECK: Supple, trachea midline. No JVD or lymphadenopathy. CARDIOVASCULAR: Regular rate and rhythm without murmurs, gallops, or rubs. RESPIRATORY: Breath sounds equal bilaterally. No accessory muscle use. GASTROINTESTINAL: Abdomen soft, non-tender, nondistended. MUSCULOSKELETAL: No cyanosis, or edema. BACK: Nontender without obvious deformity. No CVA tenderness. Labs: Laboratory Results - last 12 hr 03/17/18 03/18/18 03/18/18 21:02 02:55 04:23 WBC 8.5 RBC 2.87 L Hgb 8.7 L Hct 26.3 L MCV 91.6 MCH 30.4 MCHC 33.2 RDW 17.0 Plt Count 243 MPV 7.8 Sodium Potassium Chloride Carbon Dioxide Anion Gap BUN Creatinine Estimated GFR POC Glucose 148 H 163 H Random Glucose Calcium 03/18/18 03/18/18 04:23 08:04 WBC RBC Hgb Hct MCV MCH MCHC RDW Plt Count MPV Sodium 137 Potassium 4.6 Chloride 102 Carbon Dioxide 26.2 Anion Gap 9 BUN 30 H Creatinine 1.31 H Estimated GFR 39 L POC Glucose 56 L Random Glucose 93 Calcium 8.2 L Result Diagrams: 03/18/18 04:23 03/18/18 04:23 Telemetry: NSR - Plan (1) Diabetic ketoacidosis associated with type 2 diabetes mellitus Plan: on sliding scale insulin / long acting insulin diabetic diet/rn diabetes educator pm levemir dose decreased (3) NSTEMI (non-ST elevated myocardial infarction) Plan: on ASA, statin , heparin gtt BB for surgery on Saturday (5) Hypothyroidism Plan: on synthroid (6) S/P CABG x 2 Plan: on ASA, statin , BB increased , plavix amiodarone additional GI motility meds given stable for dc to SNF today (1) Diabetic ketoacidosis associated with type 2 diabetes mellitus Qualifiers: Diabetes mellitus complication detail: without coma Qualified Code(s): E11.10 - Type 2 diabetes mellitus with ketoacidosis without coma
[2018-03-18] MEDS ORDERED: Metoprolol Tartrate 50 MG Tablet PO SCH (09:00)
[2018-03-18] MEDS ORDERED: Insulin Detemir Inj 1,000 UNIT/10 ML Vial SQ SCH ×2 (09:00→21:00)
--- NOTE | 2018-03-18 11:20 | P.DIET ---
Nutritional Evaluation Screening comments: MDC for diet education s/p CABG x 2 on 03/14. Patient Navigator to provide education. Consult RD if complexities with diet education arise.
--- NOTE | 2018-03-18 16:14 | P.DCO ---
- Physical Therapy Order: Evaluate and treat - Home Health Nursing Order: Medical education, Signs/symptoms of disease process, Diabetic education , Wound care and dressing changes - Case Management Consult No - Certification I have seen patient Heather Nails on 03/18/18. My clinical findings support the need for the requested home health care services because: Limited mobility due to disease progression, Patient has SOB, Deconditioned with increased weakness, Limited ability to care for self, High risk of falls I certify that my clinical findings support that this patient is homebound because: Post-op weakness, Unsteady gait/balance, Unsafe to leave home unassisted, Unable to use public transportation, Poor cardiac reserve
[2018-03-18 16:18] VITALS: BP 111/56; PULSE 78; RESP 17; TEMP 97.9; O2SAT 94
--- NOTE | 2018-03-18 16:20 | P.DS ---
Date of admission: 03/07/18 06:59 Primary care physician: UNKNOWN Brief History from admission: 77-year-old female. Date of admission 03/07/2018. Past medical history includes diabetes mellitus since 1991 and hypothyroidism. Patient is a Charlton act from [facility] where she is brought by the police department where she was a well person check where she is nearby pleased to be disheveled with an high blood sugar. Please placed under Latesha act due to the fact that she stated that she knew that her blood sugar was high in the could result in her being in a coma and that she did not care at that time. Patient was transferred to [facility] for further evaluation treatment. Laboratories revealed a leukocytosis of 17,000. Macrocytic anemia. Elevated troponin of 1.28. EKG pending. Acute kidney injury of 2.2. Patient denies chest pain, shortness of breath, abdominal pain, nausea vomiting or diarrhea. Chest x-ray reviewed no acute cardiopulmonary findings. EKG revealed sinus tachycardia with no specific ST-T changes. Patient may need Raynaud's desire to have a bowel movement. DS: Medications - Discharge Medications Prescriptions: amiodarone 200 mg PO Q12HR #60 tab aspirin 81 mg PO DAILY #30 tab atorvastatin 80 mg PO HS #30 tab clopidogrel [Plavix] 75 mg PO DAILY #30 tab diabetic supplies, miscellan. [Guardian RT Starter Kit] #1 each diphenhydramine HCl 50 mg PO HS PRN #30 cap PRN Reason: Sleep hydrocodone-acetaminophen 1 tab PO Q4H PRN 3 Days #18 tab PRN Reason: Acute Pain insulin aspart U-100 [Novolog U-100 Insulin aspart] 0 unit SUBCUT ACHS #10 ml insulin detemir U-100 [Levemir U-100 Insulin] 10 unit SUBCUT DAILY #10 ml insulin detemir U-100 [Levemir U-100 Insulin] 5 unit SUBCUT HS #10 ml levothyroxine [Synthroid] 300 mcg PO DAILY@0600 #60 tab metoprolol tartrate 50 mg PO BID #60 tab sfkwebew-jxnh-SG-calcium-mins [Thera M Plus (ferrous fumarat)] 1 tab PO DAILY # 30 tab sennosides-docusate sodium [Senna Plus] 1 tab PO BID PRN 14 Days #30 tab PRN Reason: Constipation DS: Summary Hospital Course: 77-year-old female with history of type 2 diabetes. She presented with metabolic encephalopathy secondary to diabetic ketoacidosis and at time of admission had evidence of infection with elevated white blood cell count of 17, 000. Troponin slowed some elevation in workup including heart catheterization revealed extensive vessel disease. She was evaluated by cardiothoracic surgery and underwent CABG x3 on 03/14/2018. She has done very well postop ambulated on day 1, tolerated p.o. well. Now ambulating with improvement each day. She had some persisting nausea which has resolved today. She has been cleared by cardiothoracic surgery for discharge and has been qualified at a local rehab center for the first week or so of her time away from the hospital. She has follow-ups with all of her specialists and is leaving the hospital shortly with medical transport. - Time Spent with Patient Total time spent providing and/or coordinating discharge services: Less than 30 minutes - Quality: VTE Deep Vein Thrombosis/Pulmonary Embolism Present on Admission: No Exam Vital signs: Vital Signs 03/17/18 16:57 03/17/18 18:00 03/17/18 19:00 Temperature 98.2 F Pulse Rate 83 90 80 Respiratory Rate 16 Blood Pressure 134/58 L Pulse Oximetry 94 L 03/17/18 20:00 03/17/18 20:19 03/17/18 21:00 Temperature Pulse Rate 78 65 84 Respiratory Rate 18 Blood Pressure Pulse Oximetry 96 03/17/18 22:00 03/17/18 23:00 03/18/18 00:00 Temperature 98.4 F Pulse Rate 100 H 94 H 92 H Respiratory Rate 16 Blood Pressure 129/60 Pulse Oximetry 96 03/18/18 01:00 03/18/18 02:00 03/18/18 03:00 Temperature 98.8 F Pulse Rate 93 H 93 H 93 H Respiratory Rate 16 Blood Pressure 133/62 Pulse Oximetry 94 L 03/18/18 04:00 03/18/18 05:00 03/18/18 06:00 Temperature Pulse Rate 89 84 86 Respiratory Rate Blood Pressure Pulse Oximetry 03/18/18 07:00 03/18/18 08:00 03/18/18 09:00 Temperature 97.9 F Pulse Rate 83 86 87 Respiratory Rate 18 Blood Pressure 143/69 H Pulse Oximetry 95 03/18/18 10:00 03/18/18 11:00 03/18/18 12:00 Temperature 98 F Pulse Rate 86 77 79 Respiratory Rate 16 Blood Pressure 121/58 L Pulse Oximetry 92 L 03/18/18 13:00 03/18/18 14:00 Temperature Pulse Rate 76 75 Respiratory Rate Blood Pressure Pulse Oximetry Intake & Output 03/17/18 03/18/18 03/18/18 18:59 06:59 18:59 Intake Total 660 / 660 480 / 480 Output Total 600 / 600 Balance 60 / 60 480 / 480 Weight 73.5 kg Intake: Oral 660 / 660 480 / 480 Output: Urine 600 / 600 Other: Date of Last Bowel Movement 03/17/18 # Bowel Movements 3 Results Procedures completed during hospitalization: PROCEDURE: Left heart catheterization, coronary angiogram, moderate sedation 37 minutes, aortic stenosis evaluation. 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 MEDICATIONS: Versed 0.5 mg, fentanyl 25 mcg. CONTRAST USED: 50 mL. FLUOROSCOPY: 5.3 minutes. MODERATE SEDATION: 37 minutes. FRAILTY SCORE: 5. ESTIMATED BLOOD LOSS: 10 mL. PROCEDURAL SUMMARY: Heather Nails is a pleasant 77-year-old female who sees my partner, Dr. Jean Bueno and presented to [facility] in [facility] as a Charlton Act. Apparently, she was unable to take care of herself and was almost comatose at that time. Since then, her DKA has been resolved and Charlton Act has been lifted. She was found to have an elevated troponin and has known previous coronary artery disease. Because of this, she was recommended cardiac catheterization. Risks, benefits, and alternatives were explained to her and she consented as such. She was brought to the lab and prepped in the usual sterile fashion. I attempted to access her right radial artery, but was unable to and so right femoral artery was accessed using modified Seldinger technique and placement of a 5-German sheath. This was easily aspirated and flushed. A JR4 was advanced over a J-wire to the ascending aorta and across the aortic valve for measurement of left ventricular pressure. This was pulled back across the aortic valve showing a gradient, but difficult to determine as she had some ventricular tachycardia during the pullback. JR4 was used for selective angiography of the right coronary artery system. This was exchanged out for a JL4, which was used for selective angiography of the left coronary artery system. As I felt that the patient should be considered for coronary artery bypass grafting and there was confusion on the echo of how significant her aortic stenosis was, I felt that aortic stenosis should be further evaluated. At this time, the 5-German sheath was exchanged for a 6-German sheath. JR4 was used to cross the aortic valve. The JR4 was exchanged out for a Adonis dual-lumen catheter. Simultaneous left ventricular and aortic pressures showed a mean gradient of 20 for the aortic valve. This was pulled back across the aortic valve to show equalization of pressures. Adonis catheter was removed. I attempted to close the femoral site with a Vascade, but it was unable to take and so pressure was held for hemostasis. The patient left the labor union business representative cardiovascularly stable. FINDINGS: LEFT MAIN: Ostial 40-50% disease with dampening of the catheter, upon entrance. It bifurcates into an LAD and circumflex. LAD: Diffuse long 70% disease from the proximal to mid portion. Distal vessel has an area of normalization before becoming significantly small at the apex. It gives off 3 diagonals, the first one having 80% ostial stenosis. The second and third have no significant disease. LEFT CIRCUMFLEX: Vqlwz-jh-ifthykcc sized vessel with no significant disease in the proximal portion. At the takeoff of the major obtuse marginal, there is a 70% lesion. RCA: Moderate size vessel with diffuse 30% disease throughout. It supplies the PDA as well as the posterolateral branch with diffuse 40% disease. LVEDP: 11. Aortic valve mean gradient: 20. IMPRESSION: 1. Diabetic ketoacidosis. 2. Ocq-IK-fojpacjsd myocardial infarction. 3. Multivessel coronary artery disease. RECOMMENDATIONS: 1. Ms. Nails presented with DKA and this has since resolved. 2. She was also a Charlton Act due to inability to take care of herself due to her almost comatose state. This has since been lifted. 3. She does have multivessel disease with probable ostial left main disease, but my major concern is her long diffusely diseased lesion in the LAD, which would require a significant amount of stent crossing multiple diagonals as well as the septal perforators. As she has multivessel disease and diabetic, ultimately I think her best option would be coronary artery bypass grafting. 4. I spoke with Dr. Perez, who will see her in consultation and further evaluate her for consideration of coronary artery bypass grafting. 5. She has had an echo showing a normal function and there was some confusion about how significant her aortic valve was. Evaluation here in the labor union business representative shows that she has mild aortic stenosis and this will be left alone if she undergoes coronary artery bypass grafting. 6. We will plan on restarting her heparin drip in 6 hours as long as her groin has no complications. 7. Further recommendations will be made after CT surgery evaluation. Thank you for allowing me to see Heather Nails. If there are any questions, please do not hesitate to call. Patient Name: Heather Nails Date of : 1940 Patient Status: Inpatient Attending Provider: Jaden Moe Date: 03/14/18 12:05 Initialization Date: 03/14/18 12:05 Date of procedure: 03/14/18 Anesthesia: ROXANNEA Surgeon: Mayito Perez MD Operation and Findings: PREPROCEDURE DIAGNOSES 1. Severe Multi Vessel Coronary Artery Disease. 2. Acute myocardial infarction (NSTEMI) 3. Diabetes mellitus 4. Diabetic keto acidosis POSTPROCEDURE DIAGNOSES Same SURGICAL PROCEDURE 1. Urgent Off-pump Coronary Artery Bypass Grafting x 2 with reverse saphenous vein graft to Left Anterior Descending (LAD), reverse saphenous vein graft to obtuse Marginal branch of the left Circumflex artery 2. Left leg Endoscopic Vein [place] 3. Left Internal Mammary Artery (NOLEN) harvest 4. Intraoperative Vein Mapping. SURGEON Mayito Perez MD SOUND EFFECTS TECHNICIAN MIKE Chaves PA ANESTHESIA General endotracheal SUPERVISOR CIGAR MAKING HAND RHONDA Hoover MD PREPARATION ChloraPrep. COUNTS Needle, sponge, and instrument counts were correct. DRAINS Two 32-German mediastinal tubes. COMPLICATIONS None. INDICATIONS FOR PROCEDURE The patient is a 77-year-old presenting with diabetic keto acidosis and acute myocardial infarction. Patient was noted to have 2 vessel coronary artery disease. The patient is being brought to the operating room for surgical revascularization therapy. PROCEDURE Patient was brought to the operating room and placed supine on the OR table. Following the induction of adequate general endotracheal anesthesia and placement of appropriate monitoring devices, intraoperative vein mapping was performed which revealed good-caliber conduit in the left lower extremity. The patient was then prepped and draped in standard sterile fashion. Next, 2500 units of intravenous heparin was given. The left greater saphenous vein was harvested endoscopically. This appeared to be a useable-caliber conduit. Simultaneously, a median sternotomy was performed and the left internal mammary artery dissected free off the posterior sternal table. Examination of the NOLEN revealed poor pulsatile flow in it with a calcific plaque in the proximal to mid aspect. With this not being a suitable conduit, as well as her being a brittle diabetic, it was sided not to harvest the right internal mammary artery to avoid sternal wound healing issues but rather proceed made with vein grafts to the LAD and the circumflex distribution. The patient was systemically heparinized and anticoagulation monitored by serial ACT measurements. The pericardium was then divided in the midline, the cradle created and targets analyzed. At this point, all anastomoses were performed in a beating-heart fashion using the Maquet stabilizing system. A segment of the saphenous vein graft was anastomosed to the distal LAD (2 mm) in an end-to-side fashion using 7 -0 Prolene. Final segment of saphenous vein graft was then anastomosed to the OM1 (1.75 mm) in an end-to-side fashion using 7-0 Prolene. The proximal anastomoses were then constructed to the ascending aorta in a running manner using 6-0 Prolene. All anastomotic sites were inspected and appeared to be hemostatic and patent. Protamine solution was given. Strict hemostasis was assured. The closure was undertaken. 2 chest tubes were placed. The pericardium was reapproximated in the midline. The sternum was approximated using sternal wires. The muscular and fascial layer were then closed in 3 layers. The endoscopic vein harvest site was closed in 2 layers. The patient tolerated the procedure well and was transferred to CVICU in stable condition. Additional CC's: Mayito Stafford Labs on day of discharge: Labs from last 24 hours 03/18/18 03/18/18 03/18/18 16:11 11:11 09:31 WBC RBC Hgb Hct MCV MCH MCHC RDW Plt Count MPV Sodium Potassium Chloride Carbon Dioxide Anion Gap BUN Creatinine Estimated GFR POC Glucose 114 H 208 H 118 H Random Glucose Calcium 03/18/18 03/18/18 03/18/18 09:09 08:47 08:04 WBC RBC Hgb Hct MCV MCH MCHC RDW Plt Count MPV Sodium Potassium Chloride Carbon Dioxide Anion Gap BUN Creatinine Estimated GFR POC Glucose 97 82 56 L Random Glucose Calcium 03/18/18 03/18/18 03/18/18 04:23 04:23 02:55 WBC 8.5 RBC 2.87 L Hgb 8.7 L Hct 26.3 L MCV 91.6 MCH 30.4 MCHC 33.2 RDW 17.0 Plt Count 243 MPV 7.8 Sodium 137 Potassium 4.6 Chloride 102 Carbon Dioxide 26.2 Anion Gap 9 BUN 30 H Creatinine 1.31 H Estimated GFR 39 L POC Glucose 163 H Random Glucose 93 Calcium 8.2 L 03/17/18 03/17/18 21:02 16:56 WBC RBC Hgb Hct MCV MCH MCHC RDW Plt Count MPV Sodium Potassium Chloride Carbon Dioxide Anion Gap BUN Creatinine Estimated GFR POC Glucose 148 H 98 Random Glucose Calcium - Impressions ITS Impressions Carotid Doppler Study 03/11/18 10:20 CONCLUSION: Unremarkable bilateral carotid ultrasound for patient's age. Lower Extremity Ultrasound 03/11/18 10:20 CONCLUSION: 1. Venous mapping as above. Venous Doppler Study 03/14/18 00:00 CONCLUSION: 1. There is occlusive thrombus within the distal right cephalic vein. 2. The remaining veins of the right upper extremity including the internal jugular vein are patent. Chest X-Ray 03/15/18 05:00 CONCLUSION: Suspected atelectasis at the lung bases. Discharge Plan - Discharge Disposition Patient Disposition: Discharge to SNF - Discharge Condition Condition: Fair - Discharge Order Discharge Orders: Discharge Order (Routine); Ordered 03/18/18 Ordered By: Franki Aguilera - Physicians Team Primary Care Provider: UNKNOWN, Attending Provider: Franki Aguilera Other Providers: Chavo Hightower MD ; Daniel Stafford DO ; Mayito Preez MD ; [facility] ; [facility]
== END 2018-03-18 16:43 ==
LOC: NEPC 05:19 → NEDA 06:59 → HIMC 08:27 → HCVI 03-13 18:08 → HCPC 03-13 18:42 → HCVI 03-14 13:07 → HCPC 03-15 17:11
PROVIDERS: ADMIT Family Medicine; ATTEND Family Medicine

== ENCOUNTER 2018-03-28 07:16 | Observation (INO) ==
--- NOTE | 2018-03-28 08:36 | ED ---
HPI General Chief complaint: Weakness Stated complaint: Medical/[facility] Time Seen by Provider: 03/28/18 07:39 Source: patient Mode of arrival: EMS Limitations: no limitations History of Present Illness MD Complaint: Reports generalized weakness Onset (ago): hour(s) (Last night) Duration: constant Location: Reports generalized Migration: Reports none Severity: mild Relieving factors: none Exacerbating factors: none Context: Reports new medication (Pain pill following CABG) Associated symptoms: Reports other Related Data Home Medications Medication Instructions Recorded Confirmed amlodipine 10 mg PO HS 03/28/18 03/28/18 diphenhydramine HCl 50 mg PO HS PRN 03/28/18 03/28/18 hydrocodone-acetaminophen 1 tab PO Q4H PRN 03/28/18 03/28/18 insulin glargine [Lantus Solostar 5 unit SUBCUT HS 03/28/18 03/28/18 U-100 Insulin] insulin glargine [Lantus Solostar 10 unit SUBCUT DAILY 03/28/18 03/28/18 U-100 Insulin] pravastatin 40 mg PO HS 03/28/18 03/28/18 Previous Rx's Medication Instructions Recorded diabetic supplies, miscellan. #1 each 03/17/18 [Guardian RT Starter Kit] amiodarone 200 mg PO Q12HR #60 tab 03/18/18 aspirin 81 mg PO DAILY #30 tab 03/18/18 atorvastatin 80 mg PO HS #30 tab 03/18/18 clopidogrel [Plavix] 75 mg PO DAILY #30 tab 03/18/18 insulin aspart U-100 [Novolog 0 unit SUBCUT ACHS #10 ml 03/18/18 U-100 Insulin aspart] levothyroxine [Synthroid] 300 mcg PO DAILY@0600 #60 tab 03/18/18 metoprolol tartrate 50 mg PO BID #60 tab 03/18/18 cbiiztnr-jdae-HH-calcium-mins 1 tab PO DAILY #30 tab 03/18/18 [Thera M Plus (ferrous fumarat)] sennosides-docusate sodium [Senna 1 tab PO BID PRN 14 Days #30 tab 03/18/18 Plus] Allergies Allergy/AdvReac Type Severity Reaction Status Date / Time No Known Allergies Allergy Unverified 03/07/18 07:38 Review of Systems ROS: all other systems reviewed are negative [facility] Medical History Medical History CAD (coronary artery disease) (Acute) Diabetes (Acute) Hypothyroidism (Acute) Surgical History Surgical History History of hip replacement (Acute) S/P CABG (coronary artery bypass graft) (Acute) S/P shoulder replacement (Acute) Hx of cholecystectomy (Acute) Social History Social History Substance History: No History of Abuse Second Hand Smoke Exposure: No Smoking Status: Former smoker Tobacco Type: Cigarettes How Often Do You Have a Drink Containing Alcohol: Never Recent Travel in [facility] within the Last 8 Weeks: No Recent Out of Country Travel within the Last 8 Weeks: No Immunization History Tetanus Immunization: Unsure Exam Const General: cooperative, healthy appearing, comfortable, no acute distress and well developed Orientation: alert, awake and oriented x3 HENMT Head: normal to inspection, normocephalic and atraumatic Eyes Alignment and Position: alignment normal and position abnormal Conjunctivae: conjunctivae normal Sclera: sclerae normal EOM: EOM intact bilaterally Neck Neck: normal visual inspection and full ROM Chest Chest: normal inspection of the chest Resp Effort & Inspection: normal respiratory effort and able to speak in complete sentences Auscultation: clear to auscultation bilaterally Cardio Rate: regular rate Rhythm: regular rhythm GI Inspection: normal to inspection Palpation: soft Back/Spine/Pelvis Cervical Spine: cervical ROM normal Thoracic/Lumbar Spine: thoraco-lumbar ROM normal Skin General: no rashes or lesions noted, turgor normal and dry skin Neuro General: alert, awake, oriented x3, moves all extremities and CN's II-XI intact bilaterally Extrem General: normal to inspection and full ROM Psych Appearance: grossly normal Mental Status: mental status grossly normal Speech and Movement: speech and movement normal Mood: congruent mood Affect: normal affect Attitude: cooperative Thought Process: normal Thought Content: normal Judgment: judgment good Course Initial Documented Vital Signs Temperature 98.5 F 03/28/18 07:18 Pulse Rate 70 03/28/18 07:18 Blood Pressure 130/80 03/28/18 07:18 Pulse Oximetry 97 03/28/18 07:18 Last Documented Vital Signs Temperature 98.5 F 03/28/18 07:18 Pulse Rate 61 03/28/18 08:20 Respiratory Rate 18 03/28/18 07:25 Blood Pressure 150/68 H 03/28/18 07:25 Pulse Oximetry 97 03/28/18 08:21 Medical Decision Making MDM Narrative Medical decision making narrative: This patient presents with a chief complaint of hallucinations during the night last night. She reports that she is on a pain medication because of a recent CABG. She states that she has never had hallucinations before. Other complaints are that her heart rate seemed pretty slow last night and that she feels weak and dizzy. On exam, she looks well. She is lucid. She is fully oriented. No metabolic or infectious etiology for her hallucinations has been found. She is medically stable for discharge to home. Medical Screen Exam Complete: Yes Emergency Medical Condition: Yes Differential Diagnosis Differential Diagnosis: Differential diagnosis includes but is not limited to electrolyte abnormality, occult infection, medication effect Lab Data Lab results reviewed: Yes I reviewed the patient's lab results. Result diagrams: 03/28/18 08:00 03/28/18 08:00 Lab Results 03/28/18 03/28/18 03/28/18 Range/Units 08:00 08:00 09:20 WBC 9.6 (4.0-11.0) th/mm3 RBC 3.16 L (4.00-5.30) mil/mm3 Hgb 9.5 L (11.6-15.3) gm/dL Hct 28.9 L (35.0-46.0) % MCV 91.5 (80.0-100.0) fL MCH 30.1 (27.0-34.0) pg MCHC 32.9 (32.0-36.0) % RDW 16.2 (11.6-17.2) % Plt Count 461 H D (150-450) th/mm3 MPV 8.2 (7.0-11.0) fL Neut % (Auto) 66.2 (16.0-70.0) % Lymph % (Auto) 19.2 (9.0-44.0) % Upson % (Auto) 9.7 H (0.0-8.0) % Eos % (Auto) 3.8 (0.0-4.0) % Baso % (Auto) 1.1 (0.0-2.0) % Neut # (Auto) 6.3 (1.8-7.7) th/mm3 Lymph # (Auto) 1.8 (1.0-4.8) th/mm3 Upson # (Auto) 0.9 (0.0-0.9) th/mm3 Eos # (Auto) 0.4 (0.0-0.4) th/mm3 Baso # (Auto) 0.1 (0.0-0.2) th/mm3 WBC Differential . Differential Comment Auto diff final Sodium 133 L (136-145) meq/L Potassium 5.1 (3.5-5.1) meq/L Chloride 95 L (98-107) meq/L Carbon Dioxide 28.0 (21.0-32.0) meq/L Anion Gap 10 (5-15) meq/L BUN 25 H (7-18) mg/dL Creatinine 1.67 H (0.50-1.00) mg/dL Estimated GFR 30 L (>89) mL/min Random Glucose 198 H (74-106) mg/dL Calcium 8.8 (8.5-10.1) mg/dL Total Bilirubin 0.4 (0.2-1.0) mg/dL AST 37 (15-37) U/L ALT 24 (10-53) U/L Alkaline Phosphatase 207 H (45-117) U/L Troponin I 0.12 H (0.02-0.05) ng/mL Total Protein 6.9 (6.4-8.2) g/dL Albumin 2.9 L (3.4-5.0) g/dL Urine Color Yellow (Yellw/Straw) Urine Clarity Hazy H (Clear) Urine pH 5.0 (5.0-8.5) Ur Specific [place] 1.024 (1.002-1.035) Urine Protein 30 H (Neg-Trace) mg/dL Urine Glucose (UA) 500 or greater (Negative) mg/dL Urine Ketones Trace H (Negative) mg/dL Urine Occult Blood Negative (Negative) Urine Nitrate Negative (Negative) Urine Bilirubin Negative (Negative) Urine Urobilinogen 2.0 H (Less than 2) mg/dL Ur Leukocyte Esterase Negative (Negative) Urine RBC Less than 1 (0-3) /hpf Urine WBC 2 (0-5) /hpf Ur Squamous Epith Cells 2 (0-5) /hpf Urine Bacteria Rare H (None) /hpf Hyaline Casts 9 (0-3) /lpf Micro UA Comment Culture not ind Ur Microscopic Review Not Reportable Urine Culture Comments Culture not ind ECG Data EKG Prior to Arrival: No Attestation: I personally reviewed and interpreted this ECG as follows: (EKG shows a normal sinus rhythm with a rate of 60. She has inferior Q waves. There are no acute STT wave changes.) Discharge Plan Discharge Disposition Patient Disposition: 01 Discharge Home Discharge Condition Condition: Stable Discharge Order Discharge Orders: Discharge Order (Routine); Ordered 03/28/18 Ordered By: Lili Pa Discharge Details Diagnosis: Hallucinations Physicians Team ED Provider: Lili Pa Primary Care Provider: UNKNOWN, Rxs /Orders / Referrals /Forms Prescriptions: No Action pravastatin 40 mg Tablet 40 mg PO HS RF: 0 hydrocodone-acetaminophen 5-325 mg Tablet 1 tab PO Q4H PRN (Reason: Acute Pain) RF: 0 amlodipine 10 mg Tablet 10 mg PO HS RF: 0 diphenhydramine HCl 25 mg Tablet 50 mg PO HS PRN (Reason: Insomnia) RF: 0 insulin glargine [Lantus Solostar U-100 Insulin] 100 unit/mL (3 mL) Insulin Pen 5 unit SUBCUT HS RF: 0 insulin glargine [Lantus Solostar U-100 Insulin] 100 unit/mL (3 mL) Insulin Pen 10 unit SUBCUT DAILY RF: 0 diabetic supplies, miscellan. [Guardian RT Starter Kit] Kit Qty: 1 RF: 1 atorvastatin 80 mg Tablet 80 mg PO HS Qty: 30 RF: 0 amiodarone 200 mg Tablet 200 mg PO Q12HR Qty: 60 RF: 0 sennosides-docusate sodium [Senna Plus] 8.6-50 mg Tablet 1 tab PO BID PRN (Reason: Constipation) 14 Days Qty: 30 RF: 0 clopidogrel [Plavix] 75 mg Tablet 75 mg PO DAILY Qty: 30 RF: 0 insulin aspart U-100 [Novolog U-100 Insulin aspart] 100 unit/mL Solution subcut ACHS Qty: 10 RF: 0 levothyroxine [Synthroid] 150 mcg Tablet 300 mcg PO DAILY@0600 Qty: 60 RF: 0 metoprolol tartrate 50 mg Tablet 50 mg PO BID Qty: 60 RF: 0 aspirin 81 mg Tablet,Chewable 81 mg PO DAILY Qty: 30 RF: 0 mcjlcjbm-tlzu-PB-calcium-mins [Thera M Plus (ferrous fumarat)] 9 mg iron-400 mcg Tablet 1 tab PO DAILY Qty: 30 RF: 0 Discharge Instructions Patient Printed Instructions: Hallucinations (ED) Additional Instructions: See your doctor if symptoms continue Discharge Interventions Interventions: Vital Signs Last Done: 03/28/18 07:25 Status ED Status: With Doctor
[2018-03-28 08:39] LABS: Baso # (Auto) 0.1 th/mm3 (0.0-0.2); Baso % (Auto) 1.1 % (0.0-2.0); Eos # (Auto) 0.4 th/mm3 (0.0-0.4); Eos % (Auto) 3.8 % (0.0-4.0); Hematocrit 28.9 % (35.0-46.0); Hemoglobin 9.5 gm/dL (11.6-15.3); Lymph # (Auto) 1.8 th/mm3 (1.0-4.8); Lymph % (Auto) 19.2 % (9.0-44.0); Mean Corpuscular HGB Conc 32.9 % (32.0-36.0); Mean Corpuscular Hemoglobin 30.1 pg (27.0-34.0); Mean Corpuscular Volume 91.5 fL (80.0-100.0); Mean Platelet Volume 8.2 fL (7.0-11.0); Mono # (Auto) 0.9 th/mm3 (0.0-0.9); Mono % (Auto) 9.7 % (0.0-8.0); Neut # (Auto) 6.3 th/mm3 (1.8-7.7); Neut % (Auto) 66.2 % (16.0-70.0); Platelet Count 461 th/mm3 (150-450); Red Blood Count 3.16 mil/mm3 (4.00-5.30); Red Cell Distribution Width 16.2 % (11.6-17.2); White Blood Count 9.6 th/mm3 (4.0-11.0)
[2018-03-28 08:57] LABS: Alanine Aminotransferase 24 U/L (10-53)
[2018-03-28 09:00] LABS: Albumin 2.9 g/dL (3.4-5.0); Anion Gap 10 meq/L (5-15); Aspartate Aminotransferase 37 U/L (15-37); Blood Urea Nitrogen 25 mg/dL (7-18); Calcium 8.8 mg/dL (8.5-10.1); Chloride 95 meq/L (98-107); Glomerular Filtration Rate 30 mL/min (>89); Glucose,Random 198 mg/dL (74-106); Potassium 5.1 meq/L (3.5-5.1); Sodium 133 meq/L (136-145)
[2018-03-28 09:01] LABS: Alkaline Phosphatase 207 U/L (45-117); Total Protein 6.9 g/dL (6.4-8.2); Troponin I 0.12 ng/mL (0.02-0.05)
[2018-03-28 09:40] LABS: Bacteria,Urine Rare /hpf; Bilirubin,Urine Negative (Negative); Clarity,Urine Hazy (Clear); Color,Urine Yellow (Yellw/Straw); Glucose,Urine (UA) 500 or Greater mg/dL (Negative); Hyaline Casts,Urine 9 /lpf (0-3); Leukocyte Esterase,Urine Negative (Negative); Nitrite,Urine Negative (Negative); Specific Gravity,Urine 1.024 (1.002-1.035); Squamous Epithelial Cell,Urine 2 /hpf (0-5)
[2018-03-28] MEDS ORDERED: Metoprolol Tartrate 50 MG Tablet PO ONE (15:13)
[2018-03-28] MEDS ORDERED: Acetaminophen 325 MG Tablet PO PRN (17:33)
[2018-03-28] MEDS ORDERED: Bisacodyl 10 MG Supp RECTAL PRN (17:33)
[2018-03-28] MEDS: Sod Chloride 0.9% Inj 1,000 ML IV.CONT SCH (18:00)
[2018-03-28] MEDS ORDERED: Dextrose 50% in Water 50 ML Vial IV.PUSH PRN (18:57)
--- NOTE | 2018-03-28 19:29 | P.HPIM ---
History of Present Illness Primary Care Physician: UNKNOWN History of Present Illness: This is a 77-year-old female with a PMH of HTN, Hyperlipidemia, Hypothyroidism and DM who was brought to the ER from [place] w/ c/o hallucinations and generalized weakness. Recent admit 03/07-03/18/18, brought in by PD under [place] [employer] after well person check, found to have elevated BS and refusing medical treatment, admitted for Encephalopathy/DKA, found to have elevated trop 3.86, s/ p Cath w/ extensive disease, underwent CABG x3 by Dr. Perez on 03/14/18, d/c'd to Rehab and ultimately discharged home. Pt states she was feeling fine until last night when she began to have hallucinations, states she started "having a conversation with someone for hours". Today, states there were 12 people in her room, children and adults. No h/o hallucinations in the past. No suicidal/ homicidal ideation. Denies chest pain, but reports SOB since last night, worse w/ exertion. On arrival, BP 195/86, HR 76, O2 sat 96% on RA, Afebrile. CBC essentially at baseline. Creatinine 1.67, previously 1.31 on 04-03. Troponin 0.12, previously 3.86 on 03/07/2018. Pt without complaints at this time. - Diagnosis (1) Hallucinations (2) Elevated troponin (3) [place] (acute kidney injury) (4) HTN (hypertension) (5) DM (diabetes mellitus) Review of Systems PAST FAMILY HISTORY: Reviewed. No h/o DM or CAD All other systems reviewed negative except as stated in [facility] - History History Provided By: Patient - Medical History Medical History: Medical History (Last Reviewed 03/28/18 @ 08:34 by Lili Pa) CAD (coronary artery disease) Diabetes Hypothyroidism - Surgical History Surgical History: Surgical History (Last Updated 03/28/18 @ 07:23 by Valeria Esquivel RN) History of hip replacement S/P CABG (coronary artery bypass graft) S/P shoulder replacement Hx of cholecystectomy - Family History Family History: Family History (Last Reviewed 03/18/18 @ 09:47 by Marion Saucedo) Other Family history unobtainable due to patient's condition - Tobacco History Second Hand Smoke Exposure: No Tobacco Use In Past 30 Days: No Smoking Status: Former smoker Tobacco Type: Cigarettes - Alcohol History How Often Do You Have a Drink Containing Alcohol: Never - Substance Use History Substance History: No History of Abuse - Travel History Recent Travel in the [place] Within the Last 8 Weeks: No Recent Travel Out of the Country Within the Last 8 Weeks: No - Immunization History Tetanus Immunization: Unsure Medications and Allergies Active Medications: Active Medications Acetaminophen (Tylenol) 650 mg PO Q4H PRN PRN Reason: Headache, fever, pain 1-4 Al Hydroxide/Mg Hydroxide (Milk Of Magnesia Liq) 30 ml PO Q12H PRN PRN Reason: Mild Constipation Amiodarone HCl (Cordarone) 200 mg PO Q12HR [facility] Amlodipine Besylate (Norvasc) 10 mg PO HS [facility] Aspirin (Aspirin Chew) 81 mg PO DAILY [facility] Atorvastatin Calcium (Lipitor) 80 mg PO HS [facility] Bisacodyl (Dulcolax Supp) 10 mg RECTAL DAILY PRN PRN Reason: SEVERE CONSITIPATION Clopidogrel Bisulfate (Plavix) 75 mg PO DAILY [facility] Dextrose (D50w Vial) 50 ml IV.PUSH UNSCH PRN PRN Reason: PER HYPOGLYCEMIA PROTOCOL Glucagon (Glucagon Inj) 1 mg OTHER PRN PRN PRN Reason: for Hypoglycemia Protocol Sodium Chloride (Ns Inj) 1,000 mls @ 100 mls/hr IV.CONT .Q10H [facility] Last Admin: 03/28/18 18:00 Dose: 100 mls/hr Insulin Aspart (Novolog Insulin Correctional Sugar Inj) 0 unit SQ ACHS WADE; Protocol Insulin Aspart (Novolog Inj) 5 units SQ TIDAC [facility] Insulin Detemir (Levemir Inj) 10 unit SQ HS [facility] Lactulose (Lactulose Liq) 30 ml PO DAILY PRN PRN Reason: SEVERE CONSITIPATION Levothyroxine Sodium (Synthroid) 300 mcg PO DAILY@0600 [facility] Metoprolol Tartrate (Lopressor) 50 mg PO BID [facility] Multivitamins/Minerals (Theragran-M) 1 tab PO DAILY [facility] Ondansetron HCl (Zofran Inj) 4 mg IV.PUSH Q6H PRN PRN Reason: NAUSEA OR VOMITING Sennosides (Senokot) 17.2 mg PO Q12H PRN PRN Reason: Moderate Constipation Sodium Chloride (Ns Flush) 2 ml IV.FLUSH PRN PRN PRN Reason: FLUSH AFTER USING IV ACCESS Allergies Allergy/AdvReac Type Severity Reaction Status Date / Time No Known Allergies Allergy Unverified 03/07/18 07:38 Home Medications Medication Instructions Recorded Confirmed Type amlodipine 10 mg PO HS 03/28/18 03/28/18 History diphenhydramine HCl 50 mg PO HS PRN 03/28/18 03/28/18 History hydrocodone-acetaminophen 1 tab PO Q4H PRN 03/28/18 03/28/18 History insulin glargine [Lantus Solostar 5 unit SUBCUT HS 03/28/18 03/28/18 History U-100 Insulin] insulin glargine [Lantus Solostar 10 unit SUBCUT DAILY 03/28/18 03/28/18 History U-100 Insulin] pravastatin 40 mg PO HS 03/28/18 03/28/18 History Exam Vital signs: Vital Signs 03/28/18 07:18 03/28/18 07:25 03/28/18 08:20 Temperature 98.5 F Pulse Rate 70 61 61 Respiratory Rate 18 Blood Pressure 130/80 150/68 H Pulse Oximetry 97 97 03/28/18 08:21 03/28/18 10:13 03/28/18 13:30 Temperature Pulse Rate 68 76 Respiratory Rate 20 18 Blood Pressure 162/69 H 195/86 H Pulse Oximetry 97 99 96 03/28/18 17:00 03/28/18 18:38 Temperature Pulse Rate 70 70 Respiratory Rate 18 18 Blood Pressure 189/91 H 190/86 H Pulse Oximetry 98 95 Intake & Output 03/28/18 03/28/18 03/29/18 06:59 18:59 06:59 Weight 70.307 kg Narrative: PE: GENERAL: Pleasant elderly white female in no acute distress, talking/answering to internal stimuli, but answering questions/appropriate. SKIN: Focused skin assessment warm and dry. HEENT: PERRLA, EOMI. No scleral icterus or conjunctival pallor. No lid lag or facial droop. CARDIOVASCULAR: Regular rate and rhythm. No obvious murmurs to auscultation. No chest tenderness to palpation. RESPIRATORY: No obvious rhonchi or wheezing. Clear to auscultation. Breath sounds equal bilaterally. GASTROINTESTINAL: Abdomen soft, non-tender, nondistended. BS normal. MUSCULOSKELETAL: Extremities without clubbing, cyanosis, or edema. No obvious deformities. NEUROLOGICAL: Awake, alert and oriented x4. No focal neurologic deficits. Moving both upper and lower extremities spontaneously. PSYCHIATRIC: Appropriate mood and affect. Insight and judgment normal. Results - Labs CBC & Chem 7: 03/28/18 08:00 03/28/18 08:00 Labs: Short CBC 03/28/18 Range/Units 08:00 WBC 9.6 (4.0-11.0) th/mm3 Hgb 9.5 L (11.6-15.3) gm/dL Hct 28.9 L (35.0-46.0) % Plt Count 461 H D (150-450) th/mm3 BMP 03/28/18 08:00 Sodium 133 L Potassium 5.1 Chloride 95 L Carbon Dioxide 28.0 BUN 25 H Creatinine 1.67 H Calcium 8.8 Cardiac Enzymes 03/28/18 03/28/18 Range/Units 08:00 10:40 Troponin I 0.12 H 0.12 H (0.02-0.05) ng/mL Liver Function 03/28/18 Range/Units 08:00 Total Bilirubin 0.4 (0.2-1.0) mg/dL AST 37 (15-37) U/L ALT 24 (10-53) U/L Alkaline Phosphatase 207 H (45-117) U/L Albumin 2.9 L (3.4-5.0) g/dL Urine 03/28/18 Range/Units 09:20 Urine Color Yellow (Yellw/Straw) Urine Clarity Hazy H (Clear) Urine pH 5.0 (5.0-8.5) Ur Specific [place] 1.024 (1.002-1.035) Urine Protein 30 H (Neg-Trace) mg/dL Urine Glucose (UA) 500 or greater (Negative) mg/dL Caprini VTE Risk Assessment Caprini VTE Risk Assessment: No/Low Risk (score <= 1) Caprini Risk Assessment Model: Point Value = 1 Point Value = 2 Point Value = 3 Point Value = 5 Age 41-60 Minor surgery BMI > 25 kg/m2 Swollen legs Varicose veins or History of unexplained or recurrent spontaneous Oral contraceptives or hormone replacement Sepsis (< 1 month) Serious lung disease, including pneumonia (< 1 month) Abnormal pulmonary function Acute myocardial infarction Congestive heart failure (< 1 month) History of inflammatory bowel disease Medical patient at bed rest Age 61-74 Arthroscopic surgery Major open surgery (> 45 min) Laparoscopic surgery (> 45 min) Malignancy Confined to bed (> 72 hours) Immobilizing plaster cast Central venous access Age >= 75 History of VTE Family history of VTE Factor V Leiden Prothrombin [id number] Lupus anticoagulant Anticardiolipin antibodies Elevated serum homocysteine Heparin-induced thrombocytopenia Other congenital or acquired thrombophilia Stroke (< 1 month) Elective arthroplasty Hip, pelvis, or leg fracture Acute spinal cord injury (< 1 month) Prophylaxis Regimen: Total Risk Factor Score Risk Level Prophylaxis Regimen 0-1 Low Early ambulation 2 Moderate Order ONE of the following: *Sequential Compression Device (SCD) *Heparin 5000 units SQ BID 3-4 Higher Order ONE of the following medications: *Heparin 5000 units SQ TID *Enoxaparin/Lovenox 40 mg SQ daily (WT < 150 kg, CrCl > 30 mL/min) *Enoxaparin/Lovenox 30 mg SQ daily (WT < 150 kg, CrCl > 10-29 mL/min) *Enoxaparin/Lovenox 30 mg SQ BID (WT < 150 kg, CrCl > 30 mL/min) AND/OR *Sequential Compression Device (SCD) 5 or more Highest Order ONE of the following medications: *Heparin 5000 units SQ TID (Preferred with Epidurals) *Enoxaparin/Lovenox 40 mg SQ daily (WT < 150 kg, CrCl > 30 mL/min) *Enoxaparin/Lovenox 30 mg SQ daily (WT < 150 kg, CrCl > 10-29 mL/min) *Enoxaparin/Lovenox 30 mg SQ BID (WT < 150 kg, CrCl > 30 mL/min) AND *Sequential Compression Device (SCD) Assessment and Plan - Assessment (1) Hallucinations Code(s): R44.3 - Hallucinations, unspecified Status: Acute (2) Elevated troponin Code(s): R74.8 - Abnormal levels of other serum enzymes Status: Acute (3) [place] (acute kidney injury) Code(s): N17.9 - Acute kidney failure, unspecified Status: Acute (4) HTN (hypertension) Code(s): I10 - Essential (primary) hypertension Status: Acute (5) DM (diabetes mellitus) Code(s): E11.9 - Type 2 diabetes mellitus without complications Status: Acute - Plan A/P: 1. Hallucinations: reports auditory/visual hallucinations since last night, no h/o similar symptoms, no suicidal/homicidal ideation. U/a negative, Check CXR to r/o other infectious etiology as pt w/ c/o SOB. No obvious metabolic disturbance to explain hallucinations. Hold Benadryl and [place] for possible drug effects. Consult Psychiatry for further evaluation. Neuro Cheks. 2. Elevated Trop: Trop 0.12, no c/o chest pain. Recent admit 03/07-03/18/18 for NSTEMI, s/p CABG x3 by Dr Perez 03/14/18, last trop 3.86, likely trending down. Will check serial cardiac enzymes. Resume home ASA/Plavix, Statin and Metoprolol 3. HTN: Uncontrolled. BP 190's while in ER. S/p Metoprolol PO w/ minimal improvement. Hydralazine PO x1 now, resume home medications, monitor BP, antihypertensives as needed. 4. [place]: Creatinine 1.67, previously 1.31 on 03/18/18. IVF for hydration, monitor I/O, repeat labs in am. 5. DM: Sliding scale w/ Accu-Cheks. 6. DVT Prophylaxis: SCD/Teds 7. Social work for d/c planning as needed 8. Case discussed w/ ER physician at length, labs/records/imaging reviewed by me.
--- NOTE | 2018-03-28 19:35 | ECG ---
Date Performed: 03/28/2018 Time Performed: 07:37:53 PTAGE: 77 years EKG: Sinus rhythm POSSIBLE INFERIOR MYOCARDIAL INFARCTION BORDERLINE ECG INTERPRETATION BASED ON A DEFAULT AGE OF 39 Y EARS PREVIOUS TRACING : 03/15/2018 03.16 Since the previous tracing, no significant change not ed DOCTOR: Jean Bueno Interpretating Date/Time 03/28/2018 19:34:52
[2018-03-28] MEDS ORDERED: hydrALAZINE 50 MG Tablet PO ONE (19:39)
[2018-03-28] MEDS: Amiodarone 200 MG Tablet PO SCH (20:10)
[2018-03-28] MEDS ORDERED: Sodium Chloride 0.9% 2 ML Flush PRN IV.FLUSH (20:57)
--- NOTE | 2018-03-28 21:23 | CT ---
EXAM DATE: 03/28/2018 8:34 PM EDT AGE/SEX: 77 years / Female INDICATIONS: Altered mental status, weakness, shortness of breath, and dizziness. CLINICAL DATA: This is the patient's initial encounter. Patient reports that signs and symptoms have been present for 1 day and indicates a pain score of 0/10. MEDICAL/SURGICAL HISTORY: Diabetes. Myocardial infarction. Hypertension. CABG. Cholecystectomy. Hip and shoulder replacements RADIATION DOSE: 56.35 CTDI (mGy) COMPARISON: No prior exams available for comparison. TECHNIQUE: CT of the head without contrast. Using automated exposure control and adjustment of the mA and/or kV according to patient size, radiation dose was kept as low as reasonably achievable to ob tain optimal diagnostic quality images. DICOM format image data is available electronically for revi ew and comparison. FINDINGS: Cerebrum: The ventricles are normal for age. There is widening of the cortical sulci. There is some mild decreased density in the cerebral white matter. No evidence of midline shift, mass lesion, hemo rrhage or acute infarction. No extraaxial fluid collections are seen. Posterior Fossa: The cerebellum and brainstem are intact. The 4th ventricle is midline. The cerebe llopontine angle is unremarkable. Extracranial: The visualized portion of the orbits is intact. Skull: The calvaria is intact. No evidence of skull fracture. CONCLUSION: 1. No acute abnormality seen. 2. Cortical atrophy and suspected mild small vessel ischemic change in the white matter. . Electronically signed by: Twan Hensley MD 03/28/2018 9:22 PM EDT
[2018-03-28] MEDS: amLODIPine 10 MG Tablet PO SCH (22:13)
[2018-03-28] MEDS: Metoprolol Tartrate 50 MG Tablet PO SCH (22:14)
[2018-03-28] MEDS: Insulin Detemir Inj 1,000 UNIT/10 ML Vial SQ SCH (22:14)
[2018-03-28] MEDS: Insulin NovoLOG Aspart Correctional Sugar Inj SQ SCH (22:15)
[2018-03-28] MEDS: Sodium Chloride 0.9% 2 ML Flush BID IV.FLUSH SCH (22:17)
[2018-03-29] MEDS: Sod Chloride 0.9% Inj 1,000 ML IV.CONT SCH ×2 (04:25→14:02)
[2018-03-29] MEDS: Levothyroxine 150 MCG Tablet PO SCH (06:15)
[2018-03-29] MEDS: Insulin NovoLOG Aspart Correctional Sugar Inj SQ SCH ×3 (07:47→17:51)
[2018-03-29] MEDS: Sodium Chloride 0.9% 2 ML Flush BID IV.FLUSH SCH (09:00)
[2018-03-29] MEDS: Amiodarone 200 MG Tablet PO SCH (09:14)
[2018-03-29] MEDS: Multivitamin/Minerals Therapeutic Tablet PO SCH (09:14)
[2018-03-29] MEDS: Metoprolol Tartrate 50 MG Tablet PO SCH (09:14)
--- NOTE | 2018-03-29 16:54 | P.CONPSY ---
Provisional Diagnosis Admission Date: March 28, 2018 17:39 History of Present Illness Consult date: 03/29/18 Reason for Consult: Hallucinations Primary Care Provider: UNKNOWN Chief Complaint: Hallucinations History of Present Illness: This is a request for a psychiatric consult. Documentation was reviewed, case was discussed with nursing and patient was evaluated. Patient is a 77-year-old female here in the emergency room after new onset visual hallucinations. She denies a psychiatric history. Patient says these hallucinations began a couple of days ago. They are bizarre in nature and consist of 12 people that are looking at her but not responding to her. Patient says the hallucinations have resolved today and she has not seen anything that was not there. She says that the hallucinations may have been associated with her confusion given her elevated blood sugar upon admission. Patient denies a history of having these hallucinations. She also denies any auditory hallucinations or paranoia. No ideas of reference or delusions were elicited. Patient did note she is "going through some depression." She denies suicidal or homicidal ideation intent. She is able to take care of her ADLs such is dressing herself and bathing. She can also balance her checkbook. She is oriented x4 and does not notice any concerns with memory. Past psych: Denies inpatient or outpatient history. Denies suicide attempts Past medical: Recent double bypass, diabetes Past Famhx: 14-year-old son committed suicide Past Social: , 5 kids Review of Systems All other systems reviewed negative except as stated [facility] - History History Provided By: Patient - Medical History Medical History: Medical History (Last Reviewed 03/29/18 @ 16:52 by Paul Young DO) CAD (coronary artery disease) Diabetes Hypothyroidism - Surgical History Surgical History: Surgical History (Last Reviewed 03/29/18 @ 16:52 by Paul Young DO) History of hip replacement S/P CABG (coronary artery bypass graft) S/P shoulder replacement Hx of cholecystectomy - Family History Family History: Family History (Last Reviewed 03/29/18 @ 16:52 by Palu Young DO) Other Family history unobtainable due to patient's condition - Tobacco History Second Hand Smoke Exposure: No Tobacco Use In Past 30 Days: No Smoking Status: Former smoker Tobacco Type: Cigarettes - Alcohol History How Often Do You Have a Drink Containing Alcohol: Never - Substance Use History Substance History: No History of Abuse - Travel History Recent Travel in the [place] Within the Last 8 Weeks: No Recent Travel Out of the Country Within the Last 8 Weeks: No - Immunization History Tetanus Immunization: Unsure Medications and Allergies Active Medications: Active Medications Acetaminophen (Tylenol) 650 mg PO Q4H PRN PRN Reason: Headache, fever, pain 1-4 Al Hydroxide/Mg Hydroxide (Milk Of Magnesia Liq) 30 ml PO Q12H PRN PRN Reason: Mild Constipation Amiodarone HCl (Cordarone) 200 mg PO Q12HR [facility] Stop: 03/30/18 09:01 Last Admin: 03/29/18 09:14 Dose: 200 mg Amlodipine Besylate (Norvasc) 10 mg PO HS [facility] Last Admin: 03/28/18 22:13 Dose: 10 mg Aspirin (Aspirin Chew) 81 mg PO DAILY [facility] Last Admin: 03/29/18 09:14 Dose: 81 mg Atorvastatin Calcium (Lipitor) 80 mg PO HS [facility] Last Admin: 03/28/18 22:13 Dose: 80 mg Bisacodyl (Dulcolax Supp) 10 mg RECTAL DAILY PRN PRN Reason: SEVERE CONSITIPATION Clopidogrel Bisulfate (Plavix) 75 mg PO DAILY [facility] Last Admin: 03/29/18 09:14 Dose: 75 mg Dextrose (D50w Vial) 50 ml IV.PUSH UNSCH PRN PRN Reason: PER HYPOGLYCEMIA PROTOCOL Glucagon (Glucagon Inj) 1 mg OTHER PRN PRN PRN Reason: for Hypoglycemia Protocol Sodium Chloride (Ns Inj) 1,000 mls @ 100 mls/hr IV.CONT .Q10H [facility] Last Admin: 03/29/18 14:02 Dose: Not Given Insulin Aspart (Novolog Insulin Correctional Sugar Inj) 0 unit SQ ACHS [facility]; Protocol Last Admin: 03/29/18 13:29 Dose: 2 unit Insulin Aspart (Novolog Inj) 5 units SQ TIDAC [facility] Last Admin: 03/29/18 13:29 Dose: 5 units Insulin Detemir (Levemir Inj) 10 unit SQ HS [facility] Last Admin: 03/28/18 22:14 Dose: 10 unit Lactulose (Lactulose Liq) 30 ml PO DAILY PRN PRN Reason: SEVERE CONSITIPATION Levothyroxine Sodium (Synthroid) 300 mcg PO DAILY@0600 [facility] Last Admin: 03/29/18 06:15 Dose: 300 mcg Metoprolol Tartrate (Lopressor) 50 mg PO BID [facility] Last Admin: 03/29/18 09:14 Dose: 50 mg Multivitamins/Minerals (Theragran-M) 1 tab PO DAILY [facility] Last Admin: 03/29/18 09:14 Dose: 1 tab Ondansetron HCl (Zofran Inj) 4 mg IV.PUSH Q6H PRN PRN Reason: NAUSEA OR VOMITING Sennosides (Senokot) 17.2 mg PO Q12H PRN PRN Reason: Moderate Constipation Sodium Chloride (Ns Flush) 2 ml IV.FLUSH BID [facility] Last Admin: 03/29/18 09:00 Dose: Not Given Sodium Chloride (Ns Flush) 2 ml IV.FLUSH PRN PRN PRN Reason: FLUSH AFTER USING IV ACCESS Allergies Allergy/AdvReac Type Severity Reaction Status Date / Time No Known Allergies Allergy Unverified 03/07/18 07:38 Home Medications Medication Instructions Recorded Confirmed Type amlodipine 10 mg PO HS 03/28/18 03/28/18 History diphenhydramine HCl 50 mg PO HS PRN 03/28/18 03/28/18 History hydrocodone-acetaminophen 1 tab PO Q4H PRN 03/28/18 03/28/18 History insulin glargine [Lantus Solostar 5 unit SUBCUT HS 03/28/18 03/28/18 History U-100 Insulin] insulin glargine [Lantus Solostar 10 unit SUBCUT DAILY 03/28/18 03/28/18 History U-100 Insulin] pravastatin 40 mg PO HS 03/28/18 03/28/18 History Exam Vital signs: Vital Signs 03/28/18 17:00 03/28/18 18:38 03/28/18 19:28 Temperature Pulse Rate 70 70 71 Respiratory Rate 18 18 20 Blood Pressure 189/91 H 190/86 H 188/84 H Pulse Oximetry 98 95 96 03/28/18 20:10 03/28/18 20:12 03/28/18 21:47 Temperature 98.4 F Pulse Rate 75 71 75 Respiratory Rate 18 20 18 Blood Pressure 158/67 H 156/67 H 151/65 H Pulse Oximetry 98 95 03/29/18 00:00 03/29/18 07:35 03/29/18 11:58 Temperature 98.3 F 97.9 F 98.1 F Pulse Rate 64 64 66 Respiratory Rate 19 18 18 Blood Pressure 131/57 L 134/63 123/60 Pulse Oximetry 92 L 95 96 03/29/18 15:41 Temperature 98.5 F Pulse Rate 60 Respiratory Rate 18 Blood Pressure 129/60 Pulse Oximetry 98 Intake & Output 03/28/18 03/29/18 03/29/18 18:59 06:59 18:59 Intake Total 1000 / 1000 Balance 1000 / 1000 Weight 70.307 kg Intake: IV 1000 / 1000 NS Inj 1,000 ML @ 100 mls/hr IV 1000 / 1000 .CONT .Q10H [facility] Rx#:[id number] Other: # Voids 1 Mental Status Examination Appearance: Appropriate Consciousness: Alert Orientation: x4 Motor Activity: Normal gait Speech: Unremarkable Language: Adequate Fund of Knowledge: Adequate Attention and Concentration: Adequate Memory: Unremarkable Mood: Appropriate Affect: Appropriate Thought Process & Associations: Intact Thought Content: Appropriate Hallucination Type: None Delusion Type: None Suicidal Ideation: No Suicidal Plan: No Suicidal Intention: No Homicidal Ideation: No Homicidal Plan: No Homicidal Intention: No Insight: Fair Judgment: Adequate Assessment and Plan - Assessment (1) Psychosis not due to substance or known physiological condition Code(s): F29 - Unspecified psychosis not due to a substance or known physiological condition Status: Acute - Plan Plan: Estimated LOS: [] days I recommend completing an MRI and any other blood work to rule out an organic cause of her change in mental status. Given that the symptoms have resolved today she is not in danger to herself or others I would not recommend admission to the psychiatric unit. She should follow up with the psychiatrist or neurologist outpatient. Justification for Continued Inpatient Stay: Discharge home once medically clear
--- NOTE | 2018-03-29 17:53 | P.PN ---
Subjective Interval history: Patient is seen lying in bed. She is very pleasant and tells me that she is feeling better today. Denies any further hallucinations. She is very concerned that this means that she is developing dementia; provided reassurance that this is unlikely based on my conversation with her. She denies any chest pain or shortness of breath. No nausea vomiting or diarrhea. Nurse reports no abnormal behaviors. Physical Exam Vital signs: Vital Signs 03/28/18 18:38 03/28/18 19:28 03/28/18 20:10 Temperature Pulse Rate 70 71 75 Respiratory Rate 18 18 Blood Pressure 190/86 H 188/84 H 158/67 H Pulse Oximetry 95 96 03/28/18 20:12 03/28/18 21:47 03/29/18 00:00 Temperature 98.4 F 98.3 F Pulse Rate 71 75 64 Respiratory Rate 19 Blood Pressure 156/67 H 151/65 H 131/57 L Pulse Oximetry 98 95 92 L 03/29/18 07:35 03/29/18 11:58 03/29/18 15:41 Temperature 97.9 F 98.1 F 98.5 F Pulse Rate 64 66 60 Respiratory Rate 18 Blood Pressure 134/63 123/60 129/60 Pulse Oximetry 95 96 98 Intake & Output 03/28/18 03/29/18 03/29/18 18:59 06:59 18:59 Intake Total 1000 / 1000 Balance 1000 / 1000 Weight 70.307 kg Intake: IV 1000 / 1000 NS Inj 1,000 ML @ 100 mls/hr IV 1000 / 1000 .CONT .Q10H [facility] Rx#:[id number] Other: # Voids 1 Narrative: GENERAL: Pleasant elderly white female in no acute distress SKIN: Focused skin assessment warm and dry. HEENT: PERRLA, EOMI. No scleral icterus or conjunctival pallor. No lid lag or facial droop. CARDIOVASCULAR: Regular rate and rhythm. Murmur. No chest tenderness to palpation. Well-healing midsternal scar. RESPIRATORY: No obvious rhonchi or wheezing. Clear to auscultation. Breath sounds equal bilaterally. GASTROINTESTINAL: Abdomen soft, non-tender, nondistended. BS normal. MUSCULOSKELETAL: Extremities without clubbing, cyanosis, or edema. No obvious deformities. NEUROLOGICAL: Awake, alert and oriented x4. No focal neurologic deficits. Moving both upper and lower extremities spontaneously. PSYCHIATRIC: Appropriate mood and affect. Insight and judgment normal. Results - Labs CBC & Chem 7: 03/28/18 08:00 03/28/18 08:00 Laboratory Results - last 24 hr 03/28/18 03/28/18 03/29/18 18:35 22:00 07:42 POC Glucose 300 H 429 H 95 Stl C.difficile DNA Amp St C. diff Tox Epid 027 03/29/18 03/29/18 11:51 13:03 POC Glucose 157 H Stl C.difficile DNA Amp Negative St C. diff Tox Epid 027 Negative - Imaging Impressions Head CT 03/28/18 00:00 CONCLUSION: 1. No acute abnormality seen. 2. Cortical atrophy and suspected mild small vessel ischemic change in the white matter. . Assessment and Plan - Assessment (1) Hallucinations Code(s): R44.3 - Hallucinations, unspecified Status: Resolved (2) Elevated troponin Code(s): R74.8 - Abnormal levels of other serum enzymes Status: Acute (3) [place] (acute kidney injury) Code(s): N17.9 - Acute kidney failure, unspecified Status: Acute (4) HTN (hypertension) Code(s): I10 - Essential (primary) hypertension Status: Chronic (5) DM (diabetes mellitus) Code(s): E11.9 - Type 2 diabetes mellitus without complications Status: Chronic - Plan A/P: 1. Hallucinations: reports auditory/visual hallucinations since last night, no h/o similar symptoms, no suicidal/homicidal ideation. U/a negative, Check CXR to r/o other infectious etiology as pt w/ c/o SOB. No obvious metabolic disturbance to explain hallucinations. Hold Benadryl and [place] for possible drug effects. Consult Psychiatry for further evaluation; no psychiatric admit; psychiatry requesting MRI. Neuro Cheks. 2. Elevated Trop: Trop 0.12, no c/o chest pain. Recent admit 03/07-03/18/18 for NSTEMI, s/p CABG x3 by Dr Perez 03/14/18, last trop 3.86, likely trending down. Will check serial cardiac enzymes. Resume home ASA/Plavix, Statin and Metoprolol 3. HTN: Uncontrolled. BP 190's while in ER. S/p Metoprolol PO w/ minimal improvement. Hydralazine PO x1 now, resume home medications, monitor BP, antihypertensives as needed. BP returned to normal. 4. [place]: Creatinine 1.67, previously 1.31 on 03/18/18. IVF for hydration, monitor I/O, repeat labs in am. Improving. Monitor labs. 5. DM: Sliding scale w/ Accu-Cheks. Blood glucose high at admit now normal. 6. DVT Prophylaxis: SCD/Teds 7. Social work for d/c planning as needed
--- NOTE | 2018-03-29 20:17 | MR ---
EXAM DATE: 03/29/2018 7:40 PM EDT AGE/SEX: 77 years / Female INDICATIONS: Hallucinations. CLINICAL DATA: This is the patient's initial encounter. Patient reports that signs and symptoms have been present for 1 day and indicates a pain score of 0/10. MEDICAL/SURGICAL HISTORY: Cardiovascular disease. Diabetes mellitus type II. Hypothyroidism. CABG. Shoulder replacement.Loop recorder. COMPARISON: [facility], CT HEAD W/O CONTRAST, 03/28/2018. . TECHNIQUE: Multiplanar, multisequence examination of the brain was performed without contrast. FINDINGS: Cerebrum: The ventricles are normal for age. No evidence of midline shift, mass lesion, hemorrhage or acute infarction. No extraaxial fluid collections are seen. The pituitary gland and suprasellar cistern are normal in configuration. White Matter: Periventricular white matter hyperintensities indicating age appropriate chronic small vessel ischemic change. Posterior Fossa: The cerebellum and brainstem are intact. The 4th ventricle is midline. The cerebel lopontine angle is unremarkable. The cerebellar tonsils are normal in position. Diffusion Imaging: No focal areas of restricted diffusion are seen. No evidence of acute infarction . Extracranial: The visualized portions of the orbits and paranasal sinuses are unremarkable. CONCLUSION: No acute intracranial findings. Electronically signed by: Pritesh Mejía MD 03/29/2018 8:15 PM EDT
[2018-03-30] MEDS: Insulin Detemir Inj 1,000 UNIT/10 ML Vial SQ SCH (00:06)
[2018-03-30] MEDS: Amiodarone 200 MG Tablet PO SCH ×2 (00:06→10:04)
[2018-03-30] MEDS: Insulin NovoLOG Aspart Correctional Sugar Inj SQ SCH ×2 (00:07→09:02)
[2018-03-30] MEDS: Sodium Chloride 0.9% 2 ML Flush BID IV.FLUSH SCH ×2 (00:11→10:04)
[2018-03-30] MEDS: amLODIPine 10 MG Tablet PO SCH (00:12)
[2018-03-30] MEDS: Metoprolol Tartrate 50 MG Tablet PO SCH ×2 (00:14→10:04)
[2018-03-30] MEDS: Sod Chloride 0.9% Inj 1,000 ML IV.CONT SCH ×2 (00:16→12:24)
[2018-03-30] MEDS: Levothyroxine 150 MCG Tablet PO SCH (06:32)
[2018-03-30 08:05] VITALS: RESP 16
[2018-03-30 08:35] LABS: Calcium 7.9 mg/dL (8.5-10.1); Carbon Dioxide 25.2 meq/L (21.0-32.0); Magnesium 1.8 mg/dL (1.5-2.5)
--- NOTE | 2018-03-30 08:54 | P.PN ---
Subjective Interval history: Patient is seen lying comfortably in bed. She tells me that she has experienced no more hallucinations or concerning events. No headache, syncope or dizziness. No chest pain or shortness of breath. Nursing reports no unusual behaviors. Physical Exam Vital signs: Vital Signs 03/29/18 11:58 03/29/18 15:41 03/29/18 19:31 Temperature 98.1 F 98.5 F 98.8 F Pulse Rate 66 60 65 Respiratory Rate 18 18 18 Blood Pressure 123/60 129/60 122/60 Pulse Oximetry 96 98 96 03/30/18 04:00 03/30/18 08:00 Temperature 98.9 F 98.5 F Pulse Rate 62 65 Respiratory Rate 18 16 Blood Pressure 140/63 154/68 H Pulse Oximetry 98 96 Intake & Output 03/29/18 03/30/18 03/30/18 18:59 06:59 18:59 Intake Total 1200 / 1200 Balance 1200 / 1200 Intake: IV 1000 / 1000 NS Inj 1,000 ML @ 100 mls/hr IV 1000 / 1000 .CONT .Q10H [facility] Rx#:[id number] Oral 200 / 200 Other: # Voids 1 Date of Last Bowel Movement 03/29/18 03/29/18 # Bowel Movements 1 Narrative: GENERAL: Pleasant elderly white female in no acute distress SKIN: Focused skin assessment warm and dry. HEENT: PERRLA, EOMI. No scleral icterus or conjunctival pallor. No lid lag or facial droop. CARDIOVASCULAR: Regular rate and rhythm. Murmur. No chest tenderness to palpation. Well-healing midsternal scar. RESPIRATORY: No obvious rhonchi or wheezing. Clear to auscultation. Breath sounds equal bilaterally. GASTROINTESTINAL: Abdomen soft, non-tender, nondistended. BS normal. MUSCULOSKELETAL: Extremities without clubbing, cyanosis, or edema. No obvious deformities. NEUROLOGICAL: Awake, alert and oriented x4. No focal neurologic deficits. Moving both upper and lower extremities spontaneously. PSYCHIATRIC: Appropriate mood and affect. Insight and judgment normal. Results - Labs CBC & Chem 7: 03/28/18 08:00 03/30/18 06:20 Laboratory Results - last 24 hr 03/29/18 03/29/18 03/29/18 11:51 13:03 17:50 Sodium Potassium Chloride Carbon Dioxide Anion Gap BUN Creatinine Estimated GFR POC Glucose 157 H 121 H Random Glucose Calcium Magnesium Stl C.difficile DNA Amp Negative St C. diff Tox Epid 027 Negative 03/29/18 03/30/18 23:42 06:20 Sodium 137 Potassium 4.0 D Chloride 103 D Carbon Dioxide 25.2 Anion Gap 9 BUN 15 Creatinine 0.93 Estimated GFR 58 L POC Glucose 335 H Random Glucose 94 D Calcium 7.9 L D Magnesium 1.8 Stl C.difficile DNA Amp St C. diff Tox Epid 027 - Imaging Impressions Head MRI 03/29/18 00:00 CONCLUSION: No acute intracranial findings. Assessment and Plan - Assessment (1) Hallucinations Code(s): R44.3 - Hallucinations, unspecified Status: Resolved (2) Elevated troponin Code(s): R74.8 - Abnormal levels of other serum enzymes Status: Acute (3) [place] (acute kidney injury) Code(s): N17.9 - Acute kidney failure, unspecified Status: Resolved (4) HTN (hypertension) Code(s): I10 - Essential (primary) hypertension Status: Chronic (5) DM (diabetes mellitus) Code(s): E11.9 - Type 2 diabetes mellitus without complications Status: Chronic - Plan A/P: 1. Hallucinations: reports auditory/visual hallucinations since last night, no h/o similar symptoms, no suicidal/homicidal ideation. U/a negative, Check CXR to r/o other infectious etiology as pt w/ c/o SOB. No obvious metabolic disturbance to explain hallucinations except for slight AKA/dehydration. Hold Benadryl and [place] for possible drug effects. Consult Psychiatry for further evaluation; no psychiatric admit; psychiatry requesting MRI; MRI indicated no acute process. Neuro Cheks. 2. Elevated Trop: Trop 0.12, no c/o chest pain. Recent admit 03/07-03/18/18 for NSTEMI, s/p CABG x3 by Dr Perez 03/14/18, last trop 3.86, likely trending down. Will check serial cardiac enzymes. Resume home ASA/Plavix, Statin and Metoprolol 3. HTN: Uncontrolled. BP 190's while in ER. S/p Metoprolol PO w/ minimal improvement. Hydralazine PO x1 now, resume home medications, monitor BP, antihypertensives as needed. BP returned to normal. 4. [place]: Creatinine 1.67, previously 1.31 on 03/18/18. IVF for hydration, monitor I/O, repeat labs in am. Resolved. 5. DM: Sliding scale w/ Accu-Cheks. Blood glucose high at admit now normal. 6. DVT Prophylaxis: SCD/Teds 7. Social work for d/c planning as needed
--- NOTE | 2018-03-30 09:03 | P.DS ---
Date of admission: 03/28/18 17:39 Primary care physician: UNKNOWN Attending physician on discharge: Alana Walsh Anticipated date of discharge: 03/30/18 Brief History from admission: This is a 77-year-old female with a PMH of HTN, Hyperlipidemia, Hypothyroidism and DM who was brought to the ER from [place] w/ c/o hallucinations and generalized weakness. Recent admit 03/07-03/18/18, brought in by PD under [place] after well person check, found to have elevated BS and refusing medical treatment, admitted for Encephalopathy/DKA, found to have elevated trop 3.86, s/ p Cath w/ extensive disease, underwent CABG x3 by Dr. Perez on 03/14/18, d/c'd to Rehab and ultimately discharged home. Pt states she was feeling fine until last night when she began to have hallucinations, states she started "having a conversation with someone for hours". Today, states there were 12 people in her room, children and adults. No h/o hallucinations in the past. No suicidal/ homicidal ideation. Denies chest pain, but reports SOB since last night, worse w/ exertion. On arrival, BP 195/86, HR 76, O2 sat 96% on RA, Afebrile. CBC essentially at baseline. Creatinine 1.67, previously 1.31 on 04-03. Troponin 0.12, previously 3.86 on 03/07/2018. Pt without complaints at this time. DS: Diagnosis - Discharge Diagnosis (1) Hallucinations Status: Resolved (2) Elevated troponin Status: Acute (3) [place] (acute kidney injury) Status: Resolved (4) HTN (hypertension) Status: Chronic (5) DM (diabetes mellitus) Status: Chronic DS: Summary Hospital Course: Patient is a 77-year-old female who was admitted for hallucinations. Reportes auditory/visual hallucinations, no h/o similar symptoms, no suicidal/ homicidal ideation. U/a negative, Imaging was negative for acute process. No obvious metabolic disturbance to explain hallucinations except for slight AKA/ dehydration. Suspect combination of dehydration plus medications Benadryl and [place]. Psychiatry was consulted and did not feel that patient needed admittance. At admit patient was noted to have elevated Trop: Trop 0.12, no c/ o chest pain. Recent admit 03/07-03/18/18 for NSTEMI, s/p CABG x3 by Dr Perez , last trop 3.86, likely trending down. Hypertensive at admit; likely related to anxiety over situation. BP 190's while in ER. BP returned to normal. [place]: Creatinine 1.67, previously 1.31 on 03/18/18. IVF for hydration, Resolved. - Time Spent with Patient Total time spent providing and/or coordinating discharge services: Less than 30 minutes - Quality: VTE Deep Vein Thrombosis/Pulmonary Embolism Present on Admission: No Exam Vital signs: Vital Signs 03/29/18 11:58 03/29/18 15:41 03/29/18 19:31 Temperature 98.1 F 98.5 F 98.8 F Pulse Rate 66 60 65 Respiratory Rate 18 18 18 Blood Pressure 123/60 129/60 122/60 Pulse Oximetry 96 98 96 03/30/18 04:00 03/30/18 08:00 Temperature 98.9 F 98.5 F Pulse Rate 62 65 Respiratory Rate 18 16 Blood Pressure 140/63 154/68 H Pulse Oximetry 98 96 Intake & Output 03/29/18 03/30/18 03/30/18 18:59 06:59 18:59 Intake Total 1200 / 1200 Balance 1200 / 1200 Intake: IV 1000 / 1000 NS Inj 1,000 ML @ 100 mls/hr IV 1000 / 1000 .CONT .Q10H [facility] Rx#:[id number] Oral 200 / 200 Other: # Voids 1 Date of Last Bowel Movement 03/29/18 03/29/18 # Bowel Movements 1 Narrative: GENERAL: Pleasant elderly white female in no acute distress SKIN: Focused skin assessment warm and dry. HEENT: PERRLA, EOMI. No scleral icterus or conjunctival pallor. No lid lag or facial droop. CARDIOVASCULAR: Regular rate and rhythm. Murmur. No chest tenderness to palpation. Well-healing midsternal scar. RESPIRATORY: No obvious rhonchi or wheezing. Clear to auscultation. Breath sounds equal bilaterally. GASTROINTESTINAL: Abdomen soft, non-tender, nondistended. BS normal. MUSCULOSKELETAL: Extremities without clubbing, cyanosis, or edema. No obvious deformities. NEUROLOGICAL: Awake, alert and oriented x4. No focal neurologic deficits. Moving both upper and lower extremities spontaneously. PSYCHIATRIC: Appropriate mood and affect. Insight and judgment normal. Results Procedures completed during hospitalization: none Labs on day of discharge: Labs from last 24 hours 03/30/18 03/29/18 03/29/18 06:20 23:42 17:50 Sodium 137 Potassium 4.0 D Chloride 103 D Carbon Dioxide 25.2 Anion Gap 9 BUN 15 Creatinine 0.93 Estimated GFR 58 L POC Glucose 335 H 121 H Random Glucose 94 D Calcium 7.9 L D Magnesium 1.8 Stl C.difficile DNA Amp St C. diff Tox Epid 027 03/29/18 03/29/18 13:03 11:51 Sodium Potassium Chloride Carbon Dioxide Anion Gap BUN Creatinine Estimated GFR POC Glucose 157 H Random Glucose Calcium Magnesium Stl C.difficile DNA Amp Negative St C. diff Tox Epid 027 Negative - Impressions ITS Impressions Head CT 03/28/18 00:00 CONCLUSION: 1. No acute abnormality seen. 2. Cortical atrophy and suspected mild small vessel ischemic change in the white matter. . Head MRI 03/29/18 00:00 CONCLUSION: No acute intracranial findings. Discharge Plan - Discharge Disposition Patient Disposition: 01 Discharge Home - Discharge Condition Condition: Stable - Discharge Order Discharge Orders: Discharge Order (Routine); Ordered 03/30/18 Ordered By: Jenifer Rosario - Physicians Team Primary Care Provider: UNKNOWN, Attending Provider: Alana Walsh Other Providers: Twan Gates MD ; Otf Vanessa
[2018-03-30] MEDS: Multivitamin/Minerals Therapeutic Tablet PO SCH (10:04)
[2018-03-30 11:39] VITALS: BP 133/61; PULSE 62; TEMP 98.8; O2SAT 97
== END 2018-03-30 13:06 | disposition home or self-care (01) ==
LOC: NEDA 07:16 → NEPC 07:16 → NEPFCDU 20:37
PROVIDERS: ADMIT Family Medicine; ATTEND Family Medicine
DX: E03.9 Hypothyroidism, unspecified; Z79.899 Other long term (current) drug therapy; Z79.82 Long term (current) use of aspirin; I10 Essential (primary) hypertension; Z87.891 Personal history of nicotine dependence; E11.65 Type 2 diabetes mellitus with hyperglycemia; R74.8 Abnormal levels of other serum enzymes; Z79.02 Long term (current) use of antithrombotics/antiplatelets; N17.9 Acute kidney failure, unspecified; F29 Unspecified psychosis not due to a substance or known physiological condition; R53.1 Weakness; Z79.4 Long term (current) use of insulin; I25.2 Old myocardial infarction; I25.10 Atherosclerotic heart disease of native coronary artery without angina pectoris; R44.3 Hallucinations, unspecified; E78.5 Hyperlipidemia, unspecified; F32.9 Major depressive disorder, single episode, unspecified

== ENCOUNTER 2018-04-08 16:29 | Inpatient (IN) ==
--- NOTE | 2018-04-08 17:44 | ED ---
HPI General Chief Complaint: Fall Stated Complaint: Fall/Syncope Time Seen by Provider: 04/08/18 17:15 Source: patient Mode of arrival: EMS Limitations: no limitations History of Present Illness HPI Narrative: 77-year-old female complains of headache, neck pain, low back pain and left buttock pain. Patient states that she fell this morning and this afternoon. Patient states that she has frequent Pagan recently. Patient states that sometimes she hit her head. Patient denies loss of consciousness. Patient on aching headache. Patient Dot sharp pain to the neck area and left low back area. Patient denies any chest pain or shortness of breath. Patient denies of denies abdominal pain. Patient denies any focal weakness or numbness of the extremity. Patient states that she noticed some hematuria this morning. Patient denies any dysuria or frequency. Patient has history of diabetes. Blood sugars been running in the 500 range. Patient has history of CAD status post CABG. Patient has history hypertension hyperlipidemia. Patient is a non- smoker. MD complaint: Reports fall Onset (ago): hour(s) Fall from: standing Fall witnessed: no Place fall occurred: home Loss of consciousness: none Prolonged down time: no Symptoms prior to fall: Reports lightheadedness Context: Reports tripped/slipped Location of injury: Reports head, neck, back and pelvis Severity: moderate Severity scale (1-10): 5 Quality: Reports sharp Associated symptoms (after fall): Reports denies Related Data Home Medications Medication Instructions Recorded Confirmed amlodipine 10 mg PO DAILY 03/28/18 04/08/18 insulin glargine [Lantus Solostar 15 unit SUBCUT HS 03/28/18 04/08/18 U-100 Insulin] insulin aspart U-100 [Novolog 1 - 16 unit SUBCUT ACHS 04/08/18 04/08/18 U-100 Insulin aspart] Previous Rx's Medication Instructions Recorded aspirin 81 mg PO DAILY #30 tab 03/18/18 clopidogrel [Plavix] 75 mg PO DAILY #30 tab 03/18/18 levothyroxine [Synthroid] 300 mcg PO DAILY@0600 #60 tab 03/18/18 quetiapine 12.5 mg PO BID #60 tab 04/10/18 Allergies Allergy/AdvReac Type Severity Reaction Status Date / Time No Known Allergies Allergy Verified 04/08/18 17:26 Review of Systems ROS: all other systems reviewed are negative [facility] Medical History Medical History Neuropathy (Acute) CAD (coronary artery disease) (Acute) Diabetes (Acute) Hypothyroidism (Acute) Surgical History Surgical History History of hip replacement (Acute) Hx of cholecystectomy (Acute) S/P CABG (coronary artery bypass graft) (Acute) S/P shoulder replacement (Acute) Family History Family History Other Family history unobtainable due to patient's condition Social History Social History Substance History: No History of Abuse Second Hand Smoke Exposure: Yes Smoking Status: Former smoker Tobacco Type: Cigarettes How Often Do You Have a Drink Containing Alcohol: Never Recent Travel in [facility] within the Last 8 Weeks: No Recent Out of Country Travel within the Last 8 Weeks: No Immunization History Tetanus Immunization: Unsure Exam Narrative Exam Narrative: GENERAL: Well-nourished, well-developed patient. SKIN: Focused skin assessment warm/dry. HEAD: Normocephalic. Non-tenderness on palpation of the scalp. EYES: No scleral icterus. No injection or drainage. Pupils 2 mm equal reactive. NECK: Supple, trachea midline. No JVD or lymphadenopathy. No neck tenderness on palpation. CARDIOVASCULAR: Regular rate and rhythm without murmurs, gallops, or rubs. RESPIRATORY: Breath sounds equal bilaterally. No accessory muscle use. GASTROINTESTINAL: Abdomen soft, non-tender, nondistended. MUSCULOSKELETAL: No cyanosis, or edema. BACK: Patient has ecchymosis swelling tenderness left low back area, Without obvious deformity. No CVA tenderness. Neurologic exam normal. Course Initial Documented Vital Signs Temperature 97.5 F L 04/08/18 16:59 Pulse Rate 64 04/08/18 16:59 Respiratory Rate 15 04/08/18 16:59 Blood Pressure 164/72 H 04/08/18 16:59 Pulse Oximetry 97 04/08/18 16:59 Last Documented Vital Signs Temperature 98.1 F 04/10/18 07:54 Pulse Rate 82 04/10/18 07:54 Respiratory Rate 16 04/10/18 07:54 Blood Pressure 158/72 H 04/10/18 07:54 Pulse Oximetry 96 04/10/18 07:54 Medical Decision Making MDM Narrative Medical decision making narrative: 77-year-old female with frequent fall, head injury, neck injury, low back injury. History of diabetes. The patient's case was checked out to me at the conclusion of Dr. Ludwig harris. Please see his initial history and physical. On my initial evaluation of the patient, the patient reports frequent falls. She reports that at times she has passed out. The patient presents with a history of falling prior to arrival. The patient has a cervical collar in place. She denies having any numbness or tingling to her extremities or weakness of her extremities. She reports that she has had intermittent chest pain, however she thought this was related to her high blood pressure. The patient reports that she had a two-vessel bypass done February 2018. She denies having any nausea, vomiting, or diarrhea associated with this. She reports that she is been eating and drinking well. Her last bowel movement was 2 days ago. During the course of the patient's emergency department visit, the patient's history, examination, and differential diagnosis were reviewed with the patient. The patient was placed on a playground monitor with oximetry and frequent blood pressure monitoring. The patient had IV access obtained and blood work sent for analysis. The patient had a diagnostic evaluation started for syncope associated with fall. The patient was initially provided normal saline at 100 mL/h. The patient's diagnostic evaluation is remarkable forA white count of 6.6, hemoglobin 10.7 which is stable compared to prior hemoglobins, glucose platelets are 237 with 12.9 monocytes chemistry is remarkable for a sodium of 128 which is decreased from 137 on March 30. Potassium 5.5, chloride 96, BUN is 45, creatinine 2.61 which is greatly increased from last evaluation in March consistent with an acute kidney injury, current GFR is 18, glucose 108, alk phos 242, albumin 2.9. The patient had a chest x-ray done that shows improved aeration of both lung bases with some residual atelectasis/airspace disease in the left base, compensated cardiomegaly, interval removal of the left -sided thoracostomy tube, mediastinal drain and right IJ central venous catheter have also been removed, no pneumothorax, left shoulder arthroplasty is noted, no acute osseous injury. Pelvis x-ray reveals no acute abnormality. CT scan of the brain shows mild chronic changes with minimal periventricular small vessel ischemic demyelinization, chronic sinusitis, no other acute abnormality. CT scan of the C-spine shows degenerative disc disease basically isolated to C6-C7 with loss of disc height and uncovertebral ridging. Bilateral mild facet hypertrophy at C3-C4. Lumbar spine x-ray reveals chronic changes with some loss of height superior endplate of T12, chronic central compression to the superior endplate of L1 I do not see an acute osseous injury according to the reading radiologist. Grade 1 anterolisthesis of L4 on L5 appears to be due to facet degeneration and hypertrophy, facet hypertrophy and sclerosis is also seen at the lumbar O lumbosacral junction. The patient's case including history, pertinent physical examination findings, and laboratory studies were discussed with Dr. Donaldson. It was agreed that the patient would be admitted to the hospitalist service. The patient's results were discussed with the patient, including the plan of care. I explained that further testing and/ or monitoring is indicated based on the patient's history, examination, and/ or laboratory findings. Therefore, I recommended admission for additional evaluation. The patient expressed understanding and was agreeable with this plan. The patient was admitted to the hospital in stable condition and sent to a bed under the care of the [facility] service. Medical Screen Exam Complete: Yes Emergency Medical Condition: Yes Differential Diagnosis Differential Diagnosis: Differential diagnosis including head injury, neck injury, back injury, electrolyte imbalance, dehydration, hyperglycemia DKA. Lab Data Result diagrams: 04/09/18 03:45 04/10/18 11:23 Lab Results 04/08/18 04/08/18 04/08/18 Range/Units 18:26 18:26 18:26 WBC 6.6 (4.0-11.0) th/mm3 RBC 3.56 L (4.00-5.30) mil/mm3 Hgb 10.7 L (11.6-15.3) gm/dL Hct 32.2 L (35.0-46.0) % MCV 90.6 (80.0-100.0) fL MCH 30.1 (27.0-34.0) pg MCHC 33.2 (32.0-36.0) % RDW 16.9 (11.6-17.2) % Plt Count 237 D (150-450) th/mm3 MPV 9.0 (7.0-11.0) fL Neut % (Auto) 55.0 (16.0-70.0) % Lymph % (Auto) 22.7 (9.0-44.0) % Pierce % (Auto) 12.9 H (0.0-8.0) % Eos % (Auto) 8.1 H (0.0-4.0) % Baso % (Auto) 1.3 (0.0-2.0) % Neut # (Auto) 3.7 (1.8-7.7) th/mm3 Lymph # (Auto) 1.5 (1.0-4.8) th/mm3 Pierce # (Auto) 0.9 (0.0-0.9) th/mm3 Eos # (Auto) 0.5 H (0.0-0.4) th/mm3 Baso # (Auto) 0.1 (0.0-0.2) th/mm3 WBC Differential . Differential Comment Auto diff final Sodium 128 L (136-145) meq/L Potassium 5.5 H (3.5-5.1) meq/L Chloride 96 L (98-107) meq/L Carbon Dioxide 22.8 (21.0-32.0) meq/L Anion Gap 9 (5-15) meq/L BUN 45 H (7-18) mg/dL Creatinine 2.61 H (0.50-1.00) mg/dL Estimated GFR 18 L (>89) mL/min POC Glucose (68-110) mg/dl Random Glucose 408 H (74-106) mg/dL Calcium 8.3 L (8.5-10.1) mg/dL Total Bilirubin 0.3 (0.2-1.0) mg/dL AST 31 (15-37) U/L ALT 31 (10-53) U/L Alkaline Phosphatase 242 H (45-117) U/L Troponin I 0.48 H (0.02-0.05) ng/mL Total Protein 7.2 (6.4-8.2) g/dL Albumin 2.9 L (3.4-5.0) g/dL Urine Color (Yellw/Straw) Urine Clarity (Clear) Urine pH (5.0-8.5) Ur Specific Pierz (1.002-1.035) Urine Protein (Neg-Trace) mg/dL Urine Glucose (UA) (Negative) mg/dL Urine Ketones (Negative) mg/dL Urine Occult Blood (Negative) Urine Nitrate (Negative) Urine Bilirubin (Negative) Urine Urobilinogen (Less than 2) mg/dL Ur Leukocyte Esterase (Negative) Urine WBC (0-5) /hpf Ur Squamous Epith Cells (0-5) /hpf Urine Bacteria (None) /hpf Micro UA Comment Ur Microscopic Review Urine Culture Comments 04/08/18 04/09/18 04/09/18 Range/Units 21:45 03:14 03:45 WBC 6.0 (4.0-11.0) th/mm3 RBC 3.59 L (4.00-5.30) mil/mm3 Hgb 10.7 L (11.6-15.3) gm/dL Hct 33.0 L (35.0-46.0) % MCV 91.9 (80.0-100.0) fL MCH 29.7 (27.0-34.0) pg MCHC 32.3 (32.0-36.0) % RDW 16.2 (11.6-17.2) % Plt Count 212 (150-450) th/mm3 MPV 9.4 (7.0-11.0) fL Neut % (Auto) 54.0 (16.0-70.0) % Lymph % (Auto) 29.7 (9.0-44.0) % Pierce % (Auto) 10.6 H (0.0-8.0) % Eos % (Auto) 4.4 H (0.0-4.0) % Baso % (Auto) 1.3 (0.0-2.0) % Neut # (Auto) 3.2 (1.8-7.7) th/mm3 Lymph # (Auto) 1.8 (1.0-4.8) th/mm3 Pierce # (Auto) 0.6 (0.0-0.9) th/mm3 Eos # (Auto) 0.3 (0.0-0.4) th/mm3 Baso # (Auto) 0.1 (0.0-0.2) th/mm3 WBC Differential . Differential Comment Auto diff final Sodium (136-145) meq/L Potassium (3.5-5.1) meq/L Chloride (98-107) meq/L Carbon Dioxide (21.0-32.0) meq/L Anion Gap (5-15) meq/L BUN (7-18) mg/dL Creatinine (0.50-1.00) mg/dL Estimated GFR (>89) mL/min POC Glucose 549 H* (68-110) mg/dl Random Glucose (74-106) mg/dL Calcium (8.5-10.1) mg/dL Total Bilirubin (0.2-1.0) mg/dL AST (15-37) U/L ALT (10-53) U/L Alkaline Phosphatase (45-117) U/L Troponin I (0.02-0.05) ng/mL Total Protein (6.4-8.2) g/dL Albumin (3.4-5.0) g/dL Urine Color Straw (Yellw/Straw) Urine Clarity Clear (Clear) Urine pH 5.0 (5.0-8.5) Ur Specific Pierz 1.010 (1.002-1.035) Urine Protein Negative (Neg-Trace) mg/dL Urine Glucose (UA) 500 or greater (Negative) mg/dL Urine Ketones Trace H (Negative) mg/dL Urine Occult Blood Negative (Negative) Urine Nitrate Negative (Negative) Urine Bilirubin Negative (Negative) Urine Urobilinogen Less than 2 (Less than 2) mg/dL Ur Leukocyte Esterase Negative (Negative) Urine WBC 2 (0-5) /hpf Ur Squamous Epith Cells <1 (0-5) /hpf Urine Bacteria Rare H (None) /hpf Micro UA Comment Culture not ind Ur Microscopic Review Not Reportable Urine Culture Comments Culture not ind 04/09/18 04/09/18 04/09/18 Range/Units 03:45 05:17 08:47 WBC (4.0-11.0) th/mm3 RBC (4.00-5.30) mil/mm3 Hgb (11.6-15.3) gm/dL Hct (35.0-46.0) % MCV (80.0-100.0) fL MCH (27.0-34.0) pg MCHC (32.0-36.0) % RDW (11.6-17.2) % Plt Count (150-450) th/mm3 MPV (7.0-11.0) fL Neut % (Auto) (16.0-70.0) % Lymph % (Auto) (9.0-44.0) % Pierce % (Auto) (0.0-8.0) % Eos % (Auto) (0.0-4.0) % Baso % (Auto) (0.0-2.0) % Neut # (Auto) (1.8-7.7) th/mm3 Lymph # (Auto) (1.0-4.8) th/mm3 Pierce # (Auto) (0.0-0.9) th/mm3 Eos # (Auto) (0.0-0.4) th/mm3 Baso # (Auto) (0.0-0.2) th/mm3 WBC Differential Differential Comment Sodium 130 L (136-145) meq/L Potassium 5.5 H (3.5-5.1) meq/L Chloride 98 (98-107) meq/L Carbon Dioxide 14.1 L (21.0-32.0) meq/L Anion Gap 18 H (5-15) meq/L BUN 37 H (7-18) mg/dL Creatinine 1.90 H (0.50-1.00) mg/dL Estimated GFR 26 L (>89) mL/min POC Glucose 527 H* 252 H (68-110) mg/dl Random Glucose 545 H* D (74-106) mg/dL Calcium 8.2 L (8.5-10.1) mg/dL Total Bilirubin (0.2-1.0) mg/dL AST (15-37) U/L ALT (10-53) U/L Alkaline Phosphatase (45-117) U/L Troponin I (0.02-0.05) ng/mL Total Protein (6.4-8.2) g/dL Albumin (3.4-5.0) g/dL Urine Color (Yellw/Straw) Urine Clarity (Clear) Urine pH (5.0-8.5) Ur Specific Pierz (1.002-1.035) Urine Protein (Neg-Trace) mg/dL Urine Glucose (UA) (Negative) mg/dL Urine Ketones (Negative) mg/dL Urine Occult Blood (Negative) Urine Nitrate (Negative) Urine Bilirubin (Negative) Urine Urobilinogen (Less than 2) mg/dL Ur Leukocyte Esterase (Negative) Urine WBC (0-5) /hpf Ur Squamous Epith Cells (0-5) /hpf Urine Bacteria (None) /hpf Micro UA Comment Ur Microscopic Review Urine Culture Comments 04/09/18 04/09/18 04/09/18 Range/Units 12:20 17:31 21:07 WBC (4.0-11.0) th/mm3 RBC (4.00-5.30) mil/mm3 Hgb (11.6-15.3) gm/dL Hct (35.0-46.0) % MCV (80.0-100.0) fL MCH (27.0-34.0) pg MCHC (32.0-36.0) % RDW (11.6-17.2) % Plt Count (150-450) th/mm3 MPV (7.0-11.0) fL Neut % (Auto) (16.0-70.0) % Lymph % (Auto) (9.0-44.0) % Pierce % (Auto) (0.0-8.0) % Eos % (Auto) (0.0-4.0) % Baso % (Auto) (0.0-2.0) % Neut # (Auto) (1.8-7.7) th/mm3 Lymph # (Auto) (1.0-4.8) th/mm3 Pierce # (Auto) (0.0-0.9) th/mm3 Eos # (Auto) (0.0-0.4) th/mm3 Baso # (Auto) (0.0-0.2) th/mm3 WBC Differential Differential Comment Sodium (136-145) meq/L Potassium (3.5-5.1) meq/L Chloride (98-107) meq/L Carbon Dioxide (21.0-32.0) meq/L Anion Gap (5-15) meq/L BUN (7-18) mg/dL Creatinine (0.50-1.00) mg/dL Estimated GFR (>89) mL/min POC Glucose 128 H 359 H 261 H (68-110) mg/dl Random Glucose (74-106) mg/dL Calcium (8.5-10.1) mg/dL Total Bilirubin (0.2-1.0) mg/dL AST (15-37) U/L ALT (10-53) U/L Alkaline Phosphatase (45-117) U/L Troponin I (0.02-0.05) ng/mL Total Protein (6.4-8.2) g/dL Albumin (3.4-5.0) g/dL Urine Color (Yellw/Straw) Urine Clarity (Clear) Urine pH (5.0-8.5) Ur Specific Pierz (1.002-1.035) Urine Protein (Neg-Trace) mg/dL Urine Glucose (UA) (Negative) mg/dL Urine Ketones (Negative) mg/dL Urine Occult Blood (Negative) Urine Nitrate (Negative) Urine Bilirubin (Negative) Urine Urobilinogen (Less than 2) mg/dL Ur Leukocyte Esterase (Negative) Urine WBC (0-5) /hpf Ur Squamous Epith Cells (0-5) /hpf Urine Bacteria (None) /hpf Micro UA Comment Ur Microscopic Review Urine Culture Comments 04/10/18 04/10/18 04/10/18 Range/Units 03:33 03:43 08:30 WBC (4.0-11.0) th/mm3 RBC (4.00-5.30) mil/mm3 Hgb (11.6-15.3) gm/dL Hct (35.0-46.0) % MCV (80.0-100.0) fL MCH (27.0-34.0) pg MCHC (32.0-36.0) % RDW (11.6-17.2) % Plt Count (150-450) th/mm3 MPV (7.0-11.0) fL Neut % (Auto) (16.0-70.0) % Lymph % (Auto) (9.0-44.0) % Pierce % (Auto) (0.0-8.0) % Eos % (Auto) (0.0-4.0) % Baso % (Auto) (0.0-2.0) % Neut # (Auto) (1.8-7.7) th/mm3 Lymph # (Auto) (1.0-4.8) th/mm3 Pierce # (Auto) (0.0-0.9) th/mm3 Eos # (Auto) (0.0-0.4) th/mm3 Baso # (Auto) (0.0-0.2) th/mm3 WBC Differential Differential Comment Sodium (136-145) meq/L Potassium (3.5-5.1) meq/L Chloride (98-107) meq/L Carbon Dioxide (21.0-32.0) meq/L Anion Gap (5-15) meq/L BUN (7-18) mg/dL Creatinine (0.50-1.00) mg/dL Estimated GFR (>89) mL/min POC Glucose 62 L 74 62 L (68-110) mg/dl Random Glucose (74-106) mg/dL Calcium (8.5-10.1) mg/dL Total Bilirubin (0.2-1.0) mg/dL AST (15-37) U/L ALT (10-53) U/L Alkaline Phosphatase (45-117) U/L Troponin I (0.02-0.05) ng/mL Total Protein (6.4-8.2) g/dL Albumin (3.4-5.0) g/dL Urine Color (Yellw/Straw) Urine Clarity (Clear) Urine pH (5.0-8.5) Ur Specific Pierz (1.002-1.035) Urine Protein (Neg-Trace) mg/dL Urine Glucose (UA) (Negative) mg/dL Urine Ketones (Negative) mg/dL Urine Occult Blood (Negative) Urine Nitrate (Negative) Urine Bilirubin (Negative) Urine Urobilinogen (Less than 2) mg/dL Ur Leukocyte Esterase (Negative) Urine WBC (0-5) /hpf Ur Squamous Epith Cells (0-5) /hpf Urine Bacteria (None) /hpf Micro UA Comment Ur Microscopic Review Urine Culture Comments 04/10/18 04/10/18 Range/Units 10:06 11:23 WBC (4.0-11.0) th/mm3 RBC (4.00-5.30) mil/mm3 Hgb (11.6-15.3) gm/dL Hct (35.0-46.0) % MCV (80.0-100.0) fL MCH (27.0-34.0) pg MCHC (32.0-36.0) % RDW (11.6-17.2) % Plt Count (150-450) th/mm3 MPV (7.0-11.0) fL Neut % (Auto) (16.0-70.0) % Lymph % (Auto) (9.0-44.0) % Pierce % (Auto) (0.0-8.0) % Eos % (Auto) (0.0-4.0) % Baso % (Auto) (0.0-2.0) % Neut # (Auto) (1.8-7.7) th/mm3 Lymph # (Auto) (1.0-4.8) th/mm3 Pierce # (Auto) (0.0-0.9) th/mm3 Eos # (Auto) (0.0-0.4) th/mm3 Baso # (Auto) (0.0-0.2) th/mm3 WBC Differential Differential Comment Sodium 139 (136-145) meq/L Potassium 3.9 D (3.5-5.1) meq/L Chloride 104 (98-107) meq/L Carbon Dioxide 26.1 D (21.0-32.0) meq/L Anion Gap 9 (5-15) meq/L BUN 16 (7-18) mg/dL Creatinine 1.13 H (0.50-1.00) mg/dL Estimated GFR 47 L (>89) mL/min POC Glucose 143 H (68-110) mg/dl Random Glucose 134 H D (74-106) mg/dL Calcium 7.8 L (8.5-10.1) mg/dL Total Bilirubin (0.2-1.0) mg/dL AST (15-37) U/L ALT (10-53) U/L Alkaline Phosphatase (45-117) U/L Troponin I (0.02-0.05) ng/mL Total Protein (6.4-8.2) g/dL Albumin (3.4-5.0) g/dL Urine Color (Yellw/Straw) Urine Clarity (Clear) Urine pH (5.0-8.5) Ur Specific Pierz (1.002-1.035) Urine Protein (Neg-Trace) mg/dL Urine Glucose (UA) (Negative) mg/dL Urine Ketones (Negative) mg/dL Urine Occult Blood (Negative) Urine Nitrate (Negative) Urine Bilirubin (Negative) Urine Urobilinogen (Less than 2) mg/dL Ur Leukocyte Esterase (Negative) Urine WBC (0-5) /hpf Ur Squamous Epith Cells (0-5) /hpf Urine Bacteria (None) /hpf Micro UA Comment Ur Microscopic Review Urine Culture Comments Imaging Data Attestation: I personally reviewed and interpreted this imaging study as follows : Radiologist's impression: Cervical Spine CT 04/08/18 17:37 CONCLUSION: 1. Degenerative disc disease basically isolated to C6-7 with loss of disc height and uncovertebral ridging. 2. Bilateral, mild facet hypertrophy at C3-4. 3. No fracture. Spinal canal and neural foramina appear to be adequate throughout. Chest X-Ray 04/08/18 17:37 CONCLUSION: 1. Improving aeration in both lung bases with some residual atelectasis/ airspace disease on the left base. 2. Compensated cardiomegaly. 3. Interval removal of the left-sided thoracostomy tube, mediastinal drain and right IJ central venous catheter. No pneumothorax. 4. Left shoulder arthroplasty. No acute osseous injury. Head CT 04/08/18 17:37 CONCLUSION: 1. Mild chronic changes with minimal periventricular small vessel ischemic demyelination. 2. Chronic sinusitis in the left sphenoid. 3. Otherwise negative. Nothing acute. . Lumbar Spine X-Ray 04/08/18 17:37 CONCLUSION: 1. Chronic changes with some loss of height to the superior endplate of T12. Chronic central compression through the superior endplate of L1. I do not see an acute osseous injury. 2. Grade 1 anterolisthesis of L4 on 5 appears to be due to facet degeneration and hypertrophy. Facet hypertrophy and sclerosis is also seen at the lumbosacral junction. Pelvis X-Ray 04/08/18 17:37 CONCLUSION: No acute abnormality. Abdomen/Bladder Ultrasound 04/09/18 00:00 CONCLUSION: 1. Echogenic kidneys consistent with medical renal disease. 2. No sonographic evidence for obstructive uropathy. 3. Small left pleural effusion. Discharge Plan Discharge Disposition Patient Disposition: 64 Disc To [facility] Discharge Condition Condition: Stable Discharge Order Discharge Orders: Discharge Order (Routine); Ordered 04/09/18 Ordered By: Elaine Posey Discharge Details Anticipated Discharge Date: 04/09/18 Physicians Team ED Provider: Alana Alejandro Primary Care Provider: UNKNOWN, Attending Provider: Elaine Posey Other Providers: Otf,Otf ; Chavo Hightower Status ED Status: Left Department Discharge Information Discharge Date/Time: 04/09/18 00:51
[2018-04-08] MEDS ORDERED: Sod Chloride 0.9% Inj 1,000 ML IV.CONT SCH (17:45)
[2018-04-08 18:46] LABS: Baso # (Auto) 0.1 th/mm3 (0.0-0.2); Baso % (Auto) 1.3 % (0.0-2.0); Eos # (Auto) 0.5 th/mm3 (0.0-0.4); Eos % (Auto) 8.1 % (0.0-4.0); Hematocrit 32.2 % (35.0-46.0); Hemoglobin 10.7 gm/dL (11.6-15.3); Lymph # (Auto) 1.5 th/mm3 (1.0-4.8); Lymph % (Auto) 22.7 % (9.0-44.0); Mean Corpuscular HGB Conc 33.2 % (32.0-36.0); Mean Corpuscular Hemoglobin 30.1 pg (27.0-34.0); Mean Corpuscular Volume 90.6 fL (80.0-100.0); Mono # (Auto) 0.9 th/mm3 (0.0-0.9); Mono % (Auto) 12.9 % (0.0-8.0); Neut # (Auto) 3.7 th/mm3 (1.8-7.7); Platelet Count 237 th/mm3 (150-450); Red Blood Count 3.56 mil/mm3 (4.00-5.30); Red Cell Distribution Width 16.9 % (11.6-17.2); White Blood Count 6.6 th/mm3 (4.0-11.0)
--- NOTE | 2018-04-08 18:54 | CT ---
EXAM DATE: 04/08/2018 5:48 PM EDT AGE/SEX: 77 years / Female INDICATIONS: Multiple falls over past few days fall today CLINICAL DATA: This is the patient's initial encounter. Patient reports that signs and symptoms have been present for 2 days and indicates a pain score of 0/10. MEDICAL/SURGICAL HISTORY: Cardiovascular disease. Diabetes. Hyperthyroidism. CABG. RADIATION DOSE: 33.68 CTDI (mGy) [place] [facility] [place]. . TECHNIQUE: CT of the head without contrast. Using automated exposure control and adjustment of the mA and/or kV according to patient size, radiation dose was kept as low as reasonably achievable to ob tain optimal diagnostic quality images. DICOM format image data is available electronically for revi ew and comparison. FINDINGS: Cerebrum: The ventricles are normal for age. Periventricular areas of diminished attenuation are ch aracteristic of mild small vessel ischemic demyelination. No evidence of midline shift, mass lesion, hemorrhage or acute infarction. No extraaxial fluid collections are seen. Posterior Fossa: The cerebellum and brainstem are intact. The 4th ventricle is midline. The cerebe llopontine angle is unremarkable. Extracranial: The visualized portion of the orbits is intact. There is some minimal mucoperiosteal t hickening in the left sphenoid sinus. Skull: The calvaria is intact. No evidence of skull fracture. CONCLUSION: 1. Mild chronic changes with minimal periventricular small vessel ischemic demyelination. 2. Chronic sinusitis in the left sphenoid. 3. Otherwise negative. Nothing acute. . Electronically signed by: Vincenzo Lo MD 04/08/2018 6:53 PM EDT
--- NOTE | 2018-04-08 18:57 | XR ---
EXAM DATE: 04/08/2018 5:37 PM EDT AGE/SEX: 77 years / Female INDICATIONS: Chest pain after fall. CLINICAL DATA: This is the patient's initial encounter. Patient reports that signs and symptoms have been present for 1 day and indicates a pain score of 10/10. MEDICAL/SURGICAL HISTORY: None. None. COMPARISON: No prior exams available for comparison. FINDINGS: A single AP view of the chest demonstrates the lungs to be symmetrically aerated with improving aerat ion in both lung bases. There is still some atelectatic changes or infiltrate in the left base. Left- sided thoracostomy tube and mediastinal drain as well as the right IJ central venous catheter have al l been removed. There is no pneumothorax. Heart size is prominent but well compensated. Left shoulder arthroplasty. Intact median sternotomy wires. Osseous structures are intact. Loop recorder projects over the left chest. CONCLUSION: 1. Improving aeration in both lung bases with some residual atelectasis/airspace disease on the left base. 2. Compensated cardiomegaly. 3. Interval removal of the left-sided thoracostomy tube, mediastinal drain and right IJ central veno us catheter. No pneumothorax. 4. Left shoulder arthroplasty. No acute osseous injury. Electronically signed by: Vincenzo Lo MD 04/08/2018 6:55 PM EDT
--- NOTE | 2018-04-08 19:08 | CT ---
EXAM DATE: 04/08/2018 5:48 PM EDT AGE/SEX: 77 years / Female INDICATIONS: Multiple falls over the past few days. CLINICAL DATA: This is the patient's initial encounter. Patient reports that signs and symptoms have been present for 1 day and indicates a pain score of 0/10. MEDICAL/SURGICAL HISTORY: Cerebrovascular disease. Diabetes. Hypothyroidism. CABG. RADIATION DOSE: 18.54 CTDI (mGy) COMPARISON: No prior exams available for comparison. TECHNIQUE: Contiguous axial images were obtained using helical multirow detector technique. The vol umetric data was post-processed with multiplanar reconstruction in oblique axial, sagittal, and coron al planes. Using automated exposure control and adjustment of the mA and/or kV according to patient s ize, radiation dose was kept as low as reasonably achievable to obtain optimal diagnostic quality esa ges. DICOM format image data is available electronically for review and comparison. FINDINGS: Sagittal and coronal reconstruction show degenerative disc disease basically isolated the C6-7 level with loss of disc height and uncovertebral ridging. Otherwise, vertebral body heights are maintained without fracture or listhesis. Spinal canal is widely patent. C2-3: The bony spinal canal is normal in size. No evidence of disc bulge or herniation. The neural foramina are bilaterally patent. C3-4: Bilateral, mild facet hypertrophy. Spinal canal and neural foramina are adequate C4-5: The bony spinal canal is normal in size. No evidence of disc bulge or herniation. The neural foramina are bilaterally patent. C5-6: The bony spinal canal is normal in size. No evidence of disc bulge or herniation. The neural foramina are bilaterally patent. C6-7: Uncovertebral ridging. Spinal canal and neural foramina are patent C7-T1: The bony spinal canal is normal in size. No evidence of disc bulge or herniation. The neura l foramina are bilaterally patent. CONCLUSION: 1. Degenerative disc disease basically isolated to C6-7 with loss of disc height and uncovertebral r idging. 2. Bilateral, mild facet hypertrophy at C3-4. 3. No fracture. Spinal canal and neural foramina appear to be adequate throughout. Electronically signed by: Vincenzo Lo MD 04/08/2018 7:07 PM EDT
--- NOTE | 2018-04-08 19:11 | XR ---
EXAM DATE: 04/08/2018 5:37 PM EDT AGE/SEX: 77 years / Female INDICATIONS: Pelvic pain after fall. CLINICAL DATA: This is the patient's initial encounter. Patient reports that signs and symptoms have been present for 1 day and indicates a pain score of 10/10. MEDICAL/SURGICAL HISTORY: None. . Right hip replacement. COMPARISON: No prior exams available for comparison. FINDINGS: 2 frontal views of the pelvis reveal a total hip prosthesis on the right. Moderate osteoarthritis inv olving the left hip. No fracture or dislocation. Venous calcifications overlie the pelvis. Surgical c lips overlying the middle of the pelvis. CONCLUSION: No acute abnormality. Electronically signed by: Dexter Medrano MD 04/08/2018 7:09 PM EDT
[2018-04-08 19:16] LABS: Alanine Aminotransferase 31 U/L (10-53); Albumin 2.9 g/dL (3.4-5.0); Alkaline Phosphatase 242 U/L (45-117); Anion Gap 9 meq/L (5-15); Aspartate Aminotransferase 31 U/L (15-37); Blood Urea Nitrogen 45 mg/dL (7-18); Calcium 8.3 mg/dL (8.5-10.1); Carbon Dioxide 22.8 meq/L (21.0-32.0); Chloride 96 meq/L (98-107); Glomerular Filtration Rate 18 mL/min (>89); Glucose,Random 408 mg/dL (74-106); Potassium 5.5 meq/L (3.5-5.1); Sodium 128 meq/L (136-145); Total Protein 7.2 g/dL (6.4-8.2)
--- NOTE | 2018-04-08 19:17 | XR ---
EXAM DATE: 04/08/2018 5:37 PM EDT AGE/SEX: 77 years / Female INDICATIONS: Lower back pain after fall. CLINICAL DATA: This is the patient's initial encounter. Patient reports that signs and symptoms have been present for 1 day and indicates a pain score of 10/10. MEDICAL/SURGICAL HISTORY: None. None. COMPARISON: No prior exams available for comparison. FINDINGS: 5 non ribbed lumbar-type vertebral bodies. There is some chronic loss of height through the superior endplate of T12 and central superior endplate compression of L1 which is also chronic. Minimal grade 1 anterolisthesis of L4 on 5 is probably due to facet degeneration. There is facet hypertrophy and sc lerosis at both L4-5 and L5-S1. Atherosclerotic calcification of the regional vasculature. Surgical c lips are seen in the deep pelvis and right upper abdominal quadrant. Surgical wires are also seen in the right upper abdominal quadrant. Right total hip arthroplasty. CONCLUSION: 1. Chronic changes with some loss of height to the superior endplate of T12. Chronic central milan deandre through the superior endplate of L1. I do not see an acute osseous injury. 2. Grade 1 anterolisthesis of L4 on 5 appears to be due to facet degeneration and hypertrophy. Facet hypertrophy and sclerosis is also seen at the lumbosacral junction. Electronically signed by: Vincenzo Lo MD 04/08/2018 7:16 PM EDT
[2018-04-08] MEDS ORDERED: Sodium Chlor 0.9% Inj 500 ML IV.SIG ONE (19:33)
[2018-04-08] MEDS ORDERED: Sodium Polystyrene Sulfonate/Sorbitol Liq 15 GM/60 ML UDC PO ONE (20:07)
[2018-04-08 22:26] LABS: Bacteria,Urine Rare /hpf; Bilirubin,Urine Negative (Negative); Clarity,Urine Clear (Clear); Color,Urine Straw (Yellw/Straw); Glucose,Urine (UA) 500 or Greater mg/dL (Negative); Leukocyte Esterase,Urine Negative (Negative); Nitrite,Urine Negative (Negative); Squamous Epithelial Cell,Urine <1 /hpf (0-5)
[2018-04-08] MEDS ORDERED: Acetaminophen 325 MG Tablet PO PRN (22:47)
[2018-04-08] MEDS ORDERED: Bisacodyl 10 MG Supp RECTAL PRN (22:47)
[2018-04-08] MEDS ORDERED: Dextrose 50% in Water 50 ML Vial IV.PUSH PRN (22:50)
--- NOTE | 2018-04-08 23:01 | P.HP ---
History of Present Illness Service: [facility] Primary Care Physician: UNKNOWN History of Present Illness: 77-year-old female with a past medical history significant for diabetes mellitus , hypertension, hyperlipidemia, coronary artery disease status post CABG on 03/14, CHF and hypothyroidism presents to the emergency department for the evaluation of multiple falls. The patient reports that she has fallen twice today and twice yesterday. She states that today she noticed she had blood in her urine and was bending down to get a sample when she fell backwards into her bathtub. Her daughter called her primary care provider who suggested she come to the emergency department for further evaluation of hematuria. The patient denies hitting her head or loss of consciousness. The patient was hospitalized earlier this month where she was evaluated for visual hallucinations with psychiatry consult, head CT and MRI. Psychiatry recommended outpatient follow- up which the patient has not done. She reports that today she was seeing people in her house. She states they were sitting next to her more getting up and moving around. Mouth is also covered in blue ink and she reports that she was told she was chewing on a blue pen earlier in the day however she has no memory of this. Head CT negative. No chest pain or shortness of breath. No abdominal pain. No nausea/vomiting/diarrhea. No lateralizing signs/symptoms. No fevers/chills. Inpatient Certification: I certify that the inpatient services were ordered in accordance with Medicare regulations governing the order. This includes certification that hospital inpatient services are reasonable and necessary and in the case of services not specified as inpatient-only under 42 CFR 419.22(n), that they are appropriately provided as inpatient services in accordance to with the 2-midnight benchmark under 43 CFR 412.3(e) Estimated Total Length of Stay (Days): 3 Plans for Post Hospital Care: Not yet determined Review of Systems All other systems reviewed negative except as stated in [facility] - History History Provided By: Patient - Medical History Medical History: Medical History (Last Updated 04/08/18 @ 22:54 by Palak Donaldson MD) CHF (congestive heart failure) Hyperlipidemia Hypertension Neuropathy CAD (coronary artery disease) Diabetes Hypothyroidism - Surgical History Surgical History: Surgical History (Last Reviewed 04/08/18 @ 22:54 by Palak Donaldson MD) History of hip replacement Hx of cholecystectomy S/P CABG (coronary artery bypass graft) S/P shoulder replacement - Family History Family History: Family History (Last Updated 04/08/18 @ 22:54 by Palak Donaldson MD) Other Family history normal - Tobacco History Second Hand Smoke Exposure: No Smoking Status: Never smoker Tobacco Type: Cigarettes - Alcohol History How Often Do You Have a Drink Containing Alcohol: Never - Substance Use History Substance History: No History of Abuse - Travel History Recent Travel in the [place] Within the Last 8 Weeks: No Recent Travel Out of the Country Within the Last 8 Weeks: No - Immunization History Tetanus Immunization: Unsure Medications and Allergies Active Medications: Active Medications Sodium Chloride (Ns Inj) 1,000 mls @ 100 mls/hr IV.CONT .Q10H WADE Last Admin: 04/08/18 18:30 Dose: 100 mls/hr Allergies Allergy/AdvReac Type Severity Reaction Status Date / Time No Known Allergies Allergy Verified 04/08/18 17:26 Home Medications Medication Instructions Recorded Confirmed Type amlodipine 10 mg PO DAILY 03/28/18 04/08/18 History insulin glargine [Lantus Solostar 15 unit SUBCUT HS 03/28/18 04/08/18 History U-100 Insulin] insulin aspart U-100 [Novolog 1 - 16 unit SUBCUT ACHS 04/08/18 04/08/18 History U-100 Insulin aspart] Exam Vital signs: Vital Signs 04/08/18 16:59 04/08/18 19:13 Temperature 97.5 F L Pulse Rate 64 67 Respiratory Rate 15 18 Blood Pressure 164/72 H 156/71 H Pulse Oximetry 97 97 Intake & Output 04/08/18 04/08/18 04/09/18 06:59 18:59 06:59 Intake Total 500 / 500 Balance 500 / 500 Weight 71.214 kg Intake: IV 500 / 500 NS Inj 500 ML @ Wide Open IV. 500 / 500 SIG BOLUS ONE Rx#:[id number] Narrative: Gen.: No acute distress, mouth covered with blue ink Head: Normocephalic. Atraumatic. EENT: Pupils equal round and reactive to light. Nose without drainage. Airway intact. Throat without injection. Cardiovascular: Regular rate and rhythm. No murmurs, rubs or gallops. Respiratory: Lungs clear to auscultation bilaterally. No wheezes or rhonchi. Abdomen: Soft, nontender, nondistended. No peritoneal signs. Musculoskeletal: No gross deformities. No edema. Skin: No obvious rashes or erythema. Neuro: Sensory and motor grossly intact. Cranial nerves II through XII grossly intact. Results - Labs CBC & Chem 7: 04/08/18 18:26 04/08/18 18:26 Labs: Laboratory Results - last 24 hr 04/08/18 04/08/18 04/08/18 18:26 18:26 21:45 WBC 6.6 RBC 3.56 L Hgb 10.7 L Hct 32.2 L MCV 90.6 MCH 30.1 MCHC 33.2 RDW 16.9 Plt Count 237 D MPV 9.0 Neut % (Auto) 55.0 Lymph % (Auto) 22.7 [place] % (Auto) 12.9 H Eos % (Auto) 8.1 H Baso % (Auto) 1.3 Neut # (Auto) 3.7 Lymph # (Auto) 1.5 [place] # (Auto) 0.9 Eos # (Auto) 0.5 H Baso # (Auto) 0.1 WBC Differential . Differential Comment Auto diff final Sodium 128 L Potassium 5.5 H Chloride 96 L Carbon Dioxide 22.8 Anion Gap 9 BUN 45 H Creatinine 2.61 H Estimated GFR 18 L Random Glucose 408 H Calcium 8.3 L Total Bilirubin 0.3 AST 31 ALT 31 Alkaline Phosphatase 242 H Total Protein 7.2 Albumin 2.9 L Urine Color Straw Urine Clarity Clear Urine pH 5.0 Ur Specific [place] 1.010 Urine Protein Negative Urine Glucose (UA) 500 or greater Urine Ketones Trace H Urine Occult Blood Negative Urine Nitrate Negative Urine Bilirubin Negative Urine Urobilinogen Less than 2 Ur Leukocyte Esterase Negative Urine WBC 2 Ur Squamous Epith Cells <1 Urine Bacteria Rare H Micro UA Comment Culture not ind Ur Microscopic Review Not Reportable Urine Culture Comments Culture not ind - Imaging Impressions Cervical Spine CT 04/08/18 17:37 CONCLUSION: 1. Degenerative disc disease basically isolated to C6-7 with loss of disc height and uncovertebral ridging. 2. Bilateral, mild facet hypertrophy at C3-4. 3. No fracture. Spinal canal and neural foramina appear to be adequate throughout. Chest X-Ray 04/08/18 17:37 CONCLUSION: 1. Improving aeration in both lung bases with some residual atelectasis/ airspace disease on the left base. 2. Compensated cardiomegaly. 3. Interval removal of the left-sided thoracostomy tube, mediastinal drain and right IJ central venous catheter. No pneumothorax. 4. Left shoulder arthroplasty. No acute osseous injury. Head CT 04/08/18 17:37 CONCLUSION: 1. Mild chronic changes with minimal periventricular small vessel ischemic demyelination. 2. Chronic sinusitis in the left sphenoid. 3. Otherwise negative. Nothing acute. . Lumbar Spine X-Ray 04/08/18 17:37 CONCLUSION: 1. Chronic changes with some loss of height to the superior endplate of T12. Chronic central compression through the superior endplate of L1. I do not see an acute osseous injury. 2. Grade 1 anterolisthesis of L4 on 5 appears to be due to facet degeneration and hypertrophy. Facet hypertrophy and sclerosis is also seen at the lumbosacral junction. Pelvis X-Ray 04/08/18 17:37 CONCLUSION: No acute abnormality. Caprini VTE Risk Assessment Caprini VTE Risk Assessment: Moderate/High Risk (score >= 2) Caprini Risk Assessment Model: Point Value = 1 Point Value = 2 Point Value = 3 Point Value = 5 Age 41-60 Minor surgery BMI > 25 kg/m2 Swollen legs Varicose veins or History of unexplained or recurrent spontaneous Oral contraceptives or hormone replacement Sepsis (< 1 month) Serious lung disease, including pneumonia (< 1 month) Abnormal pulmonary function Acute myocardial infarction Congestive heart failure (< 1 month) History of inflammatory bowel disease Medical patient at bed rest Age 61-74 Arthroscopic surgery Major open surgery (> 45 min) Laparoscopic surgery (> 45 min) Malignancy Confined to bed (> 72 hours) Immobilizing plaster cast Central venous access Age >= 75 History of VTE Family history of VTE Factor V Leiden Prothrombin [id number] Lupus anticoagulant Anticardiolipin antibodies Elevated serum homocysteine Heparin-induced thrombocytopenia Other congenital or acquired thrombophilia Stroke (< 1 month) Elective arthroplasty Hip, pelvis, or leg fracture Acute spinal cord injury (< 1 month) Prophylaxis Regimen: Total Risk Factor Score Risk Level Prophylaxis Regimen 0-1 Low Early ambulation 2 Moderate Order ONE of the following: *Sequential Compression Device (SCD) *Heparin 5000 units SQ BID 3-4 Higher Order ONE of the following medications: *Heparin 5000 units SQ TID *Enoxaparin/Lovenox 40 mg SQ daily (WT < 150 kg, CrCl > 30 mL/min) *Enoxaparin/Lovenox 30 mg SQ daily (WT < 150 kg, CrCl > 10-29 mL/min) *Enoxaparin/Lovenox 30 mg SQ BID (WT < 150 kg, CrCl > 30 mL/min) AND/OR *Sequential Compression Device (SCD) 5 or more Highest Order ONE of the following medications: *Heparin 5000 units SQ TID (Preferred with Epidurals) *Enoxaparin/Lovenox 40 mg SQ daily (WT < 150 kg, CrCl > 30 mL/min) *Enoxaparin/Lovenox 30 mg SQ daily (WT < 150 kg, CrCl > 10-29 mL/min) *Enoxaparin/Lovenox 30 mg SQ BID (WT < 150 kg, CrCl > 30 mL/min) AND *Sequential Compression Device (SCD) Assessment and Plan - Plan Assessment/plan: 1. Acute renal failure BUN/creatinine 45/2.61 baseline 1.3 Renal ultrasound pending IV fluid hydration Monitor renal function 2. Hematuria Patient reports bright red blood in her urine earlier today UA negative for occult blood 3. Hallucinations Patient reports seeing and interacting with people in her house who are not there Previous evaluation includes MRI brain which was negative Psychiatry reconsulted as patient continues to have symptoms 4. Frequent falls Likely secondary to deconditioning Patient denies syncopal episodes Physical therapy consulted to evaluate gait stability/deconditioning 5. Coronary artery disease Continue aspirin and Plavix Status post CABG Troponin/EKG pending Patient denies chest pain or shortness of breath 6. Diabetes mellitus Blood glucose on arrival is 408 Continue home Lantus Sliding-scale insulin Monitor blood glucose 7. Hypertension/hyperlipidemia/hypothyroidism Continue home medications 8. Hyperkalemia Potassium 5.5 Status post Kayexalate in the ED Monitor BMP FEN Diabetic diet Electrolytes: As above Heparin
[2018-04-08] MEDS ORDERED: Sodium Chloride 0.9% 2 ML Flush PRN IV.FLUSH (23:19)
[2018-04-08] MEDS: Heparin - SQ 10,000 UNITS/ML Vial SQ SCH (23:33)
[2018-04-08] MEDS: Sod Chloride 0.9% Inj 1,000 ML IV.CONT SCH (23:33)
[2018-04-09] MEDS: Insulin NovoLOG Aspart Correctional Sugar Inj SQ SCH ×5 (03:54→21:17)
[2018-04-09] MEDS: Sod Chloride 0.9% Inj 1,000 ML IV.CONT SCH ×3 (04:34→19:08)
[2018-04-09 05:04] LABS: Baso # (Auto) 0.1 th/mm3 (0.0-0.2); Baso % (Auto) 1.3 % (0.0-2.0); Eos # (Auto) 0.3 th/mm3 (0.0-0.4); Eos % (Auto) 4.4 % (0.0-4.0); Hemoglobin 10.7 gm/dL (11.6-15.3); Lymph # (Auto) 1.8 th/mm3 (1.0-4.8); Lymph % (Auto) 29.7 % (9.0-44.0); Mean Corpuscular HGB Conc 32.3 % (32.0-36.0); Mean Corpuscular Hemoglobin 29.7 pg (27.0-34.0); Mean Corpuscular Volume 91.9 fL (80.0-100.0); Mean Platelet Volume 9.4 fL (7.0-11.0); Mono # (Auto) 0.6 th/mm3 (0.0-0.9); Mono % (Auto) 10.6 % (0.0-8.0); Neut # (Auto) 3.2 th/mm3 (1.8-7.7); Platelet Count 212 th/mm3 (150-450); Red Blood Count 3.59 mil/mm3 (4.00-5.30); Red Cell Distribution Width 16.2 % (11.6-17.2)
[2018-04-09] MEDS: Levothyroxine 150 MCG Tablet PO SCH (05:06)
[2018-04-09 05:21] LABS: Calcium 8.2 mg/dL (8.5-10.1); Carbon Dioxide 14.1 meq/L (21.0-32.0); Potassium 5.5 meq/L (3.5-5.1)
--- NOTE | 2018-04-09 09:13 | US ---
EXAM DATE: 04/09/2018 12:00 AM EDT AGE/SEX: 77 years / Female INDICATIONS: Increased BUN/Creatinine. CLINICAL DATA: This is the patient's initial encounter. Patient reports that signs and symptoms have been present for 1 day and indicates a pain score of 0/10. MEDICAL/SURGICAL HISTORY: Diabetes. Hypertension. Hypothyroidism. CAD. CHF. Hyperlipidemia. Cholecystectomy. CABG. Shoulder replacement. Hip replacement. COMPARISON: [facility], CHEST 1V SINGLE AP, 04/08/2018. . MEASUREMENTS: Right Kidney:__8.6 x 4.6 x 5.1 cm Left Kidney:__9.7 x 4.4 x 4.4 cm FINDINGS: Right Kidney: Increased echotexture. No mass or hydronephrosis. Left Kidney: Increased echotexture. No mass or hydronephrosis. Bladder: Within normal limits given the degree of distension. Other: Small left pleural effusion. CONCLUSION: 1. Echogenic kidneys consistent with medical renal disease. 2. No sonographic evidence for obstructive uropathy. 3. Small left pleural effusion. Electronically signed by: Mj Saldana MD 04/09/2018 9:12 AM EDT
[2018-04-09] MEDS: Senna/Docusate Sodium 8.6/50 MG Tablet PO SCH ×2 (09:55→21:16)
[2018-04-09] MEDS: Sodium Chloride 0.9% 2 ML Flush BID IV.FLUSH SCH ×2 (09:55→21:19)
[2018-04-09] MEDS: amLODIPine 10 MG Tablet PO SCH (09:55)
--- NOTE | 2018-04-09 10:17 | P.PN ---
Subjective Interval history: Patient in bed says she feels improved since yesterday but she is still weak. Denies chest pain or sob. No n/v/d/c. Physical Exam Vital signs: Vital Signs 04/08/18 16:59 04/08/18 19:13 04/08/18 23:28 Temperature 97.5 F L Pulse Rate 64 67 69 Respiratory Rate 15 18 16 Blood Pressure 164/72 H 156/71 H 135/64 Pulse Oximetry 97 97 96 04/09/18 00:00 04/09/18 03:58 04/09/18 07:25 Temperature 97.8 F 98.0 F 98.4 F Pulse Rate 72 90 80 Respiratory Rate 18 17 16 Blood Pressure 147/68 H 168/76 H 135/63 Pulse Oximetry 96 98 96 Intake & Output 04/08/18 04/09/18 04/09/18 18:59 06:59 18:59 Intake Total 2500 / 2500 Balance 2500 / 2500 Weight 71.214 kg 71.21 kg Intake: IV 2500 / 2500 NS Inj 1,000 ML @ 100 mls/hr IV 1999 / 1999 .CONT .Q10H WADE Rx#:[id number] NS Inj 500 ML @ Wide Open IV. 500 / 500 SIG BOLUS ONE Rx#:[id number] Other: Weight On Admission 71.21 kg Narrative: Gen.: 77 yo F, appears in no acute distress. Cardiovascular: Regular rate and rhythm. No murmurs, rubs or gallops. Respiratory: Lungs clear to auscultation bilaterally. No wheezes or rhonchi. Abdomen: Soft, nontender, nondistended. No peritoneal signs. Musculoskeletal: No gross deformities. No edema. Skin: No obvious rashes or erythema. Neuro: Sensory and motor grossly intact. Cranial nerves II through XII grossly intact. Results - Labs CBC & Chem 7: 04/09/18 03:45 04/09/18 03:45 Laboratory Results - last 24 hr 04/08/18 04/08/18 04/08/18 18:26 18:26 18:26 WBC 6.6 RBC 3.56 L Hgb 10.7 L Hct 32.2 L MCV 90.6 MCH 30.1 MCHC 33.2 RDW 16.9 Plt Count 237 D MPV 9.0 Neut % (Auto) 55.0 Lymph % (Auto) 22.7 [place] % (Auto) 12.9 H Eos % (Auto) 8.1 H Baso % (Auto) 1.3 Neut # (Auto) 3.7 Lymph # (Auto) 1.5 [place] # (Auto) 0.9 Eos # (Auto) 0.5 H Baso # (Auto) 0.1 WBC Differential . Differential Comment Auto diff final Sodium 128 L Potassium 5.5 H Chloride 96 L Carbon Dioxide 22.8 Anion Gap 9 BUN 45 H Creatinine 2.61 H Estimated GFR 18 L POC Glucose Random Glucose 408 H Calcium 8.3 L Total Bilirubin 0.3 AST 31 ALT 31 Alkaline Phosphatase 242 H Troponin I 0.48 H Total Protein 7.2 Albumin 2.9 L Urine Color Urine Clarity Urine pH Ur Specific [place] Urine Protein Urine Glucose (UA) Urine Ketones Urine Occult Blood Urine Nitrate Urine Bilirubin Urine Urobilinogen Ur Leukocyte Esterase Urine WBC Ur Squamous Epith Cells Urine Bacteria Micro UA Comment Ur Microscopic Review Urine Culture Comments 04/08/18 04/09/18 04/09/18 21:45 03:14 03:45 WBC 6.0 RBC 3.59 L Hgb 10.7 L Hct 33.0 L MCV 91.9 MCH 29.7 MCHC 32.3 RDW 16.2 Plt Count 212 MPV 9.4 Neut % (Auto) 54.0 Lymph % (Auto) 29.7 [place] % (Auto) 10.6 H Eos % (Auto) 4.4 H Baso % (Auto) 1.3 Neut # (Auto) 3.2 Lymph # (Auto) 1.8 [place] # (Auto) 0.6 Eos # (Auto) 0.3 Baso # (Auto) 0.1 WBC Differential . Differential Comment Auto diff final Sodium Potassium Chloride Carbon Dioxide Anion Gap BUN Creatinine Estimated GFR POC Glucose 549 H* Random Glucose Calcium Total Bilirubin AST ALT Alkaline Phosphatase Troponin I Total Protein Albumin Urine Color Straw Urine Clarity Clear Urine pH 5.0 Ur Specific [place] 1.010 Urine Protein Negative Urine Glucose (UA) 500 or greater Urine Ketones Trace H Urine Occult Blood Negative Urine Nitrate Negative Urine Bilirubin Negative Urine Urobilinogen Less than 2 Ur Leukocyte Esterase Negative Urine WBC 2 Ur Squamous Epith Cells <1 Urine Bacteria Rare H Micro UA Comment Culture not ind Ur Microscopic Review Not Reportable Urine Culture Comments Culture not ind 04/09/18 04/09/18 04/09/18 03:45 05:17 08:47 WBC RBC Hgb Hct MCV MCH MCHC RDW Plt Count MPV Neut % (Auto) Lymph % (Auto) [place] % (Auto) Eos % (Auto) Baso % (Auto) Neut # (Auto) Lymph # (Auto) [place] # (Auto) Eos # (Auto) Baso # (Auto) WBC Differential Differential Comment Sodium 130 L Potassium 5.5 H Chloride 98 Carbon Dioxide 14.1 L Anion Gap 18 H BUN 37 H Creatinine 1.90 H Estimated GFR 26 L POC Glucose 527 H* 252 H Random Glucose 545 H* D Calcium 8.2 L Total Bilirubin AST ALT Alkaline Phosphatase Troponin I Total Protein Albumin Urine Color Urine Clarity Urine pH Ur Specific [place] Urine Protein Urine Glucose (UA) Urine Ketones Urine Occult Blood Urine Nitrate Urine Bilirubin Urine Urobilinogen Ur Leukocyte Esterase Urine WBC Ur Squamous Epith Cells Urine Bacteria Micro UA Comment Ur Microscopic Review Urine Culture Comments - Imaging Impressions Cervical Spine CT 04/08/18 17:37 CONCLUSION: 1. Degenerative disc disease basically isolated to C6-7 with loss of disc height and uncovertebral ridging. 2. Bilateral, mild facet hypertrophy at C3-4. 3. No fracture. Spinal canal and neural foramina appear to be adequate throughout. Chest X-Ray 04/08/18 17:37 CONCLUSION: 1. Improving aeration in both lung bases with some residual atelectasis/ airspace disease on the left base. 2. Compensated cardiomegaly. 3. Interval removal of the left-sided thoracostomy tube, mediastinal drain and right IJ central venous catheter. No pneumothorax. 4. Left shoulder arthroplasty. No acute osseous injury. Head CT 04/08/18 17:37 CONCLUSION: 1. Mild chronic changes with minimal periventricular small vessel ischemic demyelination. 2. Chronic sinusitis in the left sphenoid. 3. Otherwise negative. Nothing acute. . Lumbar Spine X-Ray 04/08/18 17:37 CONCLUSION: 1. Chronic changes with some loss of height to the superior endplate of T12. Chronic central compression through the superior endplate of L1. I do not see an acute osseous injury. 2. Grade 1 anterolisthesis of L4 on 5 appears to be due to facet degeneration and hypertrophy. Facet hypertrophy and sclerosis is also seen at the lumbosacral junction. Pelvis X-Ray 04/08/18 17:37 CONCLUSION: No acute abnormality. Abdomen/Bladder Ultrasound 10/24/18 00:00 CONCLUSION: 1. Echogenic kidneys consistent with medical renal disease. 2. No sonographic evidence for obstructive uropathy. 3. Small left pleural effusion. Assessment and Plan - Plan 1. Acute renal failure BUN/creatinine 45/2.61 baseline 1.3 Renal ultrasound pending IV fluid hydration Monitor renal function 2. Hematuria, resolved Patient reports bright red blood in her urine on admission UA negative for occult blood 3. Hallucinations Patient reports seeing and interacting with people in her house who are not there Previous evaluation includes MRI brain which was negative Psychiatry reconsulted as patient continues to have symptoms. Seen by Dr Hightower recommends inpatient psych admission 4. Frequent falls Likely secondary to deconditioning Patient denies syncopal episodes Physical therapy consulted to evaluate gait stability/deconditioning 5. Coronary artery disease Continue aspirin and Plavix Status post CABG Troponin/EKG pending Patient denies chest pain or shortness of breath 6. Diabetes mellitus Blood glucose on arrival is 408 Continue home Lantus Sliding-scale insulin Monitor blood glucose 7. Hypertension/hyperlipidemia/hypothyroidism Continue home medications 8. Hyperkalemia Potassium 5.5 Status post Kayexalate in the ED Monitor BMP FEN Diabetic diet Electrolytes: As above Heparin DC plan: Patient improved cleared medically for DC hematuria resolved she is at her baseline. Cleared edically for DC can DC at [facility] when bed available Diet healthy heart and diabetic diet as tolerated Activity ad mounika as tolerated To follow up with PC and consultants
[2018-04-09] MEDS: Heparin - SQ 10,000 UNITS/ML Vial SQ SCH (12:20)
--- NOTE | 2018-04-09 12:52 | P.CONPSY ---
Provisional Diagnosis Admission Date: April 08, 2018 20:01 [place] I.: Unspecified psychosis History of Present Illness Service: ER Primary Care Provider: UNKNOWN History of Present Illness: The patient is a 77-year-old woman, domiciled with her and granddaughter in [place], retired, without no previous psychiatric history, no previous suicide attempts, no psychiatric hospitalizations, but she was seen and cleared about a week ago by Dr. Young here in [place] with a similar complaint than today, with a past medical history significant for diabetes mellitus, hypertension, hyperlipidemia, coronary artery disease status post CABG on 03/14/18, CHF and hypothyroidism, who presents to the emergency department for the evaluation of multiple falls. The patient reports that she has fallen twice today and twice yesterday. She states that today she noticed she had blood in her urine and was bending down to get a sample when she fell backwards into her bathtub. Her daughter called her primary care provider who suggested she come to the emergency department for further evaluation of hematuria. The patient denies hitting her head or loss of consciousness. The patient was hospitalized earlier this month where she was evaluated for visual hallucinations with psychiatry consult, head CT and MRI. Psychiatry recommended outpatient follow-up which the patient has not done. She reports that today she was seeing people in her house. She states they were sitting next to her more getting up and moving around. Mouth is also covered in blue ink and she reports that she was told she was chewing on a blue pen earlier in the day however she has no memory of this. Head CT negative. No chest pain or shortness of breath. No abdominal pain. No nausea/vomiting/diarrhea. No lateralizing signs/symptoms. The patient is on observation due to acute renal failure BUN/creatinine 45/2.61 baseline 1.3, Hematuria, Hyperkalemia, Potassium 5.5. Consulted to psychiatry again to address visual hallucinations. My psychiatric evaluation I find a patient that is calm, cooperative and pleasant. The patient says that starting March 14 she has been having episodic, on and off, visual hallucinations. She says that these hallucination has been progressive in frequency, intensity and severity. In the last days she has been having 6-7 episodes per day of seeing people coming inside her house, trying to contact her, and she has even seen her son who lives in [place] sitting in her house. Initially she was not afraid of dying, but lately she has been losing the contact with reality and thinking that hallucinations are real. Patient is very interested in treating these hallucinations. The patient denies depressive symptoms, she denies anhedonia, hopelessness, helplessness, she denies suicidal and homicidal ideation, she denies visual and auditory hallucinations. The patient is fully oriented x3, with good recent, immediate and remote recall. Good obstruction, language, executive function. PPHx: no previous suicide attempts, no psychiatric hospitalizations, but she was seen and cleared about a week ago by Dr. Young here in [place] with a similar complaint than today, PMHx: with a past medical history significant for diabetes mellitus, hypertension, hyperlipidemia, coronary artery disease status post CABG on , CHF and hypothyroidism Substance Hx: The use of illegal drugs and alcohol Family Hx: She has a son that is bipolar Social Hx: The patient was born and raised in [place], she lives in [place] with her and granddaughter, she is retired Review of Systems All other systems reviewed negative except as stated in HPI Psychiatric: Reports paranoia, Reports seeing things others do not see [facility] - History History Provided By: Patient - Medical History Medical History: Medical History (Last Reviewed 04/09/18 @ 06:28 by Aranza Reina) CHF (congestive heart failure) Hyperlipidemia Hypertension Neuropathy CAD (coronary artery disease) Diabetes Hypothyroidism - Surgical History Surgical History: Surgical History (Last Reviewed 04/09/18 @ 06:28 by Aranza Reina) History of hip replacement Hx of cholecystectomy S/P CABG (coronary artery bypass graft) S/P shoulder replacement - Family History Family History: Family History (Last Reviewed 04/09/18 @ 06:28 by Aranza Reina) Other Family history normal - Tobacco History Second Hand Smoke Exposure: No Smoking Status: Never smoker Tobacco Type: Cigarettes - Alcohol History How Often Do You Have a Drink Containing Alcohol: Never - Substance Use History Substance History: No History of Abuse - Travel History Recent Travel in the [place] Within the Last 8 Weeks: No Recent Travel Out of the Country Within the Last 8 Weeks: No - Immunization History Tetanus Immunization: Unsure Hx Influenza Vaccine This Season: Yes Medications and Allergies Active Medications: Active Medications Acetaminophen (Tylenol) 650 mg PO Q4H PRN PRN Reason: Temp > 100.4 Al Hydroxide/Mg Hydroxide (Milk Of Magnesia Liq) 30 ml PO Q12H PRN PRN Reason: Mild Constipation Amlodipine Besylate (Norvasc) 10 mg PO DAILY [facility] Last Admin: 04/09/18 09:55 Dose: 10 mg Aspirin (Aspirin Chew) 81 mg PO DAILY [facility] Last Admin: 04/09/18 09:55 Dose: 81 mg Bisacodyl (Dulcolax Supp) 10 mg RECTAL DAILY PRN PRN Reason: SEVERE CONSITIPATION Clopidogrel Bisulfate (Plavix) 75 mg PO DAILY [facility] Last Admin: 04/09/18 09:54 Dose: 75 mg Dextrose (D50w Vial) 50 ml IV.PUSH UNSCH PRN PRN Reason: PER HYPOGLYCEMIA PROTOCOL Glucagon (Glucagon Inj) 1 mg OTHER PRN PRN PRN Reason: for Hypoglycemia Protocol Heparin Sodium (Porcine) (Heparin Inj) 5,000 units SQ Q12H [facility] Last Admin: 04/09/18 12:20 Dose: 5,000 units Sodium Chloride (Ns Inj) 1,000 mls @ 100 mls/hr IV.CONT .Q10H [facility] Last Admin: 04/09/18 11:43 Dose: Not Given Insulin Aspart (Novolog Insulin Correctional Sugar Inj) 0 unit SQ ACHS AND 3AM [facility]; Protocol Last Admin: 04/09/18 12:29 Dose: Not Given Insulin Detemir (Levemir Inj) 15 unit SQ HS [facility] Lactulose (Lactulose Liq) 30 ml PO DAILY PRN PRN Reason: SEVERE CONSITIPATION Levothyroxine Sodium (Synthroid) 300 mcg PO DAILY@0600 [facility] Last Admin: 04/09/18 05:06 Dose: 300 mcg Ondansetron HCl (Zofran Inj) 4 mg IV.PUSH Q6H PRN PRN Reason: NAUSEA OR VOMITING Senna/Docusate Sodium (Hanane-Colace) 1 tab PO BID [facility] Last Admin: 04/09/18 09:55 Dose: 1 tab Sennosides (Senokot) 17.2 mg PO Q12H PRN PRN Reason: Moderate Constipation Sodium Chloride (Ns Flush) 2 ml IV.FLUSH BID [facility] Last Admin: 04/09/18 09:55 Dose: Not Given Sodium Chloride (Ns Flush) 2 ml IV.FLUSH PRN PRN PRN Reason: FLUSH AFTER USING IV ACCESS Allergies Allergy/AdvReac Type Severity Reaction Status Date / Time No Known Allergies Allergy Verified 04/08/18 17:26 Home Medications Medication Instructions Recorded Confirmed Type amlodipine 10 mg PO DAILY 03/28/18 04/08/18 History insulin glargine [Lantus Solostar 15 unit SUBCUT HS 03/28/18 04/08/18 History U-100 Insulin] insulin aspart U-100 [Novolog 1 - 16 unit SUBCUT ACHS 04/08/18 04/08/18 History U-100 Insulin aspart] Exam Vital signs: Vital Signs 04/08/18 16:59 04/08/18 19:13 04/08/18 23:28 Temperature 97.5 F L Pulse Rate 64 67 69 Respiratory Rate 15 18 16 Blood Pressure 164/72 H 156/71 H 135/64 Pulse Oximetry 97 97 96 04/09/18 00:00 04/09/18 03:58 04/09/18 07:25 Temperature 97.8 F 98.0 F 98.4 F Pulse Rate 72 90 80 Respiratory Rate 18 17 16 Blood Pressure 147/68 H 168/76 H 135/63 Pulse Oximetry 96 98 96 04/09/18 11:37 Temperature 98.9 F Pulse Rate 81 Respiratory Rate 16 Blood Pressure 134/62 Pulse Oximetry 95 Intake & Output 04/08/18 04/09/18 04/09/18 18:59 06:59 18:59 Intake Total 2500 / 2500 Balance 2500 / 2500 Weight 71.214 kg 71.21 kg Intake: IV 2500 / 2500 NS Inj 1,000 ML @ 100 mls/hr IV 1999 / 1999 .CONT .Q10H [facility] Rx#:[id number] NS Inj 500 ML @ Wide Open IV. 500 / 500 SIG BOLUS ONE Rx#:[id number] Other: Weight On Admission 71.21 kg Narrative: No tremors, no EPS, no psychomotor agitation or retardation, no catatonia Mental Status Examination Appearance: Appropriate Consciousness: Alert Orientation: x4 Motor Activity: Normal gait Speech: Unremarkable Language: Adequate Fund of Knowledge: Adequate Attention and Concentration: Adequate Memory: Unremarkable Mood: Appropriate Affect: Appropriate Thought Process & Associations: Intact Thought Content: Appropriate Hallucination Type: Visual Delusion Type: Paranoid Suicidal Ideation: No Suicidal Plan: No Suicidal Intention: No Homicidal Ideation: No Homicidal Plan: No Homicidal Intention: No Insight: Fair Judgment: Impulsive Assessment and Plan - Assessment (1) Unspecified psychosis Code(s): F29 - Unspecified psychosis not due to a substance or known physiological condition Status: Acute - Plan Plan: Psychiatric evaluation today the patient presents calm, cooperative and pleasant. The patient reports that for the last month, since March 14, she has been experiencing perceptual disturbances that has been increasing in severity, intensity and frequency. She has been having visual hallucinations of people coming inside her house, 5-6 times per day, she described group of people, some of the known, some of them unknown, sometimes with a good insight, sometimes with complete lack of insight and complete loss of contact with reality. Apparently the patient has been acting out secondary to the hallucinations, afraid, distress. She does not have any previous psychiatric history, no prepsychotic hospitalizations, no previous suicide attempts. The patient is fully oriented x3, does not seem to have any gross cognitive impairment. She does have several medical abnormalities, such as acute kidney injury, UTI that could account as a source of the visual hallucinations, but I am offering to the patient involuntary psychiatric admission to address his psychosis. I will start Seroquel 12.5 mg twice daily. Patient can be transferred in voluntary basis to psychiatry once medically stable. Extensive psychoeducation, supportive motivation provided Justification for Continued Inpatient Stay: Voluntary admission in psychiatry
[2018-04-09] MEDS ORDERED: Insulin Detemir Inj 1,000 UNIT/10 ML Vial SQ SCH (21:00)
[2018-04-09] MEDS: QUEtiapine 25 MG Tablet PO SCH (23:18)
[2018-04-10 00:30] VITALS: O2SAT 96
[2018-04-10] MEDS: Heparin - SQ 10,000 UNITS/ML Vial SQ SCH ×2 (00:50→11:09)
[2018-04-10] MEDS: Insulin NovoLOG Aspart Correctional Sugar Inj SQ SCH ×2 (03:47→10:06)
[2018-04-10] MEDS ORDERED: Benzonatate 100 MG Capsule PO ONE (03:52)
[2018-04-10] MEDS: Levothyroxine 150 MCG Tablet PO SCH ×2 (04:49→06:31)
[2018-04-10] MEDS: Sod Chloride 0.9% Inj 1,000 ML IV.CONT SCH (04:49)
[2018-04-10 07:55] VITALS: BP 158/72; PULSE 82; RESP 16; TEMP 98.1
--- NOTE | 2018-04-10 08:14 | P.DS ---
Date of admission: 04/08/18 20:01 Primary care physician: UNKNOWN Brief History from admission: 77-year-old female with a past medical history significant for diabetes mellitus , hypertension, hyperlipidemia, coronary artery disease status post CABG on 03/14, CHF and hypothyroidism presents to the emergency department for the evaluation of multiple falls. The patient reports that she has fallen twice today and twice yesterday. She states that today she noticed she had blood in her urine and was bending down to get a sample when she fell backwards into her bathtub. Her daughter called her primary care provider who suggested she come to the emergency department for further evaluation of hematuria. The patient denies hitting her head or loss of consciousness. The patient was hospitalized earlier this month where she was evaluated for visual hallucinations with psychiatry consult, head CT and MRI. Psychiatry recommended outpatient follow- up which the patient has not done. She reports that today she was seeing people in her house. She states they were sitting next to her more getting up and moving around. Mouth is also covered in blue ink and she reports that she was told she was chewing on a blue pen earlier in the day however she has no memory of this. Head CT negative. No chest pain or shortness of breath. No abdominal pain. No nausea/vomiting/diarrhea. No lateralizing signs/symptoms. No fevers/chills. DS: Diagnosis - Discharge Diagnosis (1) Adjustment disorder with depressed mood Status: Acute (2) CAD (coronary artery disease) Status: Acute (3) Diabetic ketoacidosis associated with type 2 diabetes mellitus Status: Acute (4) Elevated troponin Status: Acute (5) Hypothyroidism Status: Acute (6) NSTEMI (non-ST elevated myocardial infarction) Status: Acute (7) Psychosis not due to substance or known physiological condition Status: Acute (8) S/P CABG x 2 Status: Acute DS: Medications - Discharge Medications Prescriptions: quetiapine 12.5 mg PO BID #60 tab DS: Summary Hospital Course: 77-year-old female with a past medical history significant for diabetes mellitus , hypertension, hyperlipidemia, coronary artery disease status post CABG on 03/14, CHF and hypothyroidism presents to the emergency department for the evaluation of multiple falls. The patient reports that she has fallen twice today and twice yesterday. She states that today she noticed she had blood in her urine and was bending down to get a sample when she fell backwards into her bathtub. Her daughter called her primary care provider who suggested she come to the emergency department for further evaluation of hematuria. The patient denies hitting her head or loss of consciousness. The patient was hospitalized earlier this month where she was evaluated for visual hallucinations with psychiatry consult, head CT and MRI. Psychiatry recommended outpatient follow- up which the patient has not done. She reports that today she was seeing people in her house. She states they were sitting next to her more getting up and moving around. Mouth is also covered in blue ink and she reports that she was told she was chewing on a blue pen earlier in the day however she has no memory of this. Head CT negative. No chest pain or shortness of breath. No abdominal pain. No nausea/vomiting/diarrhea. No lateralizing signs/symptoms. No fevers/chills. Patient BS improved. Hematuria resolved. Patient improved and was [facility] - Time Spent with Patient Total time spent providing and/or coordinating discharge services: Greater than 30 minutes - Quality: VTE Deep Vein Thrombosis/Pulmonary Embolism Present on Admission: No Exam Vital signs: Vital Signs 04/09/18 11:37 04/09/18 16:00 04/09/18 19:20 Temperature 98.9 F 98.2 F 98.2 F Pulse Rate 81 83 86 Respiratory Rate 16 16 19 Blood Pressure 134/62 141/64 H 140/65 Pulse Oximetry 95 96 98 04/10/18 00:00 04/10/18 03:42 04/10/18 07:54 Temperature 97.9 F 97.8 F 98.1 F Pulse Rate 79 83 82 Respiratory Rate 20 20 16 Blood Pressure 156/65 H 149/65 H 158/72 H Pulse Oximetry 96 96 96 Intake & Output 04/09/18 04/10/18 04/10/18 18:59 06:59 18:59 Intake Total 1000 / 1000 Balance 1000 / 1000 Intake: IV 1000 / 1000 NS Inj 1,000 ML @ 100 mls/hr IV 1000 / 1000 .CONT .Q10H [facility] Rx#:[id number] Other: Date of Last Bowel Movement 04/08/18 04/08/18 Narrative: Gen.: 77 yo F, appears in no acute distress. Cardiovascular: Regular rate and rhythm. No murmurs, rubs or gallops. Respiratory: Lungs clear to auscultation bilaterally. No wheezes or rhonchi. Abdomen: Soft, nontender, nondistended. No peritoneal signs. Musculoskeletal: No gross deformities. No edema. Skin: No obvious rashes or erythema. Neuro: Sensory and motor grossly intact. Cranial nerves II through XII grossly intact. Results Procedures completed during hospitalization: none Labs on day of discharge: Labs from last 24 hours 04/10/18 04/10/18 04/09/18 03:43 03:33 21:07 POC Glucose 74 62 L 261 H 04/09/18 04/09/18 04/09/18 17:31 12:20 08:47 POC Glucose 359 H 128 H 252 H - Impressions ITS Impressions Cervical Spine CT 04/08/18 17:37 CONCLUSION: 1. Degenerative disc disease basically isolated to C6-7 with loss of disc height and uncovertebral ridging. 2. Bilateral, mild facet hypertrophy at C3-4. 3. No fracture. Spinal canal and neural foramina appear to be adequate throughout. Chest X-Ray 04/08/18 17:37 CONCLUSION: 1. Improving aeration in both lung bases with some residual atelectasis/ airspace disease on the left base. 2. Compensated cardiomegaly. 3. Interval removal of the left-sided thoracostomy tube, mediastinal drain and right IJ central venous catheter. No pneumothorax. 4. Left shoulder arthroplasty. No acute osseous injury. Head CT 04/08/18 17:37 CONCLUSION: 1. Mild chronic changes with minimal periventricular small vessel ischemic demyelination. 2. Chronic sinusitis in the left sphenoid. 3. Otherwise negative. Nothing acute. . Lumbar Spine X-Ray 04/08/18 17:37 CONCLUSION: 1. Chronic changes with some loss of height to the superior endplate of T12. Chronic central compression through the superior endplate of L1. I do not see an acute osseous injury. 2. Grade 1 anterolisthesis of L4 on 5 appears to be due to facet degeneration and hypertrophy. Facet hypertrophy and sclerosis is also seen at the lumbosacral junction. Pelvis X-Ray 04/08/18 17:37 CONCLUSION: No acute abnormality. Abdomen/Bladder Ultrasound 04/09/18 00:00 CONCLUSION: 1. Echogenic kidneys consistent with medical renal disease. 2. No sonographic evidence for obstructive uropathy. 3. Small left pleural effusion. Discharge Plan - Discharge Disposition Patient Disposition: [facility] Disc To Psych Care Facility - Discharge Condition Condition: Stable - Discharge Order Discharge Orders: Discharge Order (Routine); Ordered 04/09/18 Ordered By: Elaine Posey - Discharge Details Anticipated Discharge Date: 04/09/18 - Physicians Team Primary Care Provider: UNKNOWN, Attending Provider: Elaine Posey Other Providers: Otf Vanessa ; Chavo Hightower MD
[2018-04-10] MEDS: Senna/Docusate Sodium 8.6/50 MG Tablet PO SCH (08:24)
[2018-04-10] MEDS: Sodium Chloride 0.9% 2 ML Flush BID IV.FLUSH SCH (08:24)
[2018-04-10] MEDS: QUEtiapine 25 MG Tablet PO SCH (08:24)
[2018-04-10] MEDS: amLODIPine 10 MG Tablet PO SCH (08:24)
--- NOTE | 2018-04-10 11:30 | P.PNPSY ---
Subjective Remarks: The patient was seen today for psychiatric reevaluation. Patient is calm, cooperative, pleasant. The patient states that she has not have any visual hallucinations in the last 24 hours. She says that she had a very good sleep last night, described good mood, but at the same time she says that she is very afraid to go back home and experienced this perceptual disturbances again. She says that she feels very anxious and is kind of anticipating that she is going to have them "and I am not going to be able to handle it". Patient is fully oriented x3, without attention deficit, no filtration of consciousness at the moment. Mental Status Examination Appearance: Appropriate Consciousness: Alert Orientation: x4 Motor Activity: Normal gait Speech: Unremarkable Language: Adequate Fund of Knowledge: Adequate Attention and Concentration: Adequate Memory: Unremarkable Mood: Appropriate Affect: Appropriate Thought Process & Associations: Intact Thought Content: Appropriate Hallucination Type: Visual Delusion Type: Paranoid Suicidal Ideation: No Suicidal Plan: No Suicidal Intention: No Homicidal Ideation: No Homicidal Plan: No Homicidal Intention: No Insight: Fair Judgment: Impulsive Assessment and Plan - Assessment (1) Unspecified psychosis Code(s): F29 - Unspecified psychosis not due to a substance or known physiological condition Status: Acute - Plan Plan: Patient has been experiencing visual hallucinations, they are distressing and anxiety provoking for the patient, she would be admitted voluntarily in 2500. Increase Seroquel to 25 mg twice daily. Justification for Continued Inpatient Stay: Patient is acutely psychotic.
[2018-04-10] MEDS ORDERED: QUEtiapine 25 MG Tablet PO SCH (11:32)
[2018-04-10 12:23] LABS: Calcium 7.8 mg/dL (8.5-10.1); Carbon Dioxide 26.1 meq/L (21.0-32.0); Potassium 3.9 meq/L (3.5-5.1)
== END 2018-04-10 12:05 ==
LOC: NEPC 16:29 → NEDA 20:01 → NEPGCP 04-09 00:47 → NEDH 04-10 10:09 → NEPGCP 04-10 10:10
PROVIDERS: ADMIT Hospitalist; ATTEND Hospitalist

== ENCOUNTER 2018-04-10 11:36 | Inpatient (IN) ==
[2018-04-10] MEDS ORDERED: Aluminum/Magnesium/Simethacone Susp 30 ML UDC PO PRN (13:04)
[2018-04-10] MEDS ORDERED: Bisacodyl 10 MG Supp RECTAL PRN (13:04)
--- NOTE | 2018-04-10 13:09 | P.HPPSY ---
Provisional Diagnosis Admission Date: April 10, 2018 12:26 [place].: Unspecified psychosis Competence Certification of Person's Competence To Provide Express and Informed Consent I have personally examined Heather Nails, a person being served at [facility] on, April 10, 2018 1305. Express and informed consent means consent voluntarily given in writing, by a competent person, after sufficient explanation and disclosure of the subject matter involved to enable the person to make a knowing and willful decision without any element of force, fraud, deceit, duress, or other form of constraint or coercion. This person is 18 years of age or older, is not now known to be incompetent to consent to treatment with a guardian advocate, and does not have a health care surrogate or proxy currently making medical treatment decisions. I have found this person to be one of the following: [x] Competent to provide express and informed consent, as defined above, for voluntary admission to this facility and is competent to provide express and informed consent for treatment. He/she has the consistent capacity to make well reasoned, willful, and knowing decisions concerning his or her medical or mental health treatment. The person fully and consistently understands the purpose of the admission for examination/placement and is fully capable of personally exercising all rights assured under [place] Incompetent to provide express and informed consent to voluntary admission, and this is incompetent to provide express and informed consent to treatment. The person must be transferred to involuntary status and a petition for a guardian advocate filed with the Circuit Court. [] Refusing to provide express and informed consent to voluntary admission but is competent to provide express and informed consent for treatment. The person must be discharged or transferred to involuntary status. Form shall be completed within 24 hours of a person's arrival at the receiving facility and filed in the clinical record of each person: 1. Admitted on a voluntary basis 2. Permitted to provide express and informed consent to his/her own treatment 3. Allowed to transfer from involuntary to voluntary status 4. Prior to permitting a person to consent to his or her own treatment after having been previously found incompetent to consent to treatment. History of Present Illness Capacity: Has capacity History of Present Illness: 04/09/2018 The patient is a 77-year-old woman, domiciled with her and granddaughter in [place], retired, without no previous psychiatric history, no previous suicide attempts, no psychiatric hospitalizations, but she was seen and cleared about a week ago by Dr. Young here in [place] with a similar complaint than today, with a past medical history significant for diabetes mellitus, hypertension, hyperlipidemia, coronary artery disease status post CABG on 03/14/18, CHF and hypothyroidism, who presents to the emergency department for the evaluation of multiple falls. The patient reports that she has fallen twice today and twice yesterday. She states that today she noticed she had blood in her urine and was bending down to get a sample when she fell backwards into her bathtub. Her daughter called her primary care provider who suggested she come to the emergency department for further evaluation of hematuria. The patient denies hitting her head or loss of consciousness. The patient was hospitalized earlier this month where she was evaluated for visual hallucinations with psychiatry consult, head CT and MRI. Psychiatry recommended outpatient follow-up which the patient has not done. She reports that today she was seeing people in her house. She states they were sitting next to her more getting up and moving around. Mouth is also covered in blue ink and she reports that she was told she was chewing on a blue pen earlier in the day however she has no memory of this. Head CT negative. No chest pain or shortness of breath. No abdominal pain. No nausea/vomiting/ diarrhea. No lateralizing signs/symptoms. The patient is on observation due to acute renal failure BUN/creatinine 45/2.61 baseline 1.3, Hematuria, Hyperkalemia, Potassium 5.5. Consulted to psychiatry again to address visual hallucinations. My psychiatric evaluation I find a patient that is calm, cooperative and pleasant. The patient says that starting March 14 she has been having episodic, on and off, visual hallucinations. She says that these hallucination has been progressive in frequency, intensity and severity. In the last days she has been having 6-7 episodes per day of seeing people coming inside her house, trying to contact her, and she has even seen her son who lives in [place] sitting in her house. Initially she was not afraid of dying, but lately she has been losing the contact with reality and thinking that hallucinations are real. Patient is very interested in treating these hallucinations. The patient denies depressive symptoms, she denies anhedonia, hopelessness, helplessness, she denies suicidal and homicidal ideation, she denies visual and auditory hallucinations. The patient is fully oriented x3, with good recent, immediate and remote recall. Good obstruction, language, executive function. 04/10/2018 The patient was seen today for psychiatric reevaluation. Patient is calm, cooperative, pleasant. The patient states that she has not have any visual hallucinations in the last 24 hours. She says that she had a very good sleep last night, described good mood, but at the same time she says that she is very afraid to go back home and experienced this perceptual disturbances again. She says that she feels very anxious and is kind of anticipating that she is going to have them "and I am not going to be able to handle it". Patient is fully oriented x3, without attention deficit, no filtration of consciousness at the moment. PPHx: no previous suicide attempts, no psychiatric hospitalizations, but she was seen and cleared about a week ago by Dr. Young here in [place] with a similar complaint than today, PMHx: with a past medical history significant for diabetes mellitus, hypertension, hyperlipidemia, coronary artery disease status post CABG on , CHF and hypothyroidism Substance Hx: The use of illegal drugs and alcohol Family Hx: She has a son that is bipolar Social Hx: The patient was born and raised in [place], she lives in [place] with her and granddaughter, she is retired - Inpatient Certification I certify that the inpatient services were ordered in accordance with Medicare regulations governing the order. This includes certification that hospital inpatient services are reasonable and necessary and in the case of services not specified as inpatient-only under 42 CFR 419.22(n), that they are appropriately provided as inpatient services in accordance to with the 2-midnight benchmark under 43 CFR 412.3(e) I certify that inpatient psychiatric hospital services are medically necessary. Evaluation and treatment and/or diagnostic testing are expected to improve the patient's condition. The patient needs on a daily basis, active treatment furnished directly by or requiring the supervision of inpatient psychiatric facility personnel. Estimated Total Length of Stay (Days): 7 Plans for Post Hospital Care: Home Review of Systems All other systems reviewed negative except as stated in HPI Psychiatric: Reports depression, Reports paranoia, Reports seeing things others do not see [facility] - History History Provided By: Patient - Medical History Medical History: Medical History (Last Reviewed 04/09/18 @ 06:28 by Aranza Reina) CAD (coronary artery disease) CHF (congestive heart failure) Diabetes Hyperlipidemia Hypertension Hypothyroidism Neuropathy - Surgical History Surgical History: Surgical History (Last Reviewed 04/09/18 @ 06:28 by Aranza Reina) History of hip replacement Hx of cholecystectomy S/P CABG (coronary artery bypass graft) S/P shoulder replacement - Family History Family History: Family History (Last Reviewed 04/09/18 @ 06:28 by Aranza Reina) Other Family history normal - Tobacco History Second Hand Smoke Exposure: No Smoking Status: Never smoker Tobacco Type: Cigarettes - Alcohol History How Often Do You Have a Drink Containing Alcohol: Never - Substance Use History Substance History: No History of Abuse Medications and Allergies Active Medications: Active Medications Amlodipine Besylate (Norvasc) 10 mg PO DAILY [facility] Aspirin (Aspirin Chew) 81 mg PO DAILY [facility] Clopidogrel Bisulfate (Plavix) 75 mg PO DAILY [facility] Insulin Aspart (Novolog Insulin Correctional Sugar Inj) 1 - 16 unit SQ ACHS [facility] Levothyroxine Sodium (Synthroid) 300 mcg PO DAILY@0600 COUNTS INCLUDE 234 BEDS AT THE [facility] Non-Formulary Medication (Insulin Glargine [Lantus Solostar U-100 Insulin]) 15 unit SQ HS WADE Quetiapine Fumarate (Seroquel) 12.5 mg PO BID WADE Allergies Allergy/AdvReac Type Severity Reaction Status Date / Time No Known Allergies Allergy Verified 04/08/18 17:26 Home Medications Medication Instructions Recorded Confirmed Type amlodipine 10 mg PO DAILY 03/28/18 04/08/18 History insulin glargine [Lantus Solostar 15 unit SUBCUT HS 03/28/18 04/08/18 History U-100 Insulin] insulin aspart U-100 [Novolog 1 - 16 unit SUBCUT ACHS 04/08/18 04/08/18 History U-100 Insulin aspart] Exam Narrative: No tremors, no EPS, no psychomotor agitation or retardation, no catatonia - Constitutional no acute distress - Routine HEENT Exam Head: Present: normocephalic, atraumatic Eye: Present: EOMI, PERRL ENT: Present: mucous membranes moist Mental Status Examination Appearance: Appropriate Consciousness: Alert Orientation: x4 Motor Activity: Normal gait Speech: Unremarkable Language: Adequate Fund of Knowledge: Adequate Attention and Concentration: Adequate Memory: Unremarkable Mood: Appropriate Affect: Appropriate Thought Process & Associations: Intact Thought Content: Hallucinations Hallucination Type: Visual Delusion Type: Paranoid Suicidal Ideation: No Suicidal Plan: No Suicidal Intention: No Homicidal Ideation: No Homicidal Plan: No Homicidal Intention: No Insight: Fair Judgment: Impulsive Assessment and Plan - Plan Plan: 04/09/2018 On psychiatric evaluation today the patient presents calm, cooperative and pleasant. The patient reports that for the last month, since March 14, she has been experiencing perceptual disturbances that has been increasing in severity, intensity and frequency. She has been having visual hallucinations of people coming inside her house, 5-6 times per day, she described group of people, some of the known, some of them unknown, sometimes with a good insight, sometimes with complete lack of insight and complete loss of contact with reality. Apparently the patient has been acting out secondary to the hallucinations, afraid, distress. She does not have any previous psychiatric history, no prepsychotic hospitalizations, no previous suicide attempts. The patient is fully oriented x3, does not seem to have any gross cognitive impairment. She does have several medical abnormalities, such as acute kidney injury, UTI that could account as a source of the visual hallucinations, but I am offering to the patient involuntary psychiatric admission to address his psychosis. I will start Seroquel 12.5 mg twice daily. Patient can be transferred in voluntary basis to psychiatry once medically stable. Extensive psychoeducation, supportive motivation provided. 04/10/2018 Patient has been experiencing visual hallucinations, they are distressing and anxiety provoking for the patient, she would be admitted voluntarily in 2500. Increase Seroquel to 25 mg twice daily. Justification for Continued Inpatient Stay: Needs admission
[2018-04-10] MEDS ORDERED: Insulin NovoLOG Aspart Correctional Sugar Inj SQ SCH (17:00)
[2018-04-10] MEDS ORDERED: Dextrose 50% in Water 50 ML Vial IV.PUSH PRN (17:05)
[2018-04-10] MEDS ORDERED: Sodium Chloride 0.9% 2 ML Flush PRN IV.FLUSH (17:06)
[2018-04-10] MEDS: Insulin NovoLOG Aspart Correctional Sugar Inj SQ SCH ×2 (17:11→20:54)
[2018-04-10] MEDS: Senna/Docusate Sodium 8.6/50 MG Tablet PO SCH (20:59)
[2018-04-10] MEDS: QUEtiapine 25 MG Tablet PO SCH (20:59)
[2018-04-10] MEDS ORDERED: Insulin Detemir Inj 1,000 UNIT/10 ML Vial SQ SCH (21:00)
[2018-04-11] MEDS: Levothyroxine 150 MCG Tablet PO SCH (06:11)
[2018-04-11] MEDS: Insulin NovoLOG Aspart Correctional Sugar Inj SQ SCH ×4 (08:10→21:13)
[2018-04-11 10:19] LABS: Calcium 8.2 mg/dL (8.5-10.1); Carbon Dioxide 27.3 meq/L (21.0-32.0); Potassium 3.6 meq/L (3.5-5.1)
[2018-04-11 10:22] LABS: Chol/HDL Ratio 2.37 Ratio; HDL Cholesterol 50.1 mg/dL (40.0-60.0)
[2018-04-11] MEDS: Senna/Docusate Sodium 8.6/50 MG Tablet PO SCH (10:59)
[2018-04-11] MEDS: amLODIPine 10 MG Tablet PO SCH (11:01)
[2018-04-11] MEDS: QUEtiapine 25 MG Tablet PO SCH ×2 (11:01→21:13)
[2018-04-11] MEDS ORDERED: Senna/Docusate Sodium 8.6/50 MG Tablet PO PRN (12:18)
--- NOTE | 2018-04-11 14:52 | P.CON ---
History of Present Illness Primary Care Provider: UNKNOWN History of Present Illness: 77-year-old female with a past medical history significant for diabetes mellitus , hypertension, hyperlipidemia, coronary artery disease status post CABG on 03/14, CHF and hypothyroidism presents to the emergency department for the evaluation of multiple falls. The patient reports that she has fallen twice today and twice yesterday. She states that today she noticed she had blood in her urine and was bending down to get a sample when she fell backwards into her bathtub. Her daughter called her primary care provider who suggested she come to the emergency department for further evaluation of hematuria. The patient denies hitting her head or loss of consciousness. The patient was hospitalized earlier this month where she was evaluated for visual hallucinations with psychiatry consult, head CT and MRI. Psychiatry recommended outpatient follow- up which the patient has not done. She reports that today she was seeing people in her house. She states they were sitting next to her more getting up and moving around. Mouth is also covered in blue ink and she reports that she was told she was chewing on a blue pen earlier in the day however she has no memory of this. Head CT negative. No chest pain or shortness of breath. No abdominal pain. No nausea/vomiting/diarrhea. No lateralizing signs/symptoms. No fevers/chills. Patient BS improved. Hematuria resolved. Patient improved and was transferred [facility] The hospitalist is consulted as patient noted with hypoglycemia in the morning and also diarrhea x2 times. Patient received laxative however . DC laxative and also start probiotic. Adjust insulin decreased night levemir and will continue to monitor and adjust insulin . Patient is however with labile BS levels. Review of Systems All other systems reviewed negative except as stated in HPI PMFSH - History History Provided By: Patient - Medical History Medical History: Medical History (Last Reviewed 04/11/18 @ 18:06 by Elaine Posey MD) CAD (coronary artery disease) CHF (congestive heart failure) Diabetes Hyperlipidemia Hypertension Hypothyroidism Neuropathy - Surgical History Surgical History: Surgical History (Last Reviewed 04/11/18 @ 18:06 by Elaine Posey MD) History of hip replacement Hx of cholecystectomy S/P CABG (coronary artery bypass graft) S/P shoulder replacement - Family History Family History: Family History (Last Reviewed 04/11/18 @ 18:06 by Elaine Posey MD) Other Family history normal - Tobacco History Second Hand Smoke Exposure: Yes Tobacco Use In Past 30 Days: No Smoking Status: Former smoker Tobacco Type: Cigarettes - Alcohol History How Often Do You Have a Drink Containing Alcohol: Never - Substance Use History Substance History: No History of Abuse - Travel History Recent Travel in the [place] Within the Last 8 Weeks: No Recent Travel Out of the Country Within the Last 8 Weeks: No - Immunization History Tetanus Immunization: >5 Years Hx Influenza Vaccine This Season: Yes Medications and Allergies Active Medications: Active Medications Al Hydrox/Mg Hydrox/Simethicone (Mag-Al Plus Susp Liq) 30 ml PO Q6H PRN PRN Reason: DYSPEPSIA Al Hydroxide/Mg Hydroxide (Milk Of Magnesia Liq) 30 ml PO Q12H PRN PRN Reason: Mild Constipation Amlodipine Besylate (Norvasc) 10 mg PO DAILY [facility] Last Admin: 04/11/18 11:01 Dose: 10 mg Aspirin (Aspirin Chew) 81 mg PO DAILY [facility] Last Admin: 04/11/18 11:00 Dose: 81 mg Bisacodyl (Dulcolax Supp) 10 mg RECTAL DAILY PRN PRN Reason: SEVERE CONSITIPATION Clopidogrel Bisulfate (Plavix) 75 mg PO DAILY [facility] Last Admin: 04/11/18 11:00 Dose: 75 mg Dextrose (D50w Vial) 50 ml IV.PUSH UNSCH PRN PRN Reason: PER HYPOGLYCEMIA PROTOCOL Glucagon (Glucagon Inj) 1 mg OTHER PRN PRN PRN Reason: for Hypoglycemia Protocol Insulin Aspart (Novolog Insulin Correctional Sugar Inj) 0 unit SQ [facility]; Protocol Last Admin: 04/11/18 11:16 Dose: Not Given Insulin Detemir (Levemir Inj) 15 unit SQ [facility] Last Admin: 04/10/18 20:58 Dose: 15 unit Lactulose (Lactulose Liq) 30 ml PO DAILY PRN PRN Reason: SEVERE CONSITIPATION Levothyroxine Sodium (Synthroid) 300 mcg PO DAILY@0600 [facility] Last Admin: 04/11/18 06:11 Dose: 300 mcg Quetiapine Fumarate (Seroquel) 25 mg PO BID [facility] Senna/Docusate Sodium (Hanane-Colace) 1 tab PO BID PRN PRN Reason: CONSTIPATION Sennosides (Senokot) 17.2 mg PO Q12H PRN PRN Reason: Moderate Constipation Sodium Chloride (Ns Flush) 2 ml IV.FLUSH PRN PRN PRN Reason: FLUSH AFTER USING IV ACCESS Allergies Allergy/AdvReac Type Severity Reaction Status Date / Time No Known Allergies Allergy Verified 04/08/18 17:26 Home Medications Medication Instructions Recorded Confirmed Type amlodipine 10 mg PO DAILY 03/28/18 04/08/18 History insulin glargine [Lantus Solostar 15 unit SUBCUT HS 03/28/18 04/08/18 History U-100 Insulin] insulin aspart U-100 [Novolog 1 - 16 unit SUBCUT ACHS 04/08/18 04/08/18 History U-100 Insulin aspart] Physical Exam Vital signs: Vital Signs 04/11/18 06:00 04/11/18 11:24 Temperature 97.8 F 99.8 F H Pulse Rate 83 89 Respiratory Rate 16 18 Blood Pressure 139/65 153/69 H Pulse Oximetry 94 L 93 L Assessment and Plan - Plan 1. Acute renal failure BUN/creatinine 45/2.61 baseline 1.3 Renal ultrasound pending IV fluid hydration Monitor renal function Kidney improved and back at baseline. Encouraged pO intake'patient weas however not eating in the morning on admission to psych. Her BS was also noted low adjust insulin 2. Hematuria, resolved Patient reports bright red blood in her urine on admission UA negative for occult blood 3. Hallucinations Patient reports seeing and interacting with people in her house who are not there Previous evaluation includes MRI brain which was negative Psychiatry reconsulted as patient continues to have symptoms. Seen by Dr Hightower recommends inpatient psych admission Patient is admitted to inpatient psych and under psych care , continue management per psych 4. Frequent falls Likely secondary to deconditioning Patient denies syncopal episodes Physical therapy consulted to evaluate gait stability/deconditioning 5. Coronary artery disease Continue aspirin and Plavix Status post CABG Troponin/EKG pending Patient denies chest pain or shortness of breath 6. Diabetes mellitus Labile BS Blood glucose on arrival to ED was 408 However the patient is noted with hypoglycemia in the morning of 04/11 on admission to psych Adjust insulin decreased night levemir to 12 U and will continue to monitor and adjust insulin . Patient is however with labile BS levels. Monitor blood glucose 7. Diarrhea likely laxative indiced. Had diarrhea x2 times. Patient received laxative. DC laxative and also start probiotic. 8. Hypertension/hyperlipidemia/hypothyroidism Continue home medications Physical deconditioning consult PT, recommends PT at [place] Thank you for this consultation will follow along
[2018-04-11 17:28] LABS: Hemoglobin A1c 9.2 % (4.3-6.0)
[2018-04-11] MEDS ORDERED: Insulin Detemir Inj 1,000 UNIT/10 ML Vial SQ SCH (21:00)
[2018-04-11] MEDS: Lactobacillus Acidophilus/L. Spores Tablet PO SCH (21:13)
--- NOTE | 2018-04-11 22:06 | P.PNPSY ---
Subjective Remarks: Patient seen for follow up; chart reviewed. Discussion with nursing staff reported that patient mostly seclusive to the bed, did not get up for breakfast. Patient was found lying hospital bed noted to be, cooperative. Patient states that she has had 2 loose stools and she has had 2 episodes of hypoglycemia recently. Patient also reports having had recent bypass and states that after she was transferred to rehabilitation program she saw "all these people after the rehab" which she reports has been "off-and-on". Patient reports that she has had this visual hallucinations a couple of times last time being 3 days ago which she saw a figure of a woman that morning and has not had repeat of these visual hallucinations since. Patient states these visual hallucinations of people do not talk to her and last minutes. Patient states visual hallucination prior to last episode was of her children "standing there" but did not speak with her. Patient reports denying any further auditory or visual hallucinations. Patient mentions that she lives with her granddaughter September ([phone]). Review of Systems All other systems reviewed negative except as stated in HPI Mental Status Examination Appearance: Appropriate Consciousness: Alert Orientation: x4 Motor Activity: Normal gait Speech: Unremarkable Language: Adequate Fund of Knowledge: Adequate Attention and Concentration: Adequate Memory: Unremarkable Mood: Appropriate Affect: Appropriate Thought Process & Associations: Intact Thought Content: Hallucinations Hallucination Type: Visual Delusion Type: Paranoid Suicidal Ideation: No Suicidal Plan: No Suicidal Intention: No Homicidal Ideation: No Homicidal Plan: No Homicidal Intention: No Insight: Fair Judgment: Impulsive Assessment and Plan - Assessment (1) Unspecified psychosis Code(s): F29 - Unspecified psychosis not due to a substance or known physiological condition Status: Acute - Plan Plan: Patient with recent visual hallucinations which are distressing and that she realizes that there are visual hallucinations and are not speaking to her. Patient last episode has been several days ago and has not had a recurrence since. We will continue with quetiapine 50 mg p.o. twice daily for perceptional disturbances. We will continue to monitor mood and behavior. We will discontinue Hanane-Colace as patient reported recent loose stools. We will request PT and OT eval. We will consult hospitalist for management of recent hypoglycemic episodes. We will continue to monitor mood and behavior. Collateral admission pending from patient's granddaughter September. Discharge planning in progress. Justification for Continued Inpatient Stay: At risk of further decompensation at lower level care.
[2018-04-12] MEDS: Levothyroxine 150 MCG Tablet PO SCH (06:24)
[2018-04-12] MEDS: Insulin NovoLOG Aspart Correctional Sugar Inj SQ SCH ×4 (08:36→22:45)
[2018-04-12] MEDS: Lactobacillus Acidophilus/L. Spores Tablet PO SCH ×2 (08:51→20:17)
[2018-04-12] MEDS: amLODIPine 10 MG Tablet PO SCH (08:51)
[2018-04-12] MEDS: QUEtiapine 25 MG Tablet PO SCH ×2 (08:51→20:17)
--- NOTE | 2018-04-12 12:00 | P.PN ---
Subjective Interval history: No more diarrhea. Feels better today. However with low BS in the morning. No n./v/d/c. No fever ro chills No chest pain Ambulates with a walker. Patient still with labile BS. BS in the morning low. Will change Levemir to bid 7 U Physical Exam Vital signs: Vital Signs 04/11/18 18:23 04/12/18 05:59 Temperature 98.4 F 99.2 F Pulse Rate 87 83 Respiratory Rate 17 18 Blood Pressure 137/64 132/62 Pulse Oximetry 94 L 93 L Intake & Output 04/11/18 04/12/18 04/12/18 18:59 06:59 18:59 Intake Total 480 / 480 360 / 360 Balance 480 / 480 360 / 360 Intake: Oral 480 / 480 360 / 360 Other: Date of Last Bowel Movement 04/11/18 Narrative: Gen appearance: Pleasant 77 yo F, doesn't appear in acute distress. Cardiovascular: Regular rate and rhythm. No murmurs, rubs or gallops. Respiratory: Lungs clear to auscultation bilaterally. No wheezes or rhonchi. Abdomen: Soft, nontender, nondistended. No peritoneal signs. Musculoskeletal: No gross deformities. No edema. Skin: No obvious rashes or erythema. Neuro: Sensory and motor grossly intact. Cranial nerves II through XII grossly intact. Results - Labs CBC & Chem 7: 04/11/18 08:41 Laboratory Results - last 24 hr 04/11/18 04/11/18 04/11/18 08:41 16:07 20:32 POC Glucose 178 H 192 H Hemoglobin A1c 9.2 H 04/12/18 04/12/18 04/12/18 07:30 07:55 11:05 POC Glucose 65 L 85 188 H Hemoglobin A1c Assessment and Plan - Plan 1. Acute renal failure BUN/creatinine 45/2.61 baseline 1.3 Renal ultrasound pending IV fluid hydration Monitor renal function Kidney improved and back at baseline. Encouraged PO intake patient was however not eating in the morning on admission to psych. Her BS was also noted low adjusted insulin 2. Hematuria, resolved Patient reports bright red blood in her urine on admission UA negative for occult blood 3. Hallucinations Patient reports seeing and interacting with people in her house who are not there Previous evaluation includes MRI brain which was negative Psychiatry reconsulted as patient continues to have symptoms. Seen by Dr Hightower recommends inpatient psych admission Patient is admitted to inpatient psych and under psych care , continue management per psych 4. Frequent falls Likely secondary to deconditioning Patient denies syncopal episodes Physical therapy consulted to evaluate gait stability/deconditioning 5. Coronary artery disease Continue aspirin and Plavix Status post CABG Troponin/EKG pending Patient denies chest pain or shortness of breath 6. Diabetes mellitus insulin dependent, labile Labile BS Blood glucose on arrival to ED was 408 However the patient is noted with hypoglycemia in the morning of 04/11 on admission to psych Adjust insulin decreased night levemir to 12 U and will continue to monitor and adjust insulin . Patient is however with labile BS levels. 04/12 with low BS at 65 in the morning. Patient still with labile BS. BS in the morning low. Will change Levemir to bid 7 U Monitor blood glucose 7. Diarrhea likely laxative induced. Had diarrhea x2 times on admission to psych. Patient received laxative. DC laxative and also start probiotic. Diarrhea resolved. 8. Hypertension/hyperlipidemia/hypothyroidism Continue home medications Physical deconditioning consult PT, recommends PT at [place] Thank you for this consultation will follow along
--- NOTE | 2018-04-12 12:49 | P.PNPSY ---
Subjective Remarks: Patient seen and examined with nurse in weekend coverage for Dr. Caal. Chart reviewed. Case discussed with nursing staff. No behavioral issues noted. Patient relates that she was seeing images of people on the medical floor. Her last episode of visual hallucinations was reportedly on the day of admission to the inpatient psychiatric unit. She denies audiovisual hallucinations at this time. Mood is "okay". She denies any suicidal or homicidal ideation. She denies any side effects from medications. No acute physical complaints. Asking about possible discharge soon, and the patient was educated on the right of release as I note that she is voluntary. Vital Signs Temp Pulse Resp BP Pulse Ox 04/12/18 05:59 99.2 F 83 18 132/62 93 L 04/11/18 18:23 98.4 F 87 17 137/64 94 L Intake and Output 04/11/18 04/12/18 04/12/18 22:59 06:59 14:59 Intake Total 480 / 480 360 / 360 Balance 480 / 480 360 / 360 Intake: Oral 480 / 480 360 / 360 Laboratory Results - last 24 hr 04/11/18 04/11/18 04/11/18 08:41 16:07 20:32 POC Glucose 178 H 192 H Hemoglobin A1c 9.2 H 04/12/18 04/12/18 04/12/18 07:30 07:55 11:05 POC Glucose 65 L 85 188 H Hemoglobin A1c Labs reviewed. Review of Systems All other systems reviewed negative except as stated in HPI Mental Status Examination Appearance: Appropriate Consciousness: Alert Orientation: x4 Motor Activity: Other (No motor abnormalities noted) Speech: Unremarkable Language: Adequate Fund of Knowledge: Adequate Attention and Concentration: Adequate Memory: Unremarkable Mood: Appropriate Affect: Appropriate Thought Process & Associations: Intact, Logical, Linear Thought Content: Appropriate Hallucination Type: None Delusion Type: None Suicidal Ideation: No Suicidal Plan: No Suicidal Intention: No Homicidal Ideation: No Homicidal Plan: No Homicidal Intention: No Mental Status Exam Remarks: Insight and judgment seem fair. Assessment and Plan - Assessment (1) Unspecified psychosis Code(s): F29 - Unspecified psychosis not due to a substance or known physiological condition Status: Acute - Plan Plan: Continue low-dose Seroquel as ordered. Continue to monitor on the inpatient unit. Hospitalist input appreciated. Continue other medications and care as ordered. Justification for Continued Inpatient Stay: Risk for decompensation Discharge Planning: Per Dr. Caal
[2018-04-12] MEDS: Insulin Detemir Inj 1,000 UNIT/10 ML Vial SQ SCH (22:43)
[2018-04-13] MEDS: Levothyroxine 150 MCG Tablet PO SCH (05:40)
--- NOTE | 2018-04-13 08:23 | P.PNPSY ---
Subjective Remarks: Chart reviewed and discussed with nursing staff. Patient is in the dayroom eating breakfast. She states that she is feeling alot better. Appetite has returned and she is sleeping. She is no longer seeing visions and denies any audiovisual hallucinations. No physical concerns. Denies SI/HI. Review of Systems All other systems reviewed negative except as stated in HPI Mental Status Examination Appearance: Appropriate Consciousness: Alert Orientation: x4 Motor Activity: Other (No motor abnormalities noted) Speech: Unremarkable Language: Adequate Fund of Knowledge: Adequate Attention and Concentration: Adequate Memory: Unremarkable Mood: Appropriate Affect: Appropriate Thought Process & Associations: Intact, Logical, Linear Thought Content: Appropriate Hallucination Type: None Delusion Type: None Suicidal Ideation: No Suicidal Plan: No Suicidal Intention: No Homicidal Ideation: No Homicidal Plan: No Homicidal Intention: No Insight: Fair Judgment: Impulsive Assessment and Plan - Assessment (1) Unspecified psychosis Code(s): F29 - Unspecified psychosis not due to a substance or known physiological condition Status: Acute - Plan Plan: Continue current treatment plan. Justification for Continued Inpatient Stay: Moving patient to a less restrictive environment may result in her decompensation.
[2018-04-13] MEDS: Insulin NovoLOG Aspart Correctional Sugar Inj SQ SCH ×4 (08:45→22:50)
[2018-04-13] MEDS: Lactobacillus Acidophilus/L. Spores Tablet PO SCH ×2 (08:47→20:20)
[2018-04-13] MEDS: Insulin Detemir Inj 1,000 UNIT/10 ML Vial SQ SCH (08:47)
[2018-04-13] MEDS: amLODIPine 10 MG Tablet PO SCH (08:47)
[2018-04-13] MEDS: QUEtiapine 25 MG Tablet PO SCH ×2 (08:47→20:20)
--- NOTE | 2018-04-13 13:59 | P.PN ---
Subjective Interval history: The patient is in the chair watching TV and interacting them in room. She is walking with a walker fairly well. Says she feels improved. She is eating well. No nausea vomiting or diarrhea constipation. No fever or chills. She would like to go home soon. With labile blood sugars, insulin adjusted today Physical Exam Vital signs: Vital Signs 04/12/18 16:39 04/13/18 06:00 Temperature 98.2 F 98.4 F Pulse Rate 87 89 Respiratory Rate 18 Blood Pressure 137/60 114/56 L Pulse Oximetry 93 L 94 L Intake & Output 04/12/18 04/13/18 04/13/18 18:59 06:59 18:59 Intake Total 720 / 720 360 / 360 Balance 720 / 720 360 / 360 Intake: Oral 720 / 720 360 / 360 Other: # Voids 2 Narrative: Gen appearance: Pleasant 77 yo F, doesn't appear in acute distress. Cardiovascular: Regular rate and rhythm. No murmurs, rubs or gallops. Respiratory: Lungs clear to auscultation bilaterally. No wheezes or rhonchi. Abdomen: Soft, nontender, nondistended. No peritoneal signs. Musculoskeletal: No gross deformities. No edema. Skin: No obvious rashes or erythema. Neuro: Sensory and motor grossly intact. Cranial nerves II through XII grossly intact. Results - Labs CBC & Chem 7: 04/11/18 08:41 Laboratory Results - last 24 hr 04/12/18 04/12/18 04/13/18 16:19 20:15 06:04 POC Glucose 268 H 200 H 59 L 04/13/18 04/13/18 06:44 11:35 POC Glucose 137 H 400 H Assessment and Plan - Plan 1. Acute renal failure BUN/creatinine 45/2.61 baseline 1.3 Renal ultrasound pending IV fluid hydration Monitor renal function Kidney improved and back at baseline. Encouraged PO intake patient was however not eating in the morning on admission to psych. Her BS was also noted low adjusted insulin 2. Hematuria, resolved Patient reports bright red blood in her urine on admission UA negative for occult blood 3. Hallucinations Patient reports seeing and interacting with people in her house who are not there Previous evaluation includes MRI brain which was negative Psychiatry reconsulted as patient continues to have symptoms. Seen by Dr Hightower recommends inpatient psych admission Patient is admitted to inpatient psych and under psych care , continue management per psych 4. Frequent falls Likely secondary to deconditioning Patient denies syncopal episodes Physical therapy consulted to evaluate gait stability/deconditioning 5. Coronary artery disease Continue aspirin and Plavix Status post CABG Troponin/EKG pending Patient denies chest pain or shortness of breath 6. Diabetes mellitus insulin dependent, labile Labile BS Blood glucose on arrival to ED was 408 However the patient is noted with hypoglycemia in the morning of 04/11 on admission to psych Adjust insulin decreased night levemir to 12 U and will continue to monitor and adjust insulin . Patient is however with labile BS levels. 04/12 with low BS at 65 in the morning. Patient still with labile BS. BS in the morning low. Will change Levemir to bid 7 U Monitor blood glucose 04/12 BS labile change insulin detemir 5U SQ at HS and Insulin detemir 10 U in the morning. Monitor BS and adjust insulin as need 7. Diarrhea likely laxative induced. Had diarrhea x2 times on admission to psych. Patient received laxative. [place] laxative and also start probiotic. Diarrhea resolved. 8. Hypertension/hyperlipidemia/hypothyroidism Continue home medications Physical deconditioning consult PT, recommends PT at [place] Thank you for this consultation will follow along
[2018-04-13 17:42] VITALS: PULSE 84; TEMP 98.1
[2018-04-13] MEDS ORDERED: Insulin Detemir Inj 1,000 UNIT/10 ML Vial SQ SCH (21:00)
[2018-04-14] MEDS: Levothyroxine 150 MCG Tablet PO SCH (05:17)
[2018-04-14 05:36] VITALS: BP 132/60; RESP 18; O2SAT 92
[2018-04-14] MEDS: Insulin NovoLOG Aspart Correctional Sugar Inj SQ SCH ×2 (08:50→11:40)
[2018-04-14] MEDS: Lactobacillus Acidophilus/L. Spores Tablet PO SCH (08:53)
[2018-04-14] MEDS: QUEtiapine 25 MG Tablet PO SCH (08:54)
[2018-04-14] MEDS: amLODIPine 10 MG Tablet PO SCH (08:54)
[2018-04-14] MEDS ORDERED: Insulin Detemir Inj 1,000 UNIT/10 ML Vial SQ SCH (09:00)
--- NOTE | 2018-04-14 10:23 | P.PN ---
Subjective Interval history: Patient is in the chair she appears in not acute distress. Blood sugar is better controlled. No episodes of hypoglycemia today. No nausea or vomiting. Did not have any diarrhea she is eating better appetite is good. Physical Exam Vital signs: Vital Signs 04/13/18 17:40 04/14/18 05:34 Temperature 98.1 F 98.1 F Pulse Rate 84 84 Respiratory Rate 16 18 Blood Pressure 127/61 132/60 Pulse Oximetry 94 L 92 L Intake & Output 04/13/18 04/14/18 04/14/18 18:59 06:59 18:59 Intake Total 1140 / 1140 Balance 1140 / 1140 Intake: Oral 1140 / 1140 Other: # Voids 3 Narrative: Gen appearance: Pleasant 77 yo F, doesn't appear in acute distress. Cardiovascular: Regular rate and rhythm. No murmurs, rubs or gallops. Respiratory: Lungs clear to auscultation bilaterally. No wheezes or rhonchi. Abdomen: Soft, nontender, nondistended. No peritoneal signs. Musculoskeletal: No gross deformities. No edema. Skin: No obvious rashes or erythema. Neuro: Sensory and motor grossly intact. Cranial nerves II through XII grossly intact. Results - Labs CBC & Chem 7: 04/11/18 08:41 Laboratory Results - last 24 hr 04/13/18 04/13/18 04/13/18 11:35 16:19 19:34 POC Glucose 400 H 77 181 H 04/14/18 05:53 POC Glucose 131 H Assessment and Plan - Plan 1. Acute renal failure BUN/creatinine 45/2.61 baseline 1.3 Renal ultrasound pending IV fluid hydration Monitor renal function Kidney improved and back at baseline. Encouraged PO intake patient was however not eating in the morning on admission to psych. Her BS was also noted low adjusted insulin 2. Hematuria, resolved Patient reports bright red blood in her urine on admission UA negative for occult blood 3. Hallucinations Patient reports seeing and interacting with people in her house who are not there Previous evaluation includes MRI brain which was negative Psychiatry reconsulted as patient continues to have symptoms. Seen by Dr Hightower recommends inpatient psych admission Patient is admitted to inpatient psych and under psych care , continue management per psych 4. Frequent falls Likely secondary to deconditioning Patient denies syncopal episodes Physical therapy consulted to evaluate gait stability/deconditioning 5. Coronary artery disease Continue aspirin and Plavix Status post CABG Troponin/EKG pending Patient denies chest pain or shortness of breath 6. Diabetes mellitus insulin dependent, labile Labile BS Blood glucose on arrival to ED was 408 However the patient is noted with hypoglycemia in the morning of 04/11 on admission to psych Adjust insulin decreased night levemir to 12 U and will continue to monitor and adjust insulin . Patient is however with labile BS levels. 04/12 with low BS at 65 in the morning. Patient still with labile BS. BS in the morning low. Will change Levemir to bid 7 U Monitor blood glucose 04/13 BS labile change insulin detemir 5U SQ at HS and Insulin detemir 10 U in the morning. Monitor BS and adjust insulin as need 04/14 BS still labile, no episodes of hypoglycemia. BS however better controlled, will see trend and continue to adjust insulin as indicated. 7. Diarrhea likely laxative induced. Had diarrhea x2 times on admission to psych. Patient received laxative. DC laxative and also start probiotic. Diarrhea resolved. 8. Hypertension/hyperlipidemia/hypothyroidism Continue home medications Physical deconditioning consult PT, recommends PT at [place] Thank you for this consultation will follow along
--- NOTE | 2018-04-14 21:18 | P.DSPSY ---
Psychiatry Discharge Summary Inpatient Psychiatric care?: Yes Advance Directives: No Mental Health Advance Directive: No Health Care Proxy: No - Admission Admission Date: April 10, 2018 12:26 - Admission Diagnosis (1) Unspecified psychosis Code(s): F29 - Unspecified psychosis not due to a substance or known physiological condition Brief History: 04/09/2018 The patient is a 77-year-old woman, domiciled with her and granddaughter in [place], retired, without no previous psychiatric history, no previous suicide attempts, no psychiatric hospitalizations, but she was seen and cleared about a week ago by Dr. Young here in [place] with a similar complaint than today, with a past medical history significant for diabetes mellitus, hypertension, hyperlipidemia, coronary artery disease status post CABG on 03/14/18, CHF and hypothyroidism, who presents to the emergency department for the evaluation of multiple falls. The patient reports that she has fallen twice today and twice yesterday. She states that today she noticed she had blood in her urine and was bending down to get a sample when she fell backwards into her bathtub. Her daughter called her primary care provider who suggested she come to the emergency department for further evaluation of hematuria. The patient denies hitting her head or loss of consciousness. The patient was hospitalized earlier this month where she was evaluated for visual hallucinations with psychiatry consult, head CT and MRI. Psychiatry recommended outpatient follow-up which the patient has not done. She reports that today she was seeing people in her house. She states they were sitting next to her more getting up and moving around. Mouth is also covered in blue ink and she reports that she was told she was chewing on a blue pen earlier in the day however she has no memory of this. Head CT negative. No chest pain or shortness of breath. No abdominal pain. No nausea/vomiting/ diarrhea. No lateralizing signs/symptoms. The patient is on observation due to acute renal failure BUN/creatinine 45/2.61 baseline 1.3, Hematuria, Hyperkalemia, Potassium 5.5. Consulted to psychiatry again to address visual hallucinations. My psychiatric evaluation I find a patient that is calm, cooperative and pleasant. The patient says that starting March 14 she has been having episodic, on and off, visual hallucinations. She says that these hallucination has been progressive in frequency, intensity and severity. In the last days she has been having 6-7 episodes per day of seeing people coming inside her house, trying to contact her, and she has even seen her son who lives in [place] sitting in her house. Initially she was not afraid of dying, but lately she has been losing the contact with reality and thinking that hallucinations are real. Patient is very interested in treating these hallucinations. The patient denies depressive symptoms, she denies anhedonia, hopelessness, helplessness, she denies suicidal and homicidal ideation, she denies visual and auditory hallucinations. The patient is fully oriented x3, with good recent, immediate and remote recall. Good obstruction, language, executive function. 04/10/2018 The patient was seen today for psychiatric reevaluation. Patient is calm, cooperative, pleasant. The patient states that she has not have any visual hallucinations in the last 24 hours. She says that she had a very good sleep last night, described good mood, but at the same time she says that she is very afraid to go back home and experienced this perceptual disturbances again. She says that she feels very anxious and is kind of anticipating that she is going to have them "and I am not going to be able to handle it". Patient is fully oriented x3, without attention deficit, no filtration of consciousness at the moment. PPHx: no previous suicide attempts, no psychiatric hospitalizations, but she was seen and cleared about a week ago by Dr. Young here in [place] with a similar complaint than today, PMHx: with a past medical history significant for diabetes mellitus, hypertension, hyperlipidemia, coronary artery disease status post CABG on , CHF and hypothyroidism Substance Hx: The use of illegal drugs and alcohol Family Hx: She has a son that is bipolar Social Hx: The patient was born and raised in [place], she lives in [place] with her and granddaughter, she is retired Tobacco Use In Past 30 Days: No How Often Do You Have a Drink Containing Alcohol: Never Hospital Course: The patient is a 77-year-old woman, domiciled with her and granddaughter in [place], retired, without no previous psychiatric history, no previous suicide attempts, no psychiatric hospitalizations, but she was seen and cleared about a week ago by Dr. Young here in [place] with a similar complaint than today, with a past medical history significant for diabetes mellitus, hypertension, hyperlipidemia, coronary artery disease status post CABG on 03/14/18, CHF and hypothyroidism, who presents to the emergency department for the evaluation of multiple falls was endorsing visual hallucinations which psychiatry was consulted and was recommended for inpatient psychiatric evaluation and management. Patient was admitted to a locked, inpatient psychiatric unit. Appropriate precautions were in place throughout patient's hospital stay. Patient was seen and examined on the unit by psychiatry. Psychotropic medications were adjusted. There was no evidence of any suicidality or homicidality on the inpatient unit. Patient's mood improved with the benefit of psychopharmacological treatment and had no further visual hallucinations since admission. Patient was noted to have reached stable mood, noted to participate and engage in treatment and interact with staff adequately. Patient noted to be future oriented with plans to continue treatment and outpatient follow-up appointments for continuity of care. Counselor has arranged discharge plan which patient's granddaughter agreed to have patient return home without any safety concerns. On the day of discharge: Patient seen and examined; chart reviewed. Case discussed with nurse and counselor. No behavioral issues overnight. On my examination today, the patient denies any suicidal homicidal ideation, intent or plan on direct questioning and contracts for safety. Patient denies any perceptional disturbances and no delusional material verbalized today. Patient denies any side effects from medication and has understanding of medication regimen and education. No physical complaints. Suicide and violence risk assessment on day of discharge both suggest lower imminent risk, and the patient's level of function is adequate for plan level of outpatient care. Patient has maximized benefit from this inpatient psychiatric hospital stay and will be discharged with discharge plan as arranged by counselor. Patient advised to return to psychiatric emergency room for any concerning psychiatric symptoms. Patient agrees with plan. - Discharge Discharge Date: 04/14/18 - Discharge Diagnosis (1) Unspecified psychosis Code(s): F29 - Unspecified psychosis not due to a substance or known physiological condition Status: Acute Discharge Disposition: Home - Discharge Instructions Discharge Diet: Heart Healthy Diet Activities You Can Perform: Weight Bearing As Tolerat - Discharge Time > 30 minutes Mental Status Examination Appearance: Appropriate Consciousness: Alert Orientation: x4 Motor Activity: Normal gait Speech: Unremarkable Language: Adequate Fund of Knowledge: Adequate Attention and Concentration: Adequate Memory: Unremarkable Mood: Appropriate Affect: Appropriate Thought Process & Associations: Intact Thought Content: Appropriate Hallucination Type: None Delusion Type: None Suicidal Ideation: No Suicidal Plan: No Suicidal Intention: No Homicidal Ideation: No Homicidal Plan: No Homicidal Intention: No Insight: Fair Judgment: Impulsive Discharge/Advance Care Plan - Results Vital Signs: Last Vital Signs Temp 98.1 F 04/14/18 05:34 Pulse 84 04/14/18 05:34 Resp 18 04/14/18 05:34 BP 132/60 04/14/18 05:34 Pulse Ox 92 L 04/14/18 05:34 Lab Results: Abnormal Lab Results 04/14/18 04/14/18 05:53 11:32 POC Glucose 131 H 477 H* Laboratory Results Hemoglobin A1c 9.2 % (4.3-6.0) H 04/11/18 08:41 Triglycerides 179 mg/dL (42-150) H 04/11/18 08:41 Cholesterol 119 mg/dL (120-200) L 04/11/18 08:41 LDL Cholesterol, Calc 33 mg/dL (0-99) 04/11/18 08:41 HDL Cholesterol 50.1 mg/dL (40.0-60.0) 04/11/18 08:41 Summary of Procedures: none Pending Results: None - Medications Number of antipsychotic medications at discharge: 1 - Discharge Care Plan Goals to Promote Your Health: * To prevent worsening of your condition and complications * To maintain your health at the optimal level Directions to Meet Your Goals: Take your medications as prescribed Follow your dietary instruction Follow activity as directed Keep your appointments as scheduled Take your immunizations and boosters as scheduled If your symptoms worsen call your PCP, if no PCP go to Urgent Care Center or Emergency Room For 07/01 questions related to your inpatient stay or results of tests pending at discharge, please contact Dr. Jamie Caal MD at Smoking is Dangerous to Your Health. Avoid second hand smoking
== END 2018-04-14 18:20 | disposition home or self-care (01) ==
LOC: H250 12:26
PROVIDERS: ADMIT Student in an Organized Health Care Education/Training Program; ATTEND Student in an Organized Health Care Education/Training Program